=== PATIENT | male | born 1955 | race Two or more races ===

== ENCOUNTER 2018-08-10 19:39 | Emergency (ER) | payer MEDICARE, OTHER ==
[~2018-08-10] VITALS: Ht 177.8 cm; Wt 86.2 kg
[~2018-08-10 19:39] MED LIST: NKM
[2018-08-10 19:40] VITALS: BP 135/84
[2018-08-10 21:14] VITALS: BP 139/79
--- NOTE | 2018-08-10 21:42 | Emergency Room Report ---
History of Present Illness General Chief Complaint: Malfunctioning Gastric Tube Source: EMS Present Illness HPI 62-year-old male presents ED for G-tube re-placement. [facility] Nursing staff noted that G-tube was leaking today. Patient is nonverbal at baseline. Status post traumatic brain injury. Status post craniotomy. Has tracheostomy to trach collar. Upon arrival patient showing no signs of distress. No nausea or vomiting. Afebrile. No other aggravating relieving factors. No other associated symptoms Allergies: Coded Allergies: No Known Allergies (Unverified , 10/30/15) Patient History Past Medical History: seizures, other - dysphagia Past Surgical History: none, other - craniotoomy Pertinent Family History: none Social History: Denies: smoking, alcohol use, drug use Immunizations: UTD Reviewed Nursing Documentation: PMH: Agreed; PSxH: Agreed Nursing Documentation-PMH Past Medical History Deferred: Pt Cognitively Impaired Past Medical History: No History, Except For Hx Gastrointestinal Problems: Yes - Dysphasia Hx Neurological Problems: Yes - epilepsy Hx Cerebrovascular Accident: Yes - Traumatic subdermal hemmorhage Hx Seizures: Yes Review of Systems All Other Systems: limited Physical Exam Vital Signs Date Time Temp Pulse Resp B/P (MAP) Pulse Ox O2 Delivery O2 Flow Rate FiO2 08/10/18 19:34 98.2 76 16 135/84 99 Trach Collar 4.0 Sp02 EP Interpretation: reviewed, normal General Appearance: other - nonverbal Head: other - s/p craniotomy Eyes: bilateral eye normal inspection, bilateral eye PERRL ENT: normal ENT inspection Neck: tracheotomy Respiratory: chest non-tender, lungs clear, normal breath sounds, speaking full sentences Cardiovascular #1: regular rate, rhythm, no edema Gastrointestinal: normal bowel sounds, non tender, soft, non-distended, no guarding, no rebound, other - Gtube site C/D/I Rectal: deferred Genitourinary: no CVA tenderness Musculoskeletal: normal inspection Neurologic: other - nonverbal Psychiatric: other - nonverbal Skin: normal inspection Lymphatic: normal inspection Procedures Additional Procedure Procedure Narrative G-tube placement Patient placed on stretcher. Old G-tube is removed by deflating the balloon using syringe. G-tube site is inspected with no contraindications to G-tube placement. G-tube slowly inserted until resistance is met; G-tube balloon is slowly filled with 20 mL of normal saline and slowly retracted back until resistance is met. G-tube placement is confirmed with KUB study using Gastrografin Medical Decision Making Diagnostic Impression: Primary Impression: Malfunction of gastrostomy tube ER Course Hospital Course 62-year-old male presents to ED for G-tube placement. leaking at SNF Clinical course Patient placed on stretcher. After initial history and physical I replaced G- tube and inflate the balloon. G-tube placement confirmed with KUB study. Patient remained stable without any signs of distress. care home called and patient subsequently discharged back to facility. Diagnosis - malfunction of G tube stable and discharged back to facility. Followup with PMD. Return to ED if symptoms recur or worsen Other X-Ray Diagnostic Results Other X-Ray Diagnostic Results : X-Ray ordered: KUB # of Views/Limited Vs Complete: 1 View Indication: Other - Gtube placement EP Interpretation: Yes Interpretation: nonspecific bowel gas, no sbo, other - Gtube in place with no extravasation Impression: Other - Gtube in position Electronically Signed by: Electronically signed by Curt Luevano MD Last Vital Signs Date Time Temp Pulse Resp B/P (MAP) Pulse Ox O2 Delivery O2 Flow Rate FiO2 08/10/18 19:40 98.2 74 16 135/84 99 Trach Collar 4.0 Status: improved Disposition: XFER SNF Condition: Stable Patient Instructions: Gastrostomy Tube Home Guide, Adult Curt Luevano MD Aug 10, 2018 21:42
--- NOTE | 2018-08-11 11:28 | Diagnostic Imaging Report ---
Indication: Abdominal pain. Gastrostomy tube malfunction. Technique: XRAY Abdomen 1v Comparison: None Findings: Single image obtained after injection of contrast via the indwelling gastrostomy catheter. There is opacification of the stomach. No extraluminal extravasation of contrast is identified. Portions of likely ventriculoperitoneal catheters are noted. One catheter seems to terminate in the right upper quadrant and the second apparently in the left lower quadrant. There is dilatation of loops of bowel with significant amount of retained stool. Bowel obstruction not excluded. Impression: Stress me tube in the stomach. No extraluminal extravasation of injected contrast. Dilated loops of bowel with significant retained stool. Bowel obstruction not excludable. Portions of likely ventriculoperitoneal shunt catheters partially visualized. Correlate clinically. This corresponds with the statrad preliminary report.
== END 2018-08-10 21:14 ==
LOC: EDBD 19:39 → EMR 20:24
DX: K94.23 Gastrostomy malfunction (principal); G40.909 Epilepsy, unspecified, not intractable, without status epilepticus; I69.991 Dysphagia following unspecified cerebrovascular disease; Z93.0 Tracheostomy status
CPT/HCPCS: 43760; 74018; 99283; Q9963

== ENCOUNTER 2018-10-09 09:03 | Inpatient (IN) | payer OTHER ==
[~2018-10-09] VITALS: Ht 170.2 cm; Wt 74.8 kg
--- NOTE | 2018-10-09 09:05 | NUR ---
ED Nurse Note: ruth came in brought in by ambulance from [facility], [facility], due to increased of HR 157, fever 101.2 oral, RT by the bedside.
[2018-10-09] MEDS ORDERED: NS 1000ml 2,200 ML IVLG ONE (09:15)
[2018-10-09] MEDS ORDERED: Cefepime HCl 2 GM in NS 110 ML IV SCH (09:15)
--- NOTE | 2018-10-09 09:15 | NUR ---
ED Nurse Note:called labs for blood draw
[2018-10-09] MEDS ORDERED: ACETAMINOP160 MG/55 GT (09:27)
[2018-10-09] MEDS ORDERED: IPRATROPIU0.2 MG/1 M HHN (09:32)
[2018-10-09] MEDS ORDERED: PROAIR HFA8.5 GM INH (09:32)
[2018-10-09] MEDS ORDERED: FLORASTOR250 MG GT (09:32)
[2018-10-09] MEDS ORDERED: DOCUSATE SODIU100 MG GT (09:32)
[2018-10-09] MEDS ORDERED: FERROUS SU220 MG/53 GT (09:32)
[2018-10-09] MEDS ORDERED: LABETALOL HCL100 MG GT (09:32)
--- NOTE | 2018-10-09 09:33 | NUR ---
ED Nurse Note: attempted to start IV line with 3 RNs/concrete handler unable to,
[2018-10-09] MEDS ORDERED: Heparin 2000 units/Ns 1000ml INJ ONE (09:45)
[2018-10-09] MEDS ORDERED: Lidocaine 1% Plain 30 ml INJ ONE (09:45)
[2018-10-09] MEDS ORDERED: LEVETIRACE100 MG/1 M GT (09:46)
[2018-10-09] MEDS ORDERED: POLYETHYLENE GL17 GM ORAL (09:49)
[2018-10-09] MEDS ORDERED: [UNRECOGNIZED DRUG - CODE] GT (09:49)
[2018-10-09] MEDS ORDERED: WARFARIN SODIUM6 MG GT (09:49)
[2018-10-09] MEDS ORDERED: METOCLOPRA10 MG/10 M GT (09:49)
[2018-10-09] MEDS ORDERED: LEVOTHYROXINE75 MCG GT (09:49)
--- NOTE | 2018-10-09 09:55 | NUR ---
ED Nurse Note: straigt cath performed using sterile techique to obtain ua per Dr. Reed's order
--- NOTE | 2018-10-09 09:57 | NUR ---
ED Nurse Note: UA and flu swab done sent down to bal
--- NOTE | 2018-10-09 09:58 | NUR ---
ED Nurse Note: UA and flu swab done sent down to lab
--- NOTE | 2018-10-09 09:59 | NUR ---
TELEPHONE CONSENT OBTAINED FROM (GRISELDA HERNANDEZ) FOR THE PICC LINE INSERTION DUE TO PATIENT IS NON -VERBAL
[2018-10-09 10:04] LABS: APPEARANCE,URINE CLEAR; BILIRUBIN, URINE NEGATIVE (NEGATIVE); GLUCOSE, URINE (UA) NEGATIVE (NEGATIVE); KETONES,URINE 3+ (NEGATIVE); LEUKOCYTE ESTERASE ,URINE 1+ (NEGATIVE); NITRITE,URINE NEGATIVE (NEGATIVE); PH,URINE 5 (4.5-8.0); PROTEIN,URINE 2+ (NEGATIVE); UROBILINOGEN,URINE 4 MG/DL (0.0-1.0)
[2018-10-09 10:05] LABS: COLOR,URINE AMBER
[2018-10-09 10:10] VITALS: BP 96/73
[2018-10-09] MEDS ORDERED: Acetaminophen 500mg (ES) tab ORAL ONE (10:30)
--- NOTE | 2018-10-09 11:09 | Diagnostic Imaging Report ---
Indication: Dyspnea Comparison: None A single view chest radiograph was obtained. Findings: Distended colon with air noted in the upper abdomen. Lung volumes are low. There are bilateral infiltrates versus patchy areas of interstitial/alveolar edema. 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 Tracheostomy is noted. IMPRESSION: Bilateral infiltrates versus patchy pulmonary edema. Correlate clinically Moderately distended colon within the upper abdomen
--- NOTE | 2018-10-09 11:30 | Emergency Room Report ---
History of Present Illness General Chief Complaint: General Complaint Source: EMS Present Illness HPI 62-year-old male nonverbal, with trach and PEG, sent in for fever from alf, patient has history of craniotomy and unable to give any history at all. 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 Hx Seizures: Yes Review of Systems All Other Systems: limited - 2/2 med condition Physical Exam Vital Signs Date Time Temp Pulse Resp B/P (MAP) Pulse Ox O2 Delivery O2 Flow Rate FiO2 10/09/18 08:56 155 28 102/46 89 Mechanical Ventilator 10/09/18 10:10 101.4 100 Sp02 EP Interpretation: reviewed, normal General Appearance: no apparent distress Head: atraumatic - R craniotomy Eyes: bilateral eye normal inspection ENT: normal ENT inspection, normal pharynx, moist mucus membranes Neck: normal inspection, full range of motion, supple, supple/symm/no masses, tracheotomy - site C/D/I Respiratory: chest non-tender, lungs clear, normal breath sounds, chest symmetrical, palpation of chest normal Cardiovascular #1: normal peripheral pulses, regular rate, rhythm, tachycardia Cardiovascular #2: 2+ radial (R), 2+ radial (L) Gastrointestinal: normal inspection, non tender, soft, no mass, no guarding, no rebound, other - PEG site c/d/i Genitourinary: normal inspection, no CVA tenderness Musculoskeletal: digits/nails normal Neurologic: alert Psychiatric: other - flat affect Skin: normal color, no rash, warm/dry, normal turgor Lymphatic: no adenopathy Medical Decision Making Diagnostic Impression: Primary Impression: Sepsis ER Course Patient treated for sepsis with 30cc/kg ivf, blood cx, lactic acid, broad spectrum abx. Focused sepsis exam at 11:25am reveals patient hemodynamically stable. Given tylenol for fever, tachycardia. Patient admitted for further evaluation. EKG Diagnostic Results EKG Time: 09:04 EP Interpretation: no stemi Rate: tachycardiac Rhythm: NSR ST Segments: no acute changes ASA given to the pt in ED: No Rhythm Strip Diag. Results Rhythm Strip Time: 11:29 EP Interpretation: yes Rate: 138 Rhythm: NSR, no PVC's, no ectopy Last Vital Signs Date Time Temp Pulse Resp B/P (MAP) Pulse Ox O2 Delivery O2 Flow Rate FiO2 10/09/18 10:14 154 33 Trach Collar 100 10/09/18 10:10 101.4 96/73 97 Disposition: ADMITTED INPATIENT Condition: Stable Referrals: NON PHYSICIAN (PCP) NEYMAR OROZCO M.D Oct 09, 2018 11:30
--- NOTE | 2018-10-09 11:44 | NUR ---
ED Nurse Note: CALLED THE LAB FOR BLOOD DRAW
--- NOTE | 2018-10-09 11:46 | NUR ---
ED Nurse Note: VERIFIED WITH MECHE WILSON TO USE THE LINE
[2018-10-09] MEDS ORDERED: LORazepam Inj 2mg/ml 1ml IV PRN (12:15)
[2018-10-09] MEDS ORDERED: Morphine Sulfate 4mg/ml Inj (IV/IM USE ONLY) IVP PRN (12:15)
[2018-10-09] MEDS ORDERED: Albuterol/Ipratropium 3ml neb HHN PRN (12:15)
[2018-10-09] MEDS ORDERED: Miralax 17gm pkt ORAL PRN (12:15)
--- NOTE | 2018-10-09 12:33 | Diagnostic Imaging Report ---
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 The left upper extremity was prepped with alcohol. All elements of maximal sterile barrier technique were followed including usage of a cap, mask, sterile gown, sterile gloves, hand hygiene and a large sterile sheet. Sonographic evaluation of the upper extremity was performed demonstrating a patent and compressible basilic vein. Access was obtained under real-time ultrasound guidance (with utilization of sterile gel and sterile probe cover) and digital image was saved and archived. An .018 wire was introduced. Needle exchanged for a 5 Chinese peel-away sheath. Measurements were obtained. A 5 Chinese dual-lumen Power PICC line catheter was cut to 30 cm and introduced over the wire. Peel-away sheath and wire were removed.Catheter was secured to the skin using 2-0 Prolene suture. Both ports aspirate and flush easily. Post procedure chest x-ray demonstrates good position of the PICC line catheter within the peripheral aspect of the left subclavian vein. Attempts at passing a wire and catheter beyond this point were unsuccessful at the bedside. Impression: Unsuccessful central placement of an upper extremity PICC line catheter. A midline catheter was placed with the tip in the left subclavian vein. This may be used for peripheral access.
[2018-10-09 12:35] LABS: HEMATOCRIT 44.9 % (42.0-52.0); HEMOGLOBIN 14.9 G/DL (14.2-18.0); MEAN CORPUSCULAR VOLUME 89 FL (80-99); PLATELET COUNT 187 K/UL (150-450); RED BLOOD COUNT 5.07 M/UL (4.70-6.10); RED CELL DISTRIBUTION WIDTH 13.7 % (11.6-14.8); WHITE BLOOD COUNT 17.9 K/UL (4.8-10.8)
[2018-10-09 12:36] LABS: ANION GAP 11 mmol/L (5-15); BLOOD UREA NITROGEN 28 mg/dL (7-18); CALCIUM 9.2 MG/DL (8.5-10.1); CARBON DIOXIDE 26 MMOL/L (21-32); CHLORIDE 104 MMOL/L (98-107); CREATININE 0.9 MG/DL (0.55-1.30); POTASSIUM 3.4 MMOL/L (3.5-5.1); SODIUM 141 MMOL/L (136-145)
[2018-10-09 12:41] LABS: INR 2.2 (0.9-1.1)
[2018-10-09 13:02] LABS: ALANINE AMINOTRANSFERASE 32 U/L (12-78); ALBUMIN 3.6 G/DL (3.4-5.0); ALBUMIN/GLOBULIN RATIO 0.8 (1.0-2.7); ALKALINE PHOSPHATASE 81 U/L (46-116); ASPARTATE AMINO TRANSFERASE 16 U/L (15-37); BILIRUBIN,TOTAL 0.9 MG/DL (0.2-1.0); CKMB 0.6 NG/ML (0.0-3.6); CREATINE KINASE 63 U/L (26-308)
--- NOTE | 2018-10-09 13:06 | NUR ---
ED Nurse Note: swabs done and sent down to the lab. pt had 1 green BM soft, cleaned the pt, kept dry/clean. skin is intact, no opening noted. sacral redness noted. g-tube flushed.
[2018-10-09 13:32] VITALS: BP 97/62
--- NOTE | 2018-10-09 13:35 | NUR ---
ED Nurse Note: report given to Manjit at SDU patient has no belongings.
[2018-10-09 14:00] VITALS: BP 108/78
--- NOTE | 2018-10-09 14:30 | NUR ---
NURSE NOTES: Patient admitted to T[facility] room 241-2 under the care of Dr. Cates with admitting diagnosis of sepsis. Patient has flat affect, nonverbal, unable to make needs known and follow commands. Receiving O2 via T-piece @ 10 L/min, FiO2 50%, noted with thick secretions, tracheal suctioning provided. GT in place and flushed. Skin intact, noted with multiple rashes. Left upper arm midline patent and asymptomatic. Bed locked in lowest position with side rails up x 3. All needs attended to. Will continue to monitor.
[2018-10-09] MEDS ORDERED: Vancomycin 1.5 GM/D5W 250ML IVPB ONE (15:00)
--- NOTE | 2018-10-09 15:03 | History & Physical ---
History and Physical History & Physicial Lion Cates MD Oct 09, 2018 15:03
--- NOTE | 2018-10-09 15:22 | Consultation ---
History of Present Illness General Date patient seen: Oct 09, 2018 Chief Complaint: General Complaint Present Illness HPI 62 y/o M with hx of non verbal status, s/p trach and peg, seizure disorder, traumatic subdermal hemorrhage s/p craniotomy, senior care resident presents to ED on 10/09 with fever. Allergies: Coded Allergies: No Known Allergies (Unverified , 10/30/15) Medication History Scheduled Cholecalciferol (Vitamin D3) (Vitamin D3), 2,000 UNIT GT DAILY, (Reported) Ferrous Sulfate (Ferrous Sulfate), 7.5 ML GT DAILY, (Reported) Labetalol Hcl* (Normodyne*), 100 MG GT EVERY 8 HOURS, (Reported) Levetiracetam* (Levetiracetam*), 500 MG GT BID, (Reported) Levothyroxine Sodium* (Levothyroxine Sodium*), 75 MCG GT DAILY, (Reported) Metoclopramide Hcl* (Metoclopramide Hcl*), 10 MG GT EVERY 6 HOURS, (Reported) No Known Medications* (NKM - No Known Medications*), 0 ., (Reported) Saccharomyces Boulardii (Florastor*), 250 MG GT DAILY, (Reported) Warfarin Sod* (Warfarin Sod*), 6 MG GT DAILY, (Reported) Scheduled PRN Acetaminophen* (Acetaminophen*), 640 MG GT Q6H PRN for Mild Pain/Temp > 100.5, ( Reported) Albuterol Sulfate* (Proair Hfa*), 2 PUFFS INH Q6H PRN for Shortness of Breath, ( Reported) Docusate Sodium* (Docusate Sodium*), 100 MG GT EVERY 12 HOURS PRN for Constipation, (Reported) Ipratropium Marion 0.5MG/2.5ML (Ipratropium Marion 0.5MG/2.5ML), 0.5 MG HHN Q6H PRN for Shortness of Breath, (Reported) Polyethylene Glycol 3350* (Polyethylene Glycol 3350*), 17 GM ORAL BEDTIME PRN for Constipation, (Reported) Patient History Healthcare decision maker Resuscitation status Advanced Directive on File Patient History Narrative Pmhx: as above Shx: reviewed Fhx:non contributory Physical Exam Physical Exam Narrative General Appearance: no apparent distress HEENT: atraumatic - R craniotomy normal ENT inspection, normal pharynx, moist mucus membranes Neck: normal inspection, full range of motion, supple, supple/symm/no masses, tracheotomy - site C/D/I Respiratory: chest non-tender, lungs clear, normal breath sounds, chest symmetrical, palpation of chest normal Cardiovascular : normal peripheral pulses, regular rate, rhythm, tachycardia Gastrointestinal: normal inspection, non tender, soft, no mass, no guarding, no rebound, other - PEG site c/d/i Genitourinary: normal inspection, no CVA tenderness Musculoskeletal: digits/nails normal Skin: normal color, no rash, warm/dry, normal turgor Lymphatic: no adenopathy Last 24 Hour Vital Signs Date Time Temp Pulse Resp B/P (MAP) Pulse Ox O2 Delivery O2 Flow Rate FiO2 10/09/18 14:46 122 108/78 10/09/18 13:34 100.7 123 25 97/62 100 Trach Collar 100 10/09/18 13:32 100.7 123 25 97/62 100 Trach Collar 100 10/09/18 13:30 T-piece 50 10/09/18 11:14 100.7 10/09/18 10:14 154 33 Trach Collar 100 10/09/18 10:10 101.4 154 33 96/73 97 Trach Collar 100 10/09/18 10:00 92 T-piece 70 10/09/18 10:00 T-piece 70 10/09/18 08:56 155 28 102/46 89 Mechanical Ventilator Laboratory Tests Test 10/09/18 09:42 10/09/18 12:15 Urine Color Eun Urine Appearance Clear Urine pH 5 (4.5-8.0) Urine Specific [place] 1.025 (1.005-1.035) Urine Protein 2+ (NEGATIVE) H Urine Glucose (UA) Negative (NEGATIVE) Urine Ketones 3+ (NEGATIVE) H Urine Blood 1+ (NEGATIVE) H Urine Nitrite Negative (NEGATIVE) Urine Bilirubin Negative (NEGATIVE) Urine Ictotest Negative (NEGATIVE) Urine Urobilinogen 4 MG/DL (0.0-1.0) H Urine Leukocyte Esterase 1+ (NEGATIVE) H Urine RBC 2-4 /HPF (0 - 0) H Urine WBC 10-15 /HPF (0 - 0) H Urine Squamous Epithelial Cells Occasional /LPF Urine Bacteria Few /HPF (NONE) White Blood Count 17.9 K/UL (4.8-10.8) H Red Blood Count 5.07 M/UL (4.70-6.10) Hemoglobin 14.9 G/DL (14.2-18.0) Hematocrit 44.9 % (42.0-52.0) Mean Corpuscular Volume 89 FL (80-99) Mean Corpuscular Hemoglobin 29.3 PG (27.0-31.0) Mean Corpuscular Hemoglobin Concent 33.1 G/DL (32.0-36.0) Red Cell Distribution Width 13.7 % (11.6-14.8) Platelet Count 187 K/UL (150-450) Mean Platelet Volume 9.1 FL (6.5-10.1) Neutrophils (%) (Auto) % (45.0-75.0) Lymphocytes (%) (Auto) % (20.0-45.0) Monocytes (%) (Auto) % (1.0-10.0) Eosinophils (%) (Auto) % (0.0-3.0) Basophils (%) (Auto) % (0.0-2.0) Differential Total Cells Counted 100 Neutrophils % (Manual) 84 % (45-75) H Lymphocytes % (Manual) 2 % (20-45) L Monocytes % (Manual) 6 % (1-10) Eosinophils % (Manual) 0 % (0-3) Basophils % (Manual) 0 % (0-2) Band Neutrophils 8 % (0-8) Platelet Estimate Adequate Platelet Morphology Normal Red Blood Cell Morphology Normal Prothrombin Time 22.2 SEC (9.30-11.50) H Prothromb Time International Ratio 2.2 (0.9-1.1) H Activated Partial Thromboplast Time 44 SEC (23-33) H Sodium Level 141 MMOL/L (136-145) Potassium Level 3.4 MMOL/L (3.5-5.1) L Chloride Level 104 MMOL/L (98-107) Carbon Dioxide Level 26 MMOL/L (21-32) Anion Gap 11 mmol/L (5-15) Blood Urea Nitrogen 28 mg/dL (7-18) H Creatinine 0.9 MG/DL (0.55-1.30) Estimat Glomerular Filtration Rate > 60 mL/min (>60) Glucose Level 113 MG/DL (74-106) H Lactic Acid Level 1.70 mmol/L (0.4-2.0) Calcium Level 9.2 MG/DL (8.5-10.1) Total Bilirubin 0.9 MG/DL (0.2-1.0) Aspartate Amino Transf (AST/SGOT) 16 U/L (15-37) Alanine Aminotransferase (ALT/SGPT) 32 U/L (12-78) Alkaline Phosphatase 81 U/L (46-116) Total Creatine Kinase 63 U/L (26-308) Creatine Kinase MB 0.6 NG/ML (0.0-3.6) Creatine Kinase MB Relative Index 0.9 Troponin I 0.064 ng/mL (0.000-0.056) Pro-B-Type Natriuretic Peptide 1007 pg/mL (0-125) H Total Protein 8.2 G/DL (6.4-8.2) Albumin 3.6 G/DL (3.4-5.0) Globulin 4.6 g/dL Albumin/Globulin Ratio 0.8 (1.0-2.7) L Microbiology Date/Time Source Procedure Growth Status 10/09/18 09:35 Nasal Nares Influenza Types A,B Antigen (GILLIAN) - Final Complete Height (Feet): 5 Height (Inches): 7.00 Weight (Pounds): 160 Medications Current Medications Medications (Trade) Dose Ordered Sig/Yesenia Route PRN Reason Start Time Stop Time Status Last Admin Dose Admin Acetaminophen (Tylenol) 650 mg Q4H PRN ORAL T>100.5 10/09/18 13:15 11/08/18 12:14 Albuterol/ Ipratropium (Albuterol/ Ipratropium) 3 ml Q4H PRN HHN Shortness of Breath 10/09/18 12:15 10/14/18 12:14 Cefepime HCl 1 gm/ Dextrose 50 ml @ 100 mls/hr EVERY 12 HOURS IVPB 10/09/18 22:00 10/16/18 21:59 Chlorhexidine Gluconate (Kaila-Hex 2%) 1 applic DAILY@2000 TOPIC 10/09/18 20:00 11/08/18 19:59 Dextrose (Dextrose 50%) 25 ml Q30M PRN IV Hypoglycemia 10/09/18 13:15 11/08/18 13:05 Dextrose (Dextrose 50%) 50 ml Q30M PRN IV hypoglycemia 10/09/18 13:15 11/08/18 13:14 Labetalol HCl (Normodyne) 100 mg EVERY 8 HOURS GT 10/09/18 14:00 11/08/18 13:59 10/09/18 14:46 Levetiracetam (Keppra) 500 mg Q12HR GT 10/09/18 21:00 11/08/18 20:59 Levothyroxine Sodium (Synthroid) 75 mcg DAILY GT 10/10/18 09:00 11/09/18 08:59 Lorazepam (Ativan 2mg/ml 1ml) 2 mg Q2H PRN IV For Anxiety 10/09/18 12:15 10/16/18 12:14 Morphine Sulfate (Morphine Sulfate) 4 mg Q4H PRN IVP Severe Pain (Pain Scale 7-10) 10/09/18 12:15 10/16/18 12:14 Ondansetron HCl (Zofran) 4 mg Q6H PRN IVP Nausea & Vomiting 10/09/18 12:15 11/08/18 12:14 Pantoprazole (Protonix) 40 mg DAILY IV 10/10/18 09:00 11/09/18 08:59 Polyethylene Glycol (Miralax) 17 gm DAILYPRN PRN ORAL Constipation 10/09/18 12:15 11/08/18 12:14 Vancomycin HCl (Vanco rx to dose) 1 ea DAILY PRN MISC . 10/09/18 13:15 11/08/18 13:14 Vancomycin HCl/ Dextrose 250 ml @ 125 mls/hr ONCE ONCE IVPB 10/09/18 15:00 10/09/18 16:59 10/09/18 14:47 Vancomycin HCl/ Dextrose 250 ml @ 166.667 mls/hr Q12HR@0300,1500 IVPB 10/10/18 03:00 10/15/18 02:59 Warfarin Sodium (Coumadin per pharmacy) 1 ea DAILY PRN MISC Per rx protocol 10/09/18 15:00 11/08/18 14:59 UNV Assessment/Plan Assessment/Plan Abx: IV Vancomycin 10/09- Cefepime 10/09- Levaquin x 1 10/09 Assessment: Sepsis 2ry to PNA -CXR: There are bilateral infiltrates versus patchy areas of interstitial/ alveolar edema. 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 -influenza sc neg Acute on chronic resp failure Fever, improving Leukocytosis non verbal status s/p trach and peg seizure disorder traumatic subdermal hemorrhage s/p craniotomy senior care resident Plan: -Continue empiric IV Vancomycin, Levaquin and Cefepime #1 for PNA pending cultures -f/u cx -Monitor CBC/CMP, temperatures -legionella ag urine -aspiration precautions Thank you for this consultation. Will continue to follow along with you. Discussed with MARI. Janel Salinas M.D. Oct 09, 2018 15:22
[2018-10-09 16:00] VITALS: BP 110/67
--- NOTE | 2018-10-09 16:41 | NUR ---
CASE MANAGEMENT: REVIEW 62/M JOHN FROM [facility] CC: FEVER SI: SEPSIS . ASPIRATION PNEUMONIA T 101.4 HR 155 RR 33 BP 96/73 SAT 89% MECH VENT FIO2 100 WBC 17.9 K 3.4 BUN 28 IS: LEVOFLOXACIN IV X1 CEFEPIME IV X1 NS IVF BOLUS X1 TYLENOL PO X1 INTERQUAL CRITERIA MET: PATIENT ADMITTED TO STEP DOWN UNIT 10/09/2018 DCP: PATIENT IS FROM [facility]
[2018-10-09] MEDS: D5 1/2NS w/KCl 20mEq 1,000 ML IV SCH (16:47)
--- NOTE | 2018-10-09 19:31 | NUR ---
HAND-OFF: Report given to Yas Natarajan RN.
--- NOTE | 2018-10-09 19:35 | NUR ---
NURSE NOTES: Received bedside report with MARI Capellan from MARI Deutsch.Patient stable,obtunded,ST on telemetry monitor,portex 7,T Piece,10 L FiO2 50% ,IV intact,skin intact,no s/s of respiratory distress noted,bed in a low safety position,call light within a reach,will continue to monitor
--- NOTE | 2018-10-09 19:38 | NUR ---
NURSE NOTES: Report received from MARI Solitario. Patient seen in bed in portillo position with trach, 10L oxygen, 50%, no acute respiratory distress present at this time. patient is alert, no signs and symptom of pain noted at this time. Midline to left upper arm is intact. Currently on IVF of D51/2NS with 20mEq K at 75CC/hr. GTF of [facility] is running at 15cc/hr, goal is to reach 30 cc/hr. GT site is intact. Bed is in lowest position. Call light is within reach. Will continue to monitor.
[2018-10-09 20:00] VITALS: BP 110/80
[2018-10-09] MEDS: Dyna-Hex 2% Top Sol 2oz TOPIC SCH (20:15)
--- NOTE | 2018-10-09 20:15 | History and Physical Report ---
DATE OF ADMISSION: 10/09/2018 CHIEF COMPLAINT: [facility] at the [facility]. 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 Shortly after initial evaluation in the emergency, the patient was noted to have a fever of 100.7 with white count of 17.9 and then subsequently, the patient was admitted to the hospital for sepsis, possibly due to pneumonia. PAST MEDICAL HISTORY/PAST SURGICAL HISTORY: Significant as above. History of traumatic subdural hemorrhage, status post tracheostomy and PEG placement, epilepsy, hypothyroidism, hypertension, encephalopathy, history of craniotomy, dysphagia, status post percutaneous endoscopic gastrostomy, in a coma state. MEDICATIONS AT HOME: Refer to medication reconciliation. ALLERGIES: No known drug allergies. SOCIAL HISTORY: The patient is a [facility] resident. No smoking, alcohol, or drugs. FAMILY HISTORY: Noncontributory. REVIEW OF SYSTEMS: Very limited secondary to the patient's status. Most of the history is taken from the ER chart as well as [facility] documentation. The patient was noted to have fever at the nursing facility. No nausea or vomiting was identified. PHYSICAL EXAMINATION: VITAL SIGNS: On admission from the ER, temperature 101.4, pulse of 115, respirations 28, and blood pressure 102/46. GENERAL: The patient is not opening his eyes and cannot follow commands. No acute distress. On the vent. HEENT: Pupils are equal and reactive to light. Anicteric. NECK: Supple. No JVD. Trach site is intact. LUNGS: Good air entry. No wheezing or rhonchi. HEART: Reveals S1, S2. Distant heart sounds. No murmurs or gallops. ABDOMEN: Soft, nondistended, and nontender. Mildly obese. PEG site is clean. EXTREMITIES: No cyanosis, clubbing, or edema. NEUROLOGIC: Limited secondary to the patient's status. The patient has quadriplegia and cannot follow commands. PSYCHIATRIC: Mood and affect unable to obtain. RECTAL: Refused by the at the bedside. LABORATORY AND DIAGNOSTIC DATA: On admission, WBC of 7.9, hemoglobin of 14, hematocrit of 44, and platelets is 187,000. Sodium 141, potassium 3.4, chloride 104, bicarbonate 26, BUN 28, creatinine 0.9, and glucose is 113. Troponin 0.064. ProBNP of 1007. PT of 22, INR is 2.2, and PTT of 44. UA is +2 protein, +3 ketone, +4 urobilinogen, leukocyte is +1, and 10 to 15 wbc. The patient's chest x-ray noted to be bilateral infiltrate versus patchy pulmonary edema and moderately distended colon within the upper abdomen. The patient underwent successfully PICC line placement in the upper extremity in the ER. ASSESSMENT: 1. Sepsis secondary to urinary tract infection versus pneumonia. 2. Chronic respiratory failure, on ventilation. 3. History of traumatic subdural hematoma. 4. History of deep venous thrombosis, on Coumadin. 5. Hypertension. 6. Hypothyroidism. 7. Morbid obesity. 8. Traumatic brain injury with coma stage. 9. Epilepsy. 10. Dysphagia status post percutaneous endoscopic gastrostomy. PLAN: 1. Admit the patient to [facility]. 2. We will follow up the cultures. Broad-spectrum antibiotics with cefepime and vancomycin. 3. We will continue on Coumadin per pharmacy. CODE STATUS: At this time, is Full Code per POL, was done on 03/24/2017. Copy was presented in the chart. Discussed with extensively at bedside and will follow up with Dr. Foley, Pulmonary Critical Care consultation and Infection Disease consultation. Lion Cates M.D. DR: DARLY JOB#: [id number] CC:
[2018-10-09] MEDS: levETIRAcetam 500mg/5ml Liquid GT SCH (20:16)
[2018-10-09] MEDS ORDERED: Heparin 5000 units/ml inj SUBQ SCH (21:00)
--- NOTE | 2018-10-09 21:00 | Consultation ---
DATE OF CONSULTATION: 10/09/2018 INFECTIOUS DISEASE CONSULTATION CONSULTING PHYSICIAN: Bijan Mo M.D. REQUESTING PHYSICIAN: Lion Cates M.D. REASON FOR CONSULTATION: Bilateral pneumonia, UTI, sepsis, and skin rash. Recommendation for antibiotics treatment in the patient with possible allergy to amoxicillin, who developed skin rash. HISTORY OF PRESENT ILLNESS: The patient is a 62-year-old male, nonverbal with past medical history of dysphagia, status post PEG tube; chronic respiratory failure, status post tracheostomy; and traumatic subdermal hemorrhage of the brain, [facility] for fever of 101.3 and tachycardia of 150. The patient was recently treated for VRE in the urine with amoxicillin initially at the [facility] and he developed rash right after that, then he was switched to Keflex, and then later to doxycycline as per the [facility] report with no significant improvement. The patient developed fever today with temperature of 101.3 and he was tachycardic with heart rate of 150 concerning for sepsis, so he was sent to the emergency room at [facility] for evaluation. The patient was found to have bilateral pneumonia and urinary tract infection with diffuse papular skin rash, so he received cefepime and levofloxacin in the emergency room and an Infectious Disease consultation was requested for antibiotics treatment and further management. As of note, the patient is nonverbal and cannot provide any history due to previous craniotomy. History was mainly obtained from the medical record, [facility] report, and nursing staff. REVIEW OF SYSTEMS: Unable to obtain. The patient is poor historian and cannot provide any history. PAST MEDICAL HISTORY: Significant for craniotomy due to traumatic subdural hemorrhage, seizure disorder, epilepsy, dysphagia, and UTI with VRE. PAST SURGICAL HISTORY: He had craniotomy in the past. FAMILY HISTORY: Unable to obtain. SOCIAL HISTORY: [facility] is a [facility] resident. No recent drugs, tobacco, or alcohol. ALLERGIES: Possibly to amoxicillin as per [facility] report. MEDICATIONS: He received cefepime and levofloxacin in the emergency room. For the rest of his medications, please refer to MAR. PHYSICAL EXAMINATION: VITAL SIGNS: Temperature 100.7, pulse 123, respirations 25, blood pressure 97/62, and saturation 100% on ventilator with collar. HEENT: He has right large craniotomy defect. Skin intact. Pupils both reactive to light and equal. Pale sclerae. Dry oral mucosa. NECK: Supple. No lymphadenopathy. Tracheostomy site looks intact and dry. No bleeding. CARDIOVASCULAR: He is tachycardic. S1 and S2 normal. No murmur. LUNGS: Diminished breathing sound on both sides with crackles. Normal breathing efforts. ABDOMEN: Soft and mildly distended. Normal bowel sounds. PEG tube site looks okay with no drainage or bleeding. No rebound. No ascites. EXTREMITIES: No edema or cyanosis. No pressure wounds. SKIN: Diffuse papular rash mainly on his back, trunk, and lower extremities. LABORATORY AND DIAGNOSTIC DATA: White count of 17.9, hemoglobin of 14.9, and platelet count of 187,000. BUN of 28 and creatinine of 0.9. AST of 16 and ALT of 32. Urinalysis showed +1 leukocyte esterase, wbc's 10 to 15, and few bacteria. Microbiology, influenza screening A and B both negative. Imaging, chest x-ray showed bilateral infiltrates versus patchy pulmonary edema correlate clinically and moderately distended colon within the upper abdomen. ASSESSMENT AND RECOMMENDATIONS: 1. Bilateral aspiration pneumonia. We will continue vancomycin and cefepime empiric coverage for now pending culture results. Aspiration precaution and keep head of bed more than 30-degree all the time with aggressive suctioning through his trach. 2. UTI. Continue cefepime and vancomycin pending urine culture. The patient did not have any Hu. 3. Fever due to the above. Continue wide-spectrum antibiotics pending culture and Tylenol p.r.n. 4. Acute respiratory failure due to the above, on mechanical ventilation. Pulmonary is following. Continue local trach care. Monitor chest x-ray and ABG. Continue aggressive suctioning. 5. Sepsis with leukocytosis due to the above. Continue vancomycin and cefepime pending culture of the blood. 6. Skin rash, suspect drug reaction due to amoxicillin, which [facility] was [facility] the [facility]. As per the record, we obtained. This will need to be added to his allergy list in the future to avoid penicillin products. Thank you for the consult. ID will continue to follow. Please feel free to call with any question. Bijan Mo M.D. DR: DIANNA JOB#: [id number] CC:
[2018-10-10] VITALS: BP 100/63
[2018-10-10] MEDS: Vancomycin 1250mg/D5W 250ml IVPB SCH ×2 (02:30→14:17)
[2018-10-10 04:00] VITALS: BP 110/70
[2018-10-10] MEDS: D5 1/2NS w/KCl 20mEq 1,000 ML IV SCH ×2 (05:39→20:03)
--- NOTE | 2018-10-10 06:00 | NUR ---
NURSE NOTES: Patient not tolerated GT feeding,vomited 2x,abdomen distended,no residual noted,feeding off.Next shift will endorse.
--- NOTE | 2018-10-10 07:16 | NUR ---
HAND-OFF: Report given to MARI Mendoza .
[2018-10-10 07:18] LABS: HEMATOCRIT 38.2 % (42.0-52.0); HEMOGLOBIN 12.8 G/DL (14.2-18.0); MEAN CORPUSCULAR VOLUME 89 FL (80-99); PLATELET COUNT 157 K/UL (150-450); RED CELL DISTRIBUTION WIDTH 13.6 % (11.6-14.8)
[2018-10-10 07:21] LABS: INR 2.2 (0.9-1.1)
--- NOTE | 2018-10-10 07:25 | NUR ---
NURSE NOTES: Report received from MARI Zuniga. Observed patient in bed. Obtunded and non-verbal. T-piece with 10L of oxygen with no distress noted. No s/s of pain at this time. Midline intact and patent with IVF running at prescribed rate. GT site intact and patent. Tube feeding on hold at this time due to episode of vomiting. HOB elevated. Bed in lowest position. Call light within reach. Will continue to monitor.
[2018-10-10 07:51] LABS: ALANINE AMINOTRANSFERASE 28 U/L (12-78); ALBUMIN 3.1 G/DL (3.4-5.0); ALBUMIN/GLOBULIN RATIO 0.7 (1.0-2.7); ALKALINE PHOSPHATASE 70 U/L (46-116); ANION GAP 11 mmol/L (5-15); ASPARTATE AMINO TRANSFERASE 15 U/L (15-37); BILIRUBIN,TOTAL 0.7 MG/DL (0.2-1.0); BLOOD UREA NITROGEN 30 mg/dL (7-18); CALCIUM 9.3 MG/DL (8.5-10.1); CARBON DIOXIDE 26 MMOL/L (21-32); CHLORIDE 102 MMOL/L (98-107); CREATININE 0.8 MG/DL (0.55-1.30); PHOSPHORUS 2.4 MG/DL (2.5-4.9); POTASSIUM 3.3 MMOL/L (3.5-5.1); SODIUM 139 MMOL/L (136-145)
[2018-10-10 08:00] VITALS: BP 98/65
[2018-10-10] MEDS: Pantoprazole Inj IV SCH (08:06)
[2018-10-10] MEDS: levETIRAcetam 500mg/5ml Liquid GT SCH (08:07)
--- NOTE | 2018-10-10 08:22 | NUR ---
NURSE NOTES: Called and left message to Dr. Foley regarding low potassium level and episode of vomiting x 2. Awaiting for call back.
--- NOTE | 2018-10-10 08:30 | NUR ---
NURSE NOTES: Called back from Dr. Foley regarding episode of vomiting and low potassium. Doctor ordered KUB and no new order for low potassium at this time because pt. is getting potassium from IVF. Order carried out.
--- NOTE | 2018-10-10 09:48 | NUR ---
NURSE NOTES: Called and left message to Dr. Salinas regarding pt.'s right thumb is swelling and red. Right thumb nail is almost coming off. Awaiting for call back.
--- NOTE | 2018-10-10 10:11 | NUR ---
CASE MANAGEMENT: INITIAL REVIEW 10/10/2018 SI: SEPSIS . ASPIRATION PNEUMONIA T 97.9 HR 107 RR 18 B/P 98/65 SATS 97% ON 10L/T PIECE FiO2 50 WBC 15 K 3.3 BUN 30 GLU 149 PHOS 2.4 IS: IVF @ 75 mL/HR LABETALOL GT Q8H CEFEPIME IV Q12H COUMADIN PO QD PROTONIX IV QD KEPPRA GT Q12H VANCO IV Q12H STEP DOWN UNIT DCP: PATIENT IS FROM [facility] Addendum: 10/11/18 at 1019 by Vivienne Tao INTERQUAL MET FOR ACUTE
--- NOTE | 2018-10-10 11:43 | Diagnostic Imaging Report ---
EXAM: XR Abdomen, 2 Views CLINICAL HISTORY: VOMITING TECHNIQUE: Frontal view of the abdomen/pelvis with upright view of the abdomen. COMPARISON: KUB 08/10/18 FINDINGS: Lower thorax: Interstitial prominence at the lung bases. Intraperitoneal space: No free air. Gastrointestinal tract: Similar appearance of the dilated colonic and small bowel loops, query ileus versus obstruction. Bones/joints: Unremarkable. Tubes, lines and devices: Tubing overlying the abdomen, similar to prior study. IMPRESSION: Similar appearance of the dilated colonic and small bowel loops, query ileus versus obstruction.
[2018-10-10 12:00] VITALS: BP 112/68
--- NOTE | 2018-10-10 12:02 | Consultation ---
History of Present Illness General Date patient seen: Oct 10, 2018 Time patient seen: 10:00 Chief Complaint: fever Referring physician: dr Cates Reason for Consultation: PNA Present Illness HPI 62 y/o male with PMH of chronic respiratory failure , with tracheostomy status , dysphagia , G-tube, history of subdural hematoma and seizure disorder, quadriplegia , history of DVT, hypertension ,hypothyroidism ,presented from the [facility] facility for evaluation due to fever. Upon evaluation patient was febrile with temperature 101.4 , tachycardic 155 , tachypneic 28. Pulse oximetry was 89% on 100% FiO2 via trach collar. Laboratory workup revealed leukocytosis WBC 17.9 with shift to the left. Stable hemoglobin and hematocrit. Potassium 3.4. BUN 28, creatinine 0.9. Glucose 113. Troponin 0.064. EKG revealed sinus tachycardia , no acute ischemic changes pro BNP 1007. Chest x-ray revealed bilateral infiltrates versus patchy pulmonary edema. Moderately distended colon with upper abdomen. Patient was admitted for further management This am noted distended abdomen. Tube feeding was stopped KUB revealed dilated colonic and small bowel loops; ileus versus obstruction. Allergies: Coded Allergies: AMOXICILLIN (Verified Allergy, Unknown, 10/10/18) Medication History Scheduled Cholecalciferol (Vitamin D3) (Vitamin D3), 2,000 UNIT GT DAILY, (Reported) Ferrous Sulfate (Ferrous Sulfate), 7.5 ML GT DAILY, (Reported) Labetalol Hcl* (Normodyne*), 100 MG GT EVERY 8 HOURS, (Reported) Levetiracetam* (Levetiracetam*), 500 MG GT BID, (Reported) Levothyroxine Sodium* (Levothyroxine Sodium*), 75 MCG GT DAILY, (Reported) Metoclopramide Hcl* (Metoclopramide Hcl*), 10 MG GT EVERY 6 HOURS, (Reported) No Known Medications* (NKM - No Known Medications*), 0 ., (Reported) Saccharomyces Boulardii (Florastor*), 250 MG GT DAILY, (Reported) Warfarin Sod* (Warfarin Sod*), 6 MG GT DAILY, (Reported) Scheduled PRN Acetaminophen* (Acetaminophen*), 640 MG GT Q6H PRN for Mild Pain/Temp > 100.5, ( Reported) Albuterol Sulfate* (Proair Hfa*), 2 PUFFS INH Q6H PRN for Shortness of Breath, ( Reported) Docusate Sodium* (Docusate Sodium*), 100 MG GT EVERY 12 HOURS PRN for Constipation, (Reported) Ipratropium [place] 0.5MG/2.5ML (Ipratropium [place] 0.5MG/2.5ML), 0.5 MG HHN Q6H PRN for Shortness of Breath, (Reported) Polyethylene Glycol 3350* (Polyethylene Glycol 3350*), 17 GM ORAL BEDTIME PRN for Constipation, (Reported) Patient History Limited by: medical condition History Provided By: EMS Healthcare decision maker Jacque Vasquez Resuscitation status Full Code Advanced Directive on File Physical Exam Physical Exam Narrative General Appearance: no acute distress, bedridden, chronically ill looking Respiratory/Chest: few scattered rhonchi , trach with Portex #7, secretions moderate white thick, FiO2 50% via TC Cardiovascular: regular rhythm - SR on tele Abdomen: abdomen soft, distended, G tube clamped Extremities: no edema Skin: generalized papulo-macular erythematous rash, no drainage Neurologic/Psychiatric: bedbound , eyes open, not responsive Musculoskeletal: atrophy - BLE Last 24 Hour Vital Signs Date Time Temp Pulse Resp B/P (MAP) Pulse Ox O2 Delivery O2 Flow Rate FiO2 10/10/18 08:00 110 10/10/18 08:00 97.9 107 18 98/65 (76) 97 10/10/18 08:00 T-piece 10.0 10/10/18 08:00 10.0 50 10/10/18 06:40 108 24 Trach Collar 93 10/10/18 06:40 T-piece 50 10/10/18 06:40 93 50 10/10/18 05:39 111 110/70 10/10/18 04:00 T-piece 10.0 10/10/18 04:00 98.6 113 20 110/70 (83) 97 10/10/18 04:00 111 10/10/18 04:00 10.0 50 10/10/18 01:12 T-piece 50 10/10/18 00:00 110 10/10/18 00:00 T-piece 10.0 10/10/18 00:00 97.8 111 20 100/63 (75) 98 10/09/18 22:00 110 110/80 10/09/18 20:00 10.0 50 10/09/18 20:00 T-piece 10.0 10/09/18 20:00 98.8 110 16 110/80 (90) 96 10/09/18 19:26 116 10/09/18 19:25 112 28 Trach Collar 92 10/09/18 19:25 92 50 10/09/18 19:25 T-piece 50 10/09/18 16:00 10.0 50 10/09/18 16:00 T-piece 10.0 10/09/18 16:00 98.8 101 24 110/67 (81) 95 10/09/18 16:00 108 10/09/18 15:00 T-piece 10.0 10/09/18 14:46 122 108/78 10/09/18 14:33 123 10/09/18 14:00 99.0 122 24 108/78 (88) 95 10/09/18 13:34 100.7 123 25 97/62 100 Trach Collar 100 10/09/18 13:32 100.7 123 25 97/62 100 Trach Collar 100 10/09/18 13:30 T-piece 50 Intake and Output 10/09/18 10/10/18 19:00 07:00 Intake Total 581.25 ml 1941.252 ml Output Total 700 ml Balance 581.25 ml 1241.252 ml Intake Free Water 250 ml IV Total 416.25 ml 1176.252 ml Tube Feeding 45 ml 415 ml Blood Product 100 ml Other 120 ml Output Urine Total 700 ml # Voids 1 # Bowel Movements 1 3 Laboratory Tests Test 10/09/18 12:15 10/10/18 04:00 White Blood Count 17.9 K/UL (4.8-10.8) H 15.0 K/UL (4.8-10.8) H Red Blood Count 5.07 M/UL (4.70-6.10) 4.30 M/UL (4.70-6.10) L Hemoglobin 14.9 G/DL (14.2-18.0) 12.8 G/DL (14.2-18.0) L Hematocrit 44.9 % (42.0-52.0) 38.2 % (42.0-52.0) L Mean Corpuscular Volume 89 FL (80-99) 89 FL (80-99) Mean Corpuscular Hemoglobin 29.3 PG (27.0-31.0) 29.7 PG (27.0-31.0) Mean Corpuscular Hemoglobin Concent 33.1 G/DL (32.0-36.0) 33.4 G/DL (32.0-36.0) Red Cell Distribution Width 13.7 % (11.6-14.8) 13.6 % (11.6-14.8) Platelet Count 187 K/UL (150-450) 157 K/UL (150-450) Mean Platelet Volume 9.1 FL (6.5-10.1) 8.8 FL (6.5-10.1) Neutrophils (%) (Auto) % (45.0-75.0) % (45.0-75.0) Lymphocytes (%) (Auto) % (20.0-45.0) % (20.0-45.0) Monocytes (%) (Auto) % (1.0-10.0) % (1.0-10.0) Eosinophils (%) (Auto) % (0.0-3.0) % (0.0-3.0) Basophils (%) (Auto) % (0.0-2.0) % (0.0-2.0) Differential Total Cells Counted 100 100 Neutrophils % (Manual) 84 % (45-75) H 80 % (45-75) H Lymphocytes % (Manual) 2 % (20-45) L 10 % (20-45) L Monocytes % (Manual) 6 % (1-10) 4 % (1-10) Eosinophils % (Manual) 0 % (0-3) 0 % (0-3) Basophils % (Manual) 0 % (0-2) 1 % (0-2) Band Neutrophils 8 % (0-8) 5 % (0-8) Platelet Estimate Adequate Adequate Platelet Morphology Normal Normal Red Blood Cell Morphology Normal Normal Prothrombin Time 22.2 SEC (9.30-11.50) H 22.0 SEC (9.30-11.50) H Prothromb Time International Ratio 2.2 (0.9-1.1) H 2.2 (0.9-1.1) H Activated Partial Thromboplast Time 44 SEC (23-33) H 56 SEC (23-33) H Sodium Level 141 MMOL/L (136-145) 139 MMOL/L (136-145) Potassium Level 3.4 MMOL/L (3.5-5.1) L 3.3 MMOL/L (3.5-5.1) L Chloride Level 104 MMOL/L (98-107) 102 MMOL/L (98-107) Carbon Dioxide Level 26 MMOL/L (21-32) 26 MMOL/L (21-32) Anion Gap 11 mmol/L (5-15) 11 mmol/L (5-15) Blood Urea Nitrogen 28 mg/dL (7-18) H 30 mg/dL (7-18) H Creatinine 0.9 MG/DL (0.55-1.30) 0.8 MG/DL (0.55-1.30) Estimat Glomerular Filtration Rate > 60 mL/min (>60) > 60 mL/min (>60) Glucose Level 113 MG/DL (74-106) H 149 MG/DL (74-106) H Lactic Acid Level 1.70 mmol/L (0.4-2.0) Calcium Level 9.2 MG/DL (8.5-10.1) 9.3 MG/DL (8.5-10.1) Total Bilirubin 0.9 MG/DL (0.2-1.0) 0.7 MG/DL (0.2-1.0) Aspartate Amino Transf (AST/SGOT) 16 U/L (15-37) 15 U/L (15-37) Alanine Aminotransferase (ALT/SGPT) 32 U/L (12-78) 28 U/L (12-78) Alkaline Phosphatase 81 U/L (46-116) 70 U/L (46-116) Total Creatine Kinase 63 U/L (26-308) Creatine Kinase MB 0.6 NG/ML (0.0-3.6) Creatine Kinase MB Relative Index 0.9 Troponin I 0.064 ng/mL (0.000-0.056) 0.014 ng/mL (0.000-0.056) Pro-B-Type Natriuretic Peptide 1007 pg/mL (0-125) H Total Protein 8.2 G/DL (6.4-8.2) 7.6 G/DL (6.4-8.2) Albumin 3.6 G/DL (3.4-5.0) 3.1 G/DL (3.4-5.0) L Globulin 4.6 g/dL 4.5 g/dL Albumin/Globulin Ratio 0.8 (1.0-2.7) L 0.7 (1.0-2.7) L Phosphorus Level 2.4 MG/DL (2.5-4.9) L Magnesium Level 2.1 MG/DL (1.8-2.4) Microbiology Date/Time Source Procedure Growth Status 10/09/18 12:31 Rectum VRE Culture Pending Resulted 10/09/18 12:31 Rectum - Preliminary Resulted Height (Feet): 5 Height (Inches): 7.00 Weight (Pounds): 167 Medications Current Medications Medications (Trade) Dose Ordered Sig/Yesenia Route PRN Reason Start Time Stop Time Status Last Admin Dose Admin Acetaminophen (Tylenol) 650 mg Q4H PRN ORAL T>100.5 10/09/18 13:15 11/08/18 12:14 Albuterol/ Ipratropium (Albuterol/ Ipratropium) 3 ml Q4H PRN HHN Shortness of Breath 10/09/18 12:15 10/14/18 12:14 Cefepime HCl 1 gm/ Dextrose 50 ml @ 100 mls/hr EVERY 12 HOURS IVPB 10/09/18 22:00 10/16/18 21:59 10/10/18 08:07 Chlorhexidine Gluconate (Kaila-Hex 2%) 1 applic DAILY@2000 TOPIC 10/09/18 20:00 11/08/18 19:59 10/09/18 20:15 Dextrose (Dextrose 50%) 25 ml Q30M PRN IV Hypoglycemia 10/09/18 13:15 11/08/18 13:05 Dextrose (Dextrose 50%) 50 ml Q30M PRN IV hypoglycemia 10/09/18 13:15 11/08/18 13:14 Dextrose/ Electrolytes 1,000 ml @ 75 mls/hr [id number] IV 10/09/18 17:00 11/08/18 16:59 10/10/18 05:39 Labetalol HCl (Normodyne) 100 mg EVERY 8 HOURS GT 10/09/18 14:00 11/08/18 13:59 10/09/18 14:46 Levetiracetam (Keppra) 500 mg Q12HR GT 10/09/18 21:00 11/08/18 20:59 10/10/18 08:07 Levothyroxine Sodium (Synthroid) 75 mcg DAILY GT 10/10/18 09:00 11/09/18 08:59 10/10/18 08:06 Lorazepam (Ativan 2mg/ml 1ml) 2 mg Q2H PRN IV For Anxiety 10/09/18 12:15 10/16/18 12:14 Morphine Sulfate (Morphine Sulfate) 4 mg Q4H PRN IVP Severe Pain (Pain Scale 7-10) 10/09/18 12:15 10/16/18 12:14 Ondansetron HCl (Zofran) 4 mg Q6H PRN IVP Nausea & Vomiting 10/09/18 12:15 11/08/18 12:14 Pantoprazole (Protonix) 40 mg DAILY IV 10/10/18 09:00 11/09/18 08:59 10/10/18 08:06 Polyethylene Glycol (Miralax) 17 gm DAILYPRN PRN ORAL Constipation 10/09/18 12:15 11/08/18 12:14 Vancomycin HCl (Vanco rx to dose) 1 ea DAILY PRN MISC . 10/09/18 13:15 11/08/18 13:14 Vancomycin HCl/ Dextrose 250 ml @ 166.667 mls/hr Q12HR@0300,1500 IVPB 10/10/18 03:00 10/15/18 02:59 10/10/18 02:30 Warfarin Sodium (Coumadin per pharmacy) 1 ea DAILY PRN MISC Per rx protocol 10/09/18 15:00 11/08/18 14:59 Warfarin Sodium (Coumadin) 6 mg COUMADIN ORAL 10/10/18 17:00 10/10/18 18:00 Assessment/Plan Assessment/Plan ASSESSMENT sepsis asp PNA pyuria, possible UTI acute resp failure on chronic with tracheostomy status dysphagia, G tube feeding hypokalemia elevated troponin ZIGGY likely due to dehydration ileus vs small bowel obstruction hx of subdural hematoma with craniotomy seizure disorder hypothyroidism hx of DVT PLAN OF CARE TESS trach care pulm toilet FiO2 currently down to 50%, titrate FiO2 to keep sat above 92% abx, fup with cx ID follows fup with CXR on Friday strict asp precautions, GT feeding on hold due to possible SBO vs joe gastric decompression with tube fup with KUB, GI follows, IVF, monitor renal parameters, lytes, correct lytes as needed ( K in IVF) seizure precautions, continue Keppra Venous Duplex BLE GI prophylaxis monitor HH with goal to keep Hgb above 7 second troponin negative, likelydue to increased demand 2 to sepsis case discussed and evaluated by supervising physician Regla Henderson NP Oct 10, 2018 12:02
--- NOTE | 2018-10-10 12:33 | NUR ---
NURSE NOTES: Informed JINA Arauz regarding result of KUB with no new order at this time.
--- NOTE | 2018-10-10 13:31 | NUR ---
NURSE NOTES: Informed Dr. Mo regarding swelling and redness of right thumb with new order of x-ray. Order carried out.
--- NOTE | 2018-10-10 13:52 | NUR ---
NURSE NOTES: Informed Dr. Pennington about result of KUB with new order to connect GT to low intermittent suction and NPO. Called JINA Arauz to change all medications via GT to IV. Regla said she will see if she can change to IV.
--- NOTE | 2018-10-10 15:39 | Infectious Diseases Prog Note ---
Assessment/Plan Problems: (1) Aspiration pneumonia Assessment & Plan: continue vancomycin and cefepime empiric coverage pending cultures , aspiration precaution and keep HOB > 30 DEGREE (2) UTI (urinary tract infection) Assessment & Plan: continue cefepime pending culture of the urine (3) Fever Assessment & Plan: due to the above , continue wide spectrum antibiotics pending cultures , and tylenol prn (4) Acute respiratory failure Assessment & Plan: due to the above , on mechanical ventilation , pulmonary is follow , continue local trach care, monitor CXR and ABG (5) Sepsis Assessment & Plan: due to the above , continue vancomycin and cefepime pending culture of the blood (6) Skin rash Assessment & Plan: suspect drug reaction due to amox[facility] he was getting [facility] , as per report from [facility] , now on his allergy list Subjective ROS Limited/Unobtainable: Yes Allergies: Coded Allergies: AMOXICILLIN (Verified Allergy, Unknown, 10/10/18) Subjective he was lying in bed, comfortable on ventilator , dosen't respond to verbal commands, no fever or chills, no diarrhea , no significant secretions , less rash on his body Objective Vital Signs Last 24 Hour Vital Signs Date Time Temp Pulse Resp B/P (MAP) Pulse Ox O2 Delivery O2 Flow Rate FiO2 10/10/18 14:00 110 112/68 10/10/18 13:33 T-piece 50 10/10/18 13:19 110 10/10/18 12:00 98.6 106 18 112/68 (83) 95 10/10/18 12:00 T-piece 10.0 10/10/18 12:00 10.0 50 10/10/18 08:00 110 10/10/18 08:00 97.9 107 18 98/65 (76) 97 10/10/18 08:00 T-piece 10.0 10/10/18 08:00 10.0 50 10/10/18 06:40 108 24 Trach Collar 93 10/10/18 06:40 T-piece 50 10/10/18 06:40 93 50 10/10/18 05:39 111 110/70 10/10/18 04:00 T-piece 10.0 10/10/18 04:00 98.6 113 20 110/70 (83) 97 10/10/18 04:00 111 10/10/18 04:00 10.0 50 10/10/18 01:12 T-piece 50 10/10/18 00:00 110 10/10/18 00:00 T-piece 10.0 10/10/18 00:00 97.8 111 20 100/63 (75) 98 10/09/18 22:00 110 110/80 10/09/18 20:00 10.0 50 10/09/18 20:00 T-piece 10.0 10/09/18 20:00 98.8 110 16 110/80 (90) 96 10/09/18 19:26 116 10/09/18 19:25 112 28 Trach Collar 92 10/09/18 19:25 92 50 10/09/18 19:25 T-piece 50 10/09/18 16:00 10.0 50 10/09/18 16:00 T-piece 10.0 10/09/18 16:00 98.8 101 24 110/67 (81) 95 10/09/18 16:00 108 Height (Feet): 5 Height (Inches): 7.00 Weight (Pounds): 167 General Appearance: WD/WN, no acute distress, other - on mechanical ventilation through his trach HEENT: normocephalic, atraumatic, anicteric, mucous membranes moist, PERRL Respiratory/Chest: chest wall non-tender, lungs clear, normal breath sounds, no respiratory distress, no accessory muscle use Cardiovascular: normal peripheral pulses, normal rate, regular rhythm, no gallop/murmur, no JVD Abdomen: normal bowel sounds, soft, non tender, no organomegaly, non distended , no mass, no scars Extremities: no cyanosis, no clubbing Skin: no rash, no lesions, no ulcers Lymphatic: no neck adenopathy, no groin adenopathy Musculoskeletal: normal muscle bulk, no effusion Microbiology Date/Time Source Procedure Growth Status 10/09/18 11:15 Sputum Gram Stain - Final Resulted 10/09/18 11:15 Sputum Sputum Culture - Preliminary Resulted 10/09/18 09:35 Nasal Nares Influenza Types A,B Antigen (GILLIAN) - Final Complete 10/09/18 09:42 Straight Cath Urine Culture - Preliminary NO GROWTH AFTER 24 HOURS Resulted 10/09/18 12:31 Rectum VRE Culture Pending Resulted 10/09/18 12:31 Rectum - Preliminary Resulted Laboratory Tests Test 10/10/18 04:00 White Blood Count 15.0 K/UL (4.8-10.8) H Red Blood Count 4.30 M/UL (4.70-6.10) L Hemoglobin 12.8 G/DL (14.2-18.0) L Hematocrit 38.2 % (42.0-52.0) L Mean Corpuscular Volume 89 FL (80-99) Mean Corpuscular Hemoglobin 29.7 PG (27.0-31.0) Mean Corpuscular Hemoglobin Concent 33.4 G/DL (32.0-36.0) Red Cell Distribution Width 13.6 % (11.6-14.8) Platelet Count 157 K/UL (150-450) Mean Platelet Volume 8.8 FL (6.5-10.1) Neutrophils (%) (Auto) % (45.0-75.0) Lymphocytes (%) (Auto) % (20.0-45.0) Monocytes (%) (Auto) % (1.0-10.0) Eosinophils (%) (Auto) % (0.0-3.0) Basophils (%) (Auto) % (0.0-2.0) Differential Total Cells Counted 100 Neutrophils % (Manual) 80 % (45-75) H Lymphocytes % (Manual) 10 % (20-45) L Monocytes % (Manual) 4 % (1-10) Eosinophils % (Manual) 0 % (0-3) Basophils % (Manual) 1 % (0-2) Band Neutrophils 5 % (0-8) Platelet Estimate Adequate Platelet Morphology Normal Red Blood Cell Morphology Normal Prothrombin Time 22.0 SEC (9.30-11.50) H Prothromb Time International Ratio 2.2 (0.9-1.1) H Activated Partial Thromboplast Time 56 SEC (23-33) H Sodium Level 139 MMOL/L (136-145) Potassium Level 3.3 MMOL/L (3.5-5.1) L Chloride Level 102 MMOL/L (98-107) Carbon Dioxide Level 26 MMOL/L (21-32) Anion Gap 11 mmol/L (5-15) Blood Urea Nitrogen 30 mg/dL (7-18) H Creatinine 0.8 MG/DL (0.55-1.30) Estimat Glomerular Filtration Rate > 60 mL/min (>60) Glucose Level 149 MG/DL (74-106) H Calcium Level 9.3 MG/DL (8.5-10.1) Phosphorus Level 2.4 MG/DL (2.5-4.9) L Magnesium Level 2.1 MG/DL (1.8-2.4) Total Bilirubin 0.7 MG/DL (0.2-1.0) Aspartate Amino Transf (AST/SGOT) 15 U/L (15-37) Alanine Aminotransferase (ALT/SGPT) 28 U/L (12-78) Alkaline Phosphatase 70 U/L (46-116) Troponin I 0.014 ng/mL (0.000-0.056) Total Protein 7.6 G/DL (6.4-8.2) Albumin 3.1 G/DL (3.4-5.0) L Globulin 4.5 g/dL Albumin/Globulin Ratio 0.7 (1.0-2.7) L Current Medications Medications (Trade) Dose Ordered Sig/Yesenia Route PRN Reason Start Time Stop Time Status Last Admin Dose Admin Acetaminophen (Tylenol) 650 mg Q4H PRN ORAL T>100.5 10/09/18 13:15 11/08/18 12:14 Albuterol/ Ipratropium (Albuterol/ Ipratropium) 3 ml Q4H PRN HHN Shortness of Breath 10/09/18 12:15 10/14/18 12:14 Cefepime HCl 1 gm/ Dextrose 50 ml @ 100 mls/hr EVERY 12 HOURS IVPB 10/09/18 22:00 10/16/18 21:59 10/10/18 08:07 Chlorhexidine Gluconate (Kaila-Hex 2%) 1 applic DAILY@2000 TOPIC 10/09/18 20:00 11/08/18 19:59 10/09/18 20:15 Dextrose (Dextrose 50%) 25 ml Q30M PRN IV Hypoglycemia 10/09/18 13:15 11/08/18 13:05 Dextrose (Dextrose 50%) 50 ml Q30M PRN IV hypoglycemia 10/09/18 13:15 11/08/18 13:14 Dextrose/ Electrolytes 1,000 ml @ 75 mls/hr [id number] IV 10/09/18 17:00 11/08/18 16:59 10/10/18 05:39 Heparin Sodium (Porcine) (Heparin 5000 units/ml) 5,000 units EVERY 12 HOURS SUBQ 10/10/18 21:00 11/09/18 20:59 Levetiracetam 100 ml @ 400 mls/hr Q12HR IVPB 10/10/18 21:00 11/09/18 20:59 Levothyroxine Sodium (Synthroid) 37.5 mcg DAILY IV 10/11/18 09:00 11/10/18 08:59 Lorazepam (Ativan 2mg/ml 1ml) 2 mg Q2H PRN IV For Anxiety 10/09/18 12:15 10/16/18 12:14 Morphine Sulfate (Morphine Sulfate) 4 mg Q4H PRN IVP Severe Pain (Pain Scale 7-10) 10/09/18 12:15 10/16/18 12:14 Ondansetron HCl (Zofran) 4 mg Q6H PRN IVP Nausea & Vomiting 10/09/18 12:15 11/08/18 12:14 Pantoprazole (Protonix) 40 mg DAILY IV 10/10/18 09:00 11/09/18 08:59 10/10/18 08:06 Polyethylene Glycol (Miralax) 17 gm DAILYPRN PRN ORAL Constipation 10/09/18 12:15 11/08/18 12:14 Vancomycin HCl (Vanco rx to dose) 1 ea DAILY PRN MISC . 10/09/18 13:15 11/08/18 13:14 Vancomycin HCl/ Dextrose 250 ml @ 166.667 mls/hr Q12HR@0300,1500 IVPB 10/10/18 03:00 10/15/18 02:59 10/10/18 14:17 Warfarin Sodium (Coumadin per pharmacy) 1 ea DAILY PRN MISC Per rx protocol 10/09/18 15:00 11/08/18 14:59 Bijan Mo M.D. Oct 10, 2018 15:39
[2018-10-10 16:00] VITALS: BP 127/79
--- NOTE | 2018-10-10 16:12 | Internal Med Progress Note ---
Subjective Date of Service: Oct 10, 2018 Physician Name Broderick Tobias Attending Physician Lion Cates MD Current Medications Medications (Trade) Dose Ordered Sig/Yesenia Route PRN Reason Start Time Stop Time Status Last Admin Dose Admin Acetaminophen (Tylenol) 650 mg Q4H PRN ORAL T>100.5 10/09/18 13:15 11/08/18 12:14 Albuterol/ Ipratropium (Albuterol/ Ipratropium) 3 ml Q4H PRN HHN Shortness of Breath 10/09/18 12:15 10/14/18 12:14 Cefepime HCl 1 gm/ Dextrose 50 ml @ 100 mls/hr EVERY 12 HOURS IVPB 10/09/18 22:00 10/16/18 21:59 10/10/18 08:07 Chlorhexidine Gluconate (Kaila-Hex 2%) 1 applic DAILY@2000 TOPIC 10/09/18 20:00 11/08/18 19:59 10/09/18 20:15 Dextrose (Dextrose 50%) 25 ml Q30M PRN IV Hypoglycemia 10/09/18 13:15 11/08/18 13:05 Dextrose (Dextrose 50%) 50 ml Q30M PRN IV hypoglycemia 10/09/18 13:15 11/08/18 13:14 Dextrose/ Electrolytes 1,000 ml @ 75 mls/hr [id number] IV 10/09/18 17:00 11/08/18 16:59 10/10/18 05:39 Heparin Sodium (Porcine) (Heparin 5000 units/ml) 5,000 units EVERY 12 HOURS SUBQ 10/10/18 21:00 11/09/18 20:59 Levetiracetam 100 ml @ 400 mls/hr Q12HR IVPB 10/10/18 21:00 11/09/18 20:59 Levothyroxine Sodium (Synthroid) 37.5 mcg DAILY IV 10/11/18 09:00 11/10/18 08:59 Lorazepam (Ativan 2mg/ml 1ml) 2 mg Q2H PRN IV For Anxiety 10/09/18 12:15 10/16/18 12:14 Morphine Sulfate (Morphine Sulfate) 4 mg Q4H PRN IVP Severe Pain (Pain Scale 7-10) 10/09/18 12:15 10/16/18 12:14 Ondansetron HCl (Zofran) 4 mg Q6H PRN IVP Nausea & Vomiting 10/09/18 12:15 11/08/18 12:14 Pantoprazole (Protonix) 40 mg DAILY IV 10/10/18 09:00 11/09/18 08:59 10/10/18 08:06 Polyethylene Glycol (Miralax) 17 gm DAILYPRN PRN ORAL Constipation 10/09/18 12:15 11/08/18 12:14 Vancomycin HCl (Vanco rx to dose) 1 ea DAILY PRN MISC . 10/09/18 13:15 11/08/18 13:14 Vancomycin HCl/ Dextrose 250 ml @ 166.667 mls/hr Q12HR@0300,1500 IVPB 10/10/18 03:00 10/15/18 02:59 10/10/18 14:17 Allergies: Coded Allergies: AMOXICILLIN (Verified Allergy, Unknown, 10/10/18) ROS Limited/Unobtainable: Yes Subjective 62 YO M with chronic ventillator dependence admitted with fever. Now bilateral pneumonia. Cover for Int Med-Dr Cates. TESS Objective Last Vital Signs Date Time Temp Pulse Resp B/P (MAP) Pulse Ox O2 Delivery O2 Flow Rate FiO2 10/10/18 16:00 T-piece 10.0 10/10/18 16:00 99 10/10/18 16:00 50 10/10/18 14:00 112/68 10/10/18 12:00 98.6 18 95 Laboratory Tests Test 10/10/18 04:00 White Blood Count 15.0 K/UL (4.8-10.8) H Red Blood Count 4.30 M/UL (4.70-6.10) L Hemoglobin 12.8 G/DL (14.2-18.0) L Hematocrit 38.2 % (42.0-52.0) L Mean Corpuscular Volume 89 FL (80-99) Mean Corpuscular Hemoglobin 29.7 PG (27.0-31.0) Mean Corpuscular Hemoglobin Concent 33.4 G/DL (32.0-36.0) Red Cell Distribution Width 13.6 % (11.6-14.8) Platelet Count 157 K/UL (150-450) Mean Platelet Volume 8.8 FL (6.5-10.1) Neutrophils (%) (Auto) % (45.0-75.0) Lymphocytes (%) (Auto) % (20.0-45.0) Monocytes (%) (Auto) % (1.0-10.0) Eosinophils (%) (Auto) % (0.0-3.0) Basophils (%) (Auto) % (0.0-2.0) Differential Total Cells Counted 100 Neutrophils % (Manual) 80 % (45-75) H Lymphocytes % (Manual) 10 % (20-45) L Monocytes % (Manual) 4 % (1-10) Eosinophils % (Manual) 0 % (0-3) Basophils % (Manual) 1 % (0-2) Band Neutrophils 5 % (0-8) Platelet Estimate Adequate Platelet Morphology Normal Red Blood Cell Morphology Normal Prothrombin Time 22.0 SEC (9.30-11.50) H Prothromb Time International Ratio 2.2 (0.9-1.1) H Activated Partial Thromboplast Time 56 SEC (23-33) H Sodium Level 139 MMOL/L (136-145) Potassium Level 3.3 MMOL/L (3.5-5.1) L Chloride Level 102 MMOL/L (98-107) Carbon Dioxide Level 26 MMOL/L (21-32) Anion Gap 11 mmol/L (5-15) Blood Urea Nitrogen 30 mg/dL (7-18) H Creatinine 0.8 MG/DL (0.55-1.30) Estimat Glomerular Filtration Rate > 60 mL/min (>60) Glucose Level 149 MG/DL (74-106) H Calcium Level 9.3 MG/DL (8.5-10.1) Phosphorus Level 2.4 MG/DL (2.5-4.9) L Magnesium Level 2.1 MG/DL (1.8-2.4) Total Bilirubin 0.7 MG/DL (0.2-1.0) Aspartate Amino Transf (AST/SGOT) 15 U/L (15-37) Alanine Aminotransferase (ALT/SGPT) 28 U/L (12-78) Alkaline Phosphatase 70 U/L (46-116) Troponin I 0.014 ng/mL (0.000-0.056) Total Protein 7.6 G/DL (6.4-8.2) Albumin 3.1 G/DL (3.4-5.0) L Globulin 4.5 g/dL Albumin/Globulin Ratio 0.7 (1.0-2.7) L Microbiology Date/Time Source Procedure Growth Status 10/09/18 11:15 Sputum Gram Stain - Final Resulted 10/09/18 11:15 Sputum Sputum Culture - Preliminary Resulted 10/09/18 09:35 Nasal Nares Influenza Types A,B Antigen (GILLIAN) - Final Complete 10/09/18 09:42 Straight Cath Urine Culture - Preliminary NO GROWTH AFTER 24 HOURS Resulted 10/09/18 12:31 Rectum VRE Culture Pending Resulted 10/09/18 12:31 Rectum - Preliminary Resulted Intake and Output 10/09/18 10/10/18 18:59 06:59 Intake Total 491.25 ml 1956.252 ml Output Total 700 ml Balance 491.25 ml 1256.252 ml Intake Free Water 250 ml IV Total 341.25 ml 1176.252 ml Tube Feeding 30 ml 430 ml Blood Product 100 ml Other 120 ml Output Urine Total 700 ml # Voids 1 # Bowel Movements 1 3 Objective PHYSICAL EXAMINATION: GENERAL: The patient is not opening his eyes and cannot follow commands. No acute distress. On the vent. HEENT: Pupils are equal and reactive to light. Anicteric. NECK: Supple. No JVD. Trach site is intact. LUNGS: Good air entry. No wheezing or rhonchi. HEART: Reveals S1, S2. Distant heart sounds. No murmurs or gallops. ABDOMEN: Soft, nondistended, and nontender. Mildly obese. PEG site is clean. EXTREMITIES: No cyanosis, clubbing, or edema. NEUROLOGIC: Limited secondary to the patient's status. The patient has quadriplegia and cannot follow commands. PSYCHIATRIC: Mood and affect unable to obtain. RECTAL: Refused by the at the bedside. Assessment/Plan Assessment/Plan ASSESSMENT: 1. Sepsis secondary to urinary tract infection versus pneumonia. 2. Chronic respiratory failure, on ventilation. 3. History of traumatic subdural hematoma. 4. History of deep venous thrombosis, on Coumadin. 5. Hypertension. 6. Hypothyroidism. 7. Morbid obesity. 8. Traumatic brain injury with coma stage. 9. Epilepsy. 10. Dysphagia status post percutaneous endoscopic gastrostomy. PLAN: 1. Admit the patient to [facility]. 2. We will follow up the cultures. Broad-spectrum antibiotics with cefepime and vancomycin. 3. We will continue on Coumadin per pharmacy. Broderick Tobias MD Oct 10, 2018 16:12
[2018-10-10] MEDS ORDERED: Warfarin Sodium 3mg ORAL SCH (17:00)
--- NOTE | 2018-10-10 19:33 | NUR ---
NURSE NOTES: Report received from MARI Mendoza. patient seen in bed in portillo position. Patient is alert, but non verbal. GT site is intact, and is on intermittent suctioning. Patient is on trach with 10L oxygen, fio2 50%, no acute respiratory distress present at this time. Midline to left upper arm is intact. Continues with IVF of D51/2NS with 20mEq KCL running at 75CC/HR. Condom cath is present and is intact. Bed is in lowest position. call light is within reach when in room. will continue to monitor.
--- NOTE | 2018-10-10 19:34 | NUR ---
HAND-OFF: Report given to MARI Ocasio Stable condition.
[2018-10-10] MEDS ORDERED: Tubing IV Secondary IV ONE (19:40)
[2018-10-10] MEDS ORDERED: NS 275ml ONE (19:40)
[2018-10-10 20:00] VITALS: BP 105/73
[2018-10-10] MEDS: levETIRAcetam 500mg/NS100ml 100 ML IVPB SCH (20:04)
[2018-10-10] MEDS: Heparin 5000 units/ml inj SUBQ SCH (20:05)
[2018-10-10] MEDS: Dyna-Hex 2% Top Sol 2oz TOPIC SCH (20:05)
[2018-10-10] MEDS ORDERED: Vancomycin 1 GM in D5W 275 ML IV SCH (23:00)
--- NOTE | 2018-10-10 23:45 | NUR ---
NURSE NOTES: Received report from MARI Ocasio. Pt is asleep and resting in bed. In no acute distress. Bed in lowest position, call light within reach. Will continue plan of care.
[2018-10-11] VITALS: BP 118/75
[2018-10-11 04:00] VITALS: BP 115/75
[2018-10-11] MEDS: Vancomycin 1.5 GM/D5W 250ML IVPB SCH ×2 (04:22→16:57)
[2018-10-11 05:51] LABS: BASOPHILS % (AUTO) 0.4 % (0.0-2.0); EOSINOPHILS % (AUTO) 10.4 % (0.0-3.0); HEMOGLOBIN 10.7 G/DL (14.2-18.0); LYMPHOCYTES % (AUTO) 21.5 % (20.0-45.0); MEAN CORPUSCULAR VOLUME 88 FL (80-99); NEUTROPHILS % (AUTO) 62.7 % (45.0-75.0); PLATELET COUNT 131 K/UL (150-450); RED BLOOD COUNT 3.62 M/UL (4.70-6.10); WHITE BLOOD COUNT 6.5 K/UL (4.8-10.8)
[2018-10-11 05:54] LABS: INR 1.7 (0.9-1.1)
[2018-10-11 05:55] LABS: ANION GAP 9 mmol/L (5-15); BLOOD UREA NITROGEN 17 mg/dL (7-18); CALCIUM 8.3 MG/DL (8.5-10.1); CARBON DIOXIDE 27 MMOL/L (21-32); CHLORIDE 105 MMOL/L (98-107); CREATININE 0.6 MG/DL (0.55-1.30); POTASSIUM 2.9 MMOL/L (3.5-5.1); SODIUM 141 MMOL/L (136-145)
--- NOTE | 2018-10-11 07:00 | NUR ---
NURSE NOTES: Was informed by Reza Reyes from Microbiology that pt's blood cx is positive for gram positive cocci in clusters. ID Doctor was notified by Microbiology, awaiting for call back, will endorse to next shift.
--- NOTE | 2018-10-11 07:10 | NUR ---
HAND-OFF: Report given to MARI Mendoza.
--- NOTE | 2018-10-11 07:33 | NUR ---
NURSE NOTES: Report received from MARI Clements. Observed patient in bed sleeping. Open eyes by touch and shaking. Obtunded. Non-verbal. No s/s of pain at this time. T-piece with 10L of oxygen with no distress noted. Mid-line intact and patent with IVF running at prescribed rate. Bed in lowest position. Call light within reach. Will continue to monitor.
--- NOTE | 2018-10-11 07:40 | Pulmonology Progress Note ---
Assessment/Plan Assessment/Plan ASSESSMENT sepsis asp PNA pyuria, possible UTI acute resp failure on chronic with tracheostomy status dysphagia, G tube feeding hypokalemia elevated troponin ZIGGY likely due to dehydration -resolved ileus vs small bowel obstruction hx of subdural hematoma with craniotomy seizure disorder hypothyroidism hx of DVT skin rash -apparently due to Amoxicillin ( received at [facility], noted now as allergy ) PLAN OF CARE TESS trach care pulm toilet FiO2 currently down to 50%, titrate FiO2 to keep sat above 92% abx, fup with cxm, sputum cx + Strep, GNB, stool C dif negative, urine cx negative, blood cx prel negative ID follows fup with CXR on Friday strict asp precautions, GT feeding on hold due to possible SBO vs ileus gastric decompression with tube fup with KUB in am , GI follows, IVF, monitor renal parameters, lytes, give additional K, check Ka and Mg in am seizure precautions, continue Keppra Venous Duplex BLE GI prophylaxis monitor HH with goal to keep Hgb above 7 second troponin negative, initial elevated troponin likely due to increased demand 2 to sepsis case discussed and evaluated by supervising physician Subjective Allergies: Coded Allergies: AMOXICILLIN (Verified Allergy, Unknown, 10/10/18) Subjective leukocytosis resolved, afebrile no signs of resp distress on TC 50% remains NPO for possible SBO K-2.9 Objective Last 24 Hour Vital Signs Date Time Temp Pulse Resp B/P (MAP) Pulse Ox O2 Delivery O2 Flow Rate FiO2 10/11/18 04:00 T-piece 10.0 10/11/18 04:00 10.0 50 10/11/18 04:00 97 10/11/18 04:00 98.6 97 22 115/75 (88) 99 10/11/18 01:14 T-piece 50 10/11/18 00:00 T-piece 10.0 10/11/18 00:00 98.9 98 20 118/75 (89) 99 10/11/18 00:00 10.0 50 10/11/18 00:00 98 10/10/18 20:27 T-piece 50 10/10/18 20:27 96 T-piece 50 10/10/18 20:26 105 20 Trach Collar 96 10/10/18 20:00 T-piece 10.0 10/10/18 20:00 99.3 100 20 105/73 (84) 100 10/10/18 20:00 10.0 50 10/10/18 19:54 103 10/10/18 16:00 97.9 102 21 127/79 (95) 97 10/10/18 16:00 T-piece 10.0 10/10/18 16:00 99 10/10/18 16:00 10.0 50 10/10/18 14:00 110 112/68 10/10/18 13:33 T-piece 50 10/10/18 13:19 110 10/10/18 12:00 98.6 106 18 112/68 (83) 95 10/10/18 12:00 T-piece 10.0 10/10/18 12:00 10.0 50 10/10/18 08:00 110 10/10/18 08:00 97.9 107 18 98/65 (76) 97 10/10/18 08:00 T-piece 10.0 10/10/18 08:00 10.0 50 Intake and Output 10/10/18 10/11/18 19:00 07:00 Intake Total 1125.000 ml Output Total 50 ml 550 ml Balance 1075.000 ml -550 ml IV Total 1125.000 ml Output Urine Total 400 ml Gastric Drainage Total 50 ml Other 150 ml # Voids 50 # Bowel Movements 2 General Appearance: no acute distress, other - bedridden, chronically ill looking male Respiratory/Chest: rhonchi - few scattered , other - trach with Portex #7, secretions moderate, white, thick, FiO2 50% voa TC Cardiovascular: regular rhythm - SR on tele Abdomen: other - abdomen soft, distended, G tube clamped Extremities: no edema Skin: rash - generlzied papulomacular erythematous rash , Neurologic/Psychiatric: abnormal gait - bedbiound , other - eyes open, not responsive Musculoskeletal: atrophy - BKLE Microbiology Date/Time Source Procedure Growth Status 10/09/18 12:15 Blood Blood Culture - Preliminary Resulted 10/09/18 12:00 Blood Blood Culture - Preliminary NO GROWTH AFTER 24 HOURS Resulted 10/09/18 12:31 Nasal Nares MRSA Culture - Final NO METHICILLIN RESISTANT STAPH AUREUS... Complete 10/09/18 11:15 Sputum Gram Stain - Final Resulted 10/09/18 11:15 Sputum Culture - Preliminary Streptococcus Group G Gram Negative Bacillus 1 Resulted 10/09/18 09:35 Nasal Nares Influenza Types A,B Antigen (GILLIAN) - Final Complete 10/10/18 22:30 Stool Clostridium difficile Toxin Assay - Final Complete 10/09/18 09:42 Straight Cath Urine Culture - Final NO GROWTH AFTER 48 HOURS Complete 10/09/18 12:31 Rectum VRE Culture Pending Resulted 10/09/18 12:31 Rectum - Preliminary Resulted Laboratory Tests 10/11/18 02:15: Vancomycin Level Trough 14.6H 10/11/18 04:00: White Blood Count 6.5#, Red Blood Count 3.62L, Hemoglobin 10.7L, Hematocrit 32.0L, Mean Corpuscular Volume 88, Mean Corpuscular Hemoglobin 29.6, Mean Corpuscular Hemoglobin Concent 33.5, Red Cell Distribution Width 13.0, Platelet Count 131L, Mean Platelet Volume 8.6, Neutrophils (%) (Auto) 62.7, Lymphocytes ( %) (Auto) 21.5, Monocytes (%) (Auto) 5.0, Eosinophils (%) (Auto) 10.4H, Basophils (%) (Auto) 0.4, Prothrombin Time 17.7H, Prothromb Time International Ratio 1.7H, Sodium Level 141, Potassium Level 2.9L, Chloride Level 105, Carbon Dioxide Level 27, Anion Gap 9, Blood Urea Nitrogen 17, Creatinine 0.6, Estimat Glomerular Filtration Rate > 60, Glucose Level 126H, Calcium Level 8.3L Current Medications Medications (Trade) Dose Ordered Sig/Yesenia Route PRN Reason Start Time Stop Time Status Last Admin Dose Admin Acetaminophen (Tylenol) 650 mg Q4H PRN ORAL T>100.5 10/09/18 13:15 11/08/18 12:14 Albuterol/ Ipratropium (Albuterol/ Ipratropium) 3 ml Q4H PRN HHN Shortness of Breath 10/09/18 12:15 10/14/18 12:14 Cefepime HCl 1 gm/ Dextrose 50 ml @ 100 mls/hr EVERY 12 HOURS IVPB 10/09/18 22:00 10/16/18 21:59 10/10/18 20:04 Chlorhexidine Gluconate (Kaila-Hex 2%) 1 applic DAILY@1999 TOPIC 10/09/18 20:00 11/08/18 19:59 10/10/18 20:05 Dextrose (Dextrose 50%) 25 ml Q30M PRN IV Hypoglycemia 10/09/18 13:15 11/08/18 13:05 Dextrose (Dextrose 50%) 50 ml Q30M PRN IV hypoglycemia 10/09/18 13:15 11/08/18 13:14 Dextrose/ Electrolytes 1,000 ml @ 75 mls/hr [id number] IV 10/09/18 17:00 11/08/18 16:59 10/10/18 20:03 Heparin Sodium (Porcine) (Heparin 5000 units/ml) 5,000 units EVERY 12 HOURS SUBQ 10/10/18 21:00 11/09/18 20:59 10/10/18 20:05 Levetiracetam 100 ml @ 400 mls/hr Q12HR IVPB 10/10/18 21:00 11/09/18 20:59 10/10/18 20:04 Levothyroxine Sodium (Synthroid) 37.5 mcg DAILY IV 10/11/18 09:00 11/10/18 08:59 Lorazepam (Ativan 2mg/ml 1ml) 2 mg Q2H PRN IV For Anxiety 10/09/18 12:15 10/16/18 12:14 Morphine Sulfate (Morphine Sulfate) 4 mg Q4H PRN IVP Severe Pain (Pain Scale 7-10) 10/09/18 12:15 10/16/18 12:14 Ondansetron HCl (Zofran) 4 mg Q6H PRN IVP Nausea & Vomiting 10/09/18 12:15 11/08/18 12:14 Pantoprazole (Protonix) 40 mg DAILY IV 10/10/18 09:00 11/09/18 08:59 10/10/18 08:06 Polyethylene Glycol (Miralax) 17 gm DAILYPRN PRN ORAL Constipation 10/09/18 12:15 11/08/18 12:14 Vancomycin HCl (Vanco rx to dose) 1 ea DAILY PRN MISC . 10/09/18 13:15 11/08/18 13:14 Vancomycin HCl/ Dextrose 250 ml @ 125 mls/hr Q12H IVPB 10/11/18 04:00 10/16/18 03:59 10/11/18 04:22 Regla Henderson NP Oct 11, 2018 07:40
--- NOTE | 2018-10-11 07:44 | NUR ---
NURSE NOTES: Called and left message to JINA Arauz regarding low potassium level. Awaiting for call back.
[2018-10-11 08:00] VITALS: BP 143/83
[2018-10-11] MEDS: Pantoprazole Inj IV SCH (08:26)
[2018-10-11] MEDS: levETIRAcetam 500mg/NS100ml 100 ML IVPB SCH ×2 (08:26→20:21)
[2018-10-11] MEDS: Heparin 5000 units/ml inj SUBQ SCH ×2 (08:28→20:22)
--- NOTE | 2018-10-11 08:30 | NUR ---
NURSE NOTES: JINA Arauz came to see patient and gave new order for low potassium level. Order carried out.
[2018-10-11] MEDS: Vancomycin 1250mg/D5W 250ml IVPB SCH (09:29)
--- NOTE | 2018-10-11 10:19 | NUR ---
CASE MANAGEMENT: REVIEW 10/11/2018 SI: SEPSIS . ASPIRATION PNEUMONIA T 98.7 HR 89 RR 19 B/P 143/83 SATS 100% ON 10L/T PIECE FiO2 50 K 2.9 GLUCOSE 126 CA 8.3 IS: IVF @ 75 mL/HR LABETALOL GT Q8H CEFEPIME IV Q12H COUMADIN PO QD PROTONIX IV QD KEPPRA GT Q12H VANCO IV Q12H STEP DOWN UNIT DCP: PATIENT IS FROM [facility] PLAN OF CARE: LEXI ABD
[2018-10-11] MEDS ORDERED: Tubing IV Secondary IV ONE ×2 (10:48)
[2018-10-11] MEDS ORDERED: NS 275ml ONE (10:48)
--- NOTE | 2018-10-11 11:09 | Diagnostic Imaging Report ---
EXAM: XR Right Finger(s), 2 or More Views CLINICAL HISTORY: SWELL TECHNIQUE: Frontal, lateral and oblique views of first finger(s) of the right hand. COMPARISON: No relevant prior studies available. FINDINGS: Bones/joints: Osteopenic. Degenerative changes of the carpal bones with erosive change at the scaphoid No acute fracture. No dislocation. Soft tissues: Soft tissue swelling. No radiopaque foreign body. IMPRESSION: 1. Soft tissue swelling. 2. No fracture or malalignment. No evidence of osteomyelitis.
[2018-10-11 12:00] VITALS: BP 130/86
--- NOTE | 2018-10-11 13:32 | Internal Med Progress Note ---
Subjective Date of Service: Oct 11, 2018 Physician Name Broderick Tobias Attending Physician Lion Cates MD Current Medications Medications (Trade) Dose Ordered Sig/Yesenia Route PRN Reason Start Time Stop Time Status Last Admin Dose Admin Acetaminophen (Tylenol) 650 mg Q4H PRN ORAL T>100.5 10/09/18 13:15 11/08/18 12:14 Albuterol/ Ipratropium (Albuterol/ Ipratropium) 3 ml Q4H PRN HHN Shortness of Breath 10/09/18 12:15 10/14/18 12:14 Cefepime HCl 1 gm/ Dextrose 50 ml @ 100 mls/hr EVERY 12 HOURS IVPB 10/09/18 22:00 10/16/18 21:59 10/11/18 08:43 Chlorhexidine Gluconate (Kaila-Hex 2%) 1 applic DAILY@2000 TOPIC 10/09/18 20:00 11/08/18 19:59 10/10/18 20:05 Dextrose (Dextrose 50%) 25 ml Q30M PRN IV Hypoglycemia 10/09/18 13:15 11/08/18 13:05 Dextrose (Dextrose 50%) 50 ml Q30M PRN IV hypoglycemia 10/09/18 13:15 11/08/18 13:14 Dextrose/ Electrolytes 1,000 ml @ 75 mls/hr [id number] IV 10/09/18 17:00 11/08/18 16:59 10/10/18 20:03 Heparin Sodium (Porcine) (Heparin 5000 units/ml) 5,000 units EVERY 12 HOURS SUBQ 10/10/18 21:00 11/09/18 20:59 10/11/18 08:28 Levetiracetam 100 ml @ 400 mls/hr Q12HR IVPB 10/10/18 21:00 11/09/18 20:59 10/11/18 08:26 Levothyroxine Sodium (Synthroid) 37.5 mcg DAILY IV 10/11/18 09:00 11/10/18 08:59 10/11/18 08:43 Lorazepam (Ativan 2mg/ml 1ml) 2 mg Q2H PRN IV For Anxiety 10/09/18 12:15 10/16/18 12:14 Morphine Sulfate (Morphine Sulfate) 4 mg Q4H PRN IVP Severe Pain (Pain Scale 7-10) 1/18/19 12:15 10/16/18 12:14 Ondansetron HCl (Zofran) 4 mg Q6H PRN IVP Nausea & Vomiting 10/09/18 12:15 11/08/18 12:14 Pantoprazole (Protonix) 40 mg DAILY IV 10/10/18 09:00 11/09/18 08:59 10/11/18 08:26 Polyethylene Glycol (Miralax) 17 gm DAILYPRN PRN ORAL Constipation 10/09/18 12:15 11/08/18 12:14 Vancomycin HCl (Vanco rx to dose) 1 ea DAILY PRN MISC . 10/09/18 13:15 11/08/18 13:14 Vancomycin HCl/ Dextrose 250 ml @ 125 mls/hr Q12H IVPB 10/11/18 04:00 10/16/18 03:59 10/11/18 04:22 Allergies: Coded Allergies: AMOXICILLIN (Verified Allergy, Unknown, 10/10/18) ROS Limited/Unobtainable: Yes Subjective 62 YO M with chronic ventillator dependence admitted with fever. Now bilateral pneumonia. Cover for Int Med-Dr Cates. TESS Objective Last Vital Signs Date Time Temp Pulse Resp B/P (MAP) Pulse Ox O2 Delivery O2 Flow Rate FiO2 10/11/18 12:00 10.0 50 10/11/18 12:00 T-piece 10/11/18 12:00 98.5 88 21 130/86 (101) 100 Laboratory Tests Test 10/11/18 02:15 10/11/18 04:00 Vancomycin Level Trough 14.6 ug/mL (5.0-12.0) H White Blood Count 6.5 K/UL (4.8-10.8) # Red Blood Count 3.62 M/UL (4.70-6.10) L Hemoglobin 10.7 G/DL (14.2-18.0) L Hematocrit 32.0 % (42.0-52.0) L Mean Corpuscular Volume 88 FL (80-99) Mean Corpuscular Hemoglobin 29.6 PG (27.0-31.0) Mean Corpuscular Hemoglobin Concent 33.5 G/DL (32.0-36.0) Red Cell Distribution Width 13.0 % (11.6-14.8) Platelet Count 131 K/UL (150-450) L Mean Platelet Volume 8.6 FL (6.5-10.1) Neutrophils (%) (Auto) 62.7 % (45.0-75.0) Lymphocytes (%) (Auto) 21.5 % (20.0-45.0) Monocytes (%) (Auto) 5.0 % (1.0-10.0) Eosinophils (%) (Auto) 10.4 % (0.0-3.0) H Basophils (%) (Auto) 0.4 % (0.0-2.0) Prothrombin Time 17.7 SEC (9.30-11.50) H Prothromb Time International Ratio 1.7 (0.9-1.1) H Sodium Level 141 MMOL/L (136-145) Potassium Level 2.9 MMOL/L (3.5-5.1) L Chloride Level 105 MMOL/L (98-107) Carbon Dioxide Level 27 MMOL/L (21-32) Anion Gap 9 mmol/L (5-15) Blood Urea Nitrogen 17 mg/dL (7-18) Creatinine 0.6 MG/DL (0.55-1.30) Estimat Glomerular Filtration Rate > 60 mL/min (>60) Glucose Level 126 MG/DL (74-106) H Calcium Level 8.3 MG/DL (8.5-10.1) L Microbiology Date/Time Source Procedure Growth Status 10/09/18 12:15 Blood Blood Culture - Preliminary Resulted 10/09/18 12:00 Blood Blood Culture - Preliminary NO GROWTH AFTER 24 HOURS Resulted 10/09/18 12:31 Nasal Nares MRSA Culture - Final NO METHICILLIN RESISTANT STAPH AUREUS... Complete 10/09/18 11:15 Sputum Gram Stain - Final Resulted 10/09/18 11:15 Sputum Culture - Preliminary Streptococcus Group G Gram Negative Bacillus 1 Resulted 10/09/18 09:35 Nasal Nares Influenza Types A,B Antigen (GILLIAN) - Final Complete 10/10/18 22:30 Stool Clostridium difficile Toxin Assay - Final Complete 10/09/18 09:42 Straight Cath Urine Culture - Final NO GROWTH AFTER 48 HOURS Complete 10/09/18 12:31 Rectum VRE Culture - Final Enterococcus Faecalis - Vre Complete 10/09/18 12:31 Rectum - Final NO CARBAPENEM-RESISTANT ENTEROBACTERI... Complete Intake and Output 1/19/19 1/20/19 19:00 07:00 Intake Total 1125.000 ml Output Total 50 ml 550 ml Balance 1075.000 ml -550 ml IV Total 1125.000 ml Output Urine Total 400 ml Gastric Drainage Total 50 ml Other 150 ml # Voids 50 # Bowel Movements 2 Objective PHYSICAL EXAMINATION: GENERAL: The patient is not opening his eyes and cannot follow commands. No acute distress. On the vent. HEENT: Pupils are equal and reactive to light. Anicteric. NECK: Supple. No JVD. Trach site is intact. LUNGS: Good air entry. No wheezing or rhonchi. HEART: Reveals S1, S2. Distant heart sounds. No murmurs or gallops. ABDOMEN: Soft, nondistended, and nontender. Mildly obese. PEG site is clean. EXTREMITIES: No cyanosis, clubbing, or edema. NEUROLOGIC: Limited secondary to the patient's status. The patient has quadriplegia and cannot follow commands. PSYCHIATRIC: Mood and affect unable to obtain. Assessment/Plan Assessment/Plan ASSESSMENT: 1. Sepsis secondary to pneumonia. 2. Chronic respiratory failure, on ventilation. 3. History of traumatic subdural hematoma. 4. History of deep venous thrombosis, on Coumadin. 5. Hypertension. 6. Hypothyroidism. 7. Morbid obesity. 8. Traumatic brain injury with coma stage. 9. Epilepsy. 10. Dysphagia status post percutaneous endoscopic gastrostomy. PLAN: 1. Admit the patient to [facility]. 2. We will follow up the cultures. 3. Continue cefepime and vancomycin per ID. 4. Coumadin per pharmacy. Broderick Tobias MD Oct 11, 2018 13:32
[2018-10-11] MEDS: D5 1/2NS w/KCl 20mEq 1,000 ML IV SCH ×2 (14:17→20:56)
--- NOTE | 2018-10-11 15:14 | NUR ---
RD ASSESSMENT & RECOMMENDATIONS SEE CARE ACTIVITY FOR COMPLETE ASSESSMENT DAILY ESTIMATED NEEDS: Needs based on Pulmonary, cardiac, TF CIRCULAR TANK COOPER 69kg adj 22-27 kcals/kg 3162-9992 total kcals 1-1.5 g protein/kg 69-104 g total protein 22-27ml/kcal mL/kg 1012-9475 total fluid mLs NUTRITION DIAGNOSIS: Swallowing difficulty r/t respiratory status as evidenced by pt is vent dep via Tpiece, on GT feeds for all nutritional needs. CURRENT TF: NPO ENTERAL NUTRITION RECOMMENDATIONS: As able, OSMOLITE 1.5 @50ml/hr x22 hrs + Prosource 1 pack daily to provide 1100ml, 1650 kcal, 69g + 11g prot, 838ml free H2o - As medically able, start OSMOLITE 1.5 @20ml/hr fpr 6 hrs - Advance as able 10ml/hr q4-6 hrs to goal - HOLD TF 1 hr before and after synthroid meds - Add PROSOURCE 1 pack daily to better meet protein needs - Flush per MD/HOB over 30 degrees ADDITIONAL RECOMMENDATIONS: 1) RE-calibrate bed scale w/ added mattress 2) Monitor lytes daily / replete as needed (Low K 2.9) 3) TF's as able
--- NOTE | 2018-10-11 15:59 | Infectious Diseases Prog Note ---
Assessment/Plan Problems: (1) Aspiration pneumonia Assessment & Plan: with streptococcus group G and gram negative rods, continue vancomycin and cefepime empiric coverage pending final cultures , aspiration precaution and keep HOB > 30 DEGREE (2) UTI (urinary tract infection) Assessment & Plan: continue cefepime pending culture (3) Fever Assessment & Plan: due to the above , continue wide spectrum antibiotics pending cultures , and tylenol prn (4) Acute respiratory failure Assessment & Plan: due to the above , on mechanical ventilation , pulmonary is follow , continue local trach care, monitor CXR and ABG (5) Sepsis Assessment & Plan: due to the above , continue vancomycin and cefepime pending culture of the blood (6) Skin rash Assessment & Plan: suspect drug reaction due to amox[place] he was getting at the [facility] , as per report from [facility] , now on his allergy list Subjective ROS Limited/Unobtainable: Yes Allergies: Coded Allergies: AMOXICILLIN (Verified Allergy, Unknown, 10/10/18) Subjective he was lying in bed, comfortable on ventilator , dosen't respond to verbal commands, open eyes spontaneously , no fever or chills, no diarrhea , no significant secretions , less rash on his body Objective Vital Signs Last 24 Hour Vital Signs Date Time Temp Pulse Resp B/P (MAP) Pulse Ox O2 Delivery O2 Flow Rate FiO2 10/11/18 12:00 10.0 50 10/11/18 12:00 T-piece 10.0 10/11/18 12:00 98.5 88 21 130/86 (101) 100 10/11/18 11:46 92 10/11/18 08:00 98.7 89 19 143/83 (103) 100 10/11/18 08:00 T-piece 10.0 10/11/18 08:00 10.0 50 10/11/18 07:47 88 10/11/18 07:00 97 20 Trach Collar 10.0 50 10/11/18 07:00 T-piece 50 10/11/18 07:00 98 T-piece 10.0 50 10/11/18 04:00 T-piece 10.0 10/11/18 04:00 10.0 50 10/11/18 04:00 97 10/11/18 04:00 98.6 97 22 115/75 (88) 99 10/11/18 01:14 T-piece 50 10/11/18 00:00 T-piece 10.0 10/11/18 00:00 98.9 98 20 118/75 (89) 99 10/11/18 00:00 10.0 50 10/11/18 00:00 98 10/10/18 20:27 T-piece 50 10/10/18 20:27 96 T-piece 50 10/10/18 20:26 105 20 Trach Collar 96 10/10/18 20:00 T-piece 10.0 10/10/18 20:00 99.3 100 20 105/73 (84) 100 10/10/18 20:00 10.0 50 10/10/18 19:54 103 10/10/18 16:00 97.9 102 21 127/79 (95) 97 10/10/18 16:00 T-piece 10.0 10/10/18 16:00 99 10/10/18 16:00 10.0 50 Height (Feet): 5 Height (Inches): 7.00 Weight (Pounds): 167 General Appearance: WD/WN, no acute distress HEENT: normocephalic, atraumatic, anicteric, mucous membranes moist, PERRL, supple, no JVD, status post trach Respiratory/Chest: chest wall non-tender, no respiratory distress, no accessory muscle use, decreased breath sounds, crackles/rales Cardiovascular: normal peripheral pulses, normal rate, regular rhythm, no gallop/murmur, no JVD Abdomen: normal bowel sounds, soft, non tender, no organomegaly, non distended , no mass, no scars Genitourinary: normal external genitalia Extremities: no cyanosis, no clubbing Skin: no lesions, rash Neurologic/Psychiatric: alert, unresponsiveness Lymphatic: no neck adenopathy, no groin adenopathy Musculoskeletal: normal muscle bulk, no effusion Microbiology Date/Time Source Procedure Growth Status 10/09/18 12:15 Blood Blood Culture - Preliminary Resulted 10/09/18 12:00 Blood Blood Culture - Preliminary NO GROWTH AFTER 24 HOURS Resulted 10/09/18 12:31 Nasal Nares MRSA Culture - Final NO METHICILLIN RESISTANT STAPH AUREUS... Complete 10/09/18 11:15 Sputum Gram Stain - Final Resulted 10/09/18 11:15 Sputum Culture - Preliminary Streptococcus Group G Gram Negative Bacillus 1 Resulted 10/09/18 09:35 Nasal Nares Influenza Types A,B Antigen (GILLIAN) - Final Complete 10/10/18 22:30 Stool Clostridium difficile Toxin Assay - Final Complete 10/09/18 09:42 Straight Cath Urine Culture - Final NO GROWTH AFTER 48 HOURS Complete 10/09/18 12:31 Rectum VRE Culture - Final Enterococcus Faecalis - Vre Complete 10/09/18 12:31 Rectum - Final NO CARBAPENEM-RESISTANT ENTEROBACTERI... Complete Laboratory Tests Test 10/11/18 02:15 10/11/18 04:00 Vancomycin Level Trough 14.6 ug/mL (5.0-12.0) H White Blood Count 6.5 K/UL (4.8-10.8) # Red Blood Count 3.62 M/UL (4.70-6.10) L Hemoglobin 10.7 G/DL (14.2-18.0) L Hematocrit 32.0 % (42.0-52.0) L Mean Corpuscular Volume 88 FL (80-99) Mean Corpuscular Hemoglobin 29.6 PG (27.0-31.0) Mean Corpuscular Hemoglobin Concent 33.5 G/DL (32.0-36.0) Red Cell Distribution Width 13.0 % (11.6-14.8) Platelet Count 131 K/UL (150-450) L Mean Platelet Volume 8.6 FL (6.5-10.1) Neutrophils (%) (Auto) 62.7 % (45.0-75.0) Lymphocytes (%) (Auto) 21.5 % (20.0-45.0) Monocytes (%) (Auto) 5.0 % (1.0-10.0) Eosinophils (%) (Auto) 10.4 % (0.0-3.0) H Basophils (%) (Auto) 0.4 % (0.0-2.0) Prothrombin Time 17.7 SEC (9.30-11.50) H Prothromb Time International Ratio 1.7 (0.9-1.1) H Sodium Level 141 MMOL/L (136-145) Potassium Level 2.9 MMOL/L (3.5-5.1) L Chloride Level 105 MMOL/L (98-107) Carbon Dioxide Level 27 MMOL/L (21-32) Anion Gap 9 mmol/L (5-15) Blood Urea Nitrogen 17 mg/dL (7-18) Creatinine 0.6 MG/DL (0.55-1.30) Estimat Glomerular Filtration Rate > 60 mL/min (>60) Glucose Level 126 MG/DL (74-106) H Calcium Level 8.3 MG/DL (8.5-10.1) L Current Medications Medications (Trade) Dose Ordered Sig/Yesenia Route PRN Reason Start Time Stop Time Status Last Admin Dose Admin Acetaminophen (Tylenol) 650 mg Q4H PRN ORAL T>100.5 10/09/18 13:15 11/08/18 12:14 Albuterol/ Ipratropium (Albuterol/ Ipratropium) 3 ml Q4H PRN HHN Shortness of Breath 10/09/18 12:15 10/14/18 12:14 Cefepime HCl 1 gm/ Dextrose 50 ml @ 100 mls/hr EVERY 12 HOURS IVPB 10/09/18 22:00 10/16/18 21:59 10/11/18 08:43 Chlorhexidine Gluconate (Kaila-Hex 2%) 1 applic DAILY@2000 TOPIC 10/09/18 20:00 11/08/18 19:59 10/10/18 20:05 Dextrose (Dextrose 50%) 25 ml Q30M PRN IV Hypoglycemia 10/09/18 13:15 11/08/18 13:05 Dextrose (Dextrose 50%) 50 ml Q30M PRN IV hypoglycemia 10/09/18 13:15 11/08/18 13:14 Dextrose/ Electrolytes 1,000 ml @ 75 mls/hr [id number] IV 10/09/18 17:00 11/08/18 16:59 10/11/18 14:17 Heparin Sodium (Porcine) (Heparin 5000 units/ml) 5,000 units EVERY 12 HOURS SUBQ 10/10/18 21:00 11/09/18 20:59 10/11/18 08:28 Levetiracetam 100 ml @ 400 mls/hr Q12HR IVPB 10/10/18 21:00 11/09/18 20:59 10/11/18 08:26 Levothyroxine Sodium (Synthroid) 37.5 mcg DAILY IV 10/11/18 09:00 11/10/18 08:59 10/11/18 08:43 Lorazepam (Ativan 2mg/ml 1ml) 2 mg Q2H PRN IV For Anxiety 10/09/18 12:15 10/16/18 12:14 Morphine Sulfate (Morphine Sulfate) 4 mg Q4H PRN IVP Severe Pain (Pain Scale 7-10) 10/09/18 12:15 10/16/18 12:14 Ondansetron HCl (Zofran) 4 mg Q6H PRN IVP Nausea & Vomiting 10/09/18 12:15 11/08/18 12:14 Pantoprazole (Protonix) 40 mg DAILY IV 10/10/18 09:00 11/09/18 08:59 10/11/18 08:26 Polyethylene Glycol (Miralax) 17 gm DAILYPRN PRN ORAL Constipation 10/09/18 12:15 11/08/18 12:14 Vancomycin HCl (Vanco rx to dose) 1 ea DAILY PRN MISC . 10/09/18 13:15 11/08/18 13:14 Vancomycin HCl/ Dextrose 250 ml @ 125 mls/hr Q12H IVPB 10/11/18 04:00 10/16/18 03:59 10/11/18 04:22 Bijan Mo M.D. Oct 11, 2018 15:59
[2018-10-11 16:00] VITALS: BP 134/78
--- NOTE | 2018-10-11 19:15 | NUR ---
NURSE NOTES: Received report from Kelly RN, pt. in bed obtunded, no signs of acute cardiac or respiratory distress noted, cardiac monitoring on, bed in lowest position and call light within easy reach, bed alarm on, side rails up x's 3- safety brakes engaged, pt. appears to be tolerating current T- Piece settings at 10L at Fio2 at 50%- sating at 99%, G tube set to low intermittent suction- pt. is NPO per endorsement, pt. appears to be resting comfortably, condom cath intact and draining to gravity, ELIZABETH midline running D5 1/2 NS +20KCL at 75cc/hr- IV intact and patent, safety measures continued, will continue with plan of care.
--- NOTE | 2018-10-11 19:23 | NUR ---
HAND-OFF: Report given to MARI Mc. Stable condition.
[2018-10-11 20:00] VITALS: BP 119/75
[2018-10-11] MEDS: Dyna-Hex 2% Top Sol 2oz TOPIC SCH (20:20)
[2018-10-12] VITALS: BP 126/67
--- NOTE | 2018-10-12 01:00 | Consultation ---
DATE OF CONSULTATION: 10/11/2018 CONSULTING PHYSICIAN: Eduardo Pennington M.D. CHIEF COMPLAINT: I was asked to see the patient by Dr. Lion Cates for evaluation of distended abdomen. HISTORY OF PRESENT ILLNESS: The patient is an unfortunate 62-year-old man who is bedbound on a chronic vent setting, who was brought in due to sepsis, pneumonia and urinary tract infection. He has had cultures positive and has been . Yesterday his abdomen appeared to be distended, and therefore, KUB was ordered and feeding tube was placed to low intermittent suction. The next day, he had dilated colonic and small bowel loops, this was felt to be either due to ileus versus obstruction. Overnight he has done better, his abdomen is more flattened, close to baseline. The patient himself is unable to provide any history and most of the information is only available from the chart. PAST MEDICAL HISTORY: History of traumatic subdural hemorrhage status post tracheostomy, status post gastrostomy, , hypothyroidism, hypertension, encephalopathy status post craniotomy, dysphagia, comatose state. FAMILY HISTORY: Noncontributory. SOCIAL HISTORY: The patient is a long-term alf resident. No smoking or drinking. ALLERGIES: None. REVIEW OF SYSTEMS: Unobtainable. MEDICATIONS: See chart list for details. PHYSICAL EXAMINATION: GENERAL: Debilitated man, seen in his room. HEENT: Normocephalic and atraumatic. Sclerae anicteric. Oropharynx is clear. The patient has a large right cranial defect. NECK: Supple. Revealed tracheostomy. CHEST: Revealed coarse breath sounds. CARDIOVASCULAR: Regular rhythm and rate. ABDOMEN: Soft and obese, not significantly distended. No fluid wave. EXTREMITIES: Revealed contracture deformities. NEUROLOGIC: Notable for vegetative state. LABORATORY DATA: Noted. ASSESSMENT: This patient had abdominal distention yesterday, but since he has improved significantly. Given his presentation with sepsis and his x-ray appearance, he may have had ileus due to sepsis. If this is improved, he can be restarted on his feedings perhaps tomorrow. Bowel obstruction would be another consideration, although his condition is more suggestive of former. In the meantime, I will follow the patient's abdominal exam and laboratory parameters and collect all electrolytes daily. RECOMMENDATIONS: 1. Follow abdominal exam overnight. 2. If stable in the morning, discontinue NG suction and restart feeding. 3. Elevate head of bed. 4. Follow laboratory parameters and collect electrolytes daily. Eduardo Pennington M.D. DR: Jordon JOB#: [id number] CC:
[2018-10-12] MEDS: D5 1/2NS w/KCl 20mEq 1,000 ML IV SCH ×2 (01:40→16:00)
[2018-10-12] MEDS: Vancomycin 1.5 GM/D5W 250ML IVPB SCH (03:18)
[2018-10-12 04:00] VITALS: BP 125/78
[2018-10-12 06:05] LABS: BASOPHILS % (AUTO) 0.5 % (0.0-2.0); EOSINOPHILS % (AUTO) 12.1 % (0.0-3.0); HEMATOCRIT 34.8 % (42.0-52.0); HEMOGLOBIN 11.8 G/DL (14.2-18.0); LYMPHOCYTES % (AUTO) 17.8 % (20.0-45.0); MEAN CORPUSCULAR VOLUME 88 FL (80-99); MONOCYTES % (AUTO) 9.3 % (1.0-10.0); NEUTROPHILS % (AUTO) 60.3 % (45.0-75.0); PLATELET COUNT 129 K/UL (150-450); RED BLOOD COUNT 3.94 M/UL (4.70-6.10); RED CELL DISTRIBUTION WIDTH 12.8 % (11.6-14.8); WHITE BLOOD COUNT 3.5 K/UL (4.8-10.8)
[2018-10-12 06:19] LABS: INR 1.5 (0.9-1.1)
[2018-10-12 06:22] LABS: ANION GAP 9 mmol/L (5-15); BLOOD UREA NITROGEN 7 mg/dL (7-18); CALCIUM 8.8 MG/DL (8.5-10.1); CARBON DIOXIDE 27 MMOL/L (21-32); CHLORIDE 103 MMOL/L (98-107); CREATININE 0.6 MG/DL (0.55-1.30); POTASSIUM 3.3 MMOL/L (3.5-5.1); SODIUM 139 MMOL/L (136-145)
--- NOTE | 2018-10-12 07:04 | NUR ---
HAND-OFF: Report given to Xiomara Weller, pt. remains stable and no signs of distress noted.
--- NOTE | 2018-10-12 07:05 | NUR ---
NURSE NOTES: Received patient in bed, on T-piece FiO2 of 50%. GT on low intermittent suction. No respiratory distress. Will continue plan of care
[2018-10-12 08:00] VITALS: BP 126/78
[2018-10-12] MEDS: Pantoprazole Inj IV SCH (09:51)
[2018-10-12] MEDS: levETIRAcetam 500mg/NS100ml 100 ML IVPB SCH ×2 (09:52→21:28)
[2018-10-12] MEDS: Heparin 5000 units/ml inj SUBQ SCH ×2 (09:53→21:30)
--- NOTE | 2018-10-12 11:32 | General Progress Note ---
Assessment/Plan Assessment/Plan Assessment - abdominal distention - resolved - dysphagia - Anemia Recommendations - restart TF - monitor residuals - elevate HOB - follow labs and exam Subjective Allergies: Coded Allergies: AMOXICILLIN (Verified Allergy, Unknown, 10/10/18) Subjective d/w RN no significant GT output abdomen no longer distended Objective Last 24 Hour Vital Signs Date Time Temp Pulse Resp B/P (MAP) Pulse Ox O2 Delivery O2 Flow Rate FiO2 10/12/18 08:00 98.2 89 24 126/78 (94) 99 10/12/18 07:37 T-piece 12.0 50 10/12/18 07:36 100 T-piece 12.0 50 10/12/18 07:34 91 20 T-piece 12.0 50 10/12/18 04:00 T-piece 10.0 10/12/18 04:00 10.0 50 10/12/18 04:00 99.0 85 18 125/78 (94) 100 10/12/18 04:00 90 10/12/18 01:15 T-piece 50 10/12/18 00:00 98.9 95 24 126/67 (86) 100 10/12/18 00:00 T-piece 10.0 10/12/18 00:00 10.0 50 10/12/18 00:00 90 10/11/18 20:00 90 10/11/18 20:00 98.7 85 24 119/75 (90) 100 10/11/18 20:00 10.0 50 10/11/18 20:00 T-piece 10.0 10/11/18 19:58 99 T-piece 10.0 50 10/11/18 19:58 99 22 Trach Collar 10.0 50 10/11/18 19:58 T-piece 50 10/11/18 16:00 T-piece 10.0 10/11/18 16:00 98.1 95 21 134/78 (96) 100 10/11/18 16:00 10.0 50 10/11/18 15:36 90 10/11/18 12:00 10.0 50 10/11/18 12:00 T-piece 10.0 10/11/18 12:00 98.5 88 21 130/86 (101) 100 10/11/18 11:46 92 Intake and Output 10/11/18 10/12/18 19:00 07:00 Intake Total 1075 ml 1575 ml Output Total 350 ml 1000 ml Balance 725 ml 575 ml IV Total 1075 ml 1575 ml Output Urine Total 200 ml 1000 ml Other 150 ml # Voids 2 # Bowel Movements 2 3 Laboratory Tests 10/12/18 03:15: White Blood Count 3.5L, Red Blood Count 3.94L, Hemoglobin 11.8L, Hematocrit 34.8L, Mean Corpuscular Volume 88, Mean Corpuscular Hemoglobin 29.8, Mean Corpuscular Hemoglobin Concent 33.8, Red Cell Distribution Width 12.8, Platelet Count 129L, Mean Platelet Volume 7.3, Neutrophils (%) (Auto) 60.3, Lymphocytes ( %) (Auto) 17.8L, Monocytes (%) (Auto) 9.3, Eosinophils (%) (Auto) 12.1H, Basophils (%) (Auto) 0.5, Prothrombin Time 15.9H, Prothromb Time International Ratio 1.5H, Sodium Level 139, Potassium Level 3.3L, Chloride Level 103, Carbon Dioxide Level 27, Anion Gap 9, Blood Urea Nitrogen 7, Creatinine 0.6, Estimat Glomerular Filtration Rate > 60, Glucose Level 108H, Calcium Level 8.8, Magnesium Level 1.7L Height (Feet): 5 Height (Inches): 7.00 Weight (Pounds): 167 Objective (+) head surgery Supple CTA RRR abd soft flat no edema Eduardo Pennington MD Oct 12, 2018 11:32
--- NOTE | 2018-10-12 11:36 | Pulmonolgy Critical Care Note ---
Critical Care - Asmt/Plan Problems: (1) Acute respiratory failure (2) Aspiration pneumonia (3) Sepsis (4) COPD (chronic obstructive pulmonary disease) (5) Chronic vegetative state (6) HTN (hypertension) (7) Feeding by G-tube (8) Limited mobility in bed Respiratory: monitor respiratory rate, adjust FIO2, CXR Cardiac: continue to monitor HR/BP Renal: F/U I&O, keep IV fluid, check electrolytes Infectious Disease: check cultures, continue antibiotics Gastrointestinal: continue feedings/current rate Endocrine: monitor blood sugar, continue sliding scale insulin Hematologic: transfuse if hgb<8.5 Neurologic: PRN Ativan, keep patient comfortable Affect: PRN ativan Prophylaxis: Protonix Time Spent (Minutes): 40 Notes 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, 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 Discussed with: nurses, consultants, case investigatorquality manager - Objective Last 24 Hour Vital Signs Date Time Temp Pulse Resp B/P (MAP) Pulse Ox O2 Delivery O2 Flow Rate FiO2 10/12/18 08:00 98.2 89 24 126/78 (94) 99 10/12/18 07:37 T-piece 12.0 50 10/12/18 07:36 100 T-piece 12.0 50 10/12/18 07:34 91 20 T-piece 12.0 50 10/12/18 04:00 T-piece 10.0 10/12/18 04:00 10.0 50 10/12/18 04:00 99.0 85 18 125/78 (94) 100 10/12/18 04:00 90 10/12/18 01:15 T-piece 50 10/12/18 00:00 98.9 95 24 126/67 (86) 100 10/12/18 00:00 T-piece 10.0 10/12/18 00:00 10.0 50 10/12/18 00:00 90 10/11/18 20:00 90 10/11/18 20:00 98.7 85 24 119/75 (90) 100 10/11/18 20:00 10.0 50 10/11/18 20:00 T-piece 10.0 10/11/18 19:58 99 T-piece 10.0 50 10/11/18 19:58 99 22 Trach Collar 10.0 50 10/11/18 19:58 T-piece 50 10/11/18 16:00 T-piece 10.0 1/20/19 16:00 98.1 95 21 134/78 (96) 100 10/11/18 16:00 10.0 50 10/11/18 15:36 90 10/11/18 12:00 10.0 50 10/11/18 12:00 T-piece 10.0 10/11/18 12:00 98.5 88 21 130/86 (101) 100 10/11/18 11:46 92 Status: somnolent Condition: critical Neck: full ROM Lungs: rales, rhonchi Heart: HR/BP stable Abdomen: soft, active bowel sounds Extremities: edema Micro: Microbiology Date/Time Source Procedure Growth Status 10/09/18 12:15 Blood Blood Culture - Preliminary Staphylococcus Sp Coag Neg Resulted 10/09/18 12:00 Blood Blood Culture - Preliminary NO GROWTH AFTER 48 HOURS Resulted 10/09/18 12:31 Nasal Nares MRSA Culture - Final NO METHICILLIN RESISTANT STAPH AUREUS... Complete 10/10/18 22:30 Stool Clostridium difficile Toxin Assay - Final Complete 10/09/18 12:31 Rectum VRE Culture - Final Enterococcus Faecalis - Vre Complete 10/09/18 12:31 Rectum - Final NO CARBAPENEM-RESISTANT ENTEROBACTERI... Complete Critical Care - Subjective ROS Limited/Unobtainable: Yes Condition: critical EKG Rhythm: Sinus Rhythm FI02: 50 Sputum Amount: Moderate Tube Feeding Amount: 25 I&O: Intake and Output 10/11/18 10/12/18 19:00 07:00 Intake Total 1075 ml 1575 ml Output Total 350 ml 1000 ml Balance 725 ml 575 ml IV Total 1075 ml 1575 ml Output Urine Total 200 ml 1000 ml Other 150 ml # Voids 2 # Bowel Movements 2 3 CXR: bilateral infiltrate Labs: Laboratory Tests Test 10/12/18 03:15 White Blood Count 3.5 K/UL (4.8-10.8) L Red Blood Count 3.94 M/UL (4.70-6.10) L Hemoglobin 11.8 G/DL (14.2-18.0) L Hematocrit 34.8 % (42.0-52.0) L Mean Corpuscular Volume 88 FL (80-99) Mean Corpuscular Hemoglobin 29.8 PG (27.0-31.0) Mean Corpuscular Hemoglobin Concent 33.8 G/DL (32.0-36.0) Red Cell Distribution Width 12.8 % (11.6-14.8) Platelet Count 129 K/UL (150-450) L Mean Platelet Volume 7.3 FL (6.5-10.1) Neutrophils (%) (Auto) 60.3 % (45.0-75.0) Lymphocytes (%) (Auto) 17.8 % (20.0-45.0) L Monocytes (%) (Auto) 9.3 % (1.0-10.0) Eosinophils (%) (Auto) 12.1 % (0.0-3.0) H Basophils (%) (Auto) 0.5 % (0.0-2.0) Prothrombin Time 15.9 SEC (9.30-11.50) H Prothromb Time International Ratio 1.5 (0.9-1.1) H Sodium Level 139 MMOL/L (136-145) Potassium Level 3.3 MMOL/L (3.5-5.1) L Chloride Level 103 MMOL/L (98-107) Carbon Dioxide Level 27 MMOL/L (21-32) Anion Gap 9 mmol/L (5-15) Blood Urea Nitrogen 7 mg/dL (7-18) Creatinine 0.6 MG/DL (0.55-1.30) Estimat Glomerular Filtration Rate > 60 mL/min (>60) Glucose Level 108 MG/DL (74-106) H Calcium Level 8.8 MG/DL (8.5-10.1) Magnesium Level 1.7 MG/DL (1.8-2.4) Linda Sung MD Oct 12, 2018 11:36
[2018-10-12 12:00] VITALS: BP 131/85
--- NOTE | 2018-10-12 14:08 | Diagnostic Imaging Report ---
Indication: Abdominal pain. . Technique: XRAY Abdomen 1v Comparison: 10/10/2018 and 08/10/2018 Findings: Dilatation of predominantly colonic loops again noted, similar to the prior exam from 2 days prior. A similar appearance was noted on the exam of 08/10/2018. Findings may be due to a degree of chronic functional obstruction. Copious stool noted in the right colon. Portions of likely ventriculoperitoneal catheters are noted. One catheter seems to terminate in the right upper quadrant and the second apparently in the left lower quadrant. There is gliosis and multilevel degenerative change of the spine. Interstitial opacities noted in the lung bases. Impression: Dilated loops of bowel with significant retained stool in the right colon. There is decreased prominence of loops in the right upper quadrant compared to exam 2 days prior. Overall dilatation of bowel loops is similar compared to exam of 08/10/2018 and a degree of chronic or functional obstruction could be likely. Correlate clinically.
--- NOTE | 2018-10-12 15:18 | Internal Med Progress Note ---
Subjective Date of Service: Oct 12, 2018 Physician Name Broderick Tobias Attending Physician Lion Cates MD Current Medications Medications (Trade) Dose Ordered Sig/Yesenia Route PRN Reason Start Time Stop Time Status Last Admin Dose Admin Acetaminophen (Tylenol) 650 mg Q4H PRN ORAL T>100.5 10/09/18 13:15 11/08/18 12:14 Albuterol/ Ipratropium (Albuterol/ Ipratropium) 3 ml Q4H PRN HHN Shortness of Breath 10/09/18 12:15 10/14/18 12:14 Cefepime HCl 1 gm/ Dextrose 50 ml @ 100 mls/hr EVERY 12 HOURS IVPB 10/09/18 22:00 10/16/18 21:59 10/12/18 08:30 Dextrose (Dextrose 50%) 25 ml Q30M PRN IV Hypoglycemia 10/09/18 13:15 11/08/18 13:05 Dextrose (Dextrose 50%) 50 ml Q30M PRN IV hypoglycemia 10/09/18 13:15 11/08/18 13:14 Dextrose/ Electrolytes 1,000 ml @ 75 mls/hr [id number] IV 10/09/18 17:00 11/08/18 16:59 10/12/18 01:40 Heparin Sodium (Porcine) (Heparin 5000 units/ml) 5,000 units EVERY 12 HOURS SUBQ 10/10/18 21:00 11/09/18 20:59 10/12/18 09:53 Levetiracetam 100 ml @ 400 mls/hr Q12HR IVPB 10/10/18 21:00 11/09/18 20:59 10/12/18 09:52 Levothyroxine Sodium (Synthroid) 37.5 mcg DAILY IV 10/11/18 09:00 11/10/18 08:59 10/12/18 09:51 Lorazepam (Ativan 2mg/ml 1ml) 2 mg Q2H PRN IV For Anxiety 10/09/18 12:15 10/16/18 12:14 Morphine Sulfate (Morphine Sulfate) 4 mg Q4H PRN IVP Severe Pain (Pain Scale 7-10) 10/09/18 12:15 10/16/18 12:14 Ondansetron HCl (Zofran) 4 mg Q6H PRN IVP Nausea & Vomiting 10/09/18 12:15 11/08/18 12:14 Pantoprazole (Protonix) 40 mg DAILY IV 10/10/18 09:00 11/09/18 08:59 10/12/18 09:51 Polyethylene Glycol (Miralax) 17 gm DAILYPRN PRN ORAL Constipation 10/09/18 12:15 11/08/18 12:14 Vancomycin HCl (Vanco rx to dose) 1 ea DAILY PRN MISC . 10/09/18 13:15 11/08/18 13:14 Vancomycin HCl/ Dextrose 250 ml @ 125 mls/hr Q12H IVPB 10/11/18 04:00 10/16/18 03:59 10/12/18 03:18 Allergies: Coded Allergies: AMOXICILLIN (Verified Allergy, Unknown, 10/10/18) ROS Limited/Unobtainable: Yes Subjective 62 YO M with chronic ventillator dependence admitted with fever. Now bilateral pneumonia. Cover for Int Med-Dr Cates. TESS. Low grade fever overnight Objective Last Vital Signs Date Time Temp Pulse Resp B/P (MAP) Pulse Ox O2 Delivery O2 Flow Rate FiO2 10/12/18 12:28 T-piece 12.0 50 10/12/18 12:28 99 10/12/18 12:21 85 10/12/18 12:00 100.0 24 131/85 (100) Laboratory Tests Test 10/12/18 03:15 10/12/18 14:50 White Blood Count 3.5 K/UL (4.8-10.8) L Red Blood Count 3.94 M/UL (4.70-6.10) L Hemoglobin 11.8 G/DL (14.2-18.0) L Hematocrit 34.8 % (42.0-52.0) L Mean Corpuscular Volume 88 FL (80-99) Mean Corpuscular Hemoglobin 29.8 PG (27.0-31.0) Mean Corpuscular Hemoglobin Concent 33.8 G/DL (32.0-36.0) Red Cell Distribution Width 12.8 % (11.6-14.8) Platelet Count 129 K/UL (150-450) L Mean Platelet Volume 7.3 FL (6.5-10.1) Neutrophils (%) (Auto) 60.3 % (45.0-75.0) Lymphocytes (%) (Auto) 17.8 % (20.0-45.0) L Monocytes (%) (Auto) 9.3 % (1.0-10.0) Eosinophils (%) (Auto) 12.1 % (0.0-3.0) H Basophils (%) (Auto) 0.5 % (0.0-2.0) Prothrombin Time 15.9 SEC (9.30-11.50) H Prothromb Time International Ratio 1.5 (0.9-1.1) H Sodium Level 139 MMOL/L (136-145) Potassium Level 3.3 MMOL/L (3.5-5.1) L Chloride Level 103 MMOL/L (98-107) Carbon Dioxide Level 27 MMOL/L (21-32) Anion Gap 9 mmol/L (5-15) Blood Urea Nitrogen 7 mg/dL (7-18) Creatinine 0.6 MG/DL (0.55-1.30) Estimat Glomerular Filtration Rate > 60 mL/min (>60) Glucose Level 108 MG/DL (74-106) H Calcium Level 8.8 MG/DL (8.5-10.1) Magnesium Level 1.7 MG/DL (1.8-2.4) L Vancomycin Level Trough Pending Microbiology Date/Time Source Procedure Growth Status 10/10/18 22:30 Stool Clostridium difficile Toxin Assay - Final Complete Intake and Output 10/11/18 10/12/18 19:00 07:00 Intake Total 1075 ml 1575 ml Output Total 350 ml 1000 ml Balance 725 ml 575 ml IV Total 1075 ml 1575 ml Output Urine Total 200 ml 1000 ml Other 150 ml # Voids 2 # Bowel Movements 2 3 Objective PHYSICAL EXAMINATION: GENERAL: The patient is not opening his eyes and cannot follow commands. No acute distress. On the vent. HEENT: Pupils are equal and reactive to light. Anicteric. NECK: Supple. No JVD. Trach site is intact. LUNGS: Good air entry. No wheezing or rhonchi. HEART: Reveals S1, S2. Distant heart sounds. No murmurs or gallops. ABDOMEN: Soft, nondistended, and nontender. Mildly obese. PEG site is clean. EXTREMITIES: No cyanosis, clubbing, or edema. NEUROLOGIC: Limited secondary to the patient's status. The patient has quadriplegia and cannot follow commands. PSYCHIATRIC: Mood and affect unable to obtain. Assessment/Plan Assessment/Plan ASSESSMENT: 1. Sepsis secondary to pneumonia. 2. Chronic respiratory failure, on ventilation. 3. History of traumatic subdural hematoma. 4. History of deep venous thrombosis, on Coumadin. 5. Hypertension. 6. Hypothyroidism. 7. Morbid obesity. 8. Traumatic brain injury with coma stage. 9. Epilepsy. 10. Dysphagia status post percutaneous endoscopic gastrostomy. PLAN: 1. Admit the patient to [facility]. 2. We will follow up the cultures. 3. Continue cefepime and vancomycin per ID. 4. Coumadin per pharmacy. Broderick Tobias MD Oct 12, 2018 15:18
--- NOTE | 2018-10-12 15:52 | NUR ---
CREAM DUMPERGERIATRICS PHYSICIAN SI: SEPSIS, RESP FAILURE TRACHED/ COOL AEROSOL T. 100.0 HR 93 RR 24 B/P 131/85 T-PIECE FIO2 50% K 3.3 MG 1.7 IS: VANCO IV CEFEPIME IV IVF D5KCL @ 75ML/HR KEPPRA IV STEP DOWN STATUS
[2018-10-12 16:00] VITALS: BP 129/79
--- NOTE | 2018-10-12 16:00 | NUR ---
NURSE NOTES: Fio2 titrated from 50% to 40% by RT.
--- NOTE | 2018-10-12 17:00 | NUR ---
NURSE NOTES: Started GTF per order, will monitor tolerance and residual.
--- NOTE | 2018-10-12 17:13 | NUR ---
*-* INSURANCE *-* ALL CLINICALS AND REVIEWS HAVE BEEN FAXED TO: [facility] F#: [phone] PLEASE FAX CLINICALS TO ABOVE #
[2018-10-12] MEDS ORDERED: Magnesium Oxide 400mg tab ORAL SCH (18:00)
[2018-10-12] MEDS ORDERED: Vancomycin 750mg/NS 250ml IVPB SCH (18:00)
--- NOTE | 2018-10-12 19:19 | Infectious Diseases Prog Note ---
Assessment/Plan Problems: (1) Aspiration pneumonia Assessment & Plan: with streptococcus group G and serratia marcescens , continue cefepime treatment for two weeks , aspiration precaution and keep HOB > 30 DEGREE (2) UTI (urinary tract infection) Assessment & Plan: continue cefepime pending culture (3) Fever Assessment & Plan: due to the above , improved, continue antibiotics pending cultures , and tylenol prn (4) Acute respiratory failure Assessment & Plan: due to the above , on mechanical ventilation , pulmonary is follow , continue local trach care, monitor CXR and ABG (5) Sepsis Assessment & Plan: due to the above , culture grew coag negative staph from one set, most likely contaminant , will stop vancomycin . (6) Skin rash Assessment & Plan: suspect drug reaction due to amox[facility] he was getting at the [facility] , as per report from [facility] , now on his allergy list Subjective ROS Limited/Unobtainable: Yes Allergies: Coded Allergies: AMOXICILLIN (Verified Allergy, Unknown, 10/10/18) Subjective he was lying in bed, comfortable on ventilator , dosen't respond to verbal commands, open eyes spontaneously , no fever or chills, no diarrhea , no significant secretions , less rash on his body Objective Vital Signs Last 24 Hour Vital Signs Date Time Temp Pulse Resp B/P (MAP) Pulse Ox O2 Delivery O2 Flow Rate FiO2 10/12/18 16:00 T-piece 10.0 10/12/18 16:00 99.1 78 22 129/79 (96) 100 10/12/18 16:00 40 10/12/18 15:43 96 10/12/18 12:28 T-piece 12.0 50 10/12/18 12:28 99 T-piece 12.0 50 10/12/18 12:21 85 10/12/18 12:00 100.0 93 24 131/85 (100) 99 10/12/18 12:00 T-piece 10.0 10/12/18 08:00 T-piece 10.0 10/12/18 08:00 50 10/12/18 08:00 98.2 89 24 126/78 (94) 99 10/12/18 07:58 90 10/12/18 07:37 T-piece 12.0 50 10/12/18 07:36 100 T-piece 12.0 50 10/12/18 07:34 91 20 T-piece 12.0 50 10/12/18 04:00 T-piece 10.0 10/12/18 04:00 10.0 50 10/12/18 04:00 99.0 85 18 125/78 (94) 100 10/12/18 04:00 90 10/12/18 01:15 T-piece 50 10/12/18 00:00 98.9 95 24 126/67 (86) 100 10/12/18 00:00 T-piece 10.0 10/12/18 00:00 10.0 50 10/12/18 00:00 90 10/11/18 20:00 90 10/11/18 20:00 98.7 85 24 119/75 (90) 100 10/11/18 20:00 10.0 50 10/11/18 20:00 T-piece 10.0 10/11/18 19:58 99 T-piece 10.0 50 10/11/18 19:58 99 22 Trach Collar 10.0 50 10/11/18 19:58 T-piece 50 Height (Feet): 5 Height (Inches): 7.00 Weight (Pounds): 167 General Appearance: WD/WN, no acute distress HEENT: normocephalic, atraumatic, anicteric, mucous membranes moist, PERRL, pharynx normal, supple, no JVD, status post trach Respiratory/Chest: chest wall non-tender, lungs clear, no respiratory distress , no accessory muscle use, decreased breath sounds, crackles/rales Cardiovascular: normal peripheral pulses, normal rate, regular rhythm, no gallop/murmur, no JVD Abdomen: normal bowel sounds, soft, non tender, no organomegaly, non distended , no mass, no scars Genitourinary: normal external genitalia Extremities: no cyanosis, no clubbing Skin: no rash, no lesions, ulcers Neurologic/Psychiatric: alert, unresponsiveness Lymphatic: no neck adenopathy, no groin adenopathy Musculoskeletal: normal muscle bulk, no effusion Microbiology Date/Time Source Procedure Growth Status 10/10/18 22:30 Stool Clostridium difficile Toxin Assay - Final Complete Laboratory Tests Test 10/12/18 03:15 10/12/18 14:50 White Blood Count 3.5 K/UL (4.8-10.8) L Red Blood Count 3.94 M/UL (4.70-6.10) L Hemoglobin 11.8 G/DL (14.2-18.0) L Hematocrit 34.8 % (42.0-52.0) L Mean Corpuscular Volume 88 FL (80-99) Mean Corpuscular Hemoglobin 29.8 PG (27.0-31.0) Mean Corpuscular Hemoglobin Concent 33.8 G/DL (32.0-36.0) Red Cell Distribution Width 12.8 % (11.6-14.8) Platelet Count 129 K/UL (150-450) L Mean Platelet Volume 7.3 FL (6.5-10.1) Neutrophils (%) (Auto) 60.3 % (45.0-75.0) Lymphocytes (%) (Auto) 17.8 % (20.0-45.0) L Monocytes (%) (Auto) 9.3 % (1.0-10.0) Eosinophils (%) (Auto) 12.1 % (0.0-3.0) H Basophils (%) (Auto) 0.5 % (0.0-2.0) Prothrombin Time 15.9 SEC (9.30-11.50) H Prothromb Time International Ratio 1.5 (0.9-1.1) H Sodium Level 139 MMOL/L (136-145) Potassium Level 3.3 MMOL/L (3.5-5.1) L Chloride Level 103 MMOL/L (98-107) Carbon Dioxide Level 27 MMOL/L (21-32) Anion Gap 9 mmol/L (5-15) Blood Urea Nitrogen 7 mg/dL (7-18) Creatinine 0.6 MG/DL (0.55-1.30) Estimat Glomerular Filtration Rate > 60 mL/min (>60) Glucose Level 108 MG/DL (74-106) H Calcium Level 8.8 MG/DL (8.5-10.1) Magnesium Level 1.7 MG/DL (1.8-2.4) L Vancomycin Level Trough 20.7 ug/mL (5.0-12.0) H Current Medications Medications (Trade) Dose Ordered Sig/Yesenia Route PRN Reason Start Time Stop Time Status Last Admin Dose Admin Acetaminophen (Tylenol) 650 mg Q4H PRN ORAL T>100.5 10/09/18 13:15 11/08/18 12:14 Albuterol/ Ipratropium (Albuterol/ Ipratropium) 3 ml Q4H PRN HHN Shortness of Breath 10/09/18 12:15 10/14/18 12:14 Cefepime HCl 1 gm/ Dextrose 50 ml @ 100 mls/hr EVERY 12 HOURS IVPB 10/09/18 22:00 10/16/18 21:59 10/12/18 08:30 Dextrose (Dextrose 50%) 25 ml Q30M PRN IV Hypoglycemia 10/09/18 13:15 11/08/18 13:05 Dextrose (Dextrose 50%) 50 ml Q30M PRN IV hypoglycemia 10/09/18 13:15 11/08/18 13:14 Dextrose/ Electrolytes 1,000 ml @ 75 mls/hr [id number] IV 10/09/18 17:00 11/08/18 16:59 10/12/18 16:00 Heparin Sodium (Porcine) (Heparin 5000 units/ml) 5,000 units EVERY 12 HOURS SUBQ 10/10/18 21:00 11/09/18 20:59 10/12/18 09:53 Levetiracetam 100 ml @ 400 mls/hr Q12HR IVPB 10/10/18 21:00 11/09/18 20:59 10/12/18 09:52 Levothyroxine Sodium (Synthroid) 37.5 mcg DAILY IV 10/11/18 09:00 11/10/18 08:59 10/12/18 09:51 Lorazepam (Ativan 2mg/ml 1ml) 2 mg Q2H PRN IV For Anxiety 10/09/18 12:15 10/16/18 12:14 Magnesium Oxide (Mag-Ox 400mg) 400 mg EVERY 8 HOURS ORAL 10/12/18 22:00 11/11/18 17:59 Morphine Sulfate (Morphine Sulfate) 4 mg Q4H PRN IVP Severe Pain (Pain Scale 7-10) 10/09/18 12:15 10/16/18 12:14 Ondansetron HCl (Zofran) 4 mg Q6H PRN IVP Nausea & Vomiting 10/09/18 12:15 11/08/18 12:14 Pantoprazole (Protonix) 40 mg DAILY IV 10/10/18 09:00 11/09/18 08:59 10/12/18 09:51 Polyethylene Glycol (Miralax) 17 gm DAILYPRN PRN ORAL Constipation 10/09/18 12:15 11/08/18 12:14 Vancomycin HCl (Vanco rx to dose) 1 ea DAILY PRN MISC . 10/09/18 13:15 11/08/18 13:14 Vancomycin/Sodium Chloride 250 ml @ 166.667 mls/hr Q8H IVPB 10/12/18 18:00 10/17/18 17:59 10/12/18 17:46 Bijan Mo M.D. Oct 12, 2018 19:19
--- NOTE | 2018-10-12 19:40 | NUR ---
HAND-OFF: Report given to Chaparrita Zarate RN.
--- NOTE | 2018-10-12 19:45 | NUR ---
NURSE NOTES: Report received from Xiomara Cunha RN.Pt asleep noted no resp distress on T-Peice 40%,no signs of pain or discomfort,SR on the monitor,GTF Osmolite 1.5 at 25 ml/hr,goal is 55ml/hr,no residual noted,SR up x2, HOB elevated,bed lock in lowest position,will continue with plan of care.
[2018-10-12 20:00] VITALS: BP 132/89
[2018-10-12] MEDS: Magnesium Oxide 400mg tab ORAL SCH (21:28)
--- NOTE | 2018-10-12 22:46 | Diagnostic Imaging Report ---
APPROVED REPORT CPT Code: 56621 Present Symptoms Comments: BILATERAL LEGS PAIN. BILATERAL: Imaging reveals a patent deep venous system bilaterally. There is no evidence of thrombus within the femoral, popliteal or tibial segments. The greater saphenous veins are also within normal limits. Doppler indicates normal spontaneous flow within these segments.
[2018-10-13] VITALS: BP 120/83
--- NOTE | 2018-10-13 00:42 | NUR ---
NURSE NOTES: Pt stable,sleeping quietly in bed,turned and repositioned,oral secretions suctioned PRN.
[2018-10-13 04:00] VITALS: BP 124/69
[2018-10-13] MEDS: D5 1/2NS w/KCl 20mEq 1,000 ML IV SCH ×2 (05:07→19:00)
[2018-10-13] MEDS: Magnesium Oxide 400mg tab ORAL SCH ×3 (05:58→21:05)
[2018-10-13 06:09] LABS: HEMATOCRIT 38.7 % (42.0-52.0); MEAN CORPUSCULAR VOLUME 88 FL (80-99); PLATELET COUNT 146 K/UL (150-450); RED BLOOD COUNT 4.41 M/UL (4.70-6.10); RED CELL DISTRIBUTION WIDTH 13.1 % (11.6-14.8); WHITE BLOOD COUNT 2.8 K/UL (4.8-10.8)
[2018-10-13 06:53] LABS: PHOSPHORUS 2.5 MG/DL (2.5-4.9)
[2018-10-13 07:00] LABS: ALANINE AMINOTRANSFERASE 26 U/L (12-78); ALBUMIN 2.9 G/DL (3.4-5.0); ALBUMIN/GLOBULIN RATIO 0.7 (1.0-2.7); ALKALINE PHOSPHATASE 69 U/L (46-116); ANION GAP 9 mmol/L (5-15); ASPARTATE AMINO TRANSFERASE 18 U/L (15-37); BILIRUBIN,TOTAL 0.4 MG/DL (0.2-1.0); BLOOD UREA NITROGEN 6 mg/dL (7-18); CALCIUM 8.7 MG/DL (8.5-10.1); CARBON DIOXIDE 27 MMOL/L (21-32); CHLORIDE 105 MMOL/L (98-107); CREATININE 0.7 MG/DL (0.55-1.30); POTASSIUM 3.3 MMOL/L (3.5-5.1); SODIUM 141 MMOL/L (136-145)
--- NOTE | 2018-10-13 07:38 | NUR ---
HAND-OFF: Report given to Xiomara Cunha RN.Pt awake at this time in no distress.
--- NOTE | 2018-10-13 07:39 | NUR ---
NURSE NOTES: Received patient in bed. On continuous GTF as tolerated.Condom cath inplace. Remain on Tpiece Fio2 at 40%. No respiratory distress. Will continue plan of care.
[2018-10-13 08:00] VITALS: BP 123/70
[2018-10-13] MEDS: Pantoprazole Inj IV SCH (08:20)
[2018-10-13] MEDS: levETIRAcetam 500mg/NS100ml 100 ML IVPB SCH ×2 (08:20→21:04)
[2018-10-13] MEDS: Heparin 5000 units/ml inj SUBQ SCH ×2 (08:24→21:10)
--- NOTE | 2018-10-13 09:15 | NUR ---
RADIOLOGY DEPT CHEST X-RAY DONE.-P.DYE
--- NOTE | 2018-10-13 10:08 | Pulmonolgy Critical Care Note ---
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 Discussed with: nurses, consultants, rn case mgroperations manager assistant - Objective Last 24 Hour Vital Signs Date Time Temp Pulse Resp B/P (MAP) Pulse Ox O2 Delivery O2 Flow Rate FiO2 10/13/18 08:00 T-piece 10.0 10/13/18 08:00 98.1 96 18 123/70 (87) 100 10/13/18 08:00 40 10/13/18 07:14 80 10/13/18 04:00 82 10/13/18 04:00 T-piece 10.0 10/13/18 04:00 98.1 86 18 124/69 (87) 97 10/13/18 01:58 T-piece 12.0 40 10/13/18 01:58 100 T-piece 12.0 40 10/13/18 00:00 T-piece 10.0 10/13/18 00:00 98.1 82 18 120/83 (95) 96 10/13/18 00:00 81 10/12/18 20:00 81 10/12/18 20:00 98.1 78 18 132/89 (103) 100 10/12/18 20:00 T-piece 10.0 10/12/18 19:43 100 T-piece 12.0 40 10/12/18 19:43 T-piece 12.0 40 10/12/18 19:43 78 18 T-piece 12.0 40 10/12/18 16:00 T-piece 10.0 10/12/18 16:00 99.1 78 22 129/79 (96) 100 10/12/18 16:00 40 10/12/18 15:43 96 10/12/18 12:28 T-piece 12.0 50 10/12/18 12:28 99 T-piece 12.0 50 10/12/18 12:21 85 10/12/18 12:00 100.0 93 24 131/85 (100) 99 10/12/18 12:00 T-piece 10.0 Status: obtunded Condition: critical, improving HEENT: atraumatic Lungs: rales, rhonchi Heart: HR/BP stable Abdomen: soft, non-tender, feeding tube Extremities: edema Decubiti: location Micro: Microbiology Date/Time Source Procedure Growth Status 10/12/18 01:20 Sputum Gram Stain - Final Resulted 10/12/18 01:20 Sputum Sputum Culture Pending Resulted 10/10/18 22:30 Stool Clostridium difficile Toxin Assay - Final Complete Critical Care - Subjective ROS Limited/Unobtainable: Yes IV Access: PICC FI02: 40 Sputum Amount: Small Tube Feeding Amount: 45 I&O: Intake and Output 10/12/18 10/13/18 19:00 07:00 Intake Total 1116.667 ml 963.333 ml Output Total 1050 ml 1100 ml Balance 66.667 ml -136.667 ml Intake Free Water 100 ml IV Total 1066.667 ml 533.333 ml Tube Feeding 50 ml 330 ml Output Urine Total 1050 ml 1100 ml # Bowel Movements 1 CXR: slight improvement, trach in correct position Labs: Laboratory Tests Test 10/12/18 14:50 10/13/18 03:20 Vancomycin Level Trough 20.7 ug/mL (5.0-12.0) H White Blood Count 2.8 K/UL (4.8-10.8) L Red Blood Count 4.41 M/UL (4.70-6.10) L Hemoglobin 13.0 G/DL (14.2-18.0) L Hematocrit 38.7 % (42.0-52.0) L Mean Corpuscular Volume 88 FL (80-99) Mean Corpuscular Hemoglobin 29.5 PG (27.0-31.0) Mean Corpuscular Hemoglobin Concent 33.6 G/DL (32.0-36.0) Red Cell Distribution Width 13.1 % (11.6-14.8) Platelet Count 146 K/UL (150-450) L Mean Platelet Volume 8.0 FL (6.5-10.1) Neutrophils (%) (Auto) % (45.0-75.0) Lymphocytes (%) (Auto) % (20.0-45.0) Monocytes (%) (Auto) % (1.0-10.0) Eosinophils (%) (Auto) % (0.0-3.0) Basophils (%) (Auto) % (0.0-2.0) Differential Total Cells Counted 100 Neutrophils % (Manual) 43 % (45-75) L Lymphocytes % (Manual) 33 % (20-45) Monocytes % (Manual) 10 % (1-10) Eosinophils % (Manual) 14 % (0-3) H Basophils % (Manual) 0 % (0-2) Band Neutrophils 0 % (0-8) Platelet Estimate Decreased L Platelet Morphology Normal Red Blood Cell Morphology Normal Sodium Level 141 MMOL/L (136-145) Potassium Level 3.3 MMOL/L (3.5-5.1) L Chloride Level 105 MMOL/L (98-107) Carbon Dioxide Level 27 MMOL/L (21-32) Anion Gap 9 mmol/L (5-15) Blood Urea Nitrogen 6 mg/dL (7-18) L Creatinine 0.7 MG/DL (0.55-1.30) Estimat Glomerular Filtration Rate > 60 mL/min (>60) Glucose Level 97 MG/DL (74-106) Calcium Level 8.7 MG/DL (8.5-10.1) Phosphorus Level 2.5 MG/DL (2.5-4.9) Magnesium Level 1.9 MG/DL (1.8-2.4) Total Bilirubin 0.4 MG/DL (0.2-1.0) Aspartate Amino Transf (AST/SGOT) 18 U/L (15-37) Alanine Aminotransferase (ALT/SGPT) 26 U/L (12-78) Alkaline Phosphatase 69 U/L (46-116) Pro-B-Type Natriuretic Peptide 365 pg/mL (0-125) H Total Protein 7.3 G/DL (6.4-8.2) Albumin 2.9 G/DL (3.4-5.0) L Globulin 4.4 g/dL Albumin/Globulin Ratio 0.7 (1.0-2.7) L Linda Foley MD Oct 13, 2018 10:07
--- NOTE | 2018-10-13 10:33 | NUR ---
NURSE NOTES: 40 MEQ Kdur given via Gtube per Dr. Foley's order.
--- NOTE | 2018-10-13 11:18 | Diagnostic Imaging Report ---
Indication: Dyspnea Technique: One view of the chest Comparison: 10/09/2018 Findings: Better inspiration currently. Tracheostomy, left arm midline, bilateral ventriculoperitoneal shunt tubing are all unchanged. There is decreased consolidation of both lung bases, although this may be an artifact of the improved aeration. Previously demonstrated linear lucencies, possibly representing pneumomediastinum, are no longer evident. Bowel loops remain distended with gas. Impression: Improved aeration and apparent decrease in bilateral basilar consolidation, over 4 days. Other findings as noted
[2018-10-13 11:53] VITALS: BP 119/72
[2018-10-13 16:00] VITALS: BP 132/66
--- NOTE | 2018-10-13 16:00 | Internal Med Progress Note ---
Subjective Date of Service: Oct 13, 2018 Physician Name Broderick Tobias Attending Physician Lion Cates MD Current Medications Medications (Trade) Dose Ordered Sig/Yesenia Route PRN Reason Start Time Stop Time Status Last Admin Dose Admin Acetaminophen (Tylenol) 650 mg Q4H PRN ORAL T>100.5 10/09/18 13:15 11/08/18 12:14 Albuterol/ Ipratropium (Albuterol/ Ipratropium) 3 ml Q4H PRN HHN Shortness of Breath 10/09/18 12:15 10/14/18 12:14 Cefepime HCl 1 gm/ Dextrose 50 ml @ 100 mls/hr EVERY 12 HOURS IVPB 10/09/18 22:00 10/16/18 21:59 10/13/18 08:01 Dextrose (Dextrose 50%) 25 ml Q30M PRN IV Hypoglycemia 10/09/18 13:15 11/08/18 13:05 Dextrose (Dextrose 50%) 50 ml Q30M PRN IV hypoglycemia 10/09/18 13:15 11/08/18 13:14 Dextrose/ Electrolytes 1,000 ml @ 75 mls/hr [id number] IV 10/09/18 17:00 11/08/18 16:59 10/13/18 05:07 Heparin Sodium (Porcine) (Heparin 5000 units/ml) 5,000 units EVERY 12 HOURS SUBQ 10/10/18 21:00 11/09/18 20:59 10/13/18 08:24 Levetiracetam 100 ml @ 400 mls/hr Q12HR IVPB 10/10/18 21:00 11/09/18 20:59 10/13/18 08:20 Levothyroxine Sodium (Synthroid) 37.5 mcg DAILY IV 10/11/18 09:00 11/10/18 08:59 10/13/18 09:16 Lorazepam (Ativan 2mg/ml 1ml) 2 mg Q2H PRN IV For Anxiety 10/09/18 12:15 10/16/18 12:14 Magnesium Oxide (Mag-Ox 400mg) 400 mg EVERY 8 HOURS ORAL 10/12/18 22:00 11/11/18 17:59 10/13/18 14:40 Morphine Sulfate (Morphine Sulfate) 4 mg Q4H PRN IVP Severe Pain (Pain Scale 7-10) 10/09/18 12:15 10/16/18 12:14 Ondansetron HCl (Zofran) 4 mg Q6H PRN IVP Nausea & Vomiting 10/09/18 12:15 11/08/18 12:14 Pantoprazole (Protonix) 40 mg DAILY IV 10/10/18 09:00 11/09/18 08:59 10/13/18 08:20 Polyethylene Glycol (Miralax) 17 gm DAILYPRN PRN ORAL Constipation 10/09/18 12:15 11/08/18 12:14 Allergies: Coded Allergies: AMOXICILLIN (Verified Allergy, Unknown, 10/10/18) ROS Limited/Unobtainable: Yes Subjective 62 YO M with chronic ventillator dependence admitted with fever. Now bilateral pneumonia. Cover for Int Med-Dr Cates. TESS. Objective Last Vital Signs Date Time Temp Pulse Resp B/P (MAP) Pulse Ox O2 Delivery O2 Flow Rate FiO2 10/13/18 15:05 99 T-piece 12.0 40 10/13/18 15:05 84 18 10/13/18 11:53 97.9 119/72 (88) Laboratory Tests Test 10/13/18 03:20 White Blood Count 2.8 K/UL (4.8-10.8) L Red Blood Count 4.41 M/UL (4.70-6.10) L Hemoglobin 13.0 G/DL (14.2-18.0) L Hematocrit 38.7 % (42.0-52.0) L Mean Corpuscular Volume 88 FL (80-99) Mean Corpuscular Hemoglobin 29.5 PG (27.0-31.0) Mean Corpuscular Hemoglobin Concent 33.6 G/DL (32.0-36.0) Red Cell Distribution Width 13.1 % (11.6-14.8) Platelet Count 146 K/UL (150-450) L Mean Platelet Volume 8.0 FL (6.5-10.1) Neutrophils (%) (Auto) % (45.0-75.0) Lymphocytes (%) (Auto) % (20.0-45.0) Monocytes (%) (Auto) % (1.0-10.0) Eosinophils (%) (Auto) % (0.0-3.0) Basophils (%) (Auto) % (0.0-2.0) Differential Total Cells Counted 100 Neutrophils % (Manual) 43 % (45-75) L Lymphocytes % (Manual) 33 % (20-45) Monocytes % (Manual) 10 % (1-10) Eosinophils % (Manual) 14 % (0-3) H Basophils % (Manual) 0 % (0-2) Band Neutrophils 0 % (0-8) Platelet Estimate Decreased L Platelet Morphology Normal Red Blood Cell Morphology Normal Sodium Level 141 MMOL/L (136-145) Potassium Level 3.3 MMOL/L (3.5-5.1) L Chloride Level 105 MMOL/L (98-107) Carbon Dioxide Level 27 MMOL/L (21-32) Anion Gap 9 mmol/L (5-15) Blood Urea Nitrogen 6 mg/dL (7-18) L Creatinine 0.7 MG/DL (0.55-1.30) Estimat Glomerular Filtration Rate > 60 mL/min (>60) Glucose Level 97 MG/DL (74-106) Calcium Level 8.7 MG/DL (8.5-10.1) Phosphorus Level 2.5 MG/DL (2.5-4.9) Magnesium Level 1.9 MG/DL (1.8-2.4) Total Bilirubin 0.4 MG/DL (0.2-1.0) Aspartate Amino Transf (AST/SGOT) 18 U/L (15-37) Alanine Aminotransferase (ALT/SGPT) 26 U/L (12-78) Alkaline Phosphatase 69 U/L (46-116) Pro-B-Type Natriuretic Peptide 365 pg/mL (0-125) H Total Protein 7.3 G/DL (6.4-8.2) Albumin 2.9 G/DL (3.4-5.0) L Globulin 4.4 g/dL Albumin/Globulin Ratio 0.7 (1.0-2.7) L Microbiology Date/Time Source Procedure Growth Status 10/12/18 01:20 Sputum Gram Stain - Final Resulted 10/12/18 01:20 Sputum Sputum Culture Pending Resulted 10/10/18 22:30 Stool Clostridium difficile Toxin Assay - Final Complete Intake and Output 10/12/18 10/13/18 19:00 07:00 Intake Total 1116.667 ml 1083.333 ml Output Total 1050 ml 1100 ml Balance 66.667 ml -16.667 ml Intake Free Water 100 ml IV Total 1066.667 ml 608.333 ml Tube Feeding 50 ml 375 ml Output Urine Total 1050 ml 1100 ml # Bowel Movements 1 Objective PHYSICAL EXAMINATION: GENERAL: The patient is not opening his eyes and cannot follow commands. No acute distress. On the vent. HEENT: Pupils are equal and reactive to light. Anicteric. NECK: Supple. No JVD. Trach site is intact. LUNGS: Good air entry. No wheezing or rhonchi. HEART: Reveals S1, S2. Distant heart sounds. No murmurs or gallops. ABDOMEN: Soft, nondistended, and nontender. Mildly obese. PEG site is clean. EXTREMITIES: No cyanosis, clubbing, or edema. NEUROLOGIC: Limited secondary to the patient's status. The patient has quadriplegia and cannot follow commands. PSYCHIATRIC: Mood and affect unable to obtain. Assessment/Plan Assessment/Plan ASSESSMENT: 1. Sepsis secondary to pneumonia. 2. Chronic respiratory failure, on ventilation. 3. History of traumatic subdural hematoma. 4. History of deep venous thrombosis, on Coumadin. 5. Hypertension. 6. Hypothyroidism. 7. Morbid obesity. 8. Traumatic brain injury with coma stage. 9. Epilepsy. 10. Dysphagia status post percutaneous endoscopic gastrostomy. 11. Coag neg staph bacteremia. PLAN: 1. Admit the patient to TESS. 2. We will follow up the cultures. 3. Continue cefepime and vancomycin per ID. 4. Coumadin per pharmacy. 5. Continue vaco and cerepime Broderick Tobias MD Oct 13, 2018 16:00
--- NOTE | 2018-10-13 16:20 | NUR ---
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 98.6 HR 80 RR 16 B/P 132/66 T-PIECE 45% WBC 2.8 K 3.3 BNP 365 CXR= DECREASED IN BILATERAL BASILAR CONSOLIDATION IS: CEFEPIME IV KEPPRA IV IVF D5KCL @ 75ML/HR SYNTHROID IV STEP DOWN STATUS
--- NOTE | 2018-10-13 17:19 | Infectious Diseases Prog Note ---
Assessment/Plan Problems: (1) Aspiration pneumonia Assessment & Plan: with streptococcus group G and serratia marcescens , will switch cefepime to ertapenem to finish his course of treatment for two weeks , aspiration precaution and keep HOB > 30 DEGREE (2) UTI (urinary tract infection) Assessment & Plan: continue cefepime pending culture (3) Fever Assessment & Plan: due to the above , improved, continue antibiotics pending cultures , and tylenol prn (4) Acute respiratory failure Assessment & Plan: due to the above , on mechanical ventilation , pulmonary is follow , continue local trach care, monitor CXR and ABG (5) Sepsis Assessment & Plan: due to the above , culture grew coag negative staph from one set, most likely contaminant , will stop vancomycin . (6) Skin rash Assessment & Plan: suspect drug reaction due to amoxicillin,and cephalosporins since got worse on cefepime , will switch to ertapenem and add cephalosporin to his allergy list Subjective ROS Limited/Unobtainable: Yes Allergies: Coded Allergies: AMOXICILLIN (Verified Allergy, Unknown, 10/10/18) Subjective he was lying in bed, comfortable on ventilator , dosen't respond to verbal commands, open eyes spontaneously , no fever or chills, no diarrhea , no significant secretions , less rash on his body Objective Vital Signs Last 24 Hour Vital Signs Date Time Temp Pulse Resp B/P (MAP) Pulse Ox O2 Delivery O2 Flow Rate FiO2 10/13/18 16:00 98.6 80 16 132/66 (88) 100 10/13/18 16:00 T-piece 10.0 10/13/18 15:45 79 10/13/18 15:05 99 T-piece 12.0 40 10/13/18 15:05 T-piece 12.0 40 10/13/18 15:05 84 18 T-piece 12.0 40 10/13/18 12:00 T-piece 10.0 10/13/18 11:53 97.9 91 16 119/72 (88) 98 10/13/18 11:45 82 10/13/18 08:00 T-piece 10.0 10/13/18 08:00 98.1 96 18 123/70 (87) 100 10/13/18 08:00 40 10/13/18 07:14 80 10/13/18 04:00 82 10/13/18 04:00 T-piece 10.0 10/13/18 04:00 98.1 86 18 124/69 (87) 97 10/13/18 01:58 T-piece 12.0 40 10/13/18 01:58 100 T-piece 12.0 40 10/13/18 00:00 T-piece 10.0 10/13/18 00:00 98.1 82 18 120/83 (95) 96 10/13/18 00:00 81 10/12/18 20:00 81 10/12/18 20:00 98.1 78 18 132/89 (103) 100 10/12/18 20:00 T-piece 10.0 10/12/18 19:43 100 T-piece 12.0 40 10/12/18 19:43 T-piece 12.0 40 10/12/18 19:43 78 18 T-piece 12.0 40 Height (Feet): 5 Height (Inches): 7.00 Weight (Pounds): 167 General Appearance: WD/WN, no acute distress HEENT: normocephalic, atraumatic, anicteric, mucous membranes moist, PERRL, EOMI, pharynx normal, supple, no JVD, status post trach Respiratory/Chest: chest wall non-tender, no respiratory distress, no accessory muscle use, decreased breath sounds, crackles/rales Cardiovascular: normal peripheral pulses, normal rate, regular rhythm, no gallop/murmur, no JVD Abdomen: normal bowel sounds, soft, non tender, no organomegaly, non distended , no mass, no scars Extremities: no cyanosis, no clubbing Skin: rash, ulcers Neurologic/Psychiatric: alert, unresponsiveness Lymphatic: no neck adenopathy, no groin adenopathy Musculoskeletal: normal muscle bulk, no effusion Microbiology Date/Time Source Procedure Growth Status 10/12/18 01:20 Sputum Gram Stain - Final Resulted 10/12/18 01:20 Sputum Sputum Culture Pending Resulted 10/10/18 22:30 Stool Clostridium difficile Toxin Assay - Final Complete Laboratory Tests Test 10/13/18 03:20 White Blood Count 2.8 K/UL (4.8-10.8) L Red Blood Count 4.41 M/UL (4.70-6.10) L Hemoglobin 13.0 G/DL (14.2-18.0) L Hematocrit 38.7 % (42.0-52.0) L Mean Corpuscular Volume 88 FL (80-99) Mean Corpuscular Hemoglobin 29.5 PG (27.0-31.0) Mean Corpuscular Hemoglobin Concent 33.6 G/DL (32.0-36.0) Red Cell Distribution Width 13.1 % (11.6-14.8) Platelet Count 146 K/UL (150-450) L Mean Platelet Volume 8.0 FL (6.5-10.1) Neutrophils (%) (Auto) % (45.0-75.0) Lymphocytes (%) (Auto) % (20.0-45.0) Monocytes (%) (Auto) % (1.0-10.0) Eosinophils (%) (Auto) % (0.0-3.0) Basophils (%) (Auto) % (0.0-2.0) Differential Total Cells Counted 100 Neutrophils % (Manual) 43 % (45-75) L Lymphocytes % (Manual) 33 % (20-45) Monocytes % (Manual) 10 % (1-10) Eosinophils % (Manual) 14 % (0-3) H Basophils % (Manual) 0 % (0-2) Band Neutrophils 0 % (0-8) Platelet Estimate Decreased L Platelet Morphology Normal Red Blood Cell Morphology Normal Sodium Level 141 MMOL/L (136-145) Potassium Level 3.3 MMOL/L (3.5-5.1) L Chloride Level 105 MMOL/L (98-107) Carbon Dioxide Level 27 MMOL/L (21-32) Anion Gap 9 mmol/L (5-15) Blood Urea Nitrogen 6 mg/dL (7-18) L Creatinine 0.7 MG/DL (0.55-1.30) Estimat Glomerular Filtration Rate > 60 mL/min (>60) Glucose Level 97 MG/DL (74-106) Calcium Level 8.7 MG/DL (8.5-10.1) Phosphorus Level 2.5 MG/DL (2.5-4.9) Magnesium Level 1.9 MG/DL (1.8-2.4) Total Bilirubin 0.4 MG/DL (0.2-1.0) Aspartate Amino Transf (AST/SGOT) 18 U/L (15-37) Alanine Aminotransferase (ALT/SGPT) 26 U/L (12-78) Alkaline Phosphatase 69 U/L (46-116) Pro-B-Type Natriuretic Peptide 365 pg/mL (0-125) H Total Protein 7.3 G/DL (6.4-8.2) Albumin 2.9 G/DL (3.4-5.0) L Globulin 4.4 g/dL Albumin/Globulin Ratio 0.7 (1.0-2.7) L Current Medications Medications (Trade) Dose Ordered Sig/Yesenia Route PRN Reason Start Time Stop Time Status Last Admin Dose Admin Acetaminophen (Tylenol) 650 mg Q4H PRN ORAL T>100.5 10/09/18 13:15 11/08/18 12:14 Albuterol/ Ipratropium (Albuterol/ Ipratropium) 3 ml Q4H PRN HHN Shortness of Breath 10/09/18 12:15 10/14/18 12:14 Dextrose (Dextrose 50%) 25 ml Q30M PRN IV Hypoglycemia 10/09/18 13:15 11/08/18 13:05 Dextrose (Dextrose 50%) 50 ml Q30M PRN IV hypoglycemia 10/09/18 13:15 11/08/18 13:14 Dextrose/ Electrolytes 1,000 ml @ 75 mls/hr [id number] IV 10/09/18 17:00 11/08/18 16:59 10/13/18 05:07 Heparin Sodium (Porcine) (Heparin 5000 units/ml) 5,000 units EVERY 12 HOURS SUBQ 10/10/18 21:00 11/09/18 20:59 10/13/18 08:24 Levetiracetam 100 ml @ 400 mls/hr Q12HR IVPB 10/10/18 21:00 11/09/18 20:59 10/13/18 08:20 Levothyroxine Sodium (Synthroid) 37.5 mcg DAILY IV 10/11/18 09:00 11/10/18 08:59 10/13/18 09:16 Lorazepam (Ativan 2mg/ml 1ml) 2 mg Q2H PRN IV For Anxiety 10/09/18 12:15 10/16/18 12:14 Magnesium Oxide (Mag-Ox 400mg) 400 mg EVERY 8 HOURS ORAL 10/12/18 22:00 11/11/18 17:59 10/13/18 14:40 Morphine Sulfate (Morphine Sulfate) 4 mg Q4H PRN IVP Severe Pain (Pain Scale 7-10) 10/09/18 12:15 10/16/18 12:14 Ondansetron HCl (Zofran) 4 mg Q6H PRN IVP Nausea & Vomiting 10/09/18 12:15 11/08/18 12:14 Pantoprazole (Protonix) 40 mg DAILY IV 10/10/18 09:00 11/09/18 08:59 10/13/18 08:20 Polyethylene Glycol (Miralax) 17 gm DAILYPRN PRN ORAL Constipation 10/09/18 12:15 11/08/18 12:14 Bijan Mo M.D. Oct 13, 2018 17:19
--- NOTE | 2018-10-13 18:47 | General Progress Note ---
Assessment/Plan Assessment/Plan Assessment - abdominal distention - resolved - dysphagia - GT dependent - Anemia - Brain injury, obtunded Recommendations - Continue TF - monitor residuals - elevate HOB - follow labs and exam Subjective Allergies: Coded Allergies: CEPHALOSPORINS (Verified Allergy, Intermediate, SKIN RASH, 10/13/18) CEFEPIME AMOXICILLIN (Verified Allergy, Unknown, 10/10/18) Subjective Back on TF tolerating well Objective Last 24 Hour Vital Signs Date Time Temp Pulse Resp B/P (MAP) Pulse Ox O2 Delivery O2 Flow Rate FiO2 10/13/18 16:00 98.6 80 16 132/66 (88) 100 10/13/18 16:00 T-piece 10.0 10/13/18 15:45 79 10/13/18 15:05 99 T-piece 12.0 40 10/13/18 15:05 T-piece 12.0 40 10/13/18 15:05 84 18 T-piece 12.0 40 10/13/18 12:00 T-piece 10.0 10/13/18 11:53 97.9 91 16 119/72 (88) 98 10/13/18 11:45 82 10/13/18 08:00 T-piece 10.0 10/13/18 08:00 98.1 96 18 123/70 (87) 100 10/13/18 08:00 40 10/13/18 07:14 80 10/13/18 04:00 82 10/13/18 04:00 T-piece 10.0 10/13/18 04:00 98.1 86 18 124/69 (87) 97 10/13/18 01:58 T-piece 12.0 40 10/13/18 01:58 100 T-piece 12.0 40 10/13/18 00:00 T-piece 10.0 10/13/18 00:00 98.1 82 18 120/83 (95) 96 10/13/18 00:00 81 10/12/18 20:00 81 10/12/18 20:00 98.1 78 18 132/89 (103) 100 10/12/18 20:00 T-piece 10.0 10/12/18 19:43 100 T-piece 12.0 40 10/12/18 19:43 T-piece 12.0 40 10/12/18 19:43 78 18 T-piece 12.0 40 Intake and Output 10/12/18 10/13/18 19:00 07:00 Intake Total 1116.667 ml 1083.333 ml Output Total 1050 ml 1100 ml Balance 66.667 ml -16.667 ml Intake Free Water 100 ml IV Total 1066.667 ml 608.333 ml Tube Feeding 50 ml 375 ml Output Urine Total 1050 ml 1100 ml # Bowel Movements 1 Laboratory Tests 10/13/18 03:20: White Blood Count 2.8L, Red Blood Count 4.41L, Hemoglobin 13.0L, Hematocrit 38.7L, Mean Corpuscular Volume 88, Mean Corpuscular Hemoglobin 29.5, Mean Corpuscular Hemoglobin Concent 33.6, Red Cell Distribution Width 13.1, Platelet Count 146L, Mean Platelet Volume 8.0, Neutrophils (%) (Auto) , Lymphocytes (%) ( Auto) , Monocytes (%) (Auto) , Eosinophils (%) (Auto) , Basophils (%) (Auto) , Differential Total Cells Counted 100, Neutrophils % (Manual) 43L, Lymphocytes % (Manual) 33, Monocytes % (Manual) 10, Eosinophils % (Manual) 14H, Basophils % ( Manual) 0, Band Neutrophils 0, Platelet Estimate DecreasedL, Platelet Morphology Normal, Red Blood Cell Morphology Normal, Sodium Level 141, Potassium Level 3.3L, Chloride Level 105, Carbon Dioxide Level 27, Anion Gap 9, Blood Urea Nitrogen 6L, Creatinine 0.7, Estimat Glomerular Filtration Rate > 60 , Glucose Level 97, Calcium Level 8.7, Phosphorus Level 2.5, Magnesium Level 1.9 , Total Bilirubin 0.4, Aspartate Amino Transf (AST/SGOT) 18, Alanine Aminotransferase (ALT/SGPT) 26, Alkaline Phosphatase 69, Pro-B-Type Natriuretic Peptide 365H, Total Protein 7.3, Albumin 2.9L, Globulin 4.4, Albumin/Globulin Ratio 0.7L Height (Feet): 5 Height (Inches): 7.00 Weight (Pounds): 167 Objective (+) head surgery Supple CTA RRR abd soft flat no edema Eduardo Pennington MD Oct 13, 2018 18:47
--- NOTE | 2018-10-13 19:20 | NUR ---
HAND-OFF: Report given to MARI SERRANO.
--- NOTE | 2018-10-13 19:21 | NUR ---
NURSE NOTES: Received patient from MARI Solano.
[2018-10-13 20:00] VITALS: BP 125/70
[2018-10-13] MEDS: Ertapenem 1 GM in NS 55 ML IVPB SCH (21:08)
[2018-10-14] VITALS: BP 114/65
[2018-10-14 04:00] VITALS: BP 119/65
[2018-10-14 05:27] LABS: HEMATOCRIT 36.4 % (42.0-52.0); HEMOGLOBIN 12.4 G/DL (14.2-18.0); MEAN CORPUSCULAR VOLUME 88 FL (80-99); PLATELET COUNT 122 K/UL (150-450); RED BLOOD COUNT 4.15 M/UL (4.70-6.10); RED CELL DISTRIBUTION WIDTH 13.3 % (11.6-14.8); WHITE BLOOD COUNT 2.6 K/UL (4.8-10.8)
[2018-10-14] MEDS: Magnesium Oxide 400mg tab ORAL SCH ×3 (06:00→21:28)
[2018-10-14 06:07] LABS: ALANINE AMINOTRANSFERASE 28 U/L (12-78); ALBUMIN 2.8 G/DL (3.4-5.0); ALBUMIN/GLOBULIN RATIO 0.7 (1.0-2.7); ALKALINE PHOSPHATASE 70 U/L (46-116); ANION GAP 7 mmol/L (5-15); ASPARTATE AMINO TRANSFERASE 25 U/L (15-37); BILIRUBIN,TOTAL 0.2 MG/DL (0.2-1.0); BLOOD UREA NITROGEN 6 mg/dL (7-18); CALCIUM 8.4 MG/DL (8.5-10.1); CARBON DIOXIDE 29 MMOL/L (21-32); CHLORIDE 106 MMOL/L (98-107); CREATININE 0.6 MG/DL (0.55-1.30); PHOSPHORUS 2.3 MG/DL (2.5-4.9); POTASSIUM 3.9 MMOL/L (3.5-5.1); SODIUM 142 MMOL/L (136-145)
--- NOTE | 2018-10-14 06:50 | NUR ---
NURSE NOTES: Left message to Dr. Tobias regarding patient's AM labs results of Calcium: 8.4, Magnesium: 1.7 and Phosphorus: 2.3. Also left call back number for any new orders or further instructions.
--- NOTE | 2018-10-14 07:30 | NUR ---
NURSE NOTES: Report received from MARI Lee. Observed patient in bed sleeping. Open eyes by shaking and touch. Non-verbal. No s/s of pain at this time. On T-piece with 10L of oxygen with no distress noted. GT site intact with ongoing feeding. HOB elevated. No residual noted. Mid-line intact and patent with IVF running at prescribed rate. Bed in lowest position. Call light within reach. Will continue to monitor.
[2018-10-14 07:45] VITALS: BP 128/84
[2018-10-14] MEDS: Pantoprazole Inj IV SCH (08:29)
[2018-10-14] MEDS: levETIRAcetam 500mg/NS100ml 100 ML IVPB SCH ×2 (08:30→21:28)
[2018-10-14] MEDS: Heparin 5000 units/ml inj SUBQ SCH ×2 (08:32→21:29)
[2018-10-14] MEDS: D5 1/2NS w/KCl 20mEq 1,000 ML IV SCH ×2 (09:00→22:41)
--- NOTE | 2018-10-14 11:04 | NUR ---
HAND-OFF: Report given to MARI Cheatham. Stable condition.
--- NOTE | 2018-10-14 11:08 | NUR ---
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 97.7 HR 77 RR 20 B/P 128/84 T-PIECE FIO2 45% WBC 2.6 MG 1.7 IS: ERTAPENEM IV IVF D5KCL @ 75ML/HR HEPARIN SUBC ALB HHN STEP DOWN STATUS
--- NOTE | 2018-10-14 11:27 | Pulmonolgy Critical Care Note ---
Critical Care - Asmt/Plan Problems: (1) Acute respiratory failure (2) Aspiration pneumonia (3) Sepsis (4) COPD (chronic obstructive pulmonary disease) (5) Chronic vegetative state (6) HTN (hypertension) (7) Feeding by G-tube (8) Limited mobility in bed Respiratory: monitor respiratory rate, adjust FIO2, CXR Cardiac: continue to monitor HR/BP Renal: F/U I&O Infectious Disease: check cultures Gastrointestinal: continue feedings/current rate Endocrine: monitor blood sugar, check TSH Hematologic: monitor H/H, transfuse if hgb<8.5 Neurologic: PRN Morphine, keep patient comfortable Time Spent (Minutes): 40 Notes Reviewed: 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, renal Discussed with: nurses, consultants, case operatorsoftware project manager - Objective Last 24 Hour Vital Signs Date Time Temp Pulse Resp B/P (MAP) Pulse Ox O2 Delivery O2 Flow Rate FiO2 10/14/18 08:00 70 10/14/18 08:00 T-piece 10.0 10/14/18 08:00 40 10/14/18 07:45 97.7 77 20 128/84 (99) 100 10/14/18 06:57 T-piece 12.0 40 10/14/18 06:57 98 T-piece 12.0 40 10/14/18 06:56 77 20 T-piece 12.0 40 10/14/18 04:00 99.1 80 20 119/65 (83) 99 10/14/18 04:00 T-piece 10.0 10/14/18 04:00 40 10/14/18 04:00 85 10/14/18 01:09 97 T-piece 12.0 40 10/14/18 01:09 T-piece 12.0 40 10/14/18 00:00 99.0 78 20 114/65 (81) 93 10/14/18 00:00 T-piece 10.0 10/14/18 00:00 40 10/13/18 23:20 84 10/13/18 20:00 T-piece 10.0 10/13/18 20:00 98.8 83 20 125/70 (88) 99 10/13/18 19:36 85 10/13/18 19:21 T-piece 12.0 40 10/13/18 19:19 98 T-piece 12.0 40 10/13/18 19:19 95 20 T-piece 12.0 40 10/13/18 16:00 98.6 80 16 132/66 (88) 100 10/13/18 16:00 40 10/13/18 16:00 T-piece 10.0 10/13/18 15:45 79 10/13/18 15:05 99 T-piece 12.0 40 10/13/18 15:05 T-piece 12.0 40 10/13/18 15:05 84 18 T-piece 12.0 40 10/13/18 12:00 40 10/13/18 12:00 T-piece 10.0 10/13/18 11:53 97.9 91 16 119/72 (88) 98 10/13/18 11:45 82 Status: awake Condition: critical HEENT: atraumatic, normocephalic Neck: full ROM Lungs: chest wall tender, rales, rhonchi Heart: HR/BP stable Abdomen: soft, non-tender Extremities: no C/C/E, edema Decubiti: stage Micro: Microbiology Date/Time Source Procedure Growth Status 10/12/18 01:20 Sputum Gram Stain - Final Resulted 10/12/18 01:20 Sputum Culture - Preliminary Gram Negative Bacillus 1 Gram Negative Bacillus 2 Resulted Critical Care - Subjective ROS Limited/Unobtainable: Yes Condition: critical EKG Rhythm: Sinus Rhythm FI02: 40 Sputum Amount: Large Tube Feeding Amount: 50 I&O: Intake and Output 10/13/18 10/14/18 19:00 07:00 Intake Total 1620 ml 1800 ml Output Total 2000 ml 160 ml Balance -380 ml 1640 ml Intake Free Water 200 ml IV Total 825 ml 1000 ml Tube Feeding 595 ml 600 ml Other 200 ml Output Urine Total 2000 ml 160 ml # Bowel Movements 2 CXR: trach in good position Labs: Laboratory Tests Test 10/14/18 03:15 White Blood Count 2.6 K/UL (4.8-10.8) L Red Blood Count 4.15 M/UL (4.70-6.10) L Hemoglobin 12.4 G/DL (14.2-18.0) L Hematocrit 36.4 % (42.0-52.0) L Mean Corpuscular Volume 88 FL (80-99) Mean Corpuscular Hemoglobin 29.8 PG (27.0-31.0) Mean Corpuscular Hemoglobin Concent 34.0 G/DL (32.0-36.0) Red Cell Distribution Width 13.3 % (11.6-14.8) Platelet Count 122 K/UL (150-450) L Mean Platelet Volume 7.7 FL (6.5-10.1) Neutrophils (%) (Auto) % (45.0-75.0) Lymphocytes (%) (Auto) % (20.0-45.0) Monocytes (%) (Auto) % (1.0-10.0) Eosinophils (%) (Auto) % (0.0-3.0) Basophils (%) (Auto) % (0.0-2.0) Differential Total Cells Counted 100 Neutrophils % (Manual) 40 % (45-75) L Lymphocytes % (Manual) 37 % (20-45) Monocytes % (Manual) 12 % (1-10) H Eosinophils % (Manual) 11 % (0-3) H Basophils % (Manual) 0 % (0-2) Band Neutrophils 0 % (0-8) Platelet Estimate Decreased L Platelet Morphology Normal Red Blood Cell Morphology Normal Erythrocyte Sedimentation Rate 53 MM/HR (0-20) H Sodium Level 142 MMOL/L (136-145) Potassium Level 3.9 MMOL/L (3.5-5.1) Chloride Level 106 MMOL/L (98-107) Carbon Dioxide Level 29 MMOL/L (21-32) Anion Gap 7 mmol/L (5-15) Blood Urea Nitrogen 6 mg/dL (7-18) L Creatinine 0.6 MG/DL (0.55-1.30) Estimat Glomerular Filtration Rate > 60 mL/min (>60) Glucose Level 136 MG/DL (74-106) H Calcium Level 8.4 MG/DL (8.5-10.1) L Phosphorus Level 2.3 MG/DL (2.5-4.9) L Magnesium Level 1.7 MG/DL (1.8-2.4) L Total Bilirubin 0.2 MG/DL (0.2-1.0) Aspartate Amino Transf (AST/SGOT) 25 U/L (15-37) Alanine Aminotransferase (ALT/SGPT) 28 U/L (12-78) Alkaline Phosphatase 70 U/L (46-116) C-Reactive Protein, Quantitative 5.5 mg/dL (0.00-0.90) H Total Protein 7.0 G/DL (6.4-8.2) Albumin 2.8 G/DL (3.4-5.0) L Globulin 4.2 g/dL Albumin/Globulin Ratio 0.7 (1.0-2.7) L Linda Foley MD Oct 14, 2018 11:27
[2018-10-14 12:00] VITALS: BP 127/76
--- NOTE | 2018-10-14 12:48 | NUR ---
NURSE NOTES: received pt from HARDIK GUERRA, pt obtunded, vital signs stable, no co pain, no SOB, tolerate GT feeding well, continue monitoring.
[2018-10-14] MEDS ORDERED: Sodium Phosphate 30 MM in NS 275 ML IV ONE (13:00)
--- NOTE | 2018-10-14 13:59 | NUR ---
RD ASSESSMENT & RECOMMENDATIONS SEE CARE ACTIVITY FOR COMPLETE ASSESSMENT DAILY ESTIMATED NEEDS: Needs based on Pulmonary, cardiac, TF REGIONAL SALES DIRECTOR 69kg adj 22-27 kcals/kg 8350-9605 total kcals 1-1.5 g protein/kg 69-104 g total protein 22-27ml/kcal mL/kg 0463-1335 total fluid mLs NUTRITION DIAGNOSIS: Swallowing difficulty r/t respiratory status as evidenced by pt is vent dep via Tpiece, on GT feeds for all nutritional needs. CURRENT TF:Osmolite 1.5 @ 50ml/hr x 24 hrs ENTERAL NUTRITION RECOMMENDATIONS: OSMOLITE 1.5 @45ml/hr x 24 hrs + Prosource 1pkt daily to provide 1080ml, 1620kcal, 78g protm 899ml free water - Rec to decrease goal rate to 45ml/hr: meets 100% est kcal/prot needs - Add PROSOURCE 1 pack daily to better meet protein needs - Flush per MD/HOB over 30 degrees WHEN SYNTHROID CHANGES FROM IV-> GT, TF to run max 22 hours (hold 1 hour before and after Synthroid med) : Osmolite 1.5 @50ml/hr x22 hrs + Prosource 1 pack daily to provide 1100ml, 1650 kcal, 69g + 11g prot, 838ml free H2o ADDITIONAL RECOMMENDATIONS: 1) RE-calibrate bed scale w/ added mattress 2) Monitor lytes daily / replete as needed (low phos and mag) 3) TF to run 22 hours once IV synthroid changes to GT synthroid -> see above TF rec
[2018-10-14 16:00] VITALS: BP 131/90
--- NOTE | 2018-10-14 16:00 | NUR ---
*-*DISCHARGE PLANNING *-* PATIENT HAS BEEN REFERRED BACK TO: [facility] P:[phone] F:[phone]
--- NOTE | 2018-10-14 17:00 | Infectious Diseases Prog Note ---
Assessment/Plan Problems: (1) Aspiration pneumonia Assessment & Plan: with streptococcus group G and serratia marcescens , continue ertapenem to finish his course of treatment for two weeks , aspiration precaution and keep HOB > 30 DEGREE. avoid penicillin and cephalosporin (2) UTI (urinary tract infection) Assessment & Plan: continue ertapenem pending culture (3) Fever Assessment & Plan: due to the above , improved, continue antibiotics pending cultures , and tylenol prn (4) Acute respiratory failure Assessment & Plan: due to the above , on mechanical ventilation , pulmonary is follow , continue local trach care, monitor CXR and ABG (5) Sepsis Assessment & Plan: due to the above , culture grew coag negative staph from one set, most likely contaminant , no need to treat (6) Skin rash Assessment & Plan: suspect drug reaction due to amoxicillin,and cephalosporins since got worse on cefepime , will switch to ertapenem and add cephalosporin to his allergy list Subjective ROS Limited/Unobtainable: Yes Allergies: Coded Allergies: CEPHALOSPORINS (Verified Allergy, Intermediate, SKIN RASH, 10/13/18) CEFEPIME AMOXICILLIN (Verified Allergy, Unknown, 10/10/18) Subjective he was lying in bed, comfortable on ventilator , dosen't respond to verbal commands, open eyes spontaneously , no fever or chills, no diarrhea , no significant secretions , less rash on his body Objective Vital Signs Last 24 Hour Vital Signs Date Time Temp Pulse Resp B/P (MAP) Pulse Ox O2 Delivery O2 Flow Rate FiO2 10/14/18 16:00 98.4 88 18 131/90 (104) 99 10/14/18 16:00 40 10/14/18 16:00 T-piece 10.0 10/14/18 13:04 T-piece 12.0 40 10/14/18 13:04 100 T-piece 12.0 40 10/14/18 12:00 98.1 86 18 127/76 (93) 100 10/14/18 12:00 40 10/14/18 12:00 T-piece 10.0 10/14/18 12:00 76 10/14/18 08:00 70 10/14/18 08:00 T-piece 10.0 10/14/18 08:00 40 10/14/18 07:45 97.7 77 20 128/84 (99) 100 10/14/18 06:57 T-piece 12.0 40 10/14/18 06:57 98 T-piece 12.0 40 10/14/18 06:56 77 20 T-piece 12.0 40 10/14/18 04:00 99.1 80 20 119/65 (83) 99 10/14/18 04:00 T-piece 10.0 10/14/18 04:00 40 10/14/18 04:00 85 10/14/18 01:09 97 T-piece 12.0 40 10/14/18 01:09 T-piece 12.0 40 10/14/18 00:00 99.0 78 20 114/65 (81) 93 10/14/18 00:00 T-piece 10.0 10/14/18 00:00 40 10/13/18 23:20 84 10/13/18 20:00 T-piece 10.0 10/13/18 20:00 98.8 83 20 125/70 (88) 99 10/13/18 19:36 85 10/13/18 19:21 T-piece 12.0 40 10/13/18 19:19 98 T-piece 12.0 40 10/13/18 19:19 95 20 T-piece 12.0 40 Height (Feet): 5 Height (Inches): 7.00 Weight (Pounds): 165 General Appearance: WD/WN, no acute distress HEENT: normocephalic, atraumatic, anicteric, mucous membranes moist, PERRL, supple, no JVD, status post trach Respiratory/Chest: chest wall non-tender, lungs clear, normal breath sounds, no respiratory distress, no accessory muscle use Cardiovascular: normal peripheral pulses, normal rate, regular rhythm, no gallop/murmur, no JVD Abdomen: normal bowel sounds, soft, non tender, no organomegaly, non distended , no mass, no scars Extremities: no cyanosis, no clubbing Skin: no rash, no lesions, ulcers Neurologic/Psychiatric: alert, oriented x 3, responsive Lymphatic: no neck adenopathy, no groin adenopathy Musculoskeletal: normal muscle bulk, no effusion Microbiology Date/Time Source Procedure Growth Status 10/12/18 01:20 Sputum Gram Stain - Final Resulted 10/12/18 01:20 Sputum Culture - Preliminary Gram Negative Bacillus 1 Gram Negative Bacillus 2 Resulted Laboratory Tests Test 10/14/18 03:15 White Blood Count 2.6 K/UL (4.8-10.8) L Red Blood Count 4.15 M/UL (4.70-6.10) L Hemoglobin 12.4 G/DL (14.2-18.0) L Hematocrit 36.4 % (42.0-52.0) L Mean Corpuscular Volume 88 FL (80-99) Mean Corpuscular Hemoglobin 29.8 PG (27.0-31.0) Mean Corpuscular Hemoglobin Concent 34.0 G/DL (32.0-36.0) Red Cell Distribution Width 13.3 % (11.6-14.8) Platelet Count 122 K/UL (150-450) L Mean Platelet Volume 7.7 FL (6.5-10.1) Neutrophils (%) (Auto) % (45.0-75.0) Lymphocytes (%) (Auto) % (20.0-45.0) Monocytes (%) (Auto) % (1.0-10.0) Eosinophils (%) (Auto) % (0.0-3.0) Basophils (%) (Auto) % (0.0-2.0) Differential Total Cells Counted 100 Neutrophils % (Manual) 40 % (45-75) L Lymphocytes % (Manual) 37 % (20-45) Monocytes % (Manual) 12 % (1-10) H Eosinophils % (Manual) 11 % (0-3) H Basophils % (Manual) 0 % (0-2) Band Neutrophils 0 % (0-8) Platelet Estimate Decreased L Platelet Morphology Normal Red Blood Cell Morphology Normal Erythrocyte Sedimentation Rate 53 MM/HR (0-20) H Sodium Level 142 MMOL/L (136-145) Potassium Level 3.9 MMOL/L (3.5-5.1) Chloride Level 106 MMOL/L (98-107) Carbon Dioxide Level 29 MMOL/L (21-32) Anion Gap 7 mmol/L (5-15) Blood Urea Nitrogen 6 mg/dL (7-18) L Creatinine 0.6 MG/DL (0.55-1.30) Estimat Glomerular Filtration Rate > 60 mL/min (>60) Glucose Level 136 MG/DL (74-106) H Calcium Level 8.4 MG/DL (8.5-10.1) L Phosphorus Level 2.3 MG/DL (2.5-4.9) L Magnesium Level 1.7 MG/DL (1.8-2.4) L Total Bilirubin 0.2 MG/DL (0.2-1.0) Aspartate Amino Transf (AST/SGOT) 25 U/L (15-37) Alanine Aminotransferase (ALT/SGPT) 28 U/L (12-78) Alkaline Phosphatase 70 U/L (46-116) C-Reactive Protein, Quantitative 5.5 mg/dL (0.00-0.90) H Total Protein 7.0 G/DL (6.4-8.2) Albumin 2.8 G/DL (3.4-5.0) L Globulin 4.2 g/dL Albumin/Globulin Ratio 0.7 (1.0-2.7) L Current Medications Medications (Trade) Dose Ordered Sig/Yesenia Route PRN Reason Start Time Stop Time Status Last Admin Dose Admin Acetaminophen (Tylenol) 650 mg Q4H PRN ORAL T>100.5 10/09/18 13:15 11/08/18 12:14 Dextrose (Dextrose 50%) 25 ml Q30M PRN IV Hypoglycemia 10/09/18 13:15 11/08/18 13:05 Dextrose (Dextrose 50%) 50 ml Q30M PRN IV hypoglycemia 10/09/18 13:15 11/08/18 13:14 Dextrose/ Electrolytes 1,000 ml @ 75 mls/hr [id number] IV 10/09/18 17:00 11/08/18 16:59 10/14/18 09:00 Ertapenem 1 gm/ Sodium Chloride 55 ml @ 110 mls/hr Q24H IVPB 10/13/18 20:00 10/18/18 19:59 10/13/18 21:08 Heparin Sodium (Porcine) (Heparin 5000 units/ml) 5,000 units EVERY 12 HOURS SUBQ 10/10/18 21:00 11/09/18 20:59 10/14/18 08:32 Levetiracetam 100 ml @ 400 mls/hr Q12HR IVPB 10/10/18 21:00 11/09/18 20:59 10/14/18 08:30 Levothyroxine Sodium (Synthroid) 37.5 mcg DAILY IV 10/11/18 09:00 11/10/18 08:59 10/14/18 09:29 Lorazepam (Ativan 2mg/ml 1ml) 2 mg Q2H PRN IV For Anxiety 10/09/18 12:15 10/16/18 12:14 Magnesium Oxide (Mag-Ox 400mg) 400 mg EVERY 8 HOURS ORAL 10/12/18 22:00 11/11/18 17:59 10/14/18 14:14 Morphine Sulfate (Morphine Sulfate) 4 mg Q4H PRN IVP Severe Pain (Pain Scale 7-10) 10/09/18 12:15 10/16/18 12:14 Ondansetron HCl (Zofran) 4 mg Q6H PRN IVP Nausea & Vomiting 10/09/18 12:15 11/08/18 12:14 Pantoprazole (Protonix) 40 mg DAILY IV 10/10/18 09:00 11/09/18 08:59 10/14/18 08:29 Polyethylene Glycol (Miralax) 17 gm DAILYPRN PRN ORAL Constipation 10/09/18 12:15 11/08/18 12:14 Sodium Phosphate 30 mm/Sodium Chloride 285 ml @ 47.5 mls/hr ONCE ONCE IV 10/14/18 13:00 10/14/18 18:59 10/14/18 12:57 Bijan Mo M.D. Oct 14, 2018 17:00
--- NOTE | 2018-10-14 18:46 | Internal Med Progress Note ---
Subjective Date of Service: Oct 14, 2018 Physician Name Broderick Tobias Attending Physician Lion Cates MD Current Medications Medications (Trade) Dose Ordered Sig/Yesenia Route PRN Reason Start Time Stop Time Status Last Admin Dose Admin Acetaminophen (Tylenol) 650 mg Q4H PRN ORAL T>100.5 10/09/18 13:15 11/08/18 12:14 Dextrose (Dextrose 50%) 25 ml Q30M PRN IV Hypoglycemia 10/09/18 13:15 11/08/18 13:05 Dextrose (Dextrose 50%) 50 ml Q30M PRN IV hypoglycemia 10/09/18 13:15 11/08/18 13:14 Dextrose/ Electrolytes 1,000 ml @ 75 mls/hr [id number] IV 10/09/18 17:00 11/08/18 16:59 10/14/18 09:00 Ertapenem 1 gm/ Sodium Chloride 55 ml @ 110 mls/hr Q24H IVPB 10/13/18 20:00 10/18/18 19:59 10/13/18 21:08 Heparin Sodium (Porcine) (Heparin 5000 units/ml) 5,000 units EVERY 12 HOURS SUBQ 10/10/18 21:00 11/09/18 20:59 10/14/18 08:32 Levetiracetam 100 ml @ 400 mls/hr Q12HR IVPB 10/10/18 21:00 11/09/18 20:59 10/14/18 08:30 Levothyroxine Sodium (Synthroid) 37.5 mcg DAILY IV 10/11/18 09:00 11/10/18 08:59 10/14/18 09:29 Lorazepam (Ativan 2mg/ml 1ml) 2 mg Q2H PRN IV For Anxiety 10/09/18 12:15 10/16/18 12:14 Magnesium Oxide (Mag-Ox 400mg) 400 mg EVERY 8 HOURS ORAL 10/12/18 22:00 11/11/18 17:59 10/14/18 14:14 Morphine Sulfate (Morphine Sulfate) 4 mg Q4H PRN IVP Severe Pain (Pain Scale 7-10) 10/09/18 12:15 10/16/18 12:14 Ondansetron HCl (Zofran) 4 mg Q6H PRN IVP Nausea & Vomiting 10/09/18 12:15 11/08/18 12:14 Pantoprazole (Protonix) 40 mg DAILY IV 10/10/18 09:00 11/09/18 08:59 10/14/18 08:29 Polyethylene Glycol (Miralax) 17 gm DAILYPRN PRN ORAL Constipation 10/09/18 12:15 11/08/18 12:14 Sodium Phosphate 30 mm/Sodium Chloride 285 ml @ 47.5 mls/hr ONCE ONCE IV 10/14/18 13:00 10/14/18 18:59 10/14/18 12:57 Allergies: Coded Allergies: CEPHALOSPORINS (Verified Allergy, Intermediate, SKIN RASH, 10/13/18) CEFEPIME AMOXICILLIN (Verified Allergy, Unknown, 10/10/18) ROS Limited/Unobtainable: Yes Subjective 62 YO M with chronic ventillator dependence admitted with fever. Now bilateral pneumonia. Cover for Int Med-Dr Cates. TESS. Objective Last Vital Signs Date Time Temp Pulse Resp B/P (MAP) Pulse Ox O2 Delivery O2 Flow Rate FiO2 10/14/18 16:00 98.4 88 18 131/90 (104) 99 10/14/18 16:00 40 10/14/18 16:00 T-piece 10.0 Laboratory Tests Test 10/14/18 03:15 White Blood Count 2.6 K/UL (4.8-10.8) L Red Blood Count 4.15 M/UL (4.70-6.10) L Hemoglobin 12.4 G/DL (14.2-18.0) L Hematocrit 36.4 % (42.0-52.0) L Mean Corpuscular Volume 88 FL (80-99) Mean Corpuscular Hemoglobin 29.8 PG (27.0-31.0) Mean Corpuscular Hemoglobin Concent 34.0 G/DL (32.0-36.0) Red Cell Distribution Width 13.3 % (11.6-14.8) Platelet Count 122 K/UL (150-450) L Mean Platelet Volume 7.7 FL (6.5-10.1) Neutrophils (%) (Auto) % (45.0-75.0) Lymphocytes (%) (Auto) % (20.0-45.0) Monocytes (%) (Auto) % (1.0-10.0) Eosinophils (%) (Auto) % (0.0-3.0) Basophils (%) (Auto) % (0.0-2.0) Differential Total Cells Counted 100 Neutrophils % (Manual) 40 % (45-75) L Lymphocytes % (Manual) 37 % (20-45) Monocytes % (Manual) 12 % (1-10) H Eosinophils % (Manual) 11 % (0-3) H Basophils % (Manual) 0 % (0-2) Band Neutrophils 0 % (0-8) Platelet Estimate Decreased L Platelet Morphology Normal Red Blood Cell Morphology Normal Erythrocyte Sedimentation Rate 53 MM/HR (0-20) H Sodium Level 142 MMOL/L (136-145) Potassium Level 3.9 MMOL/L (3.5-5.1) Chloride Level 106 MMOL/L (98-107) Carbon Dioxide Level 29 MMOL/L (21-32) Anion Gap 7 mmol/L (5-15) Blood Urea Nitrogen 6 mg/dL (7-18) L Creatinine 0.6 MG/DL (0.55-1.30) Estimat Glomerular Filtration Rate > 60 mL/min (>60) Glucose Level 136 MG/DL (74-106) H Calcium Level 8.4 MG/DL (8.5-10.1) L Phosphorus Level 2.3 MG/DL (2.5-4.9) L Magnesium Level 1.7 MG/DL (1.8-2.4) L Total Bilirubin 0.2 MG/DL (0.2-1.0) Aspartate Amino Transf (AST/SGOT) 25 U/L (15-37) Alanine Aminotransferase (ALT/SGPT) 28 U/L (12-78) Alkaline Phosphatase 70 U/L (46-116) C-Reactive Protein, Quantitative 5.5 mg/dL (0.00-0.90) H Total Protein 7.0 G/DL (6.4-8.2) Albumin 2.8 G/DL (3.4-5.0) L Globulin 4.2 g/dL Albumin/Globulin Ratio 0.7 (1.0-2.7) L Microbiology Date/Time Source Procedure Growth Status 10/12/18 01:20 Sputum Gram Stain - Final Resulted 10/12/18 01:20 Sputum Culture - Preliminary Gram Negative Bacillus 1 Gram Negative Bacillus 2 Resulted Intake and Output 10/13/18 10/14/18 18:59 06:59 Intake Total 1690 ml 1725 ml Output Total 2000 ml 160 ml Balance -310 ml 1565 ml Intake Free Water 200 ml IV Total 900 ml 925 ml Tube Feeding 590 ml 600 ml Other 200 ml Output Urine Total 2000 ml 160 ml # Bowel Movements 1 Objective PHYSICAL EXAMINATION: GENERAL: The patient is not opening his eyes and cannot follow commands. No acute distress. On the vent. HEENT: Pupils are equal and reactive to light. Anicteric. NECK: Supple. No JVD. Trach site is intact. LUNGS: Good air entry. No wheezing or rhonchi. HEART: Reveals S1, S2. Distant heart sounds. No murmurs or gallops. ABDOMEN: Soft, nondistended, and nontender. Mildly obese. PEG site is clean. EXTREMITIES: No cyanosis, clubbing, or edema. NEUROLOGIC: Limited secondary to the patient's status. The patient has quadriplegia and cannot follow commands. PSYCHIATRIC: Mood and affect unable to obtain. Assessment/Plan Assessment/Plan ASSESSMENT: 1. Sepsis secondary to pneumonia. 2. Chronic respiratory failure, on ventilation. 3. History of traumatic subdural hematoma. 4. History of deep venous thrombosis, on Coumadin. 5. Hypertension. 6. Hypothyroidism. 7. Morbid obesity. 8. Traumatic brain injury with coma stage. 9. Epilepsy. 10. Dysphagia status post percutaneous endoscopic gastrostomy. 11. Coag neg staph bacteremia. PLAN: 1. Admit the patient to [facility]. 2. We will follow up the cultures. 3. Continue cefepime and vancomycin per ID. 4. Coumadin per pharmacy. 5. Continue vanco and cefepime Broderick Tobias MD Oct 14, 2018 18:46
--- NOTE | 2018-10-14 19:19 | NUR ---
HAND-OFF: Report given to ARUN GUERRA.
--- NOTE | 2018-10-14 19:19 | NUR ---
NURSE NOTES: Received report from Marta Stone RN. Patient is awake in bed, obtunded. No s/s of acute distress noted. Sinus rhythm on poultry cutter. T-piece in place, portex 7, FiO2 40%. Receiving Osmolite 1.5 @ 55cc/hr via GT and tolerating well. Condom catheter in place and draining well. Left upper arm midline-double lumen, intact and patent. Bed locked in lowest position with side rails up x3. Call light left within reach. Will continue to monitor.
--- NOTE | 2018-10-14 19:36 | General Progress Note ---
Assessment/Plan Assessment/Plan Assessment - abdominal distention - resolved - dysphagia - GT dependent - Anemia - Brain injury, obtunded Recommendations - Continue TF - monitor residuals - elevate HOB - follow labs and exam Subjective Allergies: Coded Allergies: CEPHALOSPORINS (Verified Allergy, Intermediate, SKIN RASH, 10/13/18) CEFEPIME AMOXICILLIN (Verified Allergy, Unknown, 10/10/18) Subjective non communicative tolerating well Objective Last 24 Hour Vital Signs Date Time Temp Pulse Resp B/P (MAP) Pulse Ox O2 Delivery O2 Flow Rate FiO2 10/14/18 18:58 T-piece 12.0 40 10/14/18 18:58 91 16 T-piece 12.0 40 10/14/18 18:58 99 T-piece 12.0 40 10/14/18 16:00 98.4 88 18 131/90 (104) 99 10/14/18 16:00 40 10/14/18 16:00 T-piece 10.0 10/14/18 16:00 98 10/14/18 13:04 T-piece 12.0 40 10/14/18 13:04 100 T-piece 12.0 40 10/14/18 12:00 98.1 86 18 127/76 (93) 100 10/14/18 12:00 40 10/14/18 12:00 T-piece 10.0 10/14/18 12:00 76 10/14/18 08:00 70 10/14/18 08:00 T-piece 10.0 10/14/18 08:00 40 10/14/18 07:45 97.7 77 20 128/84 (99) 100 10/14/18 06:57 T-piece 12.0 40 10/14/18 06:57 98 T-piece 12.0 40 10/14/18 06:56 77 20 T-piece 12.0 40 10/14/18 04:00 99.1 80 20 119/65 (83) 99 10/14/18 04:00 T-piece 10.0 10/14/18 04:00 40 10/14/18 04:00 85 10/14/18 01:09 97 T-piece 12.0 40 10/14/18 01:09 T-piece 12.0 40 10/14/18 00:00 99.0 78 20 114/65 (81) 93 10/14/18 00:00 T-piece 10.0 10/14/18 00:00 40 10/13/18 23:20 84 10/13/18 20:00 T-piece 10.0 10/13/18 20:00 98.8 83 20 125/70 (88) 99 Intake and Output 10/13/18 10/14/18 19:00 07:00 Intake Total 1620 ml 1800 ml Output Total 2000 ml 160 ml Balance -380 ml 1640 ml Intake Free Water 200 ml IV Total 825 ml 1000 ml Tube Feeding 595 ml 600 ml Other 200 ml Output Urine Total 2000 ml 160 ml # Bowel Movements 2 Laboratory Tests 10/14/18 03:15: White Blood Count 2.6L, Red Blood Count 4.15L, Hemoglobin 12.4L, Hematocrit 36.4L, Mean Corpuscular Volume 88, Mean Corpuscular Hemoglobin 29.8, Mean Corpuscular Hemoglobin Concent 34.0, Red Cell Distribution Width 13.3, Platelet Count 122L, Mean Platelet Volume 7.7, Neutrophils (%) (Auto) , Lymphocytes (%) ( Auto) , Monocytes (%) (Auto) , Eosinophils (%) (Auto) , Basophils (%) (Auto) , Differential Total Cells Counted 100, Neutrophils % (Manual) 40L, Lymphocytes % (Manual) 37, Monocytes % (Manual) 12H, Eosinophils % (Manual) 11H, Basophils % ( Manual) 0, Band Neutrophils 0, Platelet Estimate DecreasedL, Platelet Morphology Normal, Red Blood Cell Morphology Normal, Erythrocyte Sedimentation Rate 53H, Sodium Level 142, Potassium Level 3.9, Chloride Level 106, Carbon Dioxide Level 29, Anion Gap 7, Blood Urea Nitrogen 6L, Creatinine 0.6, Estimat Glomerular Filtration Rate > 60, Glucose Level 136H, Calcium Level 8.4L, Phosphorus Level 2.3L, Magnesium Level 1.7L, Total Bilirubin 0.2, Aspartate Amino Transf (AST/SGOT) 25, Alanine Aminotransferase (ALT/SGPT) 28, Alkaline Phosphatase 70, C-Reactive Protein, Quantitative 5.5H, Total Protein 7.0, Albumin 2.8L, Globulin 4.2, Albumin/Globulin Ratio 0.7L Height (Feet): 5 Height (Inches): 7.00 Weight (Pounds): 165 Objective (+) head surgery Supple CTA RRR abd soft flat no edema Khorrami,Payman MD Oct 14, 2018 19:36
[2018-10-14 20:00] VITALS: BP 141/88
[2018-10-14] MEDS: Ertapenem 1 GM in NS 55 ML IVPB SCH (20:00)
[2018-10-15] VITALS: BP 140/76
[2018-10-15 04:00] VITALS: BP 123/75
[2018-10-15 05:35] LABS: BASOPHILS % (AUTO) 0.8 % (0.0-2.0); EOSINOPHILS % (AUTO) 18.8 % (0.0-3.0); HEMATOCRIT 36.7 % (42.0-52.0); HEMOGLOBIN 12.3 G/DL (14.2-18.0); LYMPHOCYTES % (AUTO) 32.6 % (20.0-45.0); MEAN CORPUSCULAR VOLUME 88 FL (80-99); MONOCYTES % (AUTO) 7.6 % (1.0-10.0); NEUTROPHILS % (AUTO) 40.2 % (45.0-75.0); PLATELET COUNT 167 K/UL (150-450); RED BLOOD COUNT 4.16 M/UL (4.70-6.10); RED CELL DISTRIBUTION WIDTH 13.1 % (11.6-14.8); WHITE BLOOD COUNT 3.7 K/UL (4.8-10.8)
[2018-10-15 05:50] LABS: ANION GAP 8 mmol/L (5-15); BLOOD UREA NITROGEN 6 mg/dL (7-18); CALCIUM 8.1 MG/DL (8.5-10.1); CARBON DIOXIDE 29 MMOL/L (21-32); CHLORIDE 105 MMOL/L (98-107); CREATININE 0.6 MG/DL (0.55-1.30); POTASSIUM 3.6 MMOL/L (3.5-5.1); SODIUM 142 MMOL/L (136-145)
[2018-10-15] MEDS: Magnesium Oxide 400mg tab GT SCH ×2 (05:50→14:00)
--- NOTE | 2018-10-15 07:15 | NUR ---
HAND-OFF: Report given to Michell Toledo RN.
--- NOTE | 2018-10-15 07:20 | NUR ---
NURSE NOTES: Received patient from MARI James. Patient VS stable at this time with no sign of acute distress. patient obtunded at this time. Patient on trach to T-piece with FiO2 40%. Patient reported to have a lot of secretions. Will monitor closely. Patient has a g tube that is patent, asymptomatic, and running Osmolite 1.5 at 50cc/hr at this time. Patient has condom catheter that is patent and asymptomatic and draining at this time. Patient is contracted. Patient has rashes throughout his body from allergic reaction to medication that he has been taken off of at this time. Patient has a left upper arm midline that is patent, asymptomatic, and running D5 0.45% NS with 20mEq KCl at 75mL/hr. Patient next central line dressing change due on the . Patient bed in low position with bed alarm on and call light in reach at this time.
[2018-10-15 08:00] VITALS: BP 116/71
[2018-10-15] MEDS: Pantoprazole Inj IV SCH (08:58)
[2018-10-15] MEDS: levETIRAcetam 500mg/NS100ml 100 ML IVPB SCH (08:58)
[2018-10-15] MEDS: Heparin 5000 units/ml inj SUBQ SCH (08:59)
--- NOTE | 2018-10-15 11:12 | NUR ---
NURSE NOTES: Passed along message from Dr Jiang, the patient's primary care physician, that he would like to talk with Dr Foley regarding the patient's current condition. Dr Foley spoke with Dr Jiang at this time. Dr Foley also spoke with the of the patient at this time and gave her an update.
--- NOTE | 2018-10-15 11:40 | Pulmonolgy Critical Care Note ---
Critical Care - Asmt/Plan Problems: (1) Acute respiratory failure (2) Aspiration pneumonia (3) Sepsis (4) COPD (chronic obstructive pulmonary disease) (5) Chronic vegetative state (6) HTN (hypertension) (7) Feeding by G-tube (8) Limited mobility in bed Respiratory: monitor respiratory rate, adjust FIO2, CXR Cardiac: continue to monitor HR/BP Renal: F/U I&O Infectious Disease: check cultures Gastrointestinal: continue feedings/current rate Endocrine: monitor blood sugar Hematologic: transfuse if hgb<8.5 Neurologic: PRN Ativan, PRN Morphine, keep patient comfortable Affect: PRN ativan Time Spent (Minutes): 40 Notes Reviewed: cardio, renal Discussed with: case management associatemanager home improvement - Objective Last 24 Hour Vital Signs Date Time Temp Pulse Resp B/P (MAP) Pulse Ox O2 Delivery O2 Flow Rate FiO2 10/15/18 08:00 40 10/15/18 08:00 97.8 89 19 116/71 (86) 98 10/15/18 08:00 T-piece 10.0 10/15/18 08:00 100 10/15/18 07:02 100 T-piece 12.0 40 10/15/18 07:02 88 16 T-piece 12.0 40 10/15/18 07:02 T-piece 12.0 40 10/15/18 04:00 T-piece 10.0 10/15/18 04:00 97.3 96 20 123/75 (91) 100 10/15/18 04:00 T-piece 10.0 10/15/18 04:00 40 10/15/18 03:17 111 10/15/18 00:35 99 T-piece 12.0 40 10/15/18 00:35 T-piece 12.0 40 10/15/18 00:00 T-piece 10.0 10/15/18 00:00 97.5 98 20 140/76 (97) 96 10/15/18 00:00 40 10/14/18 23:22 89 10/14/18 20:00 98.1 95 20 141/88 (105) 99 10/14/18 20:00 95 10/14/18 20:00 40 10/14/18 20:00 T-piece 10.0 10/14/18 18:58 T-piece 12.0 40 10/14/18 18:58 91 16 T-piece 12.0 40 10/14/18 18:58 99 T-piece 12.0 40 10/14/18 16:00 98.4 88 18 131/90 (104) 99 10/14/18 16:00 40 10/14/18 16:00 T-piece 10.0 10/14/18 16:00 98 10/14/18 13:04 T-piece 12.0 40 10/14/18 13:04 100 T-piece 12.0 40 10/14/18 12:00 98.1 86 18 127/76 (93) 100 10/14/18 12:00 40 10/14/18 12:00 T-piece 10.0 10/14/18 12:00 76 Status: obtunded Condition: critical Lungs: clear Heart: HR/BP unstable Abdomen: soft, active bowel sounds Extremities: no C/C/E, edema Decubiti: location Critical Care - Subjective ROS Limited/Unobtainable: Yes Condition: critical EKG Rhythm: Sinus Rhythm FI02: 40 Sputum Amount: Moderate Tube Feeding Amount: 50 I&O: Intake and Output 10/14/18 10/15/18 19:00 07:00 Intake Total 1712.5 ml 1655 ml Output Total 800 ml 1400 ml Balance 912.5 ml 255 ml Intake Free Water 100 ml 100 ml IV Total 1162.5 ml 1055 ml Tube Feeding 450 ml 500 ml Output Urine Total 800 ml 1400 ml # Bowel Movements 2 CXR: improving Labs: Laboratory Tests Test 10/15/18 03:05 White Blood Count 3.7 K/UL (4.8-10.8) L Red Blood Count 4.16 M/UL (4.70-6.10) L Hemoglobin 12.3 G/DL (14.2-18.0) L Hematocrit 36.7 % (42.0-52.0) L Mean Corpuscular Volume 88 FL (80-99) Mean Corpuscular Hemoglobin 29.4 PG (27.0-31.0) Mean Corpuscular Hemoglobin Concent 33.4 G/DL (32.0-36.0) Red Cell Distribution Width 13.1 % (11.6-14.8) Platelet Count 167 K/UL (150-450) Mean Platelet Volume 7.1 FL (6.5-10.1) Neutrophils (%) (Auto) 40.2 % (45.0-75.0) L Lymphocytes (%) (Auto) 32.6 % (20.0-45.0) Monocytes (%) (Auto) 7.6 % (1.0-10.0) Eosinophils (%) (Auto) 18.8 % (0.0-3.0) H Basophils (%) (Auto) 0.8 % (0.0-2.0) Sodium Level 142 MMOL/L (136-145) Potassium Level 3.6 MMOL/L (3.5-5.1) Chloride Level 105 MMOL/L (98-107) Carbon Dioxide Level 29 MMOL/L (21-32) Anion Gap 8 mmol/L (5-15) Blood Urea Nitrogen 6 mg/dL (7-18) L Creatinine 0.6 MG/DL (0.55-1.30) Estimat Glomerular Filtration Rate > 60 mL/min (>60) Glucose Level 142 MG/DL (74-106) H Calcium Level 8.1 MG/DL (8.5-10.1) L Linda Foley MD Oct 15, 2018 11:40
[2018-10-15] MEDS ORDERED: INVANZ1 G1 IM (11:42)
[2018-10-15 12:00] VITALS: BP 125/82
--- NOTE | 2018-10-15 12:11 | NUR ---
*-* DISCHARGE PLANNED *-* PATIENT IS DISCHARGED TO: [facility] ROOM# 10-A [facility] T:[phone] FOR NURSE TO NURSE REPORT [facility] HAS BEEN ARRANGED FOR COMPUTER ASSEMBLER AT 1330 S/W [address]IL[address] [id number]
--- NOTE | 2018-10-15 12:42 | NUR ---
NURSE NOTES: Gave report to MARI Estrada at [facility]. Patient to be picked up for discharge [id number].
--- NOTE | 2018-10-15 13:30 | NUR ---
NURSE NOTES: Report given to Ambulance personal. Patient VS stable at this time with no sign of acute distress. Patient condom catheter is intact at this time. Patient midline will stay in for IV antibiotics at the [facility]. Patient stable and ready for transfer. notified of transfer at this time.
[2018-10-15] MEDS ORDERED: Tubing IV Secondary IV ONE ×2 (14:14→15:38)
--- NOTE | 2018-10-15 15:02 | Infectious Diseases Prog Note ---
Assessment/Plan Problems: (1) Aspiration pneumonia Assessment & Plan: with streptococcus group G and serratia marcescens , continue ertapenem to finish his course of treatment for two weeks , aspiration precaution and keep HOB > 30 DEGREE. avoid penicillin and cephalosporin (2) UTI (urinary tract infection) Assessment & Plan: continue ertapenem pending culture (3) Fever Assessment & Plan: due to the above , improved, continue antibiotics pending cultures , and tylenol prn (4) Acute respiratory failure Assessment & Plan: improved, due to the above , on mechanical ventilation , pulmonary is follow , continue local trach care, monitor CXR and ABG (5) Sepsis Assessment & Plan: due to the above , culture grew coag negative staph from one set, most likely contaminant , no need to treat (6) Skin rash Assessment & Plan: suspect drug reaction due to amoxicillin,and cephalosporins since got worse on cefepime , will switch to ertapenem and add cephalosporin to his allergy list Subjective ROS Limited/Unobtainable: Yes Allergies: Coded Allergies: CEPHALOSPORINS (Verified Allergy, Intermediate, SKIN RASH, 10/13/18) CEFEPIME AMOXICILLIN (Verified Allergy, Unknown, 10/10/18) Subjective he was lying in bed, comfortable on ventilator , dosen't respond to verbal commands, open eyes spontaneously , no fever or chills, no diarrhea , no significant secretions , rash is drying out on his body Objective Vital Signs Last 24 Hour Vital Signs Date Time Temp Pulse Resp B/P (MAP) Pulse Ox O2 Delivery O2 Flow Rate FiO2 10/15/18 13:02 T-piece 12.0 40 10/15/18 13:02 98 T-piece 12.0 40 10/15/18 12:00 95 10/15/18 08:00 40 10/15/18 08:00 97.8 89 19 116/71 (86) 98 10/15/18 08:00 T-piece 10.0 10/15/18 08:00 100 10/15/18 07:02 100 T-piece 12.0 40 10/15/18 07:02 88 16 T-piece 12.0 40 10/15/18 07:02 T-piece 12.0 40 10/15/18 04:00 T-piece 10.0 10/15/18 04:00 97.3 96 20 123/75 (91) 100 10/15/18 04:00 T-piece 10.0 10/15/18 04:00 40 10/15/18 03:17 111 10/15/18 00:35 99 T-piece 12.0 40 10/15/18 00:35 T-piece 12.0 40 10/15/18 00:00 T-piece 10.0 10/15/18 00:00 97.5 98 20 140/76 (97) 96 10/15/18 00:00 40 10/14/18 23:22 89 10/14/18 20:00 98.1 95 20 141/88 (105) 99 10/14/18 20:00 95 10/14/18 20:00 40 10/14/18 20:00 T-piece 10.0 10/14/18 18:58 T-piece 12.0 40 10/14/18 18:58 91 16 T-piece 12.0 40 10/14/18 18:58 99 T-piece 12.0 40 10/14/18 16:00 98.4 88 18 131/90 (104) 99 10/14/18 16:00 40 10/14/18 16:00 T-piece 10.0 10/14/18 16:00 98 Height (Feet): 5 Height (Inches): 7.00 Weight (Pounds): 165 General Appearance: WD/WN, no acute distress HEENT: normocephalic, atraumatic, anicteric, mucous membranes moist, PERRL, pharynx normal, supple, no JVD, status post trach Respiratory/Chest: chest wall non-tender, lungs clear, no respiratory distress , no accessory muscle use, decreased breath sounds Breasts: no masses Cardiovascular: normal peripheral pulses, normal rate, regular rhythm, no gallop/murmur, no JVD Abdomen: normal bowel sounds, soft, non tender, no organomegaly, non distended , no mass, no scars Extremities: no cyanosis, no clubbing Skin: no lesions, rash, ulcers Neurologic/Psychiatric: alert, unresponsiveness Lymphatic: no neck adenopathy, no groin adenopathy Musculoskeletal: normal muscle bulk, no effusion Laboratory Tests Test 10/15/18 03:05 White Blood Count 3.7 K/UL (4.8-10.8) L Red Blood Count 4.16 M/UL (4.70-6.10) L Hemoglobin 12.3 G/DL (14.2-18.0) L Hematocrit 36.7 % (42.0-52.0) L Mean Corpuscular Volume 88 FL (80-99) Mean Corpuscular Hemoglobin 29.4 PG (27.0-31.0) Mean Corpuscular Hemoglobin Concent 33.4 G/DL (32.0-36.0) Red Cell Distribution Width 13.1 % (11.6-14.8) Platelet Count 167 K/UL (150-450) Mean Platelet Volume 7.1 FL (6.5-10.1) Neutrophils (%) (Auto) 40.2 % (45.0-75.0) L Lymphocytes (%) (Auto) 32.6 % (20.0-45.0) Monocytes (%) (Auto) 7.6 % (1.0-10.0) Eosinophils (%) (Auto) 18.8 % (0.0-3.0) H Basophils (%) (Auto) 0.8 % (0.0-2.0) Sodium Level 142 MMOL/L (136-145) Potassium Level 3.6 MMOL/L (3.5-5.1) Chloride Level 105 MMOL/L (98-107) Carbon Dioxide Level 29 MMOL/L (21-32) Anion Gap 8 mmol/L (5-15) Blood Urea Nitrogen 6 mg/dL (7-18) L Creatinine 0.6 MG/DL (0.55-1.30) Estimat Glomerular Filtration Rate > 60 mL/min (>60) Glucose Level 142 MG/DL (74-106) H Calcium Level 8.1 MG/DL (8.5-10.1) L Current Medications Medications (Trade) Dose Ordered Sig/Yesenia Route PRN Reason Start Time Stop Time Status Last Admin Dose Admin Acetaminophen (Tylenol) 650 mg Q4H PRN ORAL T>100.5 10/09/18 13:15 11/08/18 12:14 Chlorhexidine Gluconate (Kaila-Hex 2%) 1 applic DAILY@2000 TOPIC 10/15/18 20:00 11/14/18 19:59 Dextrose (Dextrose 50%) 25 ml Q30M PRN IV Hypoglycemia 10/09/18 13:15 11/08/18 13:05 Dextrose (Dextrose 50%) 50 ml Q30M PRN IV hypoglycemia 10/09/18 13:15 11/08/18 13:14 Ertapenem 1 gm/ Sodium Chloride 55 ml @ 110 mls/hr Q24H IVPB 10/13/18 20:00 10/18/18 19:59 10/14/18 20:00 Heparin Sodium (Porcine) (Heparin 5000 units/ml) 5,000 units EVERY 12 HOURS SUBQ 10/10/18 21:00 11/09/18 20:59 10/15/18 08:59 Levetiracetam 100 ml @ 400 mls/hr Q12HR IVPB 10/10/18 21:00 11/09/18 20:59 10/15/18 08:58 Levothyroxine Sodium (Synthroid) 37.5 mcg DAILY IV 10/11/18 09:00 11/10/18 08:59 10/15/18 10:11 Magnesium Oxide (Mag-Ox 400mg) 400 mg EVERY 8 HOURS GT 10/15/18 06:00 11/11/18 17:59 10/15/18 05:50 Bijan Mo M.D. Oct 15, 2018 15:02
[2018-10-15] MEDS ORDERED: NS 275ml ONE (15:38)
[2018-10-15] MEDS ORDERED: Dyna-Hex 2% Top Sol 2oz TOPIC SCH (20:00)
--- NOTE | 2018-10-15 20:08 | General Progress Note ---
Assessment/Plan Assessment/Plan Assessment - abdominal distention - resolved - dysphagia - GT dependent - Anemia - Brain injury, obtunded Recommendations - Continue TF - monitor residuals - elevate HOB - follow labs and exam Subjective Allergies: Coded Allergies: CEPHALOSPORINS (Verified Allergy, Intermediate, SKIN RASH, 10/13/18) CEFEPIME AMOXICILLIN (Verified Allergy, Unknown, 10/10/18) Subjective non communicative tolerating well d/w at bedside all questions answered Objective Last 24 Hour Vital Signs Date Time Temp Pulse Resp B/P (MAP) Pulse Ox O2 Delivery O2 Flow Rate FiO2 10/15/18 13:02 T-piece 12.0 40 10/15/18 13:02 98 T-piece 12.0 40 10/15/18 12:00 98.8 89 16 125/82 (96) 98 10/15/18 12:00 40 10/15/18 12:00 T-piece 10.0 10/15/18 12:00 95 10/15/18 08:00 40 10/15/18 08:00 97.8 89 19 116/71 (86) 98 10/15/18 08:00 T-piece 10.0 10/15/18 08:00 100 10/15/18 07:02 100 T-piece 12.0 40 10/15/18 07:02 88 16 T-piece 12.0 40 10/15/18 07:02 T-piece 12.0 40 10/15/18 04:00 T-piece 10.0 10/15/18 04:00 97.3 96 20 123/75 (91) 100 10/15/18 04:00 T-piece 10.0 10/15/18 04:00 40 10/15/18 03:17 111 10/15/18 00:35 99 T-piece 12.0 40 10/15/18 00:35 T-piece 12.0 40 10/15/18 00:00 T-piece 10.0 10/15/18 00:00 97.5 98 20 140/76 (97) 96 10/15/18 00:00 40 10/14/18 23:22 89 Intake and Output 10/14/18 10/15/18 19:00 07:00 Intake Total 1712.5 ml 1655 ml Output Total 800 ml 1400 ml Balance 912.5 ml 255 ml Intake Free Water 100 ml 100 ml IV Total 1162.5 ml 1055 ml Tube Feeding 450 ml 500 ml Output Urine Total 800 ml 1400 ml # Bowel Movements 2 Laboratory Tests 10/15/18 03:05: White Blood Count 3.7L, Red Blood Count 4.16L, Hemoglobin 12.3L, Hematocrit 36.7L, Mean Corpuscular Volume 88, Mean Corpuscular Hemoglobin 29.4, Mean Corpuscular Hemoglobin Concent 33.4, Red Cell Distribution Width 13.1, Platelet Count 167, Mean Platelet Volume 7.1, Neutrophils (%) (Auto) 40.2L, Lymphocytes ( %) (Auto) 32.6, Monocytes (%) (Auto) 7.6, Eosinophils (%) (Auto) 18.8H, Basophils (%) (Auto) 0.8, Sodium Level 142, Potassium Level 3.6, Chloride Level 105, Carbon Dioxide Level 29, Anion Gap 8, Blood Urea Nitrogen 6L, Creatinine 0.6, Estimat Glomerular Filtration Rate > 60, Glucose Level 142H, Calcium Level 8.1L Height (Feet): 5 Height (Inches): 7.00 Weight (Pounds): 165 Objective (+) head surgery Supple CTA RRR abd soft flat no edema Eduardo Pennington MD Oct 15, 2018 20:08
--- NOTE | 2018-10-16 14:02 | Discharge Summary ---
Discharge Summary Discharge Summary _ DATE OF ADMISSION: 10/09/2018 DATE OF DISCHARGE: 10/15/2018 DISCHARGED BY: Dr. Lion Cates CONSULTANTS: Dr. 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 On evaluation at the ED, patient was febrile, temperature was 1 1.4. Septic workup was initiated. Blood work showed leukocytosis, WBC was elevated to 17. Potassium was 3.4. Lactic acid was 1.7. Urinalysis showed 1+ leukocyte esterase, 2-4 RBC, 10-15 WBC, 3+ ketones, 1+ blood, negative nitrite. EKG showed sinus tachycardia. Chest x-ray showed bilateral infiltrates and moderately distended colon within the upper abdomen. He was given IV hydration. He was pancultured. He was given Tylenol for fever and tachycardia. PICC line was inserted. Patient was then admitted to [facility] for evaluation of sepsis. He was started on broad-spectrum antibiotics cefepime and vancomycin. He was consulted. Patient was recently treated for VRE in the urine amoxicillin at the care home. He developed a rash and antibiotic was switched to Keflex and then later on to doxycycline with no improvement. At the emergency room, he was found to have bilateral pneumonia and UTI, he received cefepime and levofloxacin. He came in with a rash, suspect drug reaction due to amoxicillin which he got at the care home. Abdomen was noted to be distended. She was feeding was stopped. KUB revealed dilated colonic and small bowel loops; ileus versus obstruction. GT was inserted for gastric decompression. Patient has history of acute on chronic respiratory failure with tracheostomy/T- tube. He was given trach care. He was placed on heparin for DVT prophylaxis. He was placed on seizure precautions. He was continued on Keppra. He was given electrolyte replacement. There was no significant NGT output. Abdominal distention resolved. Repeat KUB showed decreased prominence of loops in the right upper quadrant. There were dilated loops of bowel with significant retained stool in the right colon. G-tube was removed and patient was restarted on tube feedings. Sputum culture showed growth of Streptococcus and Serratia. Cefepime was switched to ertapenem. He had worsened skin rash. Cephalosporin was added to his allergy list. Blood culture grew coagulase negative staph from 1 set, most likely contaminant. Leukocytosis resolved. Fever resolved. There was no significant secretions coming out from the trach and he was tolerating tube feeding well. He was discharged back to care home. FINAL DIAGNOSES: Sepsis due to aspiration pneumonia and UTI Acute on chronic respiratory failure on vent History of DVT on Coumadin Hypertension Hypothyroidism Morbid obesity Dysphagia on G-tube History of traumatic subdural hematoma Coagulase-negative staph bacteremia Skin rash due to medicine allergy/reaction to amoxicillin and cephalosporin Abdominal distention, possibly due to ileus, resolved Kidney injury due to dehydration resolved Elevated troponin Hypokalemia DISPOSITION: Patient was discharged to a SNF. DISCHARGE MEDICATIONS: Refer to Discharge Medication List. I have been assigned to complete a discharge summary on this account, I was not involved with the patient's management. Crys Sanders NP Oct 16, 2018 14:02
== END 2018-10-15 14:15 | DRG 870 ==
LOC: EDBD 09:03 → EDBEDREQ 09:20 → EMR 10:20 → EDBEDREQSVC 10:57 → 2W 11:15 → EDBEDREQ 12:25
PROC: 5A1955Z Respiratory Ventilation, Greater than 96 Consecutive Hours (ICD-10-PCS; principal; 2018-10-09)
PROC: 05H533Z Insertion of Infusion Device into Right Subclavian Vein, Percutaneous Approach (ICD-10-PCS; principal; 2018-10-09)
DX: A41.9 Sepsis, unspecified organism (principal); J69.0 Pneumonitis due to inhalation of food and vomit; J15.6 Pneumonia due to other Gram-negative bacteria; J15.4 Pneumonia due to other streptococci; J96.20 Acute and chronic respiratory failure, unspecified whether with hypoxia or hypercapnia; Z99.11 Dependence on respirator [ventilator] status; N39.0 Urinary tract infection, site not specified; Z43.1 Encounter for attention to gastrostomy; K56.7 Ileus, unspecified; R40.3 Persistent vegetative state; E03.9 Hypothyroidism, unspecified; E66.01 Morbid (severe) obesity due to excess calories; Z86.718 Personal history of other venous thrombosis and embolism; Z79.01 Long term (current) use of anticoagulants; Z87.820 Personal history of traumatic brain injury; G40.909 Epilepsy, unspecified, not intractable, without status epilepticus; R13.10 Dysphagia, unspecified; I10 Essential (primary) hypertension; Z43.0 Encounter for attention to tracheostomy; L27.0 Generalized skin eruption due to drugs and medicaments taken internally; T36.8X5A Adverse effect of other systemic antibiotics, initial encounter; E86.0 Dehydration; E87.6 Hypokalemia
CPT/HCPCS: 36415; 36569; 71045; 74018; 76937; 80048; 80053; 80069; 80202; 81003; 82164; 82550; 82553; 83605; 83735; 83880; 84100; 84484; 85007; 85025; 85610; 85651; 85730; 86140; 86710; 87040; 87070; 87081; 87086; 87181; 87205; 87324; 93005; 93970; 94664; 94760; 96361; 96365; 96368; 96375; 99285; J8499

== ENCOUNTER 2019-01-29 01:48 | Emergency (ER) | payer OTHER ==
[~2019-01-29] VITALS: Ht 172.7 cm; Wt 81.6 kg
[~2019-01-29 01:48] MED LIST changes: +ACETAMINOP160 MG/55 GT; +DOCUSATE SODIU100 MG GT; +FERROUS SU220 MG/53 GT; +FLORASTOR250 MG GT; +INVANZ1 G1 IM; +IPRATROPIU0.2 MG/1 M HHN; +LABETALOL HCL100 MG GT; +LEVETIRACE100 MG/1 M GT; +LEVOTHYROXINE75 MCG GT; +METOCLOPRA10 MG/10 M GT; +POLYETHYLENE GL17 GM ORAL; +PROAIR HFA8.5 GM INH; +WARFARIN SODIUM6 MG GT; +[UNRECOGNIZED DRUG - CODE] GT
[2019-01-29 02:05] VITALS: BP 134/71
--- NOTE | 2019-01-29 02:07 | NUR ---
ED Nurse Note: Patient was brought by RA from [facility] due tu G-tube replacement. G-tube was replaced by Dr. Jones, patient tolerate procedure well. G-tube size 20 F.
--- NOTE | 2019-01-29 02:12 | NUR ---
ED Nurse Note: Patient AAOx0, VSS at this time, skn is intact.
[2019-01-29 02:45] VITALS: BP 134/71
--- NOTE | 2019-01-29 02:45 | NUR ---
ER DISCHARGE NOTE: Patient is cleared to be discharged per ERMD, pt is aox0, with stable vital signs. pt's caregiver was given dc instructions, pt's caregiver was able to verbalize understanding, pt id band removed. Patient was transfered by EMT back to [facility]. pt took all belongings.
--- NOTE | 2019-01-29 12:15 | Diagnostic Imaging Report ---
Indication: Abdominal pain Comparison: 10/12/2018 Single view of the abdomen obtained Findings: Gastrostomy tube is in the body of the stomach with the balloon outlined by contrast material. There is no extraluminal contrast identified. There is a [employer] shunt present. IMPRESSION: Gastrostomy appears in good position
--- NOTE | 2019-01-29 21:53 | Emergency Room Report ---
History of Present Illness General Chief Complaint: Malfunctioning Gastric Tube Source: Medical Record, EMS Present Illness HPI Patient is a 63-year-old male brought in by ambulance after patient's G-tube had become dislodged. This had been out since the morning. Hu catheter has been placed in the stoma. Patient had a prior history of ventilator dependence as well as G-tube dependence. He was noted to be aphasic and history is markedly limited to report by transport team as well as medical record. Allergies: Coded Allergies: CEPHALOSPORINS (Verified Allergy, Intermediate, SKIN RASH, 10/13/18) CEFEPIME AMOXICILLIN (Verified Allergy, Unknown, 10/10/18) Patient History Past Medical History: see triage record Reviewed Nursing Documentation: PMH: Agreed; PSxH: Agreed Nursing Documentation-PMH Hx Cardiac Problems: No Hx Hypertension: Yes Hx COPD: Yes Hx Cancer: No Hx Gastrointestinal Problems: Yes - dysphagia Hx Neurological Problems: Yes Hx Cerebrovascular Accident: Yes - traumatic subdermal hemorrhage Hx Seizures: Yes Hx Epilepsy: Yes Hx Neurologic Surgery: Yes - right craniotomy Review of Systems All Other Systems: limited - Limited by mental status. Physical Exam Vital Signs Date Time Temp Pulse Resp B/P (MAP) Pulse Ox O2 Delivery O2 Flow Rate FiO2 01/29/19 01:49 97.0 86 16 100 Trach Collar 5.0 01/29/19 02:05 134/71 General Appearance: no apparent distress, non-toxic, Chronically Ill Eyes: bilateral eye normal inspection ENT: normal pharynx Neck: limited range of motion Respiratory: normal inspection Cardiovascular #1: normal inspection Gastrointestinal: other - G-tube stoma appears patent with Hu catheter present with evidence of erythema. Musculoskeletal: decreased range of mation Neurologic: aphasia Medical Decision Making Diagnostic Impression: Primary Impression: PEG (percutaneous endoscopic gastrostomy) adjustment/replaceme... ER Course Patient presented for G-tube replacement. Gastrostomy tube was replaced with sterile technique. A 20 [place] gastrostomy tube was placed through the stoma and secured to 5 cm. Balloon was filled to 20 cc of sterile water. post procedure x-ray showed adequate gastrostomy tube placement. Patient tolerated well without complications. The [facility] due to vent dependence. Patient was return for persistent vomiting, other concerns. Last Vital Signs Date Time Temp Pulse Resp B/P (MAP) Pulse Ox O2 Delivery O2 Flow Rate FiO2 5/10/19 02:45 97.0 78 16 134/71 100 Trach Collar 4.0 Status: improved Disposition: XFER SNF Condition: Improved Patient Instructions: Gastrostomy Tube Home Guide, Adult Nagi Jones MD January 29, 2019 21:53
== END 2019-01-29 02:45 | disposition home or self-care (01) ==
LOC: EDUNIT# 01:48 → EDBD 01:48 → EMR 02:30
DX: Z43.1 Encounter for attention to gastrostomy (principal); Z88.8 Allergy status to other drugs, medicaments and biological substances; Z88.0 Allergy status to penicillin; I10 Essential (primary) hypertension; J44.9 Chronic obstructive pulmonary disease, unspecified; Z86.73 Personal history of transient ischemic attack (TIA), and cerebral infarction without residual deficits; G40.909 Epilepsy, unspecified, not intractable, without status epilepticus
CPT/HCPCS: 74018; 99283

== ENCOUNTER 2020-07-10 14:55 | Inpatient (IN) | payer OTHER ==
[2020-07-10] VITALS (13 sets, daily range): BP systolic 76–126; BP diastolic 42–74
[~2020-07-10] VITALS: Ht 172.7 cm; Wt 74.1 kg
[~2020-07-10 14:55] MED LIST changes: +POLYETHYLENE GL17 GM GT; -POLYETHYLENE GL17 GM ORAL
--- NOTE | 2020-07-10 14:55 | NUR ---
ED Nurse Note: Patient was [facility] RA 31 from [facility] due to hypotension. EMS report BP of 76/42, pt has a trach. Patient presented with flat afect, AAO x0, patient has aphasia, BP 74/43, HR 118, other VSS at this time.
--- NOTE | 2020-07-10 15:24 | Emergency Room Report ---
History of Present Illness General Chief Complaint: Generalized Weakness Present Illness HPI 64-year-old male with chronic encephalopathy, history of CVA hemilobectomy, tracheostomy with blow-by oxygen dependence, here with subjective fever and hypotension. Patient was noted to have a blood pressure of 76/42 at the convalescent home. He has chronic encephalopathy and is unable to participate in review systems or physical examination. Allergies: Coded Allergies: CEPHALOSPORINS (Verified Allergy, Intermediate, SKIN RASH, 10/13/18) CEFEPIME AMOXICILLIN (Verified Allergy, Unknown, 10/10/18) COVID-19 Screening Contact w/high risk pt: No Experienced COVID-19 symptoms?: No COVID-19 Testing performed PUBLICITY DIRECTOR: No Nursing Documentation-PMH Hx Cardiac Problems: No Hx Hypertension: Yes Hx COPD: Yes Hx Cancer: No Hx Gastrointestinal Problems: Yes - dysphagia Hx Neurological Problems: Yes Hx Cerebrovascular Accident: Yes - traumatic subdermal hemorrhage Hx Seizures: Yes Hx Epilepsy: Yes Hx Neurologic Surgery: Yes - right craniotomy Physical Exam Vital Signs Date Time Temp Pulse Resp B/P (MAP) Pulse Ox O2 Delivery O2 Flow Rate FiO2 07/10/20 14:51 107 20 76/42 (53) 95 Endotracheal Tube 6.0 Sp02 EP Interpretation: reviewed General Appearance: no apparent distress, other - Appears chronically ill, largely unresponsive at baseline Head: normocephalic, atraumatic Eyes: bilateral eye normal inspection, bilateral eye PERRL ENT: hearing grossly normal, normal pharynx, no angioedema, normal voice Neck: full range of motion, supple/symm/no masses Respiratory: chest non-tender, lungs clear, normal breath sounds, speaking full sentences Cardiovascular #1: regular rate, rhythm, other - Generalized 2+ edema of all extremities Cardiovascular #2: 2+ carotid (R), 2+ carotid (L), 2+ radial (R), 2+ radial (L), 2+ dorsalis pedis (R), 2+ dorsalis pedis (L) Gastrointestinal: normal bowel sounds, non tender, soft, non-distended, no guarding, no rebound, other - G-tube in place without any surrounding erythema or induration or drainage Rectal: deferred Genitourinary: normal inspection, no CVA tenderness Musculoskeletal: back normal, normal range of motion, gait/station normal, non- tender Neurologic: other - Alert and oriented at 0 at baseline. Withdraws from pain mildly. Otherwise unable to participate in physical examination Psychiatric: other - Nonverbal, alert and oriented x0 at baseline Lymphatic: no adenopathy Procedures Central Line Central Line : Consent: Emergent Central Line Lumen: triple Maximal Sterile Barrier Tech: yes cap, yes mask, yes sterile gown, yes sterile gloves, yes large sterile sheet, yes hand hygiene, yes chlorhexidine prep Central Line Postion: femoral (R) US Guided Line?: Yes Vessel visualized with U/S: Right Femoral Vein Complications: none Central Line Post Position: sutured, good blood return Attempts: One Patient Tolerated: Well Complications: None Medical Decision Making Diagnostic Impression: Primary Impression: Septic shock Additional Impressions: Pneumonia AMS (altered mental status) Encephalopathy Feeding by G-tube Chronic vegetative state ER Course Total critical care time: Approximately 45 minutes Due to a high probability of clinically significant, life threatening deterioration, the patient required the highest level of preparedness to intervene emergently and I personally spent this critical care time directly and personally managing the patient. This critical care time included obtaining a history, examining the patient, pulse oximetry, ordering and reviewing studies, ordering treatments, evaluating response to treatment and updating management plan as needed, frequent reassessment and discussion with other providers as well as arranging for ultimate disposition. This critical to care time was perfo rmed to assess and manage the high probability of life-threatening deterioration that could result in multiorgan failure. This critical care time is separate from the separately billable procedures and treating other patients. EKG: Rate 110 bpm. T wave inversions in lead V3, otherwise normal., intervals WNL. No ectopy Rhythm strip: patient monitored for arrhythmias - no malignant dysrhythmias, runs of PVCs, nor pauses noted Chest x-ray: Indication fever and hypotension: Multifocal pneumonia all lung toth. No bony abnormalities. No free air under the diaphragm. No cardiomegaly Laboratory Tests Test 07/10/20 15:12 07/10/20 16:55 07/10/20 19:00 White Blood Count 22.0 K/UL (4.8-10.8) H Red Blood Count 4.28 M/UL (4.70-6.10) L Hemoglobin 12.9 G/DL (14.2-18.0) L Hematocrit 38.7 % (42.0-52.0) L Mean Corpuscular Volume 90 FL (80-99) Mean Corpuscular Hemoglobin 30.2 PG (27.0-31.0) Mean Corpuscular Hemoglobin Concent 33.4 G/DL (32.0-36.0) Red Cell Distribution Width 14.1 % (11.6-14.8) Platelet Count 174 K/UL (150-450) Mean Platelet Volume 10.2 FL (6.5-10.1) H Neutrophils (%) (Auto) % (45.0-75.0) Lymphocytes (%) (Auto) % (20.0-45.0) Monocytes (%) (Auto) % (1.0-10.0) Eosinophils (%) (Auto) % (0.0-3.0) Basophils (%) (Auto) % (0.0-2.0) Differential Total Cells Counted 100 Neutrophils % (Manual) 73 % (45-75) Lymphocytes % (Manual) 3 % (20-45) L Monocytes % (Manual) 7 % (1-10) Eosinophils % (Manual) 1 % (0-3) Basophils % (Manual) 0 % (0-2) Band Neutrophils 16 % (0-8) H Platelet Estimate Adequate Platelet Morphology Normal Red Blood Cell Morphology Normal Prothrombin Time 11.3 SEC (9.30-11.50) Prothrombin Time INR 1.0 (0.9-1.1) Activated Partial Thromboplast Time 29 SEC (23-33) Sodium Level 136 MMOL/L (136-145) Potassium Level 3.8 MMOL/L (3.5-5.1) Chloride Level 100 MMOL/L (98-107) Carbon Dioxide Level 27 MMOL/L (21-32) Anion Gap 9 mmol/L (5-15) Blood Urea Nitrogen 34 mg/dL (7-18) H Creatinine 1.6 MG/DL (0.55-1.30) H Estimated Glomerular Filtration Rate 44.0 mL/min (>60) Glucose Level 95 MG/DL (74-106) Lactic Acid Level 3.00 mmol/L (0.4-2.0) H 2.20 mmol/L (0.66-2.22) Calcium Level 8.9 MG/DL (8.5-10.1) Magnesium Level 2.1 MG/DL (1.8-2.4) Total Bilirubin 0.7 MG/DL (0.2-1.0) Aspartate Amino Transferase (AST) 14 U/L (15-37) L Alanine Aminotransferase (ALT) 33 U/L (12-78) Alkaline Phosphatase 68 U/L (46-116) Total Creatine Kinase 32 U/L (26-308) Creatine Kinase MB < 0.5 NG/ML (0.0-3.6) Creatine Kinase MB Relative Index 1.5 Troponin I 0.000 ng/mL (0.000-0.056) Total Protein 7.7 G/DL (6.4-8.2) Albumin 3.4 G/DL (3.4-5.0) Globulin 4.3 g/dL Albumin/Globulin Ratio 0.8 (1.0-2.7) L Lipase 100 U/L (73-393) Urine Color Yellow Urine Appearance Clear Urine pH 7 (4.5-8.0) Urine Specific [place] 1.010 (1.005-1.035) Urine Protein 2+ (NEGATIVE) H Urine Glucose (UA) Negative (NEGATIVE) Urine Ketones Negative (NEGATIVE) Urine Blood 2+ (NEGATIVE) H Urine Nitrite Negative (NEGATIVE) Urine Bilirubin Negative (NEGATIVE) Urine Urobilinogen Normal MG/DL (0.0-1.0) Urine Leukocyte Esterase 1+ (NEGATIVE) H Urine RBC 2-4 /HPF (0 - 0) H Urine WBC 0-2 /HPF (0 - 0) Urine Squamous Epithelial Cells Moderate /LPF (NONE/OCC) H Urine Bacteria Few /HPF (NONE) Microbiology Date/Time Source Procedure Growth Status 07/10/20 19:00 Nasal Nares - Final Complete 07/10/20 19:00 Nasal Nares - Final Complete 07/10/20 15:15 Nasopharynx SARS-CoV-2 RdRp Gene Assay - Final Complete 64-year-old male here with hypotension. Patient has chronic encephalopathy and is bedbound and alert and oriented x0 at his baseline. He was hypotensive on arrival to the emergency department. He was given a full 30 cc/kg fluid bolus and despite this the patient still had a mean arterial pressure less than 65. Patient was started on Levophed with good resolution of his hypotension. Central line was placed in the right femoral vein without any obvious complication. Patient had multifocal pneumonia on his chest x-ray was started on vancomycin and cefepime. Patient has a noted cephalosporin allergy in his chart however review of old records show that the patient has tolerated cefepime in the past. Initial lactate was 3.0 and repeat lactate after 30 cc/kg fluid bolus was improved to 2.2. Patient had a leukocytosis and otherwise largely unremarkable CBC and CMP. Admitted to ICU in critical condition. Last Vital Signs Date Time Temp Pulse Resp B/P (MAP) Pulse Ox O2 Delivery O2 Flow Rate FiO2 07/10/20 14:51 107 20 76/42 (53) 95 Endotracheal Tube 6.0 Boris Escobar M.D. Jul 10, 2020 15:24
[2020-07-10 15:44] LABS: HEMATOCRIT 38.7 % (42.0-52.0); HEMOGLOBIN 12.9 G/DL (14.2-18.0); MEAN CORPUSCULAR VOLUME 90 FL (80-99); PLATELET COUNT 174 K/UL (150-450); RED BLOOD COUNT 4.28 M/UL (4.70-6.10); RED CELL DISTRIBUTION WIDTH 14.1 % (11.6-14.8)
[2020-07-10] MEDS ORDERED: Cefepime HCl 1 GM in D5W 55 ML IVPB ONE (15:45)
[2020-07-10] MEDS ORDERED: Vancomycin 1 GM in NS 275 ML IVPB ONE (15:45)
--- NOTE | 2020-07-10 15:48 | Diagnostic Imaging Report ---
Indication: Shortness of breath Technique: Portable frontal view of the chest Comparison: 10/13/18 Findings: There are bilateral infiltrates involving the right base and perihilar left lung. No significant pleural effusion. No pneumothorax. OIL EXPLORATION ENGINEER shunt catheter tubing is noted. Osseous structures demonstrate no acute abnormality. IMPRESSION: Bilateral infiltrates concerning for multifocal pneumonia.
[2020-07-10 15:53] LABS: ANION GAP 9 mmol/L (5-15); BLOOD UREA NITROGEN 34 mg/dL (7-18); CALCIUM 8.9 MG/DL (8.5-10.1); CARBON DIOXIDE 27 MMOL/L (21-32); CHLORIDE 100 MMOL/L (98-107); CREATININE 1.6 MG/DL (0.55-1.30); POTASSIUM 3.8 MMOL/L (3.5-5.1); SODIUM 136 MMOL/L (136-145)
--- NOTE | 2020-07-10 15:55 | NUR ---
ED Nurse Note: Triple lumen PIC line was established by Dr. Escobar on right femoral, patient tolerated procedure well
[2020-07-10 16:05] LABS: ALANINE AMINOTRANSFERASE 33 U/L (12-78); ALBUMIN 3.4 G/DL (3.4-5.0); ALBUMIN/GLOBULIN RATIO 0.8 (1.0-2.7); ALKALINE PHOSPHATASE 68 U/L (46-116); ASPARTATE AMINO TRANSFERASE 14 U/L (15-37); BILIRUBIN,TOTAL 0.7 MG/DL (0.2-1.0); CKMB < 0.5 NG/ML (0.0-3.6); CREATINE KINASE 32 U/L (26-308)
--- NOTE | 2020-07-10 16:15 | NUR ---
ED Nurse Note: Levophed was started at rate 2mcg/hr. Patient's BP 81/44
--- NOTE | 2020-07-10 19:09 | NUR ---
HAND-OFF: Report given to Moses Tran RN.
--- NOTE | 2020-07-10 19:10 | NUR ---
ED Nurse Note: received report from Delilah GUERRA
[2020-07-10 19:12] LABS: APPEARANCE,URINE CLEAR; BILIRUBIN, URINE NEGATIVE (NEGATIVE); GLUCOSE, URINE (UA) NEGATIVE (NEGATIVE); KETONES,URINE NEGATIVE (NEGATIVE); LEUKOCYTE ESTERASE ,URINE 1+ (NEGATIVE); NITRITE,URINE NEGATIVE (NEGATIVE); PH,URINE 7 (4.5-8.0); PROTEIN,URINE 2+ (NEGATIVE); UROBILINOGEN,URINE NORMAL MG/DL (0.0-1.0)
[2020-07-10 19:15] LABS: COLOR,URINE YELLOW
--- NOTE | 2020-07-10 19:50 | NUR ---
TRANSFER TO FLOOR: Patient transferred to 246 G via gurney in stable condition as ordered, per dr. Cates. Report given to Cesilia GUERRA.
--- NOTE | 2020-07-10 20:00 | NUR ---
NURSE NOTES: Pt admitted from ER. Given report from MARI Kong. Pt is resting on the bed and able to open the eyes pain and tactile stimuli. Pt applied helmet on the head for protection s/p Rt. craniotomy. Pt has Trach with Portex #7.0 and deflated. On O2 5L via T-piece, cool aerosol and SaO2 95% noted. Given suction and oral care. Pt has G-tube and patent. Applied condom cath. Pt has Rt. femoral TLC and patent and flushed well with NS and noted good blood return. Changed dressing with Biopatch. Noted healing scar on sacral area and reopened. Picture was taken. Applied Optifoam. 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 On running with Levophed drip @ 6mcg/min and BP checked 126/69mmHg. Noted BT: 98.8F. Cleaned Pt and applied lotion and cream. Placed fall and seizure precaution. Left message to Dr. Cates for admission order and awaiting call back.
--- NOTE | 2020-07-10 20:49 | NUR ---
NURSE NOTES: Received admission order from Emmie.
[2020-07-10] MEDS: Norepinephrine 4mg/NS Premix 250 ML IV SCH (20:59)
[2020-07-10] MEDS ORDERED: Acetaminophen 650mg/20.3ml GT PRN (21:00)
[2020-07-10] MEDS ORDERED: Miralax 17gm pkt GT PRN (21:00)
[2020-07-10] MEDS ORDERED: Morphine Sulfate 4mg/ml Inj (IV USE ONLY) IVP PRN (21:00)
[2020-07-10] MEDS ORDERED: Albuterol/Ipratropium 3ml neb HHN PRN (21:00)
[2020-07-10] MEDS: Heparin 5000 units/ml inj SUBQ SCH (21:00)
[2020-07-10] MEDS ORDERED: LORazepam Inj 2mg/ml 1ml IV PRN (21:00)
[2020-07-10] MEDS ORDERED: WARFARIN SODIUM1 MG GT (21:08)
[2020-07-10] MEDS ORDERED: Amikacin Rx to dose MISC PRN (21:15)
--- NOTE | 2020-07-10 21:44 | NUR ---
NURSE NOTES: Called and spoke with [facility] Nurse[facility]ussain PNA and Flu vaccine dates confirmed.
[2020-07-10] MEDS ORDERED: NS IV SCH (22:00)
[2020-07-10] MEDS ORDERED: AMIKACIN IV SCH (22:00)
--- NOTE | 2020-07-10 22:00 | NUR ---
NURSE NOTES: Pt is sleeping on the bed and no sign of acute distress noted. On title department manager with SR. SaO2 98% with O2 5l via T-piece. Given suction and oral care. On running with Levophed 2 6mcg/min and BP : 109/66mmHg. Changed position. Will continue to monitor any change of condition.
[2020-07-10] MEDS ORDERED: Ertapenem 1 GM in NS 55 ML IV SCH (23:00)
--- NOTE | 2020-07-10 23:00 | NUR ---
NURSE NOTES: Sputum culture collected.
[2020-07-10] MEDS ORDERED: Vancomycin 1 GM in D5W 275 ML IV SCH (23:45)
[2020-07-11] VITALS (41 sets, daily range): BP systolic 91–126; BP diastolic 45–81
--- NOTE | 2020-07-11 | NUR ---
NURSE NOTES: Pt is sleeping on the bed. On running Levophed @ 6mcg/min and N/S @ 100cc/hr. SaO2 98% with O2 5l via T-piece. Provided suction and oral care. Changed position. No fever. Placed fall and seizure precaution. Will continue to monitor.
--- NOTE | 2020-07-11 02:00 | NUR ---
NURSE NOTES: Pt is sleeping on the bed and suction and oral care given. Turn and reposition. On NPO. SaO2 98%. Will continue to monitor any change of condition.
[2020-07-11] MEDS: Norepinephrine 4mg/NS Premix 250 ML IV SCH (03:05)
--- NOTE | 2020-07-11 03:05 | NUR ---
NURSE NOTES: Pt is sleeping on the bed. On cardiac specialist with SR and HR: 94's. SaO2 98% with O2 5L via T-Piece. Noted BP 125/69mmHg. Decrease Levophed drip @ 4mcg/min as titrate. Will continue to monitor any change of condition.
--- NOTE | 2020-07-11 04:00 | NUR ---
NURSE NOTES: Morning care was done. Noted large amount BM Cleaned Pt and applied lotion and cream. Collected blood sample. On running Levophed drip @ 4mcg/min. Turn and reposition. No fever. Will continue to monitor any change of condition.
[2020-07-11 05:16] LABS: HEMATOCRIT 32.9 % (42.0-52.0); HEMOGLOBIN 11.5 G/DL (14.2-18.0); MEAN CORPUSCULAR VOLUME 84 FL (80-99); PLATELET COUNT 169 K/UL (150-450); RED CELL DISTRIBUTION WIDTH 12.9 % (11.6-14.8); WHITE BLOOD COUNT 18.2 K/UL (4.8-10.8)
[2020-07-11 05:55] LABS: ALANINE AMINOTRANSFERASE 20 U/L (12-78); ALBUMIN 2.9 G/DL (3.4-5.0); ALBUMIN/GLOBULIN RATIO 0.9 (1.0-2.7); ALKALINE PHOSPHATASE 65 U/L (46-116); ANION GAP 8 mmol/L (5-15); ASPARTATE AMINO TRANSFERASE 13 U/L (15-37); BILIRUBIN,DIRECT < 0.1 MG/DL (0.0-0.3); BILIRUBIN,TOTAL 0.4 MG/DL (0.2-1.0); BLOOD UREA NITROGEN 23 mg/dL (7-18); CALCIUM 8.5 MG/DL (8.5-10.1); CARBON DIOXIDE 26 MMOL/L (21-32); CHLORIDE 104 MMOL/L (98-107); CREATININE 0.9 MG/DL (0.55-1.30); POTASSIUM 3.5 MMOL/L (3.5-5.1); SODIUM 138 MMOL/L (136-145)
--- NOTE | 2020-07-11 06:00 | NUR ---
NURSE NOTES: Pt is sleeping on the bed and SaO2 95 with O2 5L FIO2 28% via T-piece. No sign of pain by FLACC scale. BP controlled with Levophed @ 4mcg/min. Suction and oral care was done. Changed position. Will continue to monitor any change of condition.
--- NOTE | 2020-07-11 07:15 | NUR ---
NURSE HAND-OFF REPORT: Latest Vital Signs: Temperature 98.2 , Pulse 99 , B/P 123 /55 , Respiratory Rate 22 , O2 SAT 97 , T-piece, O2 Flow Rate 5.0 . EKG Rhythm: Sinus Tachycardia Rhythm change?: N MD Notified?: - MD Response: Latest Ridley Fall Score: 50 Fall Risk: High Risk Safety Measures: Call light Within Reach, Bed Alarm Zone 2, Side Rails Side Rails x2, Bed position Low and Locked. Fall Precautions: Yellow Socks Yellow Gown Door Sign Patient Fall Education Report given to Niki Tovar RN. Pt is sleeping on the bed and on running with Levophed drip @ 4mcg/min.
--- NOTE | 2020-07-11 07:16 | NUR ---
NURSE NOTES: Report received from MARI Lomas. Pt is awake and opens eyes to tactile stimuli. Non-verbal. Unable to follow commands. Afebrile. Contracture on bilateral upper and lower extremities noted. ST on color television console monitor with HR 100's. Trach with T-piece with cool aerosol with O2 5L. O2 sat 96-97%. RR 20's. Small amount of yellow thick secretion from T-piece noted and suctioned. GT in place and kept NPO as per order. Condom catheter in place draining yellow urine to gravity. Right femoral TLC patent and asymptomatic. Levo is running at 4mcg/min and NS at 100cc/hr. Bed in lowest position. Side rails up x2. Continued seizure precaution. Will resume plan of care. Addendum: 07/11/20 at 1126 by CAROL ORTIZ RN RN NURSE NOTES: Report received from MARI Lomas. Pt is awake and opens eyes to tactile stimuli. Able to respond to pain. Non-verbal. Unable to follow commands. Afebrile. Foam helmet to protect right craniotomy site. Contracture on bilateral upper and lower extremities noted. ST on color television console monitor with HR 100's. Trach with T-piece with cool aerosol with O2 5L. O2 sat 96-97%. RR 20's. Small amount of yellow thick secretion from T-piece noted and suctioned. GT in place and kept NPO as per order. Condom catheter in place draining yellow urine to gravity. Right femoral TLC patent and asymptomatic. Levo is running at 4mcg/min and NS at 100cc/hr. Bed in lowest position. Side rails up x2. Continued seizure precaution. Will resume plan of care.
[2020-07-11] MEDS: Pantoprazole Inj IV SCH (08:40)
[2020-07-11] MEDS: Heparin 5000 units/ml inj SUBQ SCH ×2 (08:40→20:30)
[2020-07-11] MEDS: levETIRAcetam 500mg/5ml Liquid GT SCH ×2 (08:41→20:29)
[2020-07-11] MEDS: Vancomycin 1gm in D5W 275ml IVPB SCH ×2 (08:53→20:07)
--- NOTE | 2020-07-11 09:00 | NUR ---
NURSE NOTES: Decreased Levophed drip to 2 mcg/min for BP 126/54. Patient is tolerating 5L oxygen via T-piece. O2 sat 96-97%. Will continue to monitor.
--- NOTE | 2020-07-11 09:21 | NUR ---
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 CURRENT TF: NPO ENTERAL NUTRITION RECOMMENDATIONS: OSMOLITE 1.5 @55ml/hr x 22 hrs + Prosource 1pkt BID to provide 1210ml, 1815kcal, 76g +22g prot, 922ml free water - As medically able, start feeds, Osmolite 1.5 @low rate 25ml/hr for 6 hrs. Advance as tolerated 10ml/hr q4-6 hrs to goal. - Add PROSOURCE 1 pack BID to better meet protein needs - Flush per MD/HOB over 30 degrees ADDITIONAL RECOMMENDATIONS: 1) Maintain calibrated bed scale wts 2) Check lytes daily 3) Monitor for initiation of TF's 4) Wound care: add MELYSSA BID via GT w/ diet order F/up w/ WC eval.
--- NOTE | 2020-07-11 09:30 | NUR ---
NURSE NOTES: Dr Stevenson here to see the patient. Updated him with patient's current condition. Order for Fritz received, noted, and carried out.
--- NOTE | 2020-07-11 09:36 | Consultation ---
Consult Note Consult Note Asked to evaluate at the request of Dr. Cates for renal failure Beauchamp seen in ICU room G Patient examined, data reviewed, discussed with RN 64-year-old male with chronic encephalopathy, history of CVA hemilobectomy, tracheostomy with blow-by oxygen dependence, here with subjective fever and hypotension. Patient was noted to have a blood pressure of 76/42 at the convalescent home. He has chronic encephalopathy and is unable to participate in review systems or physical examination. 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 GENERAL: The patient is a well-developed, well-nourished male, with multiple contractures, who is nonresponsive. HEENT: Eyes, pupils equal and responsive to light and accommodation. The patient does not track. CARDIOVASCULAR: Tachycardic, regular rhythm. S1, S2 are normal without murmurs, rubs, or gallops. ABDOMEN: Soft, nontender, nondistended. Positive bowel sounds. No evidence of hepatosplenomegaly. Currently no rebound or guarding. EXTREMITIES: Multiple contractures without clubbing, cyanosis, or edema. RECTAL/GENITAL: Not performed. NEUROLOGICAL: Unable to assess. LABORATORY STUDIES: WBC 22.0, hemoglobin 12.9, hematocrit 38.7, platelets 174,000. Sodium 136, potassium 3.8, chloride 100, CO2 27, BUN 34, creatinine 1.6, glucose 95. ProTime 11.3, INR 1.0, PTT 29. Chest x-ray revealed bilateral opacities concerning for multifocal pneumonia. COVID-19 test is negative. . Assessment/Plan Elevated creatinine, acute renal failure, mainly dehydration Septic shock Pneumonia, patient has T-piece to oxygen Encephalopathy Feeding by G-tube Chronic vegetative state Mild anemia Hypothyroidism Hu catheter Fluid Renal parameters Antibiotics Avoid nephrotoxic's Francisco Stevenson MD Jul 11, 2020 09:36
[2020-07-11] MEDS: D5NS 1,000 ML IV SCH ×2 (10:00→23:06)
--- NOTE | 2020-07-11 10:48 | NUR ---
TELECOMMUNICATION ENGINEER NOTE Pt is from [facility] [address] [facility], [place] [address]. Pt is trach dependent and non-verbal. Per chart review, pt is unable to follow commands. There is a copy of POLST-full code signed by pt's , Jacque Bourne. SW attempted to call pt's , Mona Bourne [phone] (home) and [phone] (cell), calls were not answered. This SW left a vm for call back.
--- NOTE | 2020-07-11 11:50 | Consultation ---
History of Present Illness General Date patient seen: Jul 11, 2020 Chief Complaint: Generalized Weakness Present Illness HPI 64 y/o M with hx of CVA, HTN, COPD, dysphagia sp GT, hypothyroidism traumatic SDH sp hemilobectomy, chronic resp failure sp trach dependent, SNF resident ( [facility]) presented to ED on 07/10/20 with fever and hypotension of 76/42 at convalescent home Allergies: Coded Allergies: CEPHALOSPORINS (Verified Allergy, Intermediate, SKIN RASH, 10/13/18) CEFEPIME AMOXICILLIN (Verified Allergy, Unknown, 07/11/20) tolerates carbapenem Medication History Scheduled Cholecalciferol (Vitamin D3) (Vitamin D3), 2,000 UNIT GT DAILY, (Reported) Ferrous Sulfate (Ferrous Sulfate), 7.5 ML GT DAILY, (Reported) Labetalol Hcl* (Normodyne*), 100 MG GT EVERY 8 HOURS, (Reported) Levetiracetam* (Levetiracetam*), 500 MG GT BID, (Reported) Levothyroxine Sodium* (Synthorid*), 75 MCG GT DAILY, (Reported) Metoclopramide Hcl* (Metoclopramide Hcl*), 10 MG GT EVERY 6 HOURS, (Reported) Saccharomyces Boulardii (Florastor*), 250 MG GT DAILY, (Reported) Warfarin Sod* (Warfarin Sod*), 1.5 MG GT QHS, (Reported) Scheduled PRN Acetaminophen* (Acetaminophen*), 640 MG GT Q6H PRN for Mild Pain/Temp > 100.5, (Reported) Albuterol Sulfate* (Proair Hfa*), 2 PUFFS INH Q6H PRN for Shortness of Breath, (Reported) Ipratropium [place] 0.5MG/2.5ML (Ipratropium [place] 0.5MG/2.5ML), 0.5 MG HHN Q6H PRN for Shortness of Breath, (Reported) Polyethylene Glycol 3350* (Polyethylene Glycol 3350*), 17 GM ORAL BEDTIME PRN for Constipation, (Reported) Patient History Healthcare decision maker N Resuscitation status Advanced Directive on File Patient History Narrative Pmhx: as above Shx: reviewed Fhx: non contributory Review of Systems All Other Systems: negative except mentioned in HPI Physical Exam Physical Exam Narrative General Appearance: no apparent distress, other - Appears chronically ill, largely unresponsive at baseline Head: normocephalic, atraumatic Eyes: bilateral eye normal inspection, bilateral eye PERRL Neck: full range of motion, supple/symm/no masses Respiratory: chest non-tender, lungs clear, normal breath sounds, speaking full sentences Cardiovascular : regular rate, rhythm, other - Generalized 2+ edema of all extremities Gastrointestinal: normal bowel sounds, non tender, soft, non-distended, no gua rding, no rebound, other - G-tube in place without any surrounding erythema or induration or drainage Last 24 Hour Vital Signs Date Time Temp Pulse Resp B/P (MAP) Pulse Ox O2 Delivery O2 Flow Rate FiO2 07/11/20 11:00 103 25 101/48 (65) 97 07/11/20 10:30 103 24 95/54 (68) 96 07/11/20 10:00 109 23 112/49 (70) 95 07/11/20 09:45 105 24 98/55 (69) 95 07/11/20 09:30 T-piece 5.0 07/11/20 09:30 107 28 112/70 (84) 96 07/11/20 09:15 103 24 111/55 (73) 95 07/11/20 09:00 102 24 126/54 (78) 97 07/11/20 08:30 117 25 124/58 (80) 95 07/11/20 08:24 97 Cool Aerosol 5.0 28 07/11/20 08:11 104 07/11/20 08:00 T-piece 5.0 07/11/20 08:00 98.6 104 24 124/57 (79) 96 07/11/20 07:30 101 25 118/62 (80) 96 07/11/20 07:00 99 22 123/55 (77) 97 07/11/20 06:30 104 21 113/81 (92) 96 07/11/20 06:00 102 24 118/55 (76) 95 07/11/20 05:30 104 22 119/61 (80) 96 07/11/20 05:00 103 22 113/58 (76) 96 07/11/20 04:30 103 23 110/58 (75) 96 07/11/20 04:00 T-piece 5.0 07/11/20 04:00 98.2 105 23 118/64 (82) 96 07/11/20 04:00 105 07/11/20 03:30 111 26 122/67 (85) 96 07/11/20 03:05 125/69 07/11/20 03:00 94 20 125/69 (87) 98 07/11/20 02:30 96 21 118/67 (84) 98 07/11/20 02:00 105 21 109/66 (80) 98 07/11/20 01:45 96 Cool Aerosol 5.0 28 07/11/20 01:30 111 24 112/66 (81) 95 07/11/20 01:00 102 23 118/62 (80) 97 07/11/20 00:30 104 23 119/71 (87) 97 07/11/20 00:00 T-piece 5.0 07/11/20 00:00 98.3 103 20 112/60 (77) 98 07/11/20 00:00 104 07/10/20 23:30 105 21 121/68 (85) 98 07/10/20 23:00 96 20 111/66 (81) 99 07/10/20 22:30 98 19 106/63 (77) 97 07/10/20 22:00 99 19 109/66 (80) 98 07/10/20 21:30 103 20 111/74 (86) 99 07/10/20 21:00 98 19 105/65 (78) 97 07/10/20 21:00 T-Piece 5.0 07/10/20 20:59 105/65 07/10/20 20:59 105/65 07/10/20 20:30 100 20 117/69 (85) 96 07/10/20 20:15 5.0 07/10/20 20:02 98 Cool Aerosol 5.0 28 07/10/20 20:00 98.8 103 19 126/69 (88) 97 07/10/20 20:00 126/69 07/10/20 20:00 105 07/10/20 19:50 97.3 94 18 103/65 99 Endotracheal Tube 3.0 07/10/20 19:38 97.3 94 18 103/65 99 Endotracheal Tube 3.0 07/10/20 18:54 97.1 93 18 99/64 99 Endotracheal Tube 6.0 93 07/10/20 18:05 97.1 94 18 99/60 99 Endotracheal Tube 6.0 94 07/10/20 16:27 78/50 07/10/20 16:22 79/41 07/10/20 16:17 81/44 07/10/20 16:05 97.4 104 19 86/43 99 Endotracheal Tube 6.0 104 07/10/20 15:05 118 22 Endotracheal Tube 6.0 07/10/20 14:55 97.1 118 22 76/42 99 Endotracheal Tube 6.0 07/10/20 14:51 107 20 76/42 (53) 95 Endotracheal Tube 6.0 Intake and Output 07/10/20 07/11/20 19:00 07:00 Intake Total 2000 ml 3275.85 ml Output Total 650 ml Balance 2000 ml 2625.85 ml Intake IV Total 2000 ml 3275.85 ml Output Urine Total 650 ml # Bowel Movements 2 Laboratory Tests Test 07/10/20 15:12 07/10/20 16:55 07/10/20 19:00 07/11/20 03:30 White Blood Count 22.0 K/UL (4.8-10.8) H 18.2 K/UL (4.8-10.8) H Red Blood Count 4.28 M/UL (4.70-6.10) L 3.90 M/UL (4.70-6.10) L Hemoglobin 12.9 G/DL (14.2-18.0) L 11.5 G/DL (14.2-18.0) L Hematocrit 38.7 % (42.0-52.0) L 32.9 % (42.0-52.0) L Mean Corpuscular Volume 90 FL (80-99) 84 FL (80-99) Mean Corpuscular Hemoglobin 30.2 PG (27.0-31.0) 29.6 PG (27.0-31.0) Mean Corpuscular Hemoglobin Concent 33.4 G/DL (32.0-36.0) 35.0 G/DL (32.0-36.0) Red Cell Distribution Width 14.1 % (11.6-14.8) 12.9 % (11.6-14.8) Platelet Count 174 K/UL (150-450) 169 K/UL (150-450) Mean Platelet Volume 10.2 FL (6.5-10.1) H 7.6 FL (6.5-10.1) Neutrophils (%) (Auto) % (45.0-75.0) % (45.0-75.0) Lymphocytes (%) (Auto) % (20.0-45.0) % (20.0-45.0) Monocytes (%) (Auto) % (1.0-10.0) % (1.0-10.0) Eosinophils (%) (Auto) % (0.0-3.0) % (0.0-3.0) Basophils (%) (Auto) % (0.0-2.0) % (0.0-2.0) Differential Total Cells Counted 100 100 Neutrophils % (Manual) 73 % (45-75) 83 % (45-75) H Lymphocytes % (Manual) 3 % (20-45) L 14 % (20-45) L Monocytes % (Manual) 7 % (1-10) 1 % (1-10) Eosinophils % (Manual) 1 % (0-3) 2 % (0-3) Basophils % (Manual) 0 % (0-2) 0 % (0-2) Band Neutrophils 16 % (0-8) H 0 % (0-8) Platelet Estimate Adequate Adequate Platelet Morphology Normal Normal Red Blood Cell Morphology Normal Normal Prothrombin Time 11.3 SEC (9.30-11.50) Prothromb Time International Ratio 1.0 (0.9-1.1) Activated Partial Thromboplast Time 29 SEC (23-33) Sodium Level 136 MMOL/L (136-145) 138 MMOL/L (136-145) Potassium Level 3.8 MMOL/L (3.5-5.1) 3.5 MMOL/L (3.5-5.1) Chloride Level 100 MMOL/L (98-107) 104 MMOL/L (98-107) Carbon Dioxide Level 27 MMOL/L (21-32) 26 MMOL/L (21-32) Anion Gap 9 mmol/L (5-15) 8 mmol/L (5-15) Blood Urea Nitrogen 34 mg/dL (7-18) H 23 mg/dL (7-18) H Creatinine 1.6 MG/DL (0.55-1.30) H 0.9 MG/DL (0.55-1.30) Estimat Glomerular Filtration Rate 44.0 mL/min (>60) > 60 mL/min (>60) Glucose Level 95 MG/DL (74-106) 107 MG/DL (74-106) H Lactic Acid Level 3.00 mmol/L (0.4-2.0) H 2.20 mmol/L (0.66-2.22) Calcium Level 8.9 MG/DL (8.5-10.1) 8.5 MG/DL (8.5-10.1) Magnesium Level 2.1 MG/DL (1.8-2.4) Total Bilirubin 0.7 MG/DL (0.2-1.0) 0.4 MG/DL (0.2-1.0) Aspartate Amino Transf (AST/SGOT) 14 U/L (15-37) L 13 U/L (15-37) L Alanine Aminotransferase (ALT/SGPT) 33 U/L (12-78) 20 U/L (12-78) Alkaline Phosphatase 68 U/L (46-116) 65 U/L (46-116) Total Creatine Kinase 32 U/L (26-308) Creatine Kinase MB < 0.5 NG/ML (0.0-3.6) Creatine Kinase MB Relative Index 1.5 Troponin I 0.000 ng/mL (0.000-0.056) Total Protein 7.7 G/DL (6.4-8.2) 6.2 G/DL (6.4-8.2) L Albumin 3.4 G/DL (3.4-5.0) 2.9 G/DL (3.4-5.0) L Globulin 4.3 g/dL 3.3 g/dL Albumin/Globulin Ratio 0.8 (1.0-2.7) L 0.9 (1.0-2.7) L Lipase 100 U/L (73-393) Urine Color Yellow Urine Appearance Clear Urine pH 7 (4.5-8.0) Urine Specific Leon 1.010 (1.005-1.035) Urine Protein 2+ (NEGATIVE) H Urine Glucose (UA) Negative (NEGATIVE) Urine Ketones Negative (NEGATIVE) Urine Blood 2+ (NEGATIVE) H Urine Nitrite Negative (NEGATIVE) Urine Bilirubin Negative (NEGATIVE) Urine Urobilinogen Normal MG/DL (0.0-1.0) Urine Leukocyte Esterase 1+ (NEGATIVE) H Urine RBC 2-4 /HPF (0 - 0) H Urine WBC 0-2 /HPF (0 - 0) Urine Squamous Epithelial Cells Moderate /LPF (NONE/OCC) H Urine Bacteria Few /HPF (NONE) Direct Bilirubin < 0.1 MG/DL (0.0-0.3) Random Vancomycin Level 4.2 ug/mL Test 07/11/20 09:00 07/11/20 09:22 07/11/20 09:50 Lactic Acid Level 0.90 mmol/L (0.4-2.0) Arterial Blood pH 7.471 (7.350-7.450) Arterial Blood Partial Pressure CO2 36.1 mmHg (35.0-45.0) Arterial Blood Partial Pressure O2 67.0 mmHg (75.0-100.0) L Arterial Blood HCO3 25.7 mmol/L (22.0-26.0) Arterial Blood Oxygen Saturation 94.0 % (95-100) L Arterial Blood Base Excess 2.2 (-2-2) H Petar Test Positive Random Amikacin Level Pending Microbiology Date/Time Source Procedure Growth Status 07/10/20 19:00 Nasal Nares - Final Complete 07/10/20 19:00 Nasal Nares - Final Complete 07/10/20 15:15 Rectum Received 07/10/20 15:15 Nasopharynx SARS-CoV-2 RdRp Gene Assay - Final Complete Height (Feet): 5 Height (Inches): 8.00 Weight (Pounds): 173 Medications Current Medications Medications (Trade) Dose Ordered Sig/Yesenia Route PRN Reason Start Time Stop Time Status Last Admin Dose Admin Acetaminophen (Tylenol) 650 mg Q4H PRN GT fever 07/10/20 21:00 08/09/20 20:59 Albuterol/ Ipratropium (Albuterol/ Ipratropium) 3 ml Q4H PRN HHN Shortness of Breath 07/10/20 21:00 07/15/20 20:59 Amikacin Protocol (Amikacin pharmacy to dose) 1 ea DAILY PRN MISC Per rx protocol 07/10/20 21:15 08/09/20 21:14 Amikacin Sulfate 1125 mg/Sodium Chloride 114.5 ml @ 114.5 mls/ hr Q36H IV 07/10/20 22:00 07/17/20 21:59 07/10/20 22:29 Chlorhexidine Gluconate (Kaila-Hex 2%) 1 applic DAILY@2000 TOPIC 07/11/20 20:00 10/09/20 19:59 Dextrose/Sodium Chloride 1,000 ml @ 75 mls/hr [id number] IV 07/11/20 10:00 08/10/20 09:59 07/11/20 10:00 Ertapenem 1 gm/ Sodium Chloride 55 ml @ 110 mls/hr Q24H IV 07/10/20 23:00 07/15/20 22:59 07/10/20 23:25 Heparin Sodium (Porcine) (Heparin 5000 units/ml) 5,000 units EVERY 12 HOURS SUBQ 07/10/20 21:00 08/24/20 20:59 07/11/20 08:40 Levetiracetam (Keppra) 500 mg Q12HR GT 07/11/20 09:00 08/10/20 08:59 07/11/20 08:41 Levothyroxine Sodium (Synthroid) 75 mcg ACBREAKFAST GT 07/11/20 06:30 08/10/20 06:29 07/11/20 06:30 Lorazepam (Ativan 2mg/ml 1ml) 2 mg Q2H PRN IV For Anxiety 07/10/20 21:00 07/17/20 20:59 Morphine Sulfate (Morphine Sulfate) 4 mg Q4H PRN IVP Severe Pain (Pain Scale 7-10) 07/10/20 21:00 07/17/20 20:59 Norepinephrine Bitartrate 250 ml @ 0 mls/hr Q24H IV 07/10/20 21:00 07/13/20 20:59 07/11/20 03:05 Ondansetron HCl (Zofran) 4 mg Q6H PRN IVP Nausea & Vomiting 07/10/20 21:00 08/09/20 20:59 Pantoprazole (Protonix) 40 mg DAILY IV 07/11/20 09:00 08/10/20 08:59 07/11/20 08:40 Polyethylene Glycol (Miralax) 17 gm DAILYPRN PRN GT Constipation 07/10/20 21:00 08/09/20 20:59 Vancomycin HCl (Vanco pharmacy to dose) 1 ea DAILY PRN MISC Per rx protocol 07/10/20 21:15 08/09/20 21:14 Vancomycin HCl 1 gm/Dextrose 275 ml @ 183.708 mls/hr Q12H IVPB 07/11/20 08:00 07/16/20 07:59 07/11/20 08:53 Assessment/Plan Assessment/Plan: Abx: IV Vancomycin 07/10- IV Amikacin 07/10- Ertapenem 07/10- Cefepime x1 07/10 Assessment: Severe Sepsis Multifocal PNA- r/o COVID19 -07/10 CXR:Bilateral infiltrates concerning for multifocal pneumonia. rapid COVID PCR neg, Influenza ag neg sp cx p Gram positive bacteremia -07/10 bcx 2/4 GPC clusters Afebrile Leukocytosis, improving -07/10 u/a neg ZIGGY, sp CVA HTN COPD dysphagia sp GT hypothyroidism traumatic SDH sp hemilobectomy chronic resp failure sp trach dependent SNF resident ([facility]) Plan: -Continue empiric IV Vancomycin #2 -Switch IV Amikacin and Ertapenem #2 to Meropenem -f/u cx -Monitor CBC/CMP, temperatures -COVID19 isolation and testing; send 2nd covid PCR _Bcx x2 Thank you for this consultation. Will continue to follow along with you. Discussed with Janel Tadeo M.D. Jul 11, 2020 11:50
--- NOTE | 2020-07-11 11:50 | NUR ---
NURSE NOTES: OCTAVIO mattress applied. Cleaned patient for small carrillo brown muddy like BM. Turned and repositioned patient. Will continue to monitor.
--- NOTE | 2020-07-11 11:51 | Cardiology Report ---
APPROVED REPORT EXAM: Two-dimensional and M-mode echocardiogram with Doppler and color Doppler. INDICATION Left ventricular function M-Mode DIMENSIONS IVSd1.3 (0.7-1.1cm)Left Atrium (MM)2.3 (1.6-4.0cm) LVDd3.8 (3.5-5.6cm)Aortic Root2.8 (2.0-3.7cm) PWd1.7 (0.7-1.1cm)Aortic Cusp Exc.1.9 (1.5-2.0cm) IVSs1.8 cmEPSS0.6 (>1.0cm) LVDs2.7 (2.5-4.0cm) PWs2.0 cm <Conclusion> Technically difficult study due to poor acoustical windows, patient's position and ventilator. Normal left ventricular chamber size, systolic function and wall motion to extent visualized. Left ventricular ejection fraction estimated to be grossly normal. Study quality precludes accurate assessment of regional wall motion and poor visulaization of valvular detail No evidence of left ventricular hypertrophy. No evidence of pericardial effusion. All other cardiac chamber sizes appear to be within normal limits. Focal aortic valve sclerosis with adequate cusp excursion. Thickened mitral valve leaflets with normal excursion. Mitral annulus and aortic root calcification. Pulmonic valve not well visualized. Normal tricuspid valve structure. IVC at normal size with physiologic collapse. A color flow and spectral Doppler study was performed and revealed: No aortic regurgitation. Trace mitral regurgitation. Mitral diastolic velocities suggest reduced left ventricular relaxation c/w mild LV diastolic dysfunction (Grade I ). Trace tricuspid regurgitation. Tricuspid systolic velocities suggests peak right ventricular systolic pressure of 10 mmHg. No pulmonic regurgitation present.
--- NOTE | 2020-07-11 12:00 | NUR ---
NURSE NOTES: Held Levophed drip for BP 110/56. Dr Foley here to see the patient. Updated him with patient's current condition. Order to start feeding received. Will carry out his order.
--- NOTE | 2020-07-11 12:09 | Cardiology Report ---
APPROVED REPORT EKG Measurement Heart [id number] <Conclusion> Sinus tachycardia Nonspecific T wave abnormality Abnormal ECG
--- NOTE | 2020-07-11 12:35 | Pulmonolgy Critical Care Note ---
Critical Care - Asmt/Plan Problems: (1) Septic shock (2) Aspiration pneumonia (3) COPD (chronic obstructive pulmonary disease) (4) HTN (hypertension) (5) Chronic vegetative state (6) Feeding by G-tube Respiratory: monitor respiratory rate, adjust FIO2, CXR, ABG Cardiac: continue pressors Renal: F/U I&O, keep IV fluid, check electrolytes Infectious Disease: check cultures Gastrointestinal: continue feedings/current rate Endocrine: monitor blood sugar, continue sliding scale insulin Hematologic: monitor H/H, transfuse if hgb<8.5 Neurologic: keep patient comfortable Affect: PRN ativan Prophylaxis: Protonix Disposition: keep in ICU Discussed with: nurses, consultants, casework supervisorprototype engineer manager - Objective Last 24 Hour Vital Signs Date Time Temp Pulse Resp B/P (MAP) Pulse Ox O2 Delivery O2 Flow Rate FiO2 07/11/20 12:00 98 26 110/56 (74) 97 07/11/20 12:00 T-piece 5.0 07/11/20 11:30 104 25 106/52 (70) 97 07/11/20 11:28 101 07/11/20 11:00 103 25 101/48 (65) 97 07/11/20 10:30 103 24 95/54 (68) 96 07/11/20 10:00 109 23 112/49 (70) 95 07/11/20 09:45 105 24 98/55 (69) 95 07/11/20 09:30 T-piece 5.0 07/11/20 09:30 107 28 112/70 (84) 96 07/11/20 09:15 103 24 111/55 (73) 95 07/11/20 09:00 102 24 126/54 (78) 97 07/11/20 08:30 117 25 124/58 (80) 95 07/11/20 08:24 97 Cool Aerosol 5.0 28 07/11/20 08:11 104 07/11/20 08:00 T-piece 5.0 07/11/20 08:00 98.6 104 24 124/57 (79) 96 07/11/20 07:30 101 25 118/62 (80) 96 07/11/20 07:00 99 22 123/55 (77) 97 07/11/20 06:30 104 21 113/81 (92) 96 07/11/20 06:00 102 24 118/55 (76) 95 07/11/20 05:30 104 22 119/61 (80) 96 07/11/20 05:00 103 22 113/58 (76) 96 07/11/20 04:30 103 23 110/58 (75) 96 07/11/20 04:00 T-piece 5.0 07/11/20 04:00 98.2 105 23 118/64 (82) 96 07/11/20 04:00 105 07/11/20 03:30 111 26 122/67 (85) 96 07/11/20 03:05 125/69 07/11/20 03:00 94 20 125/69 (87) 98 07/11/20 02:30 96 21 118/67 (84) 98 07/11/20 02:00 105 21 109/66 (80) 98 07/11/20 01:45 96 Cool Aerosol 5.0 28 07/11/20 01:30 111 24 112/66 (81) 95 07/11/20 01:00 102 23 118/62 (80) 97 07/11/20 00:30 104 23 119/71 (87) 97 07/11/20 00:00 T-piece 5.0 07/11/20 00:00 98.3 103 20 112/60 (77) 98 07/11/20 00:00 104 07/10/20 23:30 105 21 121/68 (85) 98 07/10/20 23:00 96 20 111/66 (81) 99 07/10/20 22:30 98 19 106/63 (77) 97 07/10/20 22:00 99 19 109/66 (80) 98 07/10/20 21:30 103 20 111/74 (86) 99 07/10/20 21:00 98 19 105/65 (78) 97 07/10/20 21:00 T-Piece 5.0 07/10/20 20:59 105/65 07/10/20 20:59 105/65 07/10/20 20:30 100 20 117/69 (85) 96 07/10/20 20:15 5.0 07/10/20 20:02 98 Cool Aerosol 5.0 28 07/10/20 20:00 98.8 103 19 126/69 (88) 97 07/10/20 20:00 126/69 10/19/20 20:00 105 07/10/20 19:50 97.3 94 18 103/65 99 Endotracheal Tube 3.0 07/10/20 19:38 97.3 94 18 103/65 99 Endotracheal Tube 3.0 07/10/20 18:54 97.1 93 18 99/64 99 Endotracheal Tube 6.0 93 07/10/20 18:05 97.1 94 18 99/60 99 Endotracheal Tube 6.0 94 07/10/20 16:27 78/50 07/10/20 16:22 79/41 07/10/20 16:17 81/44 07/10/20 16:05 97.4 104 19 86/43 99 Endotracheal Tube 6.0 104 07/10/20 15:05 118 22 Endotracheal Tube 6.0 07/10/20 14:55 97.1 118 22 76/42 99 Endotracheal Tube 6.0 07/10/20 14:51 107 20 76/42 (53) 95 Endotracheal Tube 6.0 Status: obtunded Condition: critical HEENT: atraumatic Neck: full ROM Lungs: rales, rhonchi Heart: HR/BP stable Abdomen: soft, active bowel sounds Extremities: no C/C/E Micro: Microbiology Date/Time Source Procedure Growth Status 07/10/20 19:00 Nasal Nares - Final Complete 07/10/20 19:00 Nasal Nares - Final Complete 07/10/20 15:15 Rectum Received 07/10/20 15:15 Nasopharynx SARS-CoV-2 RdRp Gene Assay - Final Complete Critical Care - Subjective ROS Limited/Unobtainable: Yes Interval Events: 62 year old male with PMH of chronic respiratory failure, with tracheostomy, G-tube, subdural hematoma and seizure disorder, quadriplegia , history of DVT, hypertension ,hypothyroidism ,presented from the shelter facility for evaluation of hypotension. He was found to have multilobar pneumonia and is admitted to ICU for further management. FI02: 28 Sputum Amount: Small I&O: Intake and Output 07/10/20 07/11/20 19:00 07:00 Intake Total 2000 ml 3275.85 ml Output Total 650 ml Balance 2000 ml 2625.85 ml Intake IV Total 2000 ml 3275.85 ml Output Urine Total 650 ml # Bowel Movements 2 CXR: bilateral infiltrate Labs: Laboratory Tests Test 07/10/20 15:12 07/10/20 16:55 07/10/20 19:00 07/11/20 03:30 White Blood Count 22.0 K/UL (4.8-10.8) H 18.2 K/UL (4.8-10.8) H Red Blood Count 4.28 M/UL (4.70-6.10) L 3.90 M/UL (4.70-6.10) L Hemoglobin 12.9 G/DL (14.2-18.0) L 11.5 G/DL (14.2-18.0) L Hematocrit 38.7 % (42.0-52.0) L 32.9 % (42.0-52.0) L Mean Corpuscular Volume 90 FL (80-99) 84 FL (80-99) Mean Corpuscular Hemoglobin 30.2 PG (27.0-31.0) 29.6 PG (27.0-31.0) Mean Corpuscular Hemoglobin Concent 33.4 G/DL (32.0-36.0) 35.0 G/DL (32.0-36.0) Red Cell Distribution Width 14.1 % (11.6-14.8) 12.9 % (11.6-14.8) Platelet Count 174 K/UL (150-450) 169 K/UL (150-450) Mean Platelet Volume 10.2 FL (6.5-10.1) H 7.6 FL (6.5-10.1) Neutrophils (%) (Auto) % (45.0-75.0) % (45.0-75.0) Lymphocytes (%) (Auto) % (20.0-45.0) % (20.0-45.0) Monocytes (%) (Auto) % (1.0-10.0) % (1.0-10.0) Eosinophils (%) (Auto) % (0.0-3.0) % (0.0-3.0) Basophils (%) (Auto) % (0.0-2.0) % (0.0-2.0) Differential Total Cells Counted 100 100 Neutrophils % (Manual) 73 % (45-75) 83 % (45-75) H Lymphocytes % (Manual) 3 % (20-45) L 14 % (20-45) L Monocytes % (Manual) 7 % (1-10) 1 % (1-10) Eosinophils % (Manual) 1 % (0-3) 2 % (0-3) Basophils % (Manual) 0 % (0-2) 0 % (0-2) Band Neutrophils 16 % (0-8) H 0 % (0-8) Platelet Estimate Adequate Adequate Platelet Morphology Normal Normal Red Blood Cell Morphology Normal Normal Prothrombin Time 11.3 SEC (9.30-11.50) Prothromb Time International Ratio 1.0 (0.9-1.1) Activated Partial Thromboplast Time 29 SEC (23-33) Sodium Level 136 MMOL/L (136-145) 138 MMOL/L (136-145) Potassium Level 3.8 MMOL/L (3.5-5.1) 3.5 MMOL/L (3.5-5.1) Chloride Level 100 MMOL/L (98-107) 104 MMOL/L (98-107) Carbon Dioxide Level 27 MMOL/L (21-32) 26 MMOL/L (21-32) Anion Gap 9 mmol/L (5-15) 8 mmol/L (5-15) Blood Urea Nitrogen 34 mg/dL (7-18) H 23 mg/dL (7-18) H Creatinine 1.6 MG/DL (0.55-1.30) H 0.9 MG/DL (0.55-1.30) Estimat Glomerular Filtration Rate 44.0 mL/min (>60) > 60 mL/min (>60) Glucose Level 95 MG/DL (74-106) 107 MG/DL (74-106) H Lactic Acid Level 3.00 mmol/L (0.4-2.0) H 2.20 mmol/L (0.66-2.22) Calcium Level 8.9 MG/DL (8.5-10.1) 8.5 MG/DL (8.5-10.1) Magnesium Level 2.1 MG/DL (1.8-2.4) Total Bilirubin 0.7 MG/DL (0.2-1.0) 0.4 MG/DL (0.2-1.0) Aspartate Amino Transf (AST/SGOT) 14 U/L (15-37) L 13 U/L (15-37) L Alanine Aminotransferase (ALT/SGPT) 33 U/L (12-78) 20 U/L (12-78) Alkaline Phosphatase 68 U/L (46-116) 65 U/L (46-116) Total Creatine Kinase 32 U/L (26-308) Creatine Kinase MB < 0.5 NG/ML (0.0-3.6) Creatine Kinase MB Relative Index 1.5 Troponin I 0.000 ng/mL (0.000-0.056) Total Protein 7.7 G/DL (6.4-8.2) 6.2 G/DL (6.4-8.2) L Albumin 3.4 G/DL (3.4-5.0) 2.9 G/DL (3.4-5.0) L Globulin 4.3 g/dL 3.3 g/dL Albumin/Globulin Ratio 0.8 (1.0-2.7) L 0.9 (1.0-2.7) L Lipase 100 U/L (73-393) Urine Color Yellow Urine Appearance Clear Urine pH 7 (4.5-8.0) Urine Specific [place] 1.010 (1.005-1.035) Urine Protein 2+ (NEGATIVE) H Urine Glucose (UA) Negative (NEGATIVE) Urine Ketones Negative (NEGATIVE) Urine Blood 2+ (NEGATIVE) H Urine Nitrite Negative (NEGATIVE) Urine Bilirubin Negative (NEGATIVE) Urine Urobilinogen Normal MG/DL (0.0-1.0) Urine Leukocyte Esterase 1+ (NEGATIVE) H Urine RBC 2-4 /HPF (0 - 0) H Urine WBC 0-2 /HPF (0 - 0) Urine Squamous Epithelial Cells Moderate /LPF (NONE/OCC) H Urine Bacteria Few /HPF (NONE) Direct Bilirubin < 0.1 MG/DL (0.0-0.3) Random Vancomycin Level 4.2 ug/mL Test 07/11/20 09:00 07/11/20 09:22 07/11/20 09:50 Lactic Acid Level 0.90 mmol/L (0.4-2.0) Arterial Blood pH 7.471 (7.350-7.450) Arterial Blood Partial Pressure CO2 36.1 mmHg (35.0-45.0) Arterial Blood Partial Pressure O2 67.0 mmHg (75.0-100.0) L Arterial Blood HCO3 25.7 mmol/L (22.0-26.0) Arterial Blood Oxygen Saturation 94.0 % (95-100) L Arterial Blood Base Excess 2.2 (-2-2) H Petar Test Positive Random Amikacin Level Pending Linda Foley MD Jul 11, 2020 12:35
--- NOTE | 2020-07-11 13:35 | NUR ---
NURSE NOTES: Notified Dr Salinas that 2 bottles of blood culture is positive for gram + cocci in clusters. No new orders for now. Rapid Covid swap sent.
[2020-07-11] MEDS ORDERED: NS 275ml ONE (13:48)
[2020-07-11] MEDS ORDERED: Tubing IV Secondary IV ONE (13:48)
--- NOTE | 2020-07-11 14:00 | NUR ---
NURSE NOTES: Started tube feeding of Osmolite 1.5 at 25cc/hr as per order. HOB elevated 30 degree. Will closely monitor residual.
[2020-07-11] MEDS: Meropenem 1 GM in NS 55 ML IVPB SCH ×2 (14:45→22:06)
--- NOTE | 2020-07-11 16:00 | NUR ---
NURSE NOTES: Turned and repositioned patient. Afebrile. oral temp 98.7. Scant amount of yellow thick secretion noted from T-piece. BP 92/49 off Levophed drip. Will continue to monitor.
--- NOTE | 2020-07-11 16:00 | Diagnostic Imaging Report ---
Indication: Reason For Exam: DYSPHAGIA Technique: Single AP view of the chest. Comparison: Chest radiograph dated 07/10/2020 Findings: The cardiomediastinal silhouette is is unchanged in appearance. Stable pulmonary edema. Unchanged retrocardiac consolidation. No pneumothorax or increasing pleural effusion. Unchanged cannulated tracheostomy and bilateral reticular shunts. Left clavicular deformity is again noted. IMPRESSION: No significant change from most recent examination.
--- NOTE | 2020-07-11 18:08 | History & Physical ---
History and Physical History & Physicial Dictated for Int Med-Dr Cates no. [id number]. Broderick Tobias MD Jul 11, 2020 18:08
--- NOTE | 2020-07-11 18:30 | NUR ---
NURSE NOTES: Dr Tobias here to see the patient. Updated him with patient's current condition. No new orders. Will continue to monitor.
--- NOTE | 2020-07-11 19:15 | NUR ---
NURSE HAND-OFF REPORT: Latest Vital Signs: Temperature 98.7 , Pulse 90 , B/P 107 /54 , Respiratory Rate 23 , O2 SAT 97 , T-piece, O2 Flow Rate 5.0 . Vital Sign Comment: EKG Rhythm: Sinus Rhythm Rhythm change?: N MD Notified?: - MD Response: Latest Ridley Fall Score: 50 Fall Risk: High Risk Safety Measures: Call light Within Reach, Bed Alarm Zone 2, Side Rails Side Rails x2, Bed position Low and Locked. Fall Precautions: Yellow Socks Yellow Gown Door Sign Patient Fall Education Report given to MARI Lomas.
--- NOTE | 2020-07-11 19:30 | NUR ---
NURSE NOTES: Received report from MARI Jefferson. Pt is resting on the bed and awake confuse. able to response to tactile stimuli. Non-verbal. On helmet on the head for protection s/p Rt. craniotomy. Pt has Trach with Portex #7.0 and deflated. On O2 6L FiO2 28% via T-piece, and tolerating well. Noted SaO2 96% noted. Given suction and oral care. Noted whitish thick secretion. Pt has G-tube and patent. on running with Osmolite 1.5 @ 25cc/hr and goal is 55cc/hr. No residual noted. Keep HOB. Pt has Hu cath and drainage well. Pt has Rt. femoral TLC and patent and flushed well with NS and noted good blood return. Dressing is clean and dry on wound area. On P-200 mattress for wound management. On desk monitor with SR. Offed Levophed drip. BP is stable. No fever. Placed fall and seizure precaution. Will continue to care plan.
--- NOTE | 2020-07-11 19:30 | History and Physical Report ---
DATE OF ADMISSION: 07/10/2020 CHIEF COMPLAINT: The patient is a 64-year-old male who presents with a chief complaint of hypotension. HISTORY OF PRESENT ILLNESS: The patient has a history of traumatic subdural hematoma. The patient is chronic tracheostomy dependent. The patient is a resident of [facility]. According to staff at [facility], the patient began to have hypotension on July 10, 2020. Blood pressure was found to be 76/42. The patient was transferred to [facility] for evaluation. The patient is admitted with hypotension to rule out sepsis. REVIEW OF SYSTEMS: Unable to assess secondary to the patient's mental status. PAST MEDICAL HISTORY: Significant for: 1. Chronic respiratory failure. 2. Traumatic subdural hematoma. 3. Seizure disorder. 4. Hypertension. 5. Hypothyroidism. 6. Chronic deep venous thrombosis. 7. Anoxic encephalopathy. 8. Dysphagia. PAST SURGICAL HISTORY: Significant for: 1. PEG placement. 2. Tracheostomy. 3. Craniotomy with partial lobectomy. CURRENT MEDICATIONS: 1. Tylenol 650 mg per G-tube q.4h. p.r.n. 2. Combivent metered-dose inhaler 1 puff per trach q.4h. 3. Coumadin 1.5 mg per G-tube daily. 4. Iron sulfate 325 mg per G-tube daily. 5. Labetalol 100 mg per G-tube q.8h. 6. Keppra 5 mL per G-tube q.12h. 7. Levoxyl 75 mcg per G-tube daily. 8. Metoclopramide 5 mg per G-tube q.6h. 9. Prednisone 20 mg per G-tube daily. 10. Vitamin D3 1000 international units per G-tube daily. ALLERGIES: Amoxicillin and cephalosporins. SOCIAL HISTORY: The patient is and is a resident of [facility]. The patient denies tobacco or alcohol use. PHYSICAL EXAMINATION: VITAL SIGNS: Temperature 97.1, respirations 20, pulse 107, blood pressure 76/42. GENERAL: The patient is a well-developed, well-nourished male, with multiple contractures, who is nonresponsive. HEENT: Eyes, pupils equal and responsive to light and accommodation. The patient does not track. CARDIOVASCULAR: Tachycardic, regular rhythm. S1, S2 are normal without murmurs, rubs, or gallops. ABDOMEN: Soft, nontender, nondistended. Positive bowel sounds. No evidence of hepatosplenomegaly. Currently no rebound or guarding. EXTREMITIES: Multiple contractures without clubbing, cyanosis, or edema. RECTAL/GENITAL: Not performed. NEUROLOGICAL: Unable to assess. LABORATORY STUDIES: WBC 22.0, hemoglobin 12.9, hematocrit 38.7, platelets 174,000. Sodium 136, potassium 3.8, chloride 100, CO2 27, BUN 34, creatinine 1.6, glucose 95. ProTime 11.3, INR 1.0, PTT 29. Chest x-ray revealed bilateral opacities concerning for multifocal pneumonia. COVID-19 test is negative. ASSESSMENT: This is a 64-year-old male. 1. Bilateral pneumonia. 2. Probable sepsis. 3. Hypotension. 4. Leukocytosis. 5. Chronic respiratory failure. 6. History of subdural hematoma. 7. Seizure disorder. 8. Hypertension. 9. Hypothyroidism. 10. Chronic deep venous thrombosis. 11. Encephalopathy. TREATMENT: 1. Sepsis/bilateral pneumonia. An infectious disease consultation has been obtained with Dr. Salinas. The patient has been started empirically on meropenem and vancomycin. Follow recommendations of Infectious Disease. A pulmonary consultation has been obtained with Dr. Linda Foley. Follow recommendations of Pulmonary. 2. Chronic respiratory failure. As above, a pulmonary consultation was obtained with Dr. Linda Foley. 3. History of subdural hematoma. 4. Seizure disorder. Continue Keppra as above. 5. Hypertension. The patient is currently hypotensive. 6. Hypothyroidism. Continue Synthroid as above. 7. Chronic deep venous thrombosis. Continue Coumadin as above. 8. Encephalopathy. Broderick Tobias M.D. DR: STEPHEN JOB#: [id number] CC:
[2020-07-11] MEDS: Dyna-Hex 2% Top Sol 2oz TOPIC SCH (20:00)
--- NOTE | 2020-07-11 22:00 | NUR ---
NURSE NOTES: Pt is sleeping on the bed and no sign of acute distress noted. V/S stable. No fever. SaO2 96-97% with O26L via T-Piece. No sign of pain by FLACC scale. Suction and mouth care given. On running with Osmolite @35cc/hr and is tolerating well. On running with D5NS @ 75cc/hr. Placed fall and seizure precaution. Will continue to monitor any change of condition.
[2020-07-12] VITALS (25 sets, daily range): BP systolic 100–135; BP diastolic 55–68
--- NOTE | 2020-07-12 | NUR ---
NURSE NOTES: Pt is sleeping on the bed and no sign of acute distress noted. V/S is stable. No fever. On alarm security or surveillance monitor with SR. SaO2 96% noted. Tolerated well with current G-tube feeding. Given oral care and suction. Repositioned Pt. Placed fall and seizure precaution. Will continue to monitor any change of condition.
--- NOTE | 2020-07-12 02:00 | NUR ---
NURSE NOTES: Suction and oral care was done. Turn and reposition. Will continue to monitor.
--- NOTE | 2020-07-12 04:00 | NUR ---
NURSE NOTES: Morning care was done. Given bed bath. Noted large amount soft BM. Cleaned Pt and applied lotion and cream. Changed wound dressing. BP is stable. SaO2 96-97% with O2 6L via T-piece. Collected blood sample. No fever. Changed position. Will continue to monitor any change of condition.
[2020-07-12 05:56] LABS: BASOPHILS % (AUTO) 0.3 % (0.0-2.0); HEMATOCRIT 28.3 % (42.0-52.0); HEMOGLOBIN 9.4 G/DL (14.2-18.0); LYMPHOCYTES % (AUTO) 18.3 % (20.0-45.0); MEAN CORPUSCULAR VOLUME 91 FL (80-99); MONOCYTES % (AUTO) 5.1 % (1.0-10.0); NEUTROPHILS % (AUTO) 73.3 % (45.0-75.0); PLATELET COUNT 108 K/UL (150-450); RED BLOOD COUNT 3.12 M/UL (4.70-6.10); RED CELL DISTRIBUTION WIDTH 13.6 % (11.6-14.8); WHITE BLOOD COUNT 5.8 K/UL (4.8-10.8)
[2020-07-12] MEDS: Meropenem 1 GM in NS 55 ML IVPB SCH ×3 (06:00→21:02)
--- NOTE | 2020-07-12 06:00 | NUR ---
NURSE NOTES: Pt is sleeping on the bed and on classroom monitor with SR. BP is stable noted 128/60mmHg. Given suction. Changed position. Will continue to monitor any change of condition.
[2020-07-12 06:20] LABS: ALANINE AMINOTRANSFERASE 14 U/L (12-78); ALBUMIN 2.6 G/DL (3.4-5.0); ALBUMIN/GLOBULIN RATIO 0.9 (1.0-2.7); ALKALINE PHOSPHATASE 56 U/L (46-116); ANION GAP 4 mmol/L (5-15); ASPARTATE AMINO TRANSFERASE 13 U/L (15-37); BILIRUBIN,TOTAL 0.3 MG/DL (0.2-1.0); BLOOD UREA NITROGEN 8 mg/dL (7-18); CARBON DIOXIDE 31 MMOL/L (21-32); CHLORIDE 104 MMOL/L (98-107); CREATININE 0.7 MG/DL (0.55-1.30); PHOSPHORUS 1.8 MG/DL (2.5-4.9)
[2020-07-12 06:31] LABS: POTASSIUM 2.9 MMOL/L (3.5-5.1); SODIUM 140 MMOL/L (136-145)
[2020-07-12 06:56] LABS: % IRON SATURATION 7 % (15-50); IRON 15 ug/dL (50-175); TOTAL IRON BINDING CAPACITY 211 ug/dL (250-450)
[2020-07-12 07:05] LABS: FERRITIN 143 NG/ML (8-388)
--- NOTE | 2020-07-12 07:28 | NUR ---
NURSE HAND-OFF REPORT: Latest Vital Signs: Temperature 98.4 , Pulse 78 , B/P 129 /63 , Respiratory Rate 19 , O2 SAT 100 , T-piece, O2 Flow Rate 6.0 . Vital Sign Comment: EKG Rhythm: Sinus Rhythm Rhythm change?: N Latest Ridley Fall Score: 50 Fall Risk: High Risk Safety Measures: Call light Within Reach, Bed Alarm Zone 2, Side Rails Side Rails x2, Bed position Low and Locked. Fall Precautions: Yellow Socks Yellow Gown Door Sign Patient Fall Education Report given to MARI Jefferson. Pt is sleeping on the bed and no sign of acute distress noted.
--- NOTE | 2020-07-12 07:29 | NUR ---
NURSE NOTES: Report received from MARI Lomas. Pt is sleeping in bed and opens eyes to tactile stimuli. Non-verbal. Unable to follow commands. Afebrile. Contracture on bilateral upper and lower extremities noted. SR on batch tank controller. Trach with T-piece with cool aerosol with O2 6L. O2 sat 100%. RR 20's. Small amount of yellow thick secretion from T-piece noted and suctioned. GT in place and feeding held for Synthroid for now. Hu in place draining yellow urine to gravity. Right femoral TLC patent and asymptomatic. D5NS is running at 75cc/hr. Bed in lowest position. Side rails up x2. Continued seizure precaution. Will resume plan of care.
[2020-07-12] MEDS: Heparin 5000 units/ml inj SUBQ SCH ×2 (08:41→20:11)
[2020-07-12] MEDS: Pantoprazole Inj IV SCH (08:41)
[2020-07-12] MEDS: levETIRAcetam 500mg/5ml Liquid GT SCH ×2 (08:41→20:11)
[2020-07-12] MEDS: Vancomycin 1gm in D5W 275ml IVPB SCH ×2 (08:44→20:08)
--- NOTE | 2020-07-12 09:21 | Pulmonolgy Critical Care Note ---
Critical Care - Asmt/Plan Problems: (1) Septic shock (2) Aspiration pneumonia (3) COPD (chronic obstructive pulmonary disease) (4) HTN (hypertension) (5) Chronic vegetative state (6) Feeding by G-tube Respiratory: monitor respiratory rate, adjust FIO2, CXR Cardiac: stop pressors Renal: F/U I&O, check electrolytes Infectious Disease: check cultures, continue antibiotics, other - wbc dec reasing Gastrointestinal: continue feedings/current rate, abdominal imaging Hematologic: monitor H/H, transfuse if hgb<8.5 Neurologic: PRN Ativan, keep patient comfortable Prophylaxis: Protonix, Heparin Disposition: keep in ICU Notes 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: 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, 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, 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 Discussed with: nurses, consultants, top case assemblermanager technical - Objective Last 24 Hour Vital Signs Date Time Temp Pulse Resp B/P (MAP) Pulse Ox O2 Delivery O2 Flow Rate FiO2 07/12/20 08:00 T-piece 6.0 07/12/20 08:00 98.6 78 22 134/57 (82) 100 07/12/20 08:00 6.0 28 07/12/20 07:05 100 Cool Aerosol 6.0 28 07/12/20 07:00 78 19 129/63 (85) 100 07/12/20 06:00 83 21 128/60 (82) 98 07/12/20 05:00 75 18 127/67 (87) 98 07/12/20 04:00 6.0 28 07/12/20 04:00 84 07/12/20 04:00 98.4 82 22 119/56 (77) 100 07/12/20 04:00 T-piece 6.0 07/12/20 03:00 83 20 109/60 (76) 98 07/12/20 02:00 87 23 120/56 (77) 96 07/12/20 01:30 100 Cool Aerosol 6.0 28 07/12/20 01:00 85 21 109/58 (75) 98 07/12/20 00:00 6.0 28 07/12/20 00:00 98.7 85 19 100/55 (70) 96 07/12/20 00:00 88 07/12/20 00:00 T-piece 6.0 07/11/20 23:00 84 22 108/53 (71) 97 07/11/20 22:00 92 23 109/57 (74) 96 07/11/20 21:00 89 23 108/50 (69) 96 07/11/20 20:16 97 Cool Aerosol 6.0 28 07/11/20 20:00 98.6 90 24 100/59 (73) 96 20 20:00 89 07/11/20 20:00 T-piece 6.0 07/11/20 20:00 6.0 28 07/11/20 19:00 90 23 107/54 (71) 97 07/11/20 18:00 94 23 106/57 (73) 95 07/11/20 17:00 98.7 94 23 91/54 (66) 97 07/11/20 16:00 83 22 92/49 (63) 98 07/11/20 16:00 T-piece 5.0 07/11/20 16:00 85 07/11/20 16:00 5.0 07/11/20 15:00 96 21 94/50 (65) 97 07/11/20 14:00 92 23 98/45 (62) 99 07/11/20 13:21 98 Cool Aerosol 5.0 28 07/11/20 13:00 122 27 101/51 (68) 95 07/11/20 12:45 102 24 112/53 (72) 94 07/11/20 12:30 109 25 112/53 (72) 97 07/11/20 12:15 98.8 102 24 112/55 (74) 97 07/11/20 12:00 5.0 07/11/20 12:00 98 26 110/56 (74) 97 07/11/20 12:00 T-piece 5.0 07/11/20 11:30 104 25 106/52 (70) 97 07/11/20 11:28 101 07/11/20 11:00 103 25 101/48 (65) 97 07/11/20 10:30 103 24 95/54 (68) 96 07/11/20 10:00 109 23 112/49 (70) 95 07/11/20 09:45 105 24 98/55 (69) 95 07/11/20 09:30 T-piece 5.0 07/11/20 09:30 107 28 112/70 (84) 96 Status: obtunded Condition: critical, improving Neck: full ROM, trach Lungs: rales, rhonchi Heart: HR/BP stable Abdomen: soft, non-tender Extremities: no C/C/E Micro: Microbiology Date/Time Source Procedure Growth Status 07/11/20 13:30 Nasopharynx SARS-CoV-2 RdRp Gene Assay - Final Complete 07/10/20 22:50 Sputum Gram Stain - Final Resulted 07/10/20 22:50 Sputum Sputum Culture Pending Resulted 07/10/20 19:00 Nasal Nares - Final Complete 07/10/20 19:00 Nasal Nares - Final Complete 07/10/20 15:15 Rectum Received 07/10/20 15:15 Nasopharynx SARS-CoV-2 RdRp Gene Assay - Final Complete 07/10/20 15:12 Blood Blood Culture - Preliminary Staphylococcus Sp Coag Neg Resulted 07/10/20 14:55 Blood Blood Culture - Preliminary Staphylococcus Sp Coag Neg Resulted Critical Care - Subjective ROS Limited/Unobtainable: Yes Interval Events: off levophed drip. looks comfortable Condition: critical EKG Rhythm: Sinus Rhythm FI02: 28 Sputum Amount: Small Tube Feeding Amount: 45 I&O: Intake and Output 07/11/20 07/12/20 19:00 07:00 Intake Total 1482.500 ml 1670.000 ml Output Total 1320 ml 1850 ml Balance 162.500 ml -180.000 ml Intake Free Water 5 ml IV Total 1327.500 ml 1280.000 ml Tube Feeding 150 ml 390 ml Output Urine Total 1320 ml 1850 ml # Bowel Movements 2 2 CXR: Stable pulmonary edema. Unchanged retrocardiac consolidation. Labs: Laboratory Tests Test 07/11/20 09:22 07/11/20 09:50 07/12/20 04:45 07/12/20 05:01 Arterial Blood pH 7.471 (7.350-7.450) Arterial Blood Partial Pressure CO2 36.1 mmHg (35.0-45.0) Arterial Blood Partial Pressure O2 67.0 mmHg (75.0-100.0) L Arterial Blood HCO3 25.7 mmol/L (22.0-26.0) Arterial Blood Oxygen Saturation 94.0 % (95-100) L Arterial Blood Base Excess 2.2 (-2-2) H Petar Test Positive Random Amikacin Level 5.8 MG/L White Blood Count 5.8 K/UL (4.8-10.8) # Red Blood Count 3.12 M/UL (4.70-6.10) L Hemoglobin 9.4 G/DL (14.2-18.0) L Hematocrit 28.3 % (42.0-52.0) L Mean Corpuscular Volume 91 FL (80-99) # Mean Corpuscular Hemoglobin 30.2 PG (27.0-31.0) Mean Corpuscular Hemoglobin Concent 33.3 G/DL (32.0-36.0) Red Cell Distribution Width 13.6 % (11.6-14.8) Platelet Count 108 K/UL (150-450) L Mean Platelet Volume 9.0 FL (6.5-10.1) Neutrophils (%) (Auto) 73.3 % (45.0-75.0) Lymphocytes (%) (Auto) 18.3 % (20.0-45.0) L Monocytes (%) (Auto) 5.1 % (1.0-10.0) Eosinophils (%) (Auto) 3.0 % (0.0-3.0) Basophils (%) (Auto) 0.3 % (0.0-2.0) Erythrocyte Sedimentation Rate 95 MM/HR (0-20) H Sodium Level 140 MMOL/L (136-145) Potassium Level 2.9 MMOL/L (3.5-5.1) L Chloride Level 104 MMOL/L (98-107) Carbon Dioxide Level 31 MMOL/L (21-32) Anion Gap 4 mmol/L (5-15) L Blood Urea Nitrogen 8 mg/dL (7-18) Creatinine 0.7 MG/DL (0.55-1.30) Estimat Glomerular Filtration Rate > 60 mL/min (>60) Glucose Level 149 MG/DL (74-106) H Uric Acid 2.4 MG/DL (2.6-7.2) L Calcium Level 8.0 MG/DL (8.5-10.1) L Phosphorus Level 1.8 MG/DL (2.5-4.9) L Magnesium Level 1.8 MG/DL (1.8-2.4) Iron Level 15 ug/dL (50-175) L Total Iron Binding Capacity 211 ug/dL (250-450) L Percent Iron Saturation 7 % (15-50) L Unsaturated Iron Binding 196 ug/dL (112-346) Ferritin 143 NG/ML (8-388) Total Bilirubin 0.3 MG/DL (0.2-1.0) Aspartate Amino Transf (AST/SGOT) 13 U/L (15-37) L Alanine Aminotransferase (ALT/SGPT) 14 U/L (12-78) Alkaline Phosphatase 56 U/L (46-116) C-Reactive Protein, Quantitative 27.7 mg/dL (0.00-0.90) H Pro-B-Type Natriuretic Peptide 1050 pg/mL (0-125) H Total Protein 5.6 G/DL (6.4-8.2) L Albumin 2.6 G/DL (3.4-5.0) L Globulin 3.0 g/dL Albumin/Globulin Ratio 0.9 (1.0-2.7) L Vitamin B12 Level 910 PG/ML (193-986) Folate 19.2 NG/ML (8.6-58.9) Thyroid Stimulating Hormone (TSH) 2.564 uiU/mL (0.358-3.740) POC Whole Blood Glucose 234 MG/DL (74-106) H Linda Foley MD Jul 12, 2020 09:21
--- NOTE | 2020-07-12 09:30 | NUR ---
NURSE NOTES: Turned and repositioned patient. Oral care done. BP is stable. No acute distress noted.
--- NOTE | 2020-07-12 10:35 | Nephrology Progress Note ---
Assessment/Plan Problem List: (1) ZIGGY (acute kidney injury) (2) Dehydration (3) Electrolyte imbalance (4) COPD (chronic obstructive pulmonary disease) (5) PEG (percutaneous endoscopic gastrostomy) adjustment/replacement/removal (6) Anemia Assessment Elevated creatinine, acute renal failure, mainly dehydration Septic shock Pneumonia, patient has T-piece to oxygen Encephalopathy Feeding by G-tube Chronic vegetative state Mild anemia Hypothyroidism Plan Potassium supplement IV ordered Hu catheter IV fluid as needed to Monitor renal parameters Antibiotics Avoid nephrotoxic's Subjective ROS Limited/Unobtainable: Yes Objective Objective Last 24 Hour Vital Signs Date Time Temp Pulse Resp B/P (MAP) Pulse Ox O2 Delivery O2 Flow Rate FiO2 07/12/20 10:00 81 20 130/60 (83) 95 07/12/20 09:00 80 20 133/59 (83) 95 07/12/20 08:00 T-piece 6.0 07/12/20 08:00 82 07/12/20 08:00 98.6 78 22 134/57 (82) 100 07/12/20 08:00 6.0 28 07/12/20 07:05 100 Cool Aerosol 6.0 28 07/12/20 07:00 78 19 129/63 (85) 100 07/12/20 06:00 83 21 128/60 (82) 98 07/12/20 05:00 75 18 127/67 (87) 98 07/12/20 04:00 6.0 28 07/12/20 04:00 84 07/12/20 04:00 98.4 82 22 119/56 (77) 100 07/12/20 04:00 T-piece 6.0 07/12/20 03:00 83 20 109/60 (76) 98 07/12/20 02:00 87 23 120/56 (77) 96 07/12/20 01:30 100 Cool Aerosol 6.0 28 07/12/20 01:00 85 21 109/58 (75) 98 07/12/20 00:00 6.0 28 07/12/20 00:00 98.7 85 19 100/55 (70) 96 07/12/20 00:00 88 07/12/20 00:00 T-piece 6.0 07/11/20 23:00 84 22 108/53 (71) 97 07/11/20 22:00 92 23 109/57 (74) 96 07/11/20 21:00 89 23 108/50 (69) 96 07/11/20 20:16 97 Cool Aerosol 6.0 28 07/11/20 20:00 98.6 90 24 100/59 (73) 96 07/11/20 20:00 89 07/11/20 20:00 T-piece 6.0 07/11/20 20:00 6.0 28 07/11/20 19:00 90 23 107/54 (71) 97 07/11/20 18:00 94 23 106/57 (73) 95 07/11/20 17:00 98.7 94 23 91/54 (66) 97 07/11/20 16:00 83 22 92/49 (63) 98 07/11/20 16:00 T-piece 5.0 07/11/20 16:00 85 07/11/20 16:00 5.0 07/11/20 15:00 96 21 94/50 (65) 97 07/11/20 14:00 92 23 98/45 (62) 99 07/11/20 13:21 98 Cool Aerosol 5.0 28 07/11/20 13:00 122 27 101/51 (68) 95 07/11/20 12:45 102 24 112/53 (72) 94 07/11/20 12:30 109 25 112/53 (72) 97 07/11/20 12:15 98.8 102 24 112/55 (74) 97 07/11/20 12:00 5.0 07/11/20 12:00 98 26 110/56 (74) 97 07/11/20 12:00 T-piece 5.0 07/11/20 11:30 104 25 106/52 (70) 97 07/11/20 11:28 101 07/11/20 11:00 103 25 101/48 (65) 97 Intake and Output 07/11/20 07/12/20 19:00 07:00 Intake Total 1482.500 ml 1670.000 ml Output Total 1320 ml 1850 ml Balance 162.500 ml -180.000 ml Intake Free Water 5 ml IV Total 1327.500 ml 1280.000 ml Tube Feeding 150 ml 390 ml Output Urine Total 1320 ml 1850 ml # Bowel Movements 2 2 Laboratory Tests 07/12/20 04:45: White Blood Count 5.8#, Red Blood Count 3.12L, Hemoglobin 9.4L, Hematocrit 28.3L , Mean Corpuscular Volume 91#, Mean Corpuscular Hemoglobin 30.2, Mean Corpuscular Hemoglobin Concent 33.3, Red Cell Distribution Width 13.6, Platelet Count 108L, Mean Platelet Volume 9.0, Neutrophils (%) (Auto) 73.3, Lymphocytes (%) (Auto) 18.3L, Monocytes (%) (Auto) 5.1, Eosinophils (%) (Auto) 3.0, Basophils (%) (Auto) 0.3, Erythrocyte Sedimentation Rate 95H, Sodium Level 140, Potassium Level 2.9L, Chloride Level 104, Carbon Dioxide Level 31, Anion Gap 4L, Blood Urea Nitrogen 8, Creatinine 0.7, Estimat Glomerular Filtration Rate > 60, Glucose Level 149H, Uric Acid 2.4L, Calcium Level 8.0L, Phosphorus Level 1.8L, Magnesium Level 1.8, Iron Level 15L, Total Iron Binding Capacity 211L, Percent Iron Saturation 7L, Unsaturated Iron Binding 196, Ferritin 143, Total Bilirubin 0.3, Aspartate Amino Transf (AST/SGOT) 13L, Alanine Aminotransferase (ALT/SGPT) 14, Alkaline Phosphatase 56, C-Reactive Protein, Quantitative 27.7H, Pro-B-Type Natriuretic Peptide 1050H, Total Protein 5.6L, Albumin 2.6L, Globulin 3.0, Albumin/Globulin Ratio 0.9L, Vitamin B12 Level 910, Folate 19.2, Thyroid Sti mulating Hormone (TSH) 2.564 07/12/20 05:01: POC Whole Blood Glucose 234H Height (Feet): 5 Height (Inches): 8.00 Weight (Pounds): 173 General Appearance: no apparent distress EENT: other - Patient has tracheostomy to oxygen Cardiovascular: normal rate Respiratory/Chest: decreased breath sounds Abdomen: soft Objective No change Francisco Stevenson MD Jul 12, 2020 10:35
[2020-07-12] MEDS: Potassium Phosphate 15mm/250ml 250 ML IVPB SCH ×2 (10:51→15:07)
[2020-07-12] MEDS ORDERED: VITAMIN D325 MCG GT (11:07)
[2020-07-12] MEDS ORDERED: OXISTAT30 G1 TP (11:07)
[2020-07-12] MEDS ORDERED: PREDNISONE20 MG ORAL (11:07)
[2020-07-12] MEDS ORDERED: COMBIVENT RESPIM4 GM IH (11:07)
[2020-07-12] MEDS ORDERED: DOCUSATE SODIU100 MG GT (11:07)
[2020-07-12] MEDS ORDERED: SKIN PROTECTAN113 GM TP (11:07)
[2020-07-12] MEDS ORDERED: CRANBERRY450 M4 GT (11:07)
--- NOTE | 2020-07-12 11:29 | Internal Med Progress Note ---
Subjective Date of Service: Jul 12, 2020 Physician Name TobiasBroderick Attending Physician Lion Cates MD Current Medications Medications (Trade) Dose Ordered Sig/Yesenia Route PRN Reason Start Time Stop Time Status Last Admin Dose Admin Acetaminophen (Tylenol) 650 mg Q4H PRN GT fever 07/10/20 21:00 08/09/20 20:59 Albuterol/ Ipratropium (Albuterol/ Ipratropium) 3 ml Q4H PRN HHN Shortness of Breath 07/10/20 21:00 07/15/20 20:59 Chlorhexidine Gluconate (Kaila-Hex 2%) 1 applic DAILY@2000 TOPIC 07/11/20 20:00 10/09/20 19:59 07/11/20 20:00 Dextrose/Sodium Chloride 1,000 ml @ 75 mls/hr [id number] IV 07/11/20 10:00 08/10/20 09:59 07/11/20 23:06 Heparin Sodium (Porcine) (Heparin 5000 units/ml) 5,000 units EVERY 12 HOURS SUBQ 07/10/20 21:00 08/24/20 20:59 07/11/20 20:30 Levetiracetam (Keppra) 500 mg Q12HR GT 07/11/20 09:00 08/10/20 08:59 07/12/20 08:41 Levothyroxine Sodium (Synthroid) 75 mcg ACBREAKFAST GT 07/11/20 06:30 08/10/20 06:29 07/12/20 06:00 Lorazepam (Ativan 2mg/ml 1ml) 2 mg Q2H PRN IV For Anxiety 07/10/20 21:00 07/17/20 20:59 Meropenem 1 gm/ Sodium Chloride 55 ml @ 110 mls/hr Q8HR IVPB 07/11/20 14:00 07/16/20 13:59 07/12/20 06:00 Morphine Sulfate (Morphine Sulfate) 4 mg Q4H PRN IVP Severe Pain (Pain Scale 7-10) 07/10/20 21:00 07/17/20 20:59 Norepinephrine Bitartrate 250 ml @ 0 mls/hr Q24H IV 07/10/20 21:00 07/13/20 20:59 07/11/20 03:05 Ondansetron HCl (Zofran) 4 mg Q6H PRN IVP Nausea & Vomiting 07/10/20 21:00 08/09/20 20:59 Pantoprazole (Protonix) 40 mg DAILY IV 07/11/20 09:00 08/10/20 08:59 07/12/20 08:41 Polyethylene Glycol (Miralax) 17 gm DAILYPRN PRN GT Constipation 07/10/20 21:00 08/09/20 20:59 Potassium Phosphate 250 ml @ 62.5 mls/hr Q4H IVPB 07/12/20 10:00 07/12/20 17:59 07/12/20 10:51 Vancomycin HCl (Vanco pharmacy to dose) 1 ea DAILY PRN MISC Per rx protocol 07/10/20 21:15 08/09/20 21:14 Vancomycin HCl 1 gm/Dextrose 275 ml @ 183.708 mls/hr Q12H IVPB 07/11/20 08:00 07/16/20 07:59 07/12/20 08:44 Allergies: Coded Allergies: CEPHALOSPORINS (Verified Allergy, Intermediate, SKIN RASH, 10/13/18) CEFEPIME AMOXICILLIN (Verified Allergy, Unknown, 07/11/20) tolerates carbapenem ROS Limited/Unobtainable: Yes Subjective 64 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 Now sepsis. Cover for Int Med-DR Cates. ICU Objective Last Vital Signs Date Time Temp Pulse Resp B/P (MAP) Pulse Ox O2 Delivery O2 Flow Rate FiO2 07/12/20 10:00 81 20 130/60 (83) 95 07/12/20 08:00 T-piece 6.0 07/12/20 08:00 98.6 07/12/20 08:00 28 Laboratory Tests Test 07/12/20 04:45 07/12/20 05:01 White Blood Count 5.8 K/UL (4.8-10.8) # Red Blood Count 3.12 M/UL (4.70-6.10) L Hemoglobin 9.4 G/DL (14.2-18.0) L Hematocrit 28.3 % (42.0-52.0) L Mean Corpuscular Volume 91 FL (80-99) # Mean Corpuscular Hemoglobin 30.2 PG (27.0-31.0) Mean Corpuscular Hemoglobin Concent 33.3 G/DL (32.0-36.0) Red Cell Distribution Width 13.6 % (11.6-14.8) Platelet Count 108 K/UL (150-450) L Mean Platelet Volume 9.0 FL (6.5-10.1) Neutrophils (%) (Auto) 73.3 % (45.0-75.0) Lymphocytes (%) (Auto) 18.3 % (20.0-45.0) L Monocytes (%) (Auto) 5.1 % (1.0-10.0) Eosinophils (%) (Auto) 3.0 % (0.0-3.0) Basophils (%) (Auto) 0.3 % (0.0-2.0) Erythrocyte Sedimentation Rate 95 MM/HR (0-20) H Sodium Level 140 MMOL/L (136-145) Potassium Level 2.9 MMOL/L (3.5-5.1) L Chloride Level 104 MMOL/L (98-107) Carbon Dioxide Level 31 MMOL/L (21-32) Anion Gap 4 mmol/L (5-15) L Blood Urea Nitrogen 8 mg/dL (7-18) Creatinine 0.7 MG/DL (0.55-1.30) Estimat Glomerular Filtration Rate > 60 mL/min (>60) Glucose Level 149 MG/DL (74-106) H Uric Acid 2.4 MG/DL (2.6-7.2) L Calcium Level 8.0 MG/DL (8.5-10.1) L Phosphorus Level 1.8 MG/DL (2.5-4.9) L Magnesium Level 1.8 MG/DL (1.8-2.4) Iron Level 15 ug/dL (50-175) L Total Iron Binding Capacity 211 ug/dL (250-450) L Percent Iron Saturation 7 % (15-50) L Unsaturated Iron Binding 196 ug/dL (112-346) Ferritin 143 NG/ML (8-388) Total Bilirubin 0.3 MG/DL (0.2-1.0) Aspartate Amino Transf (AST/SGOT) 13 U/L (15-37) L Alanine Aminotransferase (ALT/SGPT) 14 U/L (12-78) Alkaline Phosphatase 56 U/L (46-116) C-Reactive Protein, Quantitative 27.7 mg/dL (0.00-0.90) H Pro-B-Type Natriuretic Peptide 1050 pg/mL (0-125) H Total Protein 5.6 G/DL (6.4-8.2) L Albumin 2.6 G/DL (3.4-5.0) L Globulin 3.0 g/dL Albumin/Globulin Ratio 0.9 (1.0-2.7) L Vitamin B12 Level 910 PG/ML (193-986) Folate 19.2 NG/ML (8.6-58.9) Thyroid Stimulating Hormone (TSH) 2.564 uiU/mL (0.358-3.740) POC Whole Blood Glucose 234 MG/DL (74-106) H Microbiology Date/Time Source Procedure Growth Status 07/11/20 13:30 Nasopharynx SARS-CoV-2 RdRp Gene Assay - Final Complete 07/10/20 22:50 Sputum Gram Stain - Final Resulted 07/10/20 22:50 Sputum Sputum Culture Pending Resulted 07/10/20 19:00 Nasal Nares - Final Complete 07/10/20 19:00 Nasal Nares - Final Complete 07/10/20 15:15 Rectum Received 07/10/20 15:15 Nasopharynx SARS-CoV-2 RdRp Gene Assay - Final Complete 07/10/20 15:12 Blood Blood Culture - Preliminary Staphylococcus Sp Coag Neg Resulted 07/10/20 14:55 Blood Blood Culture - Preliminary Staphylococcus Sp Coag Neg Resulted Intake and Output 07/11/20 07/12/20 19:00 07:00 Intake Total 1482.500 ml 1670.000 ml Output Total 1320 ml 1850 ml Balance 162.500 ml -180.000 ml Intake Free Water 5 ml IV Total 1327.500 ml 1280.000 ml Tube Feeding 150 ml 390 ml Output Urine Total 1320 ml 1850 ml # Bowel Movements 2 2 Objective PHYSICAL EXAMINATION: GENERAL: The patient is a well-developed, well-nourished male, with multiple contractures, who is nonresponsive. HEENT: Eyes, pupils equal and responsive to light and accommodation. The patient does not track. CARDIOVASCULAR: Tachycardic, regular rhythm. S1, S2 are normal without murmurs, rubs, or gallops. ABDOMEN: Soft, nontender, nondistended. Positive bowel sounds. No evidence of hepatosplenomegaly. Currently no rebound or guarding. EXTREMITIES: Multiple contractures without clubbing, cyanosis, or edema. RECTAL/GENITAL: Not performed. NEUROLOGICAL: Unable to assess. Assessment/Plan Assessment/Plan ASSESSMENT: This is a 64-year-old male. 1. Bilateral pneumonia. 2. Sepsis.=Coag neg staph 3. Hypotension. 4. Leukocytosis. 5. Chronic respiratory failure. 6. History of subdural hematoma. 7. Seizure disorder. 8. Hypertension. 9. Hypothyroidism. 10. Chronic deep venous thrombosis. 11. Encephalopathy. TREATMENT: 1. Sepsis/bilateral pneumonia. Infectious disease consultation=Dr. Salinas. The patient has been started empirically on meropenem and vancomycin. Follow recommendations of Infectious Disease. Pulmonary consultation = Dr. Linda Foley. Follow recommendations of Pulmonary. 2. Chronic respiratory failure. As above, a pulmonary consultation was obtained with Dr. Linda Foley. 3. History of subdural hematoma. 4. Seizure disorder. Continue Keppra as above. 5. Hypertension. The patient is currently hypotensive. 6. Hypothyroidism. Continue Synthroid as above. 7. Chronic deep venous thrombosis. Continue Coumadin as above. 8. Encephalopathy. Broderick Tobias MD Jul 12, 2020 11:29
--- NOTE | 2020-07-12 11:39 | NUR ---
NURSE NOTES: RT placed trach guard to prevent disconnection. Yellow thick secretion from trach site noted and suctioned as needed. O2 sat 100% on 6L. Will continue to monitor. Addendum: 07/12/20 at 1142 by CAROL ORTIZ RN RN NURSE NOTES: RT placed trach guard to prevent disconnection. Yellow thick secretion from trach site noted and suctioned as needed. O2 sat 100% on 6L. Will continue to monitor. K phos 15mm is running as ordered.
--- NOTE | 2020-07-12 12:06 | Infectious Diseases Prog Note ---
Assessment/Plan Assessment: Severe Sepsis Multifocal PNA- COVID19 neg x2 -07/11 rapid COVID PCR neg -07/10 CXR:Bilateral infiltrates concerning for multifocal pneumonia. rapid COVID PCR neg, Influenza ag neg sp cx p CONS bacteremia- likely contaminant -07/10 bcx 3/4 CONS; 07/11 Bcx p Afebrile Leukocytosis, SP -07/10 u/a neg ZIGGY, sp CVA HTN COPD dysphagia sp GT hypothyroidism traumatic SDH sp hemilobectomy chronic resp failure sp trach dependent SNF resident ([facility]) Plan: -Continue empiric IV Vancomycin #3 and Meropenem #2 (abx d #3) -07/11 SP IV Amikacin and Ertapenem #2 -07/10 SP Cefepime x1 -f/u cx -Monitor CBC/CMP, temperatures -COVID19 neg x2 -f/u repeat Bcx x2 -ICU/PEG/Trach care Thank you for this consultation. Will continue to follow along with you. Discussed with RN. Subjective Allergies: Coded Allergies: CEPHALOSPORINS (Verified Allergy, Intermediate, SKIN RASH, 10/13/18) CEFEPIME AMOXICILLIN (Verified Allergy, Unknown, 07/11/20) tolerates carbapenem afebrile leukocytosis resolved Hgb and plt decreasing bacteremic;r epeat Bcx p Objective Last 24 Hour Vital Signs Date Time Temp Pulse Resp B/P (MAP) Pulse Ox O2 Delivery O2 Flow Rate FiO2 07/12/20 11:30 76 21 123/65 (84) 98 07/12/20 11:00 78 18 121/56 (77) 93 07/12/20 10:00 81 20 130/60 (83) 95 07/12/20 09:00 80 20 133/59 (83) 95 07/12/20 08:00 T-piece 6.0 07/12/20 08:00 82 07/12/20 08:00 98.6 78 22 134/57 (82) 100 07/12/20 08:00 6.0 28 07/12/20 07:05 100 Cool Aerosol 6.0 28 07/12/20 07:00 78 19 129/63 (85) 100 07/12/20 06:00 83 21 128/60 (82) 98 07/12/20 05:00 75 18 127/67 (87) 98 07/12/20 04:00 6.0 28 07/12/20 04:00 84 07/12/20 04:00 98.4 82 22 119/56 (77) 100 07/12/20 04:00 T-piece 6.0 07/12/20 03:00 83 20 109/60 (76) 98 07/12/20 02:00 87 23 120/56 (77) 96 07/12/20 01:30 100 Cool Aerosol 6.0 28 07/12/20 01:00 85 21 109/58 (75) 98 07/12/20 00:00 6.0 28 07/12/20 00:00 98.7 85 19 100/55 (70) 96 07/12/20 00:00 88 07/12/20 00:00 T-piece 6.0 07/11/20 23:00 84 22 108/53 (71) 97 07/11/20 22:00 92 23 109/57 (74) 96 07/11/20 21:00 89 23 108/50 (69) 96 07/11/20 20:16 97 Cool Aerosol 6.0 28 07/11/20 20:00 98.6 90 24 100/59 (73) 96 07/11/20 20:00 89 07/11/20 20:00 T-piece 6.0 07/11/20 20:00 6.0 28 07/11/20 19:00 90 23 107/54 (71) 97 07/11/20 18:00 94 23 106/57 (73) 95 07/11/20 17:00 98.7 94 23 91/54 (66) 97 07/11/20 16:00 83 22 92/49 (63) 98 07/11/20 16:00 T-piece 5.0 07/11/20 16:00 85 07/11/20 16:00 5.0 07/11/20 15:00 96 21 94/50 (65) 97 07/11/20 14:00 92 23 98/45 (62) 99 07/11/20 13:21 98 Cool Aerosol 5.0 28 07/11/20 13:00 122 27 101/51 (68) 95 07/11/20 12:45 102 24 112/53 (72) 94 07/11/20 12:30 109 25 112/53 (72) 97 07/11/20 12:15 98.8 102 24 112/55 (74) 97 07/11/20 12:00 5.0 07/11/20 12:00 98 26 110/56 (74) 97 07/11/20 12:00 T-piece 5.0 Height (Feet): 5 Height (Inches): 8.00 Weight (Pounds): 173 General Appearance: no apparent distress, other - Appears chronically ill, largely unresponsive at baseline Head: normocephalic, atraumatic Neck: full range of motion, supple/symm/no masses Respiratory: chest non-tender, lungs clear, normal breath sounds, speaking full sentences Cardiovascular : regular rate, rhythm, other - Generalized 2+ edema of all extremities Gastrointestinal: normal bowel sounds, non tender, soft, non-distended, no guarding, no rebound, other - G-tube in place without any surrounding erythema or induration or drainage Microbiology Date/Time Source Procedure Growth Status 07/11/20 13:30 Nasopharynx SARS-CoV-2 RdRp Gene Assay - Final Complete 07/10/20 22:50 Sputum Gram Stain - Final Resulted 07/10/20 22:50 Sputum Sputum Culture Pending Resulted 07/10/20 19:00 Nasal Nares - Final Complete 07/10/20 19:00 Nasal Nares - Final Complete 07/10/20 15:15 Rectum Received 07/10/20 15:15 Nasopharynx SARS-CoV-2 RdRp Gene Assay - Final Complete 07/10/20 15:12 Blood Blood Culture - Preliminary Staphylococcus Sp Coag Neg Resulted 07/10/20 14:55 Blood Blood Culture - Preliminary Staphylococcus Sp Coag Neg Resulted Laboratory Tests Test 07/12/20 04:45 07/12/20 05:01 White Blood Count 5.8 K/UL (4.8-10.8) # Red Blood Count 3.12 M/UL (4.70-6.10) L Hemoglobin 9.4 G/DL (14.2-18.0) L Hematocrit 28.3 % (42.0-52.0) L Mean Corpuscular Volume 91 FL (80-99) # Mean Corpuscular Hemoglobin 30.2 PG (27.0-31.0) Mean Corpuscular Hemoglobin Concent 33.3 G/DL (32.0-36.0) Red Cell Distribution Width 13.6 % (11.6-14.8) Platelet Count 108 K/UL (150-450) L Mean Platelet Volume 9.0 FL (6.5-10.1) Neutrophils (%) (Auto) 73.3 % (45.0-75.0) Lymphocytes (%) (Auto) 18.3 % (20.0-45.0) L Monocytes (%) (Auto) 5.1 % (1.0-10.0) Eosinophils (%) (Auto) 3.0 % (0.0-3.0) Basophils (%) (Auto) 0.3 % (0.0-2.0) Erythrocyte Sedimentation Rate 95 MM/HR (0-20) H Sodium Level 140 MMOL/L (136-145) Potassium Level 2.9 MMOL/L (3.5-5.1) L Chloride Level 104 MMOL/L (98-107) Carbon Dioxide Level 31 MMOL/L (21-32) Anion Gap 4 mmol/L (5-15) L Blood Urea Nitrogen 8 mg/dL (7-18) Creatinine 0.7 MG/DL (0.55-1.30) Estimat Glomerular Filtration Rate > 60 mL/min (>60) Glucose Level 149 MG/DL (74-106) H Uric Acid 2.4 MG/DL (2.6-7.2) L Calcium Level 8.0 MG/DL (8.5-10.1) L Phosphorus Level 1.8 MG/DL (2.5-4.9) L Magnesium Level 1.8 MG/DL (1.8-2.4) Iron Level 15 ug/dL (50-175) L Total Iron Binding Capacity 211 ug/dL (250-450) L Percent Iron Saturation 7 % (15-50) L Unsaturated Iron Binding 196 ug/dL (112-346) Ferritin 143 NG/ML (8-388) Total Bilirubin 0.3 MG/DL (0.2-1.0) Aspartate Amino Transf (AST/SGOT) 13 U/L (15-37) L Alanine Aminotransferase (ALT/SGPT) 14 U/L (12-78) Alkaline Phosphatase 56 U/L (46-116) C-Reactive Protein, Quantitative 27.7 mg/dL (0.00-0.90) H Pro-B-Type Natriuretic Peptide 1050 pg/mL (0-125) H Total Protein 5.6 G/DL (6.4-8.2) L Albumin 2.6 G/DL (3.4-5.0) L Globulin 3.0 g/dL Albumin/Globulin Ratio 0.9 (1.0-2.7) L Vitamin B12 Level 910 PG/ML (193-986) Folate 19.2 NG/ML (8.6-58.9) Thyroid Stimulating Hormone (TSH) 2.564 uiU/mL (0.358-3.740) POC Whole Blood Glucose 234 MG/DL (74-106) H Current Medications Medications (Trade) Dose Ordered Sig/Yesenia Route PRN Reason Start Time Stop Time Status Last Admin Dose Admin Acetaminophen (Tylenol) 650 mg Q4H PRN GT fever 07/10/20 21:00 08/09/20 20:59 Albuterol/ Ipratropium (Albuterol/ Ipratropium) 3 ml Q4H PRN HHN Shortness of Breath 07/10/20 21:00 07/15/20 20:59 Chlorhexidine Gluconate (Kaila-Hex 2%) 1 applic DAILY@2000 TOPIC 07/11/20 20:00 10/09/20 19:59 07/11/20 20:00 Dextrose/Sodium Chloride 1,000 ml @ 75 mls/hr [id number] IV 07/11/20 10:00 08/10/20 09:59 07/11/20 23:06 Heparin Sodium (Porcine) (Heparin 5000 units/ml) 5,000 units EVERY 12 HOURS SUBQ 07/10/20 21:00 08/24/20 20:59 07/11/20 20:30 Levetiracetam (Keppra) 500 mg Q12HR GT 07/11/20 09:00 08/10/20 08:59 07/12/20 08:41 Levothyroxine Sodium (Synthroid) 75 mcg ACBREAKFAST GT 07/11/20 06:30 08/10/20 06:29 07/12/20 06:00 Lorazepam (Ativan 2mg/ml 1ml) 2 mg Q2H PRN IV For Anxiety 07/10/20 21:00 07/17/20 20:59 Meropenem 1 gm/ Sodium Chloride 55 ml @ 110 mls/hr Q8HR IVPB 07/11/20 14:00 07/16/20 13:59 07/12/20 06:00 Morphine Sulfate (Morphine Sulfate) 4 mg Q4H PRN IVP Severe Pain (Pain Scale 7-10) 07/10/20 21:00 07/17/20 20:59 Norepinephrine Bitartrate 250 ml @ 0 mls/hr Q24H IV 07/10/20 21:00 07/13/20 20:59 07/11/20 03:05 Ondansetron HCl (Zofran) 4 mg Q6H PRN IVP Nausea & Vomiting 07/10/20 21:00 08/09/20 20:59 Pantoprazole (Protonix) 40 mg DAILY IV 07/11/20 09:00 08/10/20 08:59 07/12/20 08:41 Polyethylene Glycol (Miralax) 17 gm DAILYPRN PRN GT Constipation 07/10/20 21:00 08/09/20 20:59 Potassium Phosphate 250 ml @ 62.5 mls/hr Q4H IVPB 07/12/20 10:00 07/12/20 17:59 07/12/20 10:51 Vancomycin HCl (Vanco pharmacy to dose) 1 ea DAILY PRN MISC Per rx protocol 07/10/20 21:15 08/09/20 21:14 Vancomycin HCl 1 gm/Dextrose 275 ml @ 183.708 mls/hr Q12H IVPB 07/11/20 08:00 07/16/20 07:59 07/12/20 08:44 Janel Salinas M.D. Jul 12, 2020 12:06
[2020-07-12] MEDS: D5NS 1,000 ML IV SCH (13:00)
--- NOTE | 2020-07-12 13:53 | NUR ---
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 97.1 HR 107 RR 20 B/P 76/42 T-BAR FIO2 28% WBC 22.0 BUN 34 CR 1.6 LACTID ACID 3.00 ESR 95 CXR=Bilateral infiltrates concerning for multifocal pneumonia. IS: IV BOLUS NS X 2 LITERS VANCO IV CEFEPIME IV LEVOPHED GTT ADMITTED TO ICU@ 1900 ICU STATUS DCP RETURN TO [facility] 07/12/20 SI: RESP FAILURE TRACH/COOL AEROSOL SEPSIS T. 98.7 HR 70 RR 21 B/P 118/62 T-BAR 28% K 2.9 BNP 1050 IS: IVF D5NS @ 75ML/HR MEROPENEM IV VANCO IV LEVOPHED GTT ICU STATUS
--- NOTE | 2020-07-12 13:59 | NUR ---
NURSE NOTES: Turned and repositioned patient. No respiratory distress noted. BP 118/81. Will continue to monitor.
--- NOTE | 2020-07-12 14:12 | NUR ---
[facility] NOT[facility] CLINICALS REVIEWED AND FAXED.
--- NOTE | 2020-07-12 16:40 | NUR ---
NURSE NOTES: Cleaned patient for small amount of carrillo brown pasty soft BM. Turned and repositioned patient. Oral care done. Yellow thick secretion from trach noted and suctioned. T-piece connected to cool aerosol with 6L oxygen. O2 sat 97-98%. Will continue to monitor.
--- NOTE | 2020-07-12 19:10 | NUR ---
NURSE HAND-OFF REPORT: Latest Vital Signs: Temperature 98.7 , Pulse 73 , B/P 132 /65 , Respiratory Rate 21 , O2 SAT 99 , T-piece, O2 Flow Rate 6.0 . Vital Sign Comment: EKG Rhythm: Sinus Rhythm Rhythm change?: N MD Notified?: - MD Response: Latest Ridley Fall Score: 50 Fall Risk: High Risk Safety Measures: Call light Within Reach, Bed Alarm Zone 2, Side Rails Side Rails x2, Bed position Low and Locked. Fall Precautions: Yellow Socks Yellow Gown Door Sign Patient Fall Education Report given to Immanuel Hull.
--- NOTE | 2020-07-12 19:15 | NUR ---
NURSE NOTES: Report received from MARI Barrientos. Pt is sleeping in bed and opens eyes to tactile stimuli. Contracture on bilateral upper and lower extremities noted. Non-verbal and unable to follow commands. Afebrile and VSS. SR on lining feller blindstitch. Trach with T-piece, Cotex 7 with cool aerosol with O2 6L. O2 sat 100%. RR 20's. Small amount of yellow thick secretion from T-piece noted and suctioned. GT in place and feeding with Osmolite 1.5 @55mL/hr is running. Hu in place draining yellow urine to gravity. Right femoral TLC, CDI. D5NS is running @75mL/hr. ESTELA 20G, CDI Safety measures observed and no acute distress noted. Will continue to monitor.
[2020-07-12] MEDS: Dyna-Hex 2% Top Sol 2oz TOPIC SCH (20:07)
[2020-07-12] MEDS: Norepinephrine 4mg/NS Premix 250 ML IV SCH (21:00)
--- NOTE | 2020-07-12 21:00 | NUR ---
NURSE NOTES: PM meds provided. Turned and repositioned. Oral care provided. Afebrile and VSS.
[2020-07-12] MEDS ORDERED: Tubing IV Secondary IV ONE (21:15)
[2020-07-12] MEDS ORDERED: NS 275ml ONE (21:15)
[2020-07-12] MEDS ORDERED: D5NS 1000ml IV ONE (21:15)
--- NOTE | 2020-07-12 23:00 | NUR ---
NURSE NOTES: Turned and repositioned. Oral care provided. Afebrile and VSS.
[2020-07-13] VITALS (20 sets, daily range): BP systolic 115–142; BP diastolic 58–79
[2020-07-13] MEDS: D5NS 1,000 ML IV SCH ×2 (02:30→13:00)
--- NOTE | 2020-07-13 03:00 | NUR ---
NURSE NOTES: Am Care provided. Changed soiled gowns, linens and sliders. Changed and applied Optiform with Triad cream @sacral. Afebrile and VSS. SR on patient monitor. Turned and repositioned. Oral care and face care provided. Trach with T-piece remains Cotex 7 with cool aerosol with O2 6L. O2 sat 100%. RR 20's. Small amount of yellow thick secretion from T-piece noted and suctioned. GT in place and feeding with Osmolite 1.5 @55mL/hr is kept running. Hu in place draining yellow urine to gravity. Right femoral TLC, CDI. D5NS is running @75mL/hr. ESTELA 20G, CDI Safety measures observed and no acute distress noted. Will continue to monitor. On trach, CDI to vent, Shiley 6.0 with vent settings AC16, VT450, Peep 5, FIO2 40% at 100% O2 Sat. SR/ST on patient monitor. Safety measures observed and no acute distress noted. Will continue to monitor.
--- NOTE | 2020-07-13 05:00 | NUR ---
NURSE NOTES: Turned and repositioned. Oral care provided. Afebrile and VSS.
[2020-07-13 05:15] LABS: HEMATOCRIT 30.5 % (42.0-52.0); HEMOGLOBIN 10.4 G/DL (14.2-18.0); MEAN CORPUSCULAR VOLUME 87 FL (80-99); PLATELET COUNT 124 K/UL (150-450); RED BLOOD COUNT 3.52 M/UL (4.70-6.10); RED CELL DISTRIBUTION WIDTH 13.3 % (11.6-14.8); WHITE BLOOD COUNT 3.2 K/UL (4.8-10.8)
[2020-07-13] MEDS: Meropenem 1 GM in NS 55 ML IVPB SCH ×3 (05:18→22:27)
[2020-07-13 05:36] LABS: ALANINE AMINOTRANSFERASE 12 U/L (12-78); ALBUMIN 2.7 G/DL (3.4-5.0); ALBUMIN/GLOBULIN RATIO 0.8 (1.0-2.7); ALKALINE PHOSPHATASE 62 U/L (46-116); ANION GAP 5 mmol/L (5-15); ASPARTATE AMINO TRANSFERASE 13 U/L (15-37); BILIRUBIN,TOTAL 0.2 MG/DL (0.2-1.0); BLOOD UREA NITROGEN 4 mg/dL (7-18); CARBON DIOXIDE 30 MMOL/L (21-32); CHLORIDE 105 MMOL/L (98-107); CREATININE 0.7 MG/DL (0.55-1.30); PHOSPHORUS 2.1 MG/DL (2.5-4.9); POTASSIUM 3.3 MMOL/L (3.5-5.1); SODIUM 140 MMOL/L (136-145)
--- NOTE | 2020-07-13 07:22 | NUR ---
HAND-OFF: Report given to MARI Iqbal. Endorsed POC.
--- NOTE | 2020-07-13 07:30 | NUR ---
NURSE NOTES: RECEIVED REPORT FROM GILBERTO GUERRA. AFEBRILE AT 98.7 AX. PT IN BED, OPENS EYES, DOES NOT TRACK OR FOLLOW COMMANDS. BILATERAL PUPILS 3MM SLUGGISH. PT TRACED PORTEX 7, COOL AEROSOL 6L, 28%, T- PIECE. ON MONITOR HR 69, BP 142/68. SP02 97%, RR 20. SECRETIONS FROTHY, YELLOW, THIN. LUNG SOUNDS RHONCHI. STEADY WORK OR BREATHING. CHEST NORMAL SHAPE. ABDOMEN SOFT, ROUND. BOWEL SOUNDS HYPOACTIVE. NO BM AT THIS TIME. G-TUBE IN PLACE. OFF FOR AM MEDICATION ADMINISTRATION. DIET OSMOLITE 1.5, RUNNING AT 55. BLADDER FLAT, NORTON IN PLACE. DRAINING PALE URINE. BILATERAL RADIAL AND BRACHIAL PULSES WEAK. NO EDEMA, JVD. CAP REFILL <3 SEC. IV ACCESS RIGHT FEMORAL TLC/ ESTELA 20G, RUNNING D5 NS AT 75ML/HR. SKIN- SEE ASSESSMENT. RASH NOTED ON SKIN. SEIZURE AND CONTACT ISOLATION PRECAUTIONS IN PLACE. CALL LIGHT IN REACH. BED LOCKED, IN LOW POSITION. SIDE RAILS X2. EDUCATED PT ON PLAN OF CARE. WILL CONTINUE TO MONITOR PT.
[2020-07-13] MEDS: Vancomycin 1gm in D5W 275ml IVPB SCH ×2 (08:42→21:06)
[2020-07-13] MEDS: levETIRAcetam 500mg/5ml Liquid GT SCH ×2 (08:42→21:07)
[2020-07-13] MEDS: Pantoprazole Inj IV SCH (08:42)
[2020-07-13] MEDS: Heparin 5000 units/ml inj SUBQ SCH ×2 (08:44→21:00)
--- NOTE | 2020-07-13 10:07 | NUR ---
NURSE NOTES: MD. GONZALEZ HERE TO SEE PT. WAS INFORMED OF LABS K: 3.3, PHOS 2.1, WBC:3.2. I/O HIGH AT 150-200ML/HR. REPLACEMENT ORDER ALREADY IN. AWAITING PHARMACY PREPARATION.
--- NOTE | 2020-07-13 10:31 | Pulmonolgy Critical Care Note ---
Critical Care - Asmt/Plan Problems: (1) Septic shock (2) Aspiration pneumonia (3) COPD (chronic obstructive pulmonary disease) (4) HTN (hypertension) (5) Chronic vegetative state (6) Feeding by G-tube Respiratory: monitor respiratory rate, adjust FIO2, CXR Cardiac: stop pressors, continue to monitor HR/BP Renal: F/U I&O, keep IV fluid, check electrolytes Infectious Disease: check cultures, continue antibiotics Gastrointestinal: continue feedings/current rate Hematologic: monitor H/H, transfuse if hgb<8.5 Neurologic: PRN Ativan, PRN Morphine, keep patient comfortable Affect: PRN ativan Disposition: keep in ICU Time Spent (Minutes): 40 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, ID Discussed with: nurses, consultants Critical Care - Objective Last 24 Hour Vital Signs Date Time Temp Pulse Resp B/P (MAP) Pulse Ox O2 Delivery O2 Flow Rate FiO2 07/13/20 10:00 67 18 127/59 (81) 99 07/13/20 09:00 68 18 137/67 (90) 98 07/13/20 09:00 74 18 137/67 (90) 97 07/13/20 08:00 6.0 28 07/13/20 08:00 T-piece 6.0 07/13/20 08:00 76 07/13/20 08:00 67 20 141/76 (97) 97 07/13/20 07:20 97 Cool Aerosol 6.0 28 07/13/20 07:00 98.7 69 19 142/68 (92) 98 07/13/20 06:00 70 19 136/65 (88) 96 07/13/20 05:00 69 21 142/65 (90) 99 07/13/20 04:00 70 22 131/67 (88) 97 07/13/20 04:00 6.0 28 07/13/20 04:00 70 07/13/20 04:00 T-piece 6.0 07/13/20 03:00 73 20 137/67 (90) 97 07/13/20 02:00 72 20 137/68 (91) 99 07/13/20 01:50 97 Cool Aerosol 6.0 28 07/13/20 01:00 65 20 132/67 (88) 97 07/13/20 00:00 71 22 128/62 (84) 96 07/13/20 00:00 T-piece 6.0 07/12/20 23:00 77 21 131/64 (86) 96 07/12/20 22:00 82 24 134/64 (87) 100 07/12/20 21:00 64 17 116/61 (79) 98 07/12/20 20:00 98.7 69 18 133/68 (89) 98 07/12/20 20:00 T-piece 6.0 07/12/20 20:00 69 07/12/20 20:00 6.0 28 07/12/20 19:15 99 Cool Aerosol 6.0 28 07/12/20 19:00 73 21 132/65 (87) 99 07/12/20 18:00 98.7 72 22 135/60 (85) 98 07/12/20 17:00 77 22 130/63 (85) 97 07/12/20 16:00 86 07/12/20 16:00 6.0 28 07/12/20 16:00 86 22 129/60 (83) 96 07/12/20 16:00 T-piece 6.0 07/12/20 15:00 66 17 116/60 (78) 99 07/12/20 14:00 67 19 114/55 (74) 98 07/12/20 13:45 98 Cool Aerosol 6.0 28 07/12/20 13:00 73 20 122/57 (78) 99 07/12/20 12:00 6.0 28 07/12/20 12:00 98.7 70 21 118/62 (80) 100 07/12/20 12:00 T-piece 6.0 07/12/20 11:30 76 21 123/65 (84) 98 07/12/20 11:15 77 07/12/20 11:00 78 18 121/56 (77) 93 Status: obtunded Condition: critical HEENT: atraumatic Neck: trach Lungs: rales, rhonchi Heart: HR/BP stable Abdomen: soft, non-tender Extremities: no C/C/E Micro: Microbiology Date/Time Source Procedure Growth Status 07/11/20 13:30 Nasopharynx SARS-CoV-2 RdRp Gene Assay - Final Complete 07/10/20 22:50 Sputum Gram Stain - Final Resulted 07/10/20 22:50 Sputum Culture - Preliminary Streptococcus Group G Gram Negative Bacillus 1 Usual Respiratory Guerline Resulted 07/10/20 19:00 Nasal Nares - Final Complete 07/10/20 19:00 Nasal Nares - Final Complete 07/10/20 15:15 Rectum VRE Culture - Final Enterococcus Faecalis - Vre Complete 07/10/20 15:15 Nasopharynx SARS-CoV-2 RdRp Gene Assay - Final Complete 07/10/20 15:12 Blood Blood Culture - Final Staphylococcus Epidermidis Complete 07/10/20 14:55 Blood Blood Culture - Final Staphylococcus Epidermidis Complete Critical Care - Subjective ROS Limited/Unobtainable: Yes Condition: critical EKG Rhythm: Sinus Rhythm FI02: 28 Sputum Amount: Small Tube Feeding Amount: 55 I&O: Intake and Output 07/12/20 07/13/20 19:00 07:00 Intake Total 2345.000 ml 1482.5 ml Output Total 2185 ml 2030 ml Balance 160.000 ml -547.5 ml Intake Free Water 50 ml 30 ml IV Total 1605.000 ml 792.5 ml Tube Feeding 640 ml 660 ml Other 50 ml Output Urine Total 2185 ml 2030 ml # Bowel Movements 2 1 CXR: no changes Labs: Laboratory Tests Test 07/12/20 19:25 07/13/20 03:35 Vancomycin Level Trough 11.6 ug/mL (5.0-12.0) White Blood Count 3.2 K/UL (4.8-10.8) L Red Blood Count 3.52 M/UL (4.70-6.10) L Hemoglobin 10.4 G/DL (14.2-18.0) L Hematocrit 30.5 % (42.0-52.0) L Mean Corpuscular Volume 87 FL (80-99) Mean Corpuscular Hemoglobin 29.5 PG (27.0-31.0) Mean Corpuscular Hemoglobin Concent 34.0 G/DL (32.0-36.0) Red Cell Distribution Width 13.3 % (11.6-14.8) Platelet Count 124 K/UL (150-450) L Mean Platelet Volume 8.3 FL (6.5-10.1) Neutrophils (%) (Auto) % (45.0-75.0) Lymphocytes (%) (Auto) % (20.0-45.0) Monocytes (%) (Auto) % (1.0-10.0) Eosinophils (%) (Auto) % (0.0-3.0) Basophils (%) (Auto) % (0.0-2.0) Erythrocyte Sedimentation Rate 105 MM/HR (0-20) H Sodium Level 140 MMOL/L (136-145) Potassium Level 3.3 MMOL/L (3.5-5.1) L Chloride Level 105 MMOL/L (98-107) Carbon Dioxide Level 30 MMOL/L (21-32) Anion Gap 5 mmol/L (5-15) Blood Urea Nitrogen 4 mg/dL (7-18) L Creatinine 0.7 MG/DL (0.55-1.30) Estimat Glomerular Filtration Rate > 60 mL/min (>60) Glucose Level 152 MG/DL (74-106) H Calcium Level 8.0 MG/DL (8.5-10.1) L Phosphorus Level 2.1 MG/DL (2.5-4.9) L Magnesium Level 1.8 MG/DL (1.8-2.4) Total Bilirubin 0.2 MG/DL (0.2-1.0) Aspartate Amino Transf (AST/SGOT) 13 U/L (15-37) L Alanine Aminotransferase (ALT/SGPT) 12 U/L (12-78) Alkaline Phosphatase 62 U/L (46-116) C-Reactive Protein, Quantitative 9.3 mg/dL (0.00-0.90) H Total Protein 6.0 G/DL (6.4-8.2) L Albumin 2.7 G/DL (3.4-5.0) L Globulin 3.3 g/dL Albumin/Globulin Ratio 0.8 (1.0-2.7) L Linda Foley MD Jul 13, 2020 10:31
--- NOTE | 2020-07-13 11:05 | NUR ---
NURSE NOTES: PT CLEANED AND REPOSITIONED. ORAL CARE AND SUCTION PROVIDED. G-TUBE CLOGGED. ABLE TO UNCLOG, TUBE FEEDING ON OSMOLITE AT 55ML/HR.
[2020-07-13] MEDS: Potassium Phosphate 15mm/250ml 250 ML IVPB SCH ×2 (11:54→16:02)
[2020-07-13] MEDS ORDERED: NS 275ml ONE (12:07)
[2020-07-13] MEDS ORDERED: D5NS 1000ml IV ONE (12:07)
[2020-07-13] MEDS ORDERED: Tubing IV Secondary IV ONE (12:07)
--- NOTE | 2020-07-13 12:19 | NUR ---
NURSE NOTES: PT IN BED, EYES CLOSED. AFEBRILE AT 98.4 AX. DOES NOT FOLLOW COMMANDS. VSS. TRACH PORTEX 7, COOL AEROSOL 6L, 28%, T- PIECE. SECRETIONS FROTHY, THIN. NO RESPIRATORY DISTRESS NOTED. NO BM AT THIS TIME. G-TUBE IN PLACE. DIET OSMOLITE 1.5, RUNNING AT 55, NO RESIDUALS. NORTON DRAINING PALE URINE. IV ACCESS RIGHT FEMORAL TLC/ ESTELA 20G, RUNNING D5 NS AT 75ML/HR. RASH AND REDNESS NOTED ON SKIN. SEIZURE AND CONTACT ISOLATION PRECAUTIONS IN PLACE. BED LOCKED, IN LOW POSITION. SIDE RAILS X2. WILL CONTINUE TO IMPLEMENT CARE.
--- NOTE | 2020-07-13 12:35 | Nephrology Progress Note ---
Assessment/Plan Problem List: (1) ZIGGY (acute kidney injury) (2) Dehydration (3) Electrolyte imbalance (4) COPD (chronic obstructive pulmonary disease) (5) PEG (percutaneous endoscopic gastrostomy) adjustment/replacement/removal (6) Anemia Assessment Elevated creatinine, acute renal failure, mainly dehydration Septic shock Pneumonia, patient has T-piece to oxygen Encephalopathy Feeding by G-tube Chronic vegetative state Mild anemia Hypothyroidism Plan July 13: Discussed with RN. Labs reviewed. Electrolyte abnormalities addressed. Continue per consultants. Potassium supplement IV ordered Hu catheter IV fluid as needed to Monitor renal parameters Antibiotics Avoid nephrotoxic's Subjective ROS Limited/Unobtainable: Yes Objective Objective Last 24 Hour Vital Signs Date Time Temp Pulse Resp B/P (MAP) Pulse Ox O2 Delivery O2 Flow Rate FiO2 07/13/20 12:00 T-piece 6.0 07/13/20 12:00 6.0 28 07/13/20 12:00 73 07/13/20 12:00 73 20 127/58 (81) 96 07/13/20 11:00 80 20 118/62 (80) 98 07/13/20 10:00 67 18 127/59 (81) 99 07/13/20 09:00 68 18 137/67 (90) 98 07/13/20 09:00 74 18 137/67 (90) 97 07/13/20 08:00 6.0 28 07/13/20 08:00 T-piece 6.0 07/13/20 08:00 76 07/13/20 08:00 67 20 141/76 (97) 97 07/13/20 07:20 97 Cool Aerosol 6.0 28 07/13/20 07:00 98.7 69 19 142/68 (92) 98 07/13/20 06:00 70 19 136/65 (88) 96 07/13/20 05:00 69 21 142/65 (90) 99 07/13/20 04:00 70 22 131/67 (88) 97 07/13/20 04:00 6.0 28 07/13/20 04:00 70 07/13/20 04:00 T-piece 6.0 07/13/20 03:00 73 20 137/67 (90) 97 07/13/20 02:00 72 20 137/68 (91) 99 07/13/20 01:50 97 Cool Aerosol 6.0 28 07/13/20 01:00 65 20 132/67 (88) 97 07/13/20 00:00 71 22 128/62 (84) 96 07/13/20 00:00 T-piece 6.0 07/12/20 23:00 77 21 131/64 (86) 96 07/12/20 22:00 82 24 134/64 (87) 100 07/12/20 21:00 64 17 116/61 (79) 98 07/12/20 20:00 98.7 69 18 133/68 (89) 98 07/12/20 20:00 T-piece 6.0 07/12/20 20:00 69 07/12/20 20:00 6.0 28 07/12/20 19:15 99 Cool Aerosol 6.0 28 07/12/20 19:00 73 21 132/65 (87) 99 07/12/20 18:00 98.7 72 22 135/60 (85) 98 07/12/20 17:00 77 22 130/63 (85) 97 07/12/20 16:00 86 07/12/20 16:00 6.0 28 07/12/20 16:00 86 22 129/60 (83) 96 07/12/20 16:00 T-piece 6.0 07/12/20 15:00 66 17 116/60 (78) 99 07/12/20 14:00 67 19 114/55 (74) 98 07/12/20 13:45 98 Cool Aerosol 6.0 28 07/12/20 13:00 73 20 122/57 (78) 99 Intake and Output 07/12/20 07/13/20 19:00 07:00 Intake Total 2345.000 ml 1482.5 ml Output Total 2185 ml 2030 ml Balance 160.000 ml -547.5 ml Intake Free Water 50 ml 30 ml IV Total 1605.000 ml 792.5 ml Tube Feeding 640 ml 660 ml Other 50 ml Output Urine Total 2185 ml 2030 ml # Bowel Movements 2 1 Laboratory Tests 07/12/20 19:25: Vancomycin Level Trough 11.6 07/13/20 03:35: White Blood Count 3.2L, Red Blood Count 3.52L, Hemoglobin 10.4L, Hematocrit 30.5L, Mean Corpuscular Volume 87, Mean Corpuscular Hemoglobin 29.5, Mean Corpuscular Hemoglobin Concent 34.0, Red Cell Distribution Width 13.3, Platelet Count 124L, Mean Platelet Volume 8.3, Neutrophils (%) (Auto) , Lymphocytes (%) (Auto) , Monocytes (%) (Auto) , Eosinophils (%) (Auto) , Basophils (%) (Auto) , Erythrocyte Sedimentation Rate 105H, Sodium Level 140, Potassium Level 3.3L, C hloride Level 105, Carbon Dioxide Level 30, Anion Gap 5, Blood Urea Nitrogen 4L, Creatinine 0.7, Estimat Glomerular Filtration Rate > 60, Glucose Level 152H, Calcium Level 8.0L, Phosphorus Level 2.1L, Magnesium Level 1.8, Total Bilirubin 0.2, Aspartate Amino Transf (AST/SGOT) 13L, Alanine Aminotransferase (ALT/SGPT) 12, Alkaline Phosphatase 62, C-Reactive Protein, Quantitative 9.3H, Total Protein 6.0L, Albumin 2.7L, Globulin 3.3, Albumin/Globulin Ratio 0.8L Height (Feet): 5 Height (Inches): 8.00 Weight (Pounds): 173 General Appearance: no apparent distress EENT: other - Trach he is to oxygen Cardiovascular: normal rate Respiratory/Chest: decreased breath sounds Abdomen: soft Objective No change Francisco Stevenson MD Jul 13, 2020 12:35
--- NOTE | 2020-07-13 13:01 | NUR ---
NURSE NOTES: WOUND CARE NURSE HERE TO DO WOUNDS. PT STABLE.
--- NOTE | 2020-07-13 13:58 | Infectious Diseases Prog Note ---
Assessment/Plan Assessment: Septic SHock- now off pressors Multifocal PNA- COVID19 neg x2 -07/11 rapid COVID PCR neg -07/10 CXR:Bilateral infiltrates concerning for multifocal pneumonia. rapid COVID PCR neg, Influenza ag neg sp cx GGS, GNR CONS bacteremia- likely contaminant -07/10 bcx 4/4 S. epi; 07/11 Bcx p Afebrile Leukocytosis, SP> mild leukopenia -07/10 u/a neg ZIGGY, sp CVA HTN COPD dysphagia sp GT hypothyroidism traumatic SDH sp hemilobectomy chronic resp failure sp trach dependent SNF resident ([facility]) Plan: -Continue empiric IV Vancomycin #4 and Meropenem #3 (abx d #4) -07/11 SP IV Amikacin and Ertapenem #2 -07/10 SP Cefepime x1 -f/u cx -Monitor CBC/CMP, temperatures -COVID19 neg x2 -f/u repeat Bcx x2 -ICU/PEG/Trach care Thank you for this consultation. Will continue to follow along with you. Discussed with RN. Subjective Allergies: Coded Allergies: CEPHALOSPORINS (Verified Allergy, Intermediate, SKIN RASH, 10/13/18) CEFEPIME AMOXICILLIN (Verified Allergy, Unknown, 07/11/20) tolerates carbapenem afebrile mild leukopenia off pressors now repeat bcx p Objective Last 24 Hour Vital Signs Date Time Temp Pulse Resp B/P (MAP) Pulse Ox O2 Delivery O2 Flow Rate FiO2 07/13/20 13:00 98.2 78 22 115/79 (91) 95 07/13/20 12:00 T-piece 6.0 07/13/20 12:00 6.0 28 07/13/20 12:00 73 07/13/20 12:00 73 20 127/58 (81) 96 07/13/20 11:00 80 20 118/62 (80) 98 07/13/20 10:00 67 18 127/59 (81) 99 07/13/20 09:00 68 18 137/67 (90) 98 07/13/20 09:00 74 18 137/67 (90) 97 07/13/20 08:00 6.0 28 07/13/20 08:00 T-piece 6.0 07/13/20 08:00 76 07/13/20 08:00 67 20 141/76 (97) 97 07/13/20 07:20 97 Cool Aerosol 6.0 28 07/13/20 07:00 98.7 69 19 142/68 (92) 98 07/13/20 06:00 70 19 136/65 (88) 96 07/13/20 05:00 69 21 142/65 (90) 99 07/13/20 04:00 70 22 131/67 (88) 97 07/13/20 04:00 6.0 28 07/13/20 04:00 70 07/13/20 04:00 T-piece 6.0 07/13/20 03:00 73 20 137/67 (90) 97 07/13/20 02:00 72 20 137/68 (91) 99 07/13/20 01:50 97 Cool Aerosol 6.0 28 07/13/20 01:00 65 20 132/67 (88) 97 07/13/20 00:00 71 22 128/62 (84) 96 07/13/20 00:00 T-piece 6.0 07/12/20 23:00 77 21 131/64 (86) 96 07/12/20 22:00 82 24 134/64 (87) 100 07/12/20 21:00 64 17 116/61 (79) 98 07/12/20 20:00 98.7 69 18 133/68 (89) 98 07/12/20 20:00 T-piece 6.0 07/12/20 20:00 69 07/12/20 20:00 6.0 28 07/12/20 19:15 99 Cool Aerosol 6.0 28 07/12/20 19:00 73 21 132/65 (87) 99 07/12/20 18:00 98.7 72 22 135/60 (85) 98 07/12/20 17:00 77 22 130/63 (85) 97 07/12/20 16:00 86 07/12/20 16:00 6.0 28 07/12/20 16:00 86 22 129/60 (83) 96 07/12/20 16:00 T-piece 6.0 07/12/20 15:00 66 17 116/60 (78) 99 07/12/20 14:00 67 19 114/55 (74) 98 Height (Feet): 5 Height (Inches): 8.00 Weight (Pounds): 173 General Appearance: no apparent distress, other - Appears chronically ill, largely unresponsive at baseline Head: normocephalic, atraumatic Neck: supple Respiratory: chest non-tender, lungs clear, normal breath sounds, speaking full sentences Cardiovascular : regular rate, rhythm, other - Generalized 2+ edema of all extremities Gastrointestinal: normal bowel sounds, non tender, soft, non-distended, no guarding, no rebound, other - G-tube in place without any surrounding erythema or induration or drainage Microbiology Date/Time Source Procedure Growth Status 07/11/20 13:30 Nasopharynx SARS-CoV-2 RdRp Gene Assay - Final Complete 07/10/20 22:50 Sputum Gram Stain - Final Resulted 07/10/20 22:50 Sputum Culture - Preliminary Streptococcus Group G Gram Negative Bacillus 1 Usual Respiratory Guerline Resulted 07/10/20 19:00 Nasal Nares - Final Complete 07/10/20 19:00 Nasal Nares - Final Complete 07/10/20 15:15 Rectum VRE Culture - Final Enterococcus Faecalis - Vre Complete 07/10/20 15:15 Nasopharynx SARS-CoV-2 RdRp Gene Assay - Final Complete 07/10/20 15:12 Blood Blood Culture - Final Staphylococcus Epidermidis Complete 07/10/20 14:55 Blood Blood Culture - Final Staphylococcus Epidermidis Complete Laboratory Tests Test 07/12/20 19:25 07/13/20 03:35 Vancomycin Level Trough 11.6 ug/mL (5.0-12.0) White Blood Count 3.2 K/UL (4.8-10.8) L Red Blood Count 3.52 M/UL (4.70-6.10) L Hemoglobin 10.4 G/DL (14.2-18.0) L Hematocrit 30.5 % (42.0-52.0) L Mean Corpuscular Volume 87 FL (80-99) Mean Corpuscular Hemoglobin 29.5 PG (27.0-31.0) Mean Corpuscular Hemoglobin Concent 34.0 G/DL (32.0-36.0) Red Cell Distribution Width 13.3 % (11.6-14.8) Platelet Count 124 K/UL (150-450) L Mean Platelet Volume 8.3 FL (6.5-10.1) Neutrophils (%) (Auto) % (45.0-75.0) Lymphocytes (%) (Auto) % (20.0-45.0) Monocytes (%) (Auto) % (1.0-10.0) Eosinophils (%) (Auto) % (0.0-3.0) Basophils (%) (Auto) % (0.0-2.0) Erythrocyte Sedimentation Rate 105 MM/HR (0-20) H Sodium Level 140 MMOL/L (136-145) Potassium Level 3.3 MMOL/L (3.5-5.1) L Chloride Level 105 MMOL/L (98-107) Carbon Dioxide Level 30 MMOL/L (21-32) Anion Gap 5 mmol/L (5-15) Blood Urea Nitrogen 4 mg/dL (7-18) L Creatinine 0.7 MG/DL (0.55-1.30) Estimat Glomerular Filtration Rate > 60 mL/min (>60) Glucose Level 152 MG/DL (74-106) H Calcium Level 8.0 MG/DL (8.5-10.1) L Phosphorus Level 2.1 MG/DL (2.5-4.9) L Magnesium Level 1.8 MG/DL (1.8-2.4) Total Bilirubin 0.2 MG/DL (0.2-1.0) Aspartate Amino Transf (AST/SGOT) 13 U/L (15-37) L Alanine Aminotransferase (ALT/SGPT) 12 U/L (12-78) Alkaline Phosphatase 62 U/L (46-116) C-Reactive Protein, Quantitative 9.3 mg/dL (0.00-0.90) H Total Protein 6.0 G/DL (6.4-8.2) L Albumin 2.7 G/DL (3.4-5.0) L Globulin 3.3 g/dL Albumin/Globulin Ratio 0.8 (1.0-2.7) L Current Medications Medications (Trade) Dose Ordered Sig/Yesenia Route PRN Reason Start Time Stop Time Status Last Admin Dose Admin Acetaminophen (Tylenol) 650 mg Q4H PRN GT fever 07/10/20 21:00 08/09/20 20:59 Albuterol/ Ipratropium (Albuterol/ Ipratropium) 3 ml Q4H PRN HHN Shortness of Breath 07/10/20 21:00 07/15/20 20:59 Chlorhexidine Gluconate (Kaila-Hex 2%) 1 applic DAILY@2000 TOPIC 07/11/20 20:00 10/09/20 19:59 07/12/20 20:07 Dextrose/Sodium Chloride 1,000 ml @ 75 mls/hr [id number] IV 07/11/20 10:00 08/10/20 09:59 07/13/20 13:00 Heparin Sodium (Porcine) (Heparin 5000 units/ml) 5,000 units EVERY 12 HOURS SUBQ 07/10/20 21:00 08/24/20 20:59 07/13/20 08:44 Levetiracetam (Keppra) 500 mg Q12HR GT 07/11/20 09:00 08/10/20 08:59 07/13/20 08:42 Levothyroxine Sodium (Synthroid) 75 mcg ACBREAKFAST GT 07/11/20 06:30 08/10/20 06:29 07/13/20 05:23 Lorazepam (Ativan 2mg/ml 1ml) 2 mg Q2H PRN IV For Anxiety 07/10/20 21:00 07/17/20 20:59 Meropenem 1 gm/ Sodium Chloride 55 ml @ 110 mls/hr Q8HR IVPB 07/11/20 14:00 07/16/20 13:59 07/13/20 13:00 Morphine Sulfate (Morphine Sulfate) 4 mg Q4H PRN IVP Severe Pain (Pain Scale 7-10) 07/10/20 21:00 07/17/20 20:59 Norepinephrine Bitartrate 250 ml @ 0 mls/hr Q24H IV 07/10/20 21:00 07/13/20 20:59 07/11/20 03:05 Ondansetron HCl (Zofran) 4 mg Q6H PRN IVP Nausea & Vomiting 07/10/20 21:00 08/09/20 20:59 Pantoprazole (Protonix) 40 mg DAILY IV 07/11/20 09:00 08/10/20 08:59 07/13/20 08:42 Polyethylene Glycol (Miralax) 17 gm DAILYPRN PRN GT Constipation 07/10/20 21:00 08/09/20 20:59 Potassium Phosphate 250 ml @ 62.5 mls/hr Q4H IVPB 07/13/20 11:00 07/13/20 18:59 07/13/20 11:54 Vancomycin HCl (Vanco pharmacy to dose) 1 ea DAILY PRN MISC Per rx protocol 07/10/20 21:15 08/09/20 21:14 Vancomycin HCl 1 gm/Dextrose 275 ml @ 183.708 mls/hr Q12H IVPB 07/11/20 08:00 07/16/20 07:59 07/13/20 08:42 Janel Salinas M.D. Jul 13, 2020 13:58
--- NOTE | 2020-07-13 15:02 | NUR ---
INSTRUCTOR BUSINESS EDUCATIONSAWMILL HAND SI: RESP FAILURE TRACH/COOL AEROSOL, SEPSIS T. 98.2 HR 78 RR 22 B/P 118/79 T/BAR FIO2 28% K 3.2 ESR 105 IS: IVF D5NS @ 75ML/HR MEROPENEM IV K-PHOS IV PROTONIX IV VANCO IV ICU STATUS
--- NOTE | 2020-07-13 15:05 | NUR ---
PRINTING ROLLER HANDLER NOTES SPOKE WITH PINO AT [facility] TELEPHONE REVIEW GIVEN AND FAXED. PINO [phone] (P) [phone] (F)
--- NOTE | 2020-07-13 16:30 | NUR ---
NURSE NOTES: LATE ENTRY: PT IN BED. VSS. TRACH PORTEX 7, COOL AEROSOL 6L, 28%, T- PIECE. SECRETIONS THIN. NO RESPIRATORY DISTRESS NOTED. NO BM AT THIS TIME. G-TUBE OSMOLITE 1.5, RUNNING AT 55, NO RESIDUAL. NORTON DRAINING PALE URINE. IV ACCESS RIGHT FEMORAL TLC/ ESTELA 20G, RUNNING D5 NS AT 75ML/HR. SEIZURE AND CONTACT ISOLATION PRECAUTIONS IN PLACE. BED LOCKED, IN LOW POSITION. SIDE RAILS X2. WILL CONTINUE TO IMPLEMENT CARE.
--- NOTE | 2020-07-13 16:59 | NUR ---
NURSE NOTES:SKIN ASSESSMENT PATIENT NON-RESPONSIVE. WITH TRACHEOSTOMY. PROTECTIVE HELMET IN PLACE. LALM OVERLAY IN PLACE. ALL ELPIDIO PROMINENCES EXAMINED AND ARE INTACT. RECOMMEND-CONTINUE WOUND PREVENTION PROTOCOLS, REPOSITION AT LEAST EVERY 2 HOURS OR TOLERATED ELEVATE HEELS WITH PILLOWS
--- NOTE | 2020-07-13 17:04 | NUR ---
NURSE NOTES: MD. MITCHELL HERE TO SEE PT. WAS INFORMED PT WBC 3.2, AFEBRILE. INFORMED OF BODY RASH AND SKIN REDNESS. BLOOD CULTURES GRAM + CLUSTERS, STAPHYLOCOCCUS. NO NEW ORDERS.
--- NOTE | 2020-07-13 17:50 | NUR ---
TRANSFER TO FLOOR: Patient transferred to [facility], per . Report given to Elder Amezcua Belongings and medications given to Garth Da Silva . Family and or S/O informed of transfer.YES
--- NOTE | 2020-07-13 18:00 | NUR ---
NURSE NOTES: Received patient from MARI Iqbal under the care of Dr. Cates with the admitting dx. of hypotension and tachycardia, leading to septic shock. Noted with allergies to amoxicillin and cephalosporins. Full code, contact isolation, and fall, aspiration, and seizure precautions observed and maintained at all times. Patient is in a vegetative state, able to open eyes but does not track. Noted with portex 7 with 6lpm and 28% FiO2 tolerating well with no sign of distress or discomfort noted. On GT feeding, Osmolite 1.5 at 55cc/hr + Prosource BID. Hu catheter patent and draining well noted with clear yellow urine. Will continue with current plan of care.
--- NOTE | 2020-07-13 19:10 | NUR ---
NURSE HAND-OFF REPORT: Important Events on Shift:Transfer from ICU Patient Status: Stable Diet: GT feeding Pending Orders: Pending Results/Labs: Pending MD notification: Latest Vital Signs: Temperature 98.3 , Pulse 70 , B/P 120 /68 , Respiratory Rate 18 , O2 SAT 96 , T-piece, O2 Flow Rate 6.0 . Vital Sign Comment: EKG Rhythm: Sinus Rhythm Rhythm change?: N MD Notified?: - MD Response: Latest Ridley Fall Score: 50 Fall Risk: High Risk Safety Measures: Call light Within Reach, Bed Alarm Zone 2, Side Rails Side Rails x2, Bed position Low and Locked. Fall Precautions: Door Sign Report given to MARI Souza.
--- NOTE | 2020-07-13 20:17 | Internal Med Progress Note ---
Subjective Physician Name Lion Cates Attending Physician Lion Cates MD Current Medications Medications (Trade) Dose Ordered Sig/Yesenia Route PRN Reason Start Time Stop Time Status Last Admin Dose Admin Acetaminophen (Tylenol) 650 mg Q4H PRN GT fever 07/10/20 21:00 08/09/20 20:59 Albuterol/ Ipratropium (Albuterol/ Ipratropium) 3 ml Q4H PRN HHN Shortness of Breath 07/10/20 21:00 07/15/20 20:59 Chlorhexidine Gluconate (Kaila-Hex 2%) 1 applic DAILY@2000 TOPIC 07/11/20 20:00 10/09/20 19:59 07/12/20 20:07 Dextrose/Sodium Chloride 1,000 ml @ 75 mls/hr [id number] IV 07/11/20 10:00 08/10/20 09:59 07/13/20 13:00 Heparin Sodium (Porcine) (Heparin 5000 units/ml) 5,000 units EVERY 12 HOURS SUBQ 07/10/20 21:00 08/24/20 20:59 07/13/20 08:44 Lansoprazole (Prevacid) 30 mg DAILY GT 07/14/20 09:00 08/13/20 08:59 Levetiracetam (Keppra) 500 mg Q12HR GT 07/11/20 09:00 08/10/20 08:59 07/13/20 08:42 Levothyroxine Sodium (Synthroid) 75 mcg ACBREAKFAST GT 07/11/20 06:30 08/10/20 06:29 07/13/20 05:23 Lorazepam (Ativan 2mg/ml 1ml) 2 mg Q2H PRN IV For Anxiety 07/10/20 21:00 07/17/20 20:59 Meropenem 1 gm/ Sodium Chloride 55 ml @ 110 mls/hr Q8HR IVPB 07/11/20 14:00 07/16/20 13:59 07/13/20 13:00 Morphine Sulfate (Morphine Sulfate) 4 mg Q4H PRN IVP Severe Pain (Pain Scale 7-10) 07/10/20 21:00 07/17/20 20:59 Ondansetron HCl (Zofran) 4 mg Q6H PRN IVP Nausea & Vomiting 07/10/20 21:00 08/09/20 20:59 Polyethylene Glycol (Miralax) 17 gm DAILYPRN PRN GT Constipation 07/10/20 21:00 08/09/20 20:59 Vancomycin HCl (Vanco pharmacy to dose) 1 ea DAILY PRN MISC Per rx protocol 07/10/20 21:15 08/09/20 21:14 Vancomycin HCl 1 gm/Dextrose 275 ml @ 183.708 mls/hr Q12H IVPB 07/11/20 08:00 07/16/20 07:59 07/13/20 08:42 Allergies: Coded Allergies: CEPHALOSPORINS (Verified Allergy, Intermediate, SKIN RASH, 10/13/18) CEFEPIME AMOXICILLIN (Verified Allergy, Unknown, 07/11/20) tolerates carbapenem Subjective not verbal , open eyes, On trach collar, WBC: 3.2 Objective Last Vital Signs Date Time Temp Pulse Resp B/P (MAP) Pulse Ox O2 Delivery O2 Flow Rate FiO2 07/13/20 17:59 70 18 120/68 (85) 96 07/13/20 16:00 T-piece 6.0 07/13/20 16:00 98.3 07/13/20 16:00 28 Laboratory Tests Test 07/13/20 03:35 White Blood Count 3.2 K/UL (4.8-10.8) L Red Blood Count 3.52 M/UL (4.70-6.10) L Hemoglobin 10.4 G/DL (14.2-18.0) L Hematocrit 30.5 % (42.0-52.0) L Mean Corpuscular Volume 87 FL (80-99) Mean Corpuscular Hemoglobin 29.5 PG (27.0-31.0) Mean Corpuscular Hemoglobin Concent 34.0 G/DL (32.0-36.0) Red Cell Distribution Width 13.3 % (11.6-14.8) Platelet Count 124 K/UL (150-450) L Mean Platelet Volume 8.3 FL (6.5-10.1) Neutrophils (%) (Auto) % (45.0-75.0) Lymphocytes (%) (Auto) % (20.0-45.0) Monocytes (%) (Auto) % (1.0-10.0) Eosinophils (%) (Auto) % (0.0-3.0) Basophils (%) (Auto) % (0.0-2.0) Erythrocyte Sedimentation Rate 105 MM/HR (0-20) H Sodium Level 140 MMOL/L (136-145) Potassium Level 3.3 MMOL/L (3.5-5.1) L Chloride Level 105 MMOL/L (98-107) Carbon Dioxide Level 30 MMOL/L (21-32) Anion Gap 5 mmol/L (5-15) Blood Urea Nitrogen 4 mg/dL (7-18) L Creatinine 0.7 MG/DL (0.55-1.30) Estimat Glomerular Filtration Rate > 60 mL/min (>60) Glucose Level 152 MG/DL (74-106) H Calcium Level 8.0 MG/DL (8.5-10.1) L Phosphorus Level 2.1 MG/DL (2.5-4.9) L Magnesium Level 1.8 MG/DL (1.8-2.4) Total Bilirubin 0.2 MG/DL (0.2-1.0) Aspartate Amino Transf (AST/SGOT) 13 U/L (15-37) L Alanine Aminotransferase (ALT/SGPT) 12 U/L (12-78) Alkaline Phosphatase 62 U/L (46-116) C-Reactive Protein, Quantitative 9.3 mg/dL (0.00-0.90) H Total Protein 6.0 G/DL (6.4-8.2) L Albumin 2.7 G/DL (3.4-5.0) L Globulin 3.3 g/dL Albumin/Globulin Ratio 0.8 (1.0-2.7) L Microbiology Date/Time Source Procedure Growth Status 07/11/20 13:30 Nasopharynx SARS-CoV-2 RdRp Gene Assay - Final Complete 07/10/20 22:50 Sputum Gram Stain - Final Resulted 07/10/20 22:50 Sputum Culture - Preliminary Streptococcus Group G Gram Negative Bacillus 1 Usual Respiratory Guerline Resulted Intake and Output 07/12/20 07/13/20 19:00 07:00 Intake Total 2345.000 ml 1482.5 ml Output Total 2185 ml 2030 ml Balance 160.000 ml -547.5 ml Intake Free Water 50 ml 30 ml IV Total 1605.000 ml 792.5 ml Tube Feeding 640 ml 660 ml Other 50 ml Output Urine Total 2185 ml 2030 ml # Bowel Movements 2 1 Objective General: No acute distress, open eyes, not verbal, HEENT: NCAT, sclera anicteric, Right scalp deformity on helmet, Neck: Supple, trach collar. Lungs: Fair inspiratory effort, decrease breath sound, no Wheeze or Rales. Heart: Regular rate and rhythm, normal S1/S2, no murmurs/gallops Abdomen: soft, nontender, nondistended. Normoactive bowel sounds, PEG site intact. Extremities: No Cyanosis , clubbing or edema. Neuro: Limited due to patient status. not verbal and can not f/U commands, unable to move extremities. vegetated state. Assessment/Plan Assessment/Plan ASSESSMENT: This is a 64-year-old male. 1. Bilateral pneumonia. 2. Sepsis shock 3. Hypotension. 4. Traumatic SDH S/P right craniotomy. 5. Chronic respiratory failure on trach collar. 6. COPD. 7. Seizure disorder. 8. Hypertension. 9. Hypothyroidism. 10. Chronic deep venous thrombosis. 11. Chronic Vegetated state. TREATMENT: 1. Sepsis/bilateral pneumonia. Infectious disease consultation=Dr. Salinas. The patient has been started empirically on meropenem and vancomycin IV. Follow recommendations of Infectious Disease. Pulmonary consultation = Dr. Linda Foley. Follow recommendations of Pulmonary. 2. Chronic respiratory failure. As above, a pulmonary consultation was obtained with Dr. Linda Foley. 3. History of subdural hematoma. 4. Seizure disorder. Continue Keppra as above. 5. Hypertension. The patient is currently hypotensive. 6. Hypothyroidism. Continue Synthroid as above. 7. Chronic deep venous thrombosis. Continue Coumadin as above. 8. Encephalopathy. Lion Cates MD Jul 13, 2020 20:17
--- NOTE | 2020-07-13 20:20 | NUR ---
NURSE NOTES: Received report from MARI Friedman. Pt is lying down in bed wearing a helmet, obtunded, not in acute distress. Sinus Rhythm on the can doffer. Tolerating T-piece, 6L 28%FiO2, saturating @ 98%. R femoral TLC is patent and intact with IVF running D5NS@ 75cc/hr. Hu catheter is intact and patent and draining light kathryn urine. Bed is locked and in lowest position, bed alarm on, call light within reach, head of bed elevated. Will continue to monitor pt. Will continue with the plan of care.
[2020-07-13] MEDS: Dyna-Hex 2% Top Sol 2oz TOPIC SCH (21:06)
--- NOTE | 2020-07-13 22:00 | NUR ---
NURSE NOTES: Evening medications given. Pt tolerating T piece. Full body assessment done. Skin issues noted and dressing intact. Seizure, aspiration and fall precautions in place. Will continue to monitor the pt.
[2020-07-14] VITALS: BP 129/78
[2020-07-14 04:00] VITALS: BP 131/74
[2020-07-14] MEDS: D5NS 1,000 ML IV SCH (04:07)
[2020-07-14 04:59] LABS: HEMATOCRIT 32.1 % (42.0-52.0); HEMOGLOBIN 10.6 G/DL (14.2-18.0); MEAN CORPUSCULAR VOLUME 89 FL (80-99); PLATELET COUNT 129 K/UL (150-450); RED BLOOD COUNT 3.62 M/UL (4.70-6.10); WHITE BLOOD COUNT 3.2 K/UL (4.8-10.8)
[2020-07-14 05:41] LABS: ALANINE AMINOTRANSFERASE 14 U/L (12-78); ALBUMIN 2.7 G/DL (3.4-5.0); ALBUMIN/GLOBULIN RATIO 0.8 (1.0-2.7); ALKALINE PHOSPHATASE 69 U/L (46-116); ANION GAP 6 mmol/L (5-15); ASPARTATE AMINO TRANSFERASE 8 U/L (15-37); BILIRUBIN,TOTAL 0.2 MG/DL (0.2-1.0); BLOOD UREA NITROGEN 7 mg/dL (7-18); CALCIUM 8.1 MG/DL (8.5-10.1); CARBON DIOXIDE 30 MMOL/L (21-32); CHLORIDE 104 MMOL/L (98-107); CREATININE 0.6 MG/DL (0.55-1.30); PHOSPHORUS 2.2 MG/DL (2.5-4.9); POTASSIUM 3.5 MMOL/L (3.5-5.1); SODIUM 140 MMOL/L (136-145)
[2020-07-14] MEDS: Meropenem 1 GM in NS 55 ML IVPB SCH ×3 (06:05→21:17)
--- NOTE | 2020-07-14 07:30 | NUR ---
NURSE NOTES: Received pt from RN Harley/Cecilia. pt is nonverbal. Pt has T piece in place with 6lit O2. pt is on continues heart monitoring. PT HAS G TUBE IN PLACE IS WORKING WELL. PT HAS NORTON CATH IN PLACE IS WORKING WELL. pt has intact iv access ESTELA 20G SL and R Femoral TLC is running well. RN called Dr Cates and asked if D/C Femoral TLC, Dr Cates ordered to keep TLC, noted and carried out. CN is aware. Dr Stevenson is aware about MG 1.7 PH 2.2 and other lab results and V/S, will F/U. no complain of pain at this moment. pt is eating breakfast by observation. all needs attended, bed is locked and is in the lowest position. call light within easy reach. will continue to monitor.
--- NOTE | 2020-07-14 07:34 | NUR ---
NURSE HAND-OFF REPORT: Important Events on Shift:[] Patient Status: [] Diet: [] Pending Orders: [] Pending Results/Labs:[] Pending MD notification:[] Latest Vital Signs: Temperature 98.1 , Pulse 71 , B/P 131 /74 , Respiratory Rate 22 , O2 SAT 96 , T-piece, O2 Flow Rate 6.0 . Vital Sign Comment: [] EKG Rhythm: Sinus Rhythm Rhythm change?: N MD Notified?: - MD Response: Latest Ridley Fall Score: 50 Fall Risk: High Risk Safety Measures: Call light Within Reach, Bed Alarm Zone 2, Side Rails Side Rails x2, Bed position Low and Locked. Fall Precautions: Door Sign Report given to MARI Randolph.
[2020-07-14 08:00] VITALS: BP 137/76
[2020-07-14] MEDS: Vancomycin 1gm in D5W 275ml IVPB SCH (09:00)
[2020-07-14] MEDS: levETIRAcetam 500mg/5ml Liquid GT SCH ×2 (09:00→21:16)
[2020-07-14] MEDS: Heparin 5000 units/ml inj SUBQ SCH ×2 (09:52→21:00)
--- NOTE | 2020-07-14 09:52 | NUR ---
NURSE NOTES: Dr Foley is aware about plt 129, ordered to hold hep if plt<100, noted and carried out. will continue4 to monitor.
[2020-07-14] MEDS: Potassium Phosphate 15mm/250ml 250 ML IVPB SCH ×2 (10:04→14:15)
--- NOTE | 2020-07-14 10:29 | NUR ---
CASE MANAGEMENT: REVIEW 07/14/2020 SI:SEVERE SEPSIS. VS: T 98.3 HR 74 RR 23 B/P 124/61 SATS 98% ON 6L/TPIECE LABS: WBC 3.2 PLT 129 GLU 147 CA 8.1 PHOS 2.2 MG 1.7 AST 8 CRP 4.5 IS:DEXTROSE/NS @ 75 ML/HR PREVACID GT QD VANCO IV Q12H KEPPRA GT Q12H MAG SULFATE IV X1 KPHOS IV Q4H MEROPENEM IV Q8H SDU DCP: SNF PLAN OF CARE: PEG/Trach care
--- NOTE | 2020-07-14 10:39 | NUR ---
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 CURRENT TF: Osmolite 1.5 @55ml/hr x22 hrs + PS x2 ENTERAL NUTRITION RECOMMENDATIONS: OSMOLITE 1.5 @55ml/hr x 22 hrs + Prosource 1pkt BID to provide 1210ml, 1815kcal, 76g +22g prot, 922ml free water - As medically able, start feeds, Osmolite 1.5 @low rate 25ml/hr for 6 hrs. Advance as tolerated 10ml/hr q4-6 hrs to goal. - Add PROSOURCE 1 pack BID to better meet protein needs - Flush per MD/HOB over 30 degrees ADDITIONAL RECOMMENDATIONS: 1) Maintain calibrated bed scale wts: 78kg-> now 88kg. 2) Check lytes daily 3) Monitor for initiation of TF's 4) F/up WC: skin intact 5) Rec to DC added D5 IVF w/ TF (BG mid 100's)
--- NOTE | 2020-07-14 11:52 | Nephrology Progress Note ---
Assessment/Plan Problem List: (1) ZIGGY (acute kidney injury) (2) Dehydration (3) Electrolyte imbalance (4) COPD (chronic obstructive pulmonary disease) (5) PEG (percutaneous endoscopic gastrostomy) adjustment/replacement/removal (6) Anemia Assessment Elevated creatinine, acute renal failure, mainly dehydration Septic shock Pneumonia, patient has T-piece to oxygen Encephalopathy Feeding by G-tube Chronic vegetative state Mild anemia Hypothyroidism Plan July 14: Labs reviewed. Abnormal chemistries and electrolyte addressed. Will DC IV fluid. The renal parameters are stable. July 13: Discussed with RN. Labs reviewed. Electrolyte abnormalities addressed. Continue per consultants. Potassium supplement IV ordered Hu catheter IV fluid as needed to Monitor renal parameters Antibiotics Avoid nephrotoxic's Subjective ROS Limited/Unobtainable: Yes Objective Objective Last 24 Hour Vital Signs Date Time Temp Pulse Resp B/P (MAP) Pulse Ox O2 Delivery O2 Flow Rate FiO2 07/14/20 08:00 6.0 28 07/14/20 08:00 98.2 75 20 137/76 (96) 96 07/14/20 08:00 T-piece 07/14/20 07:47 74 07/14/20 07:30 97 Cool Aerosol 6.0 28 07/14/20 04:00 98.1 76 22 131/74 (93) 96 07/14/20 04:00 6.0 28 07/14/20 04:00 T-piece 07/14/20 04:00 71 07/14/20 01:18 98 Cool Aerosol 6.0 28 07/14/20 00:30 68 07/14/20 00:00 98.1 75 20 129/78 (95) 98 07/14/20 00:00 T-piece 07/13/20 20:00 T-piece 07/13/20 20:00 6.0 28 07/13/20 20:00 97.9 69 20 133/74 (93) 98 07/13/20 19:37 69 07/13/20 19:30 97 Cool Aerosol 6.0 28 07/13/20 17:59 70 18 120/68 (85) 96 07/13/20 17:00 76 18 120/69 (86) 98 07/13/20 16:02 85 07/13/20 16:00 T-piece 6.0 07/13/20 16:00 98.3 74 23 124/61 (82) 98 07/13/20 16:00 6.0 28 07/13/20 15:00 75 20 129/61 (83) 98 07/13/20 14:00 75 22 115/58 (77) 100 07/13/20 13:30 98 Cool Aerosol 6.0 28 07/13/20 13:00 98.2 78 22 115/79 (91) 95 07/13/20 12:00 T-piece 6.0 07/13/20 12:00 6.0 28 07/13/20 12:00 73 07/13/20 12:00 73 20 127/58 (81) 96 Intake and Output 07/13/20 07/14/20 19:00 07:00 Intake Total 2182.416 ml 1790 ml Output Total 1665 ml 1500 ml Balance 517.416 ml 290 ml Intake Free Water 160 ml IV Total 1552.416 ml 1080 ml Tube Feeding 605 ml 550 ml Other 25 ml Output Urine Total 1665 ml 1500 ml Laboratory Tests 07/14/20 03:05: White Blood Count 3.2L, Red Blood Count 3.62L, Hemoglobin 10.6L, Hematocrit 32.1L, Mean Corpuscular Volume 89, Mean Corpuscular Hemoglobin 29.3, Mean Corpuscular Hemoglobin Concent 32.9, Red Cell Distribution Width 13.0, Platelet Count 129L, Mean Platelet Volume 7.9, Neutrophils (%) (Auto) , Lymphocytes (%) (Auto) , Monocytes (%) (Auto) , Eosinophils (%) (Auto) , Basophils (%) (Auto) , Erythrocyte Sedimentation Rate 100H, Sodium Level 140, Potassium Level 3.5, Chloride Level 104, Carbon Dioxide Level 30, Anion Gap 6, Blood Urea Nitrogen 7, Creatinine 0.6, Estimat Glomerular Filtration Rate > 60, Glucose Level 147H, Calcium Level 8.1L, Phosphorus Level 2.2L, Magnesium Level 1.7L, Total Bilirubin 0.2, Aspartate Amino Transf (AST/SGOT) 8L, Alanine Aminotransferase (ALT/SGPT) 14, Alkaline Phosphatase 69, C-Reactive Protein, Quantitative 4.5H, Total Protein 6.0L, Albumin 2.7L, Globulin 3.3, Albumin/Globulin Ratio 0.8L Height (Feet): 5 Height (Inches): 8.00 Weight (Pounds): 173 General Appearance: no apparent distress EENT: other - Trach to oxygen Cardiovascular: normal rate Respiratory/Chest: decreased breath sounds Abdomen: soft, distended Objective No change Francisco Stevenson MD Jul 14, 2020 11:52
[2020-07-14 12:00] VITALS: BP 121/71
--- NOTE | 2020-07-14 12:11 | Pulmonolgy Critical Care Note ---
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, 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, ID Discussed with: nurses, consultants, 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 service 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 manager - Objective Last 24 Hour Vital Signs Date Time Temp Pulse Resp B/P (MAP) Pulse Ox O2 Delivery O2 Flow Rate FiO2 07/14/20 08:00 6.0 28 07/14/20 08:00 98.2 75 20 137/76 (96) 96 07/14/20 08:00 T-piece 07/14/20 07:47 74 07/14/20 07:30 97 Cool Aerosol 6.0 28 07/14/20 04:00 98.1 76 22 131/74 (93) 96 07/14/20 04:00 6.0 28 07/14/20 04:00 T-piece 07/14/20 04:00 71 07/14/20 01:18 98 Cool Aerosol 6.0 28 07/14/20 00:30 68 07/14/20 00:00 98.1 75 20 129/78 (95) 98 07/14/20 00:00 T-piece 07/13/20 20:00 T-piece 07/13/20 20:00 6.0 28 07/13/20 20:00 97.9 69 20 133/74 (93) 98 07/13/20 19:37 69 07/13/20 19:30 97 Cool Aerosol 6.0 28 07/13/20 17:59 70 18 120/68 (85) 96 07/13/20 17:00 76 18 120/69 (86) 98 07/13/20 16:02 85 07/13/20 16:00 T-piece 6.0 07/13/20 16:00 98.3 74 23 124/61 (82) 98 07/13/20 16:00 6.0 28 07/13/20 15:00 75 20 129/61 (83) 98 07/13/20 14:00 75 22 115/58 (77) 100 07/13/20 13:30 98 Cool Aerosol 6.0 28 07/13/20 13:00 98.2 78 22 115/79 (91) 95 Status: obtunded Condition: critical HEENT: atraumatic, normocephalic Neck: trach Lungs: rhonchi Heart: HR/BP stable Abdomen: soft, non-tender, feeding tube Extremities: no C/C/E Micro: Microbiology Date/Time Source Procedure Growth Status 07/11/20 17:10 Blood Blood Culture - Preliminary NO GROWTH AFTER 48 HOURS Resulted 07/11/20 16:55 Blood Blood Culture - Preliminary NO GROWTH AFTER 48 HOURS Resulted 07/11/20 13:30 Nasopharynx SARS-CoV-2 RdRp Gene Assay - Final Complete Critical Care - Subjective ROS Limited/Unobtainable: Yes Condition: critical EKG Rhythm: Sinus Rhythm FI02: 28 Sputum Amount: Small Tube Feeding Amount: 0 I&O: Intake and Output 07/13/20 07/14/20 19:00 07:00 Intake Total 2182.416 ml 1865 ml Output Total 1665 ml 1500 ml Balance 517.416 ml 365 ml Intake Free Water 160 ml IV Total 1552.416 ml 1155 ml Tube Feeding 605 ml 550 ml Other 25 ml Output Urine Total 1665 ml 1500 ml Labs: Laboratory Tests Test 07/14/20 03:05 White Blood Count 3.2 K/UL (4.8-10.8) L Red Blood Count 3.62 M/UL (4.70-6.10) L Hemoglobin 10.6 G/DL (14.2-18.0) L Hematocrit 32.1 % (42.0-52.0) L Mean Corpuscular Volume 89 FL (80-99) Mean Corpuscular Hemoglobin 29.3 PG (27.0-31.0) Mean Corpuscular Hemoglobin Concent 32.9 G/DL (32.0-36.0) Red Cell Distribution Width 13.0 % (11.6-14.8) Platelet Count 129 K/UL (150-450) L Mean Platelet Volume 7.9 FL (6.5-10.1) Neutrophils (%) (Auto) % (45.0-75.0) Lymphocytes (%) (Auto) % (20.0-45.0) Monocytes (%) (Auto) % (1.0-10.0) Eosinophils (%) (Auto) % (0.0-3.0) Basophils (%) (Auto) % (0.0-2.0) Erythrocyte Sedimentation Rate 100 MM/HR (0-20) H Sodium Level 140 MMOL/L (136-145) Potassium Level 3.5 MMOL/L (3.5-5.1) Chloride Level 104 MMOL/L (98-107) Carbon Dioxide Level 30 MMOL/L (21-32) Anion Gap 6 mmol/L (5-15) Blood Urea Nitrogen 7 mg/dL (7-18) Creatinine 0.6 MG/DL (0.55-1.30) Estimat Glomerular Filtration Rate > 60 mL/min (>60) Glucose Level 147 MG/DL (74-106) H Calcium Level 8.1 MG/DL (8.5-10.1) L Phosphorus Level 2.2 MG/DL (2.5-4.9) L Magnesium Level 1.7 MG/DL (1.8-2.4) L Total Bilirubin 0.2 MG/DL (0.2-1.0) Aspartate Amino Transf (AST/SGOT) 8 U/L (15-37) L Alanine Aminotransferase (ALT/SGPT) 14 U/L (12-78) Alkaline Phosphatase 69 U/L (46-116) C-Reactive Protein, Quantitative 4.5 mg/dL (0.00-0.90) H Total Protein 6.0 G/DL (6.4-8.2) L Albumin 2.7 G/DL (3.4-5.0) L Globulin 3.3 g/dL Albumin/Globulin Ratio 0.8 (1.0-2.7) L Linda Foley MD Jul 14, 2020 12:11
[2020-07-14] MEDS ORDERED: Lidocaine 1% Plain 30 ml INJ PRN (12:21)
[2020-07-14] MEDS ORDERED: Heparin1,000 units/500ml Premix(Conc:2 units/ml) IV PRN (12:30)
--- NOTE | 2020-07-14 13:10 | Internal Med Progress Note ---
Subjective Physician Name Lion Cates Attending Physician Lion Cates MD Current Medications Medications (Trade) Dose Ordered Sig/Yesenia Route PRN Reason Start Time Stop Time Status Last Admin Dose Admin Acetaminophen (Tylenol) 650 mg Q4H PRN GT fever 07/10/20 21:00 08/09/20 20:59 Albuterol/ Ipratropium (Albuterol/ Ipratropium) 3 ml Q4H PRN HHN Shortness of Breath 07/10/20 21:00 07/15/20 20:59 Chlorhexidine Gluconate (Kaila-Hex 2%) 1 applic DAILY@2000 TOPIC 07/14/20 20:00 10/12/20 19:59 Heparin Sodium (Porcine) (Heparin 5000 units/ml) 5,000 units EVERY 12 HOURS SUBQ 07/10/20 21:00 08/24/20 20:59 07/14/20 09:52 Heparin Sodium/ Sodium Chloride (Heparin 1000 units/500ml Premix) 1,000 unit ONCE PRN IV PICC 07/14/20 12:30 07/14/20 23:59 Lansoprazole (Prevacid) 30 mg DAILY GT 07/14/20 09:00 08/13/20 08:59 07/14/20 09:00 Levetiracetam (Keppra) 500 mg Q12HR GT 07/11/20 09:00 08/10/20 08:59 07/14/20 09:00 Levothyroxine Sodium (Synthroid) 75 mcg ACBREAKFAST GT 07/11/20 06:30 08/10/20 06:29 07/14/20 06:05 Lidocaine HCl (Xylocaine 1% 30ml) 30 ml ONCE PRN INJ PICC 07/14/20 12:21 07/14/20 23:59 Lorazepam (Ativan 2mg/ml 1ml) 2 mg Q2H PRN IV For Anxiety 07/10/20 21:00 07/17/20 20:59 Meropenem 1 gm/ Sodium Chloride 55 ml @ 110 mls/hr Q8HR IVPB 07/11/20 14:00 07/16/20 13:59 07/14/20 06:05 Morphine Sulfate (Morphine Sulfate) 4 mg Q4H PRN IVP Severe Pain (Pain Scale 7-10) 07/10/20 21:00 07/17/20 20:59 Ondansetron HCl (Zofran) 4 mg Q6H PRN IVP Nausea & Vomiting 07/10/20 21:00 08/09/20 20:59 Polyethylene Glycol (Miralax) 17 gm DAILYPRN PRN GT Constipation 07/10/20 21:00 08/09/20 20:59 Potassium Phosphate 250 ml @ 62.5 mls/hr Q4H IVPB 07/14/20 10:00 07/14/20 17:59 07/14/20 10:04 Vancomycin HCl (Vanco pharmacy to dose) 1 ea DAILY PRN MISC Per rx protocol 07/10/20 21:15 08/09/20 21:14 Vancomycin HCl 1 gm/Dextrose 275 ml @ 183.708 mls/hr Q12H IVPB 07/11/20 08:00 07/16/20 07:59 07/14/20 09:00 Allergies: Coded Allergies: CEPHALOSPORINS (Verified Allergy, Intermediate, SKIN RASH, 10/13/18) CEFEPIME AMOXICILLIN (Verified Allergy, Unknown, 07/11/20) tolerates carbapenem Subjective not verbal , unable to open eyes, On trach collar, WBC: 3.2 stable Objective Last Vital Signs Date Time Temp Pulse Resp B/P (MAP) Pulse Ox O2 Delivery O2 Flow Rate FiO2 07/14/20 12:00 6.0 28 07/14/20 12:00 T-piece 07/14/20 12:00 98.4 74 18 121/71 (88) 96 Laboratory Tests Test 07/14/20 03:05 White Blood Count 3.2 K/UL (4.8-10.8) L Red Blood Count 3.62 M/UL (4.70-6.10) L Hemoglobin 10.6 G/DL (14.2-18.0) L Hematocrit 32.1 % (42.0-52.0) L Mean Corpuscular Volume 89 FL (80-99) Mean Corpuscular Hemoglobin 29.3 PG (27.0-31.0) Mean Corpuscular Hemoglobin Concent 32.9 G/DL (32.0-36.0) Red Cell Distribution Width 13.0 % (11.6-14.8) Platelet Count 129 K/UL (150-450) L Mean Platelet Volume 7.9 FL (6.5-10.1) Neutrophils (%) (Auto) % (45.0-75.0) Lymphocytes (%) (Auto) % (20.0-45.0) Monocytes (%) (Auto) % (1.0-10.0) Eosinophils (%) (Auto) % (0.0-3.0) Basophils (%) (Auto) % (0.0-2.0) Erythrocyte Sedimentation Rate 100 MM/HR (0-20) H Sodium Level 140 MMOL/L (136-145) Potassium Level 3.5 MMOL/L (3.5-5.1) Chloride Level 104 MMOL/L (98-107) Carbon Dioxide Level 30 MMOL/L (21-32) Anion Gap 6 mmol/L (5-15) Blood Urea Nitrogen 7 mg/dL (7-18) Creatinine 0.6 MG/DL (0.55-1.30) Estimat Glomerular Filtration Rate > 60 mL/min (>60) Glucose Level 147 MG/DL (74-106) H Calcium Level 8.1 MG/DL (8.5-10.1) L Phosphorus Level 2.2 MG/DL (2.5-4.9) L Magnesium Level 1.7 MG/DL (1.8-2.4) L Total Bilirubin 0.2 MG/DL (0.2-1.0) Aspartate Amino Transf (AST/SGOT) 8 U/L (15-37) L Alanine Aminotransferase (ALT/SGPT) 14 U/L (12-78) Alkaline Phosphatase 69 U/L (46-116) C-Reactive Protein, Quantitative 4.5 mg/dL (0.00-0.90) H Total Protein 6.0 G/DL (6.4-8.2) L Albumin 2.7 G/DL (3.4-5.0) L Globulin 3.3 g/dL Albumin/Globulin Ratio 0.8 (1.0-2.7) L Microbiology Date/Time Source Procedure Growth Status 07/11/20 17:10 Blood Blood Culture - Preliminary NO GROWTH AFTER 48 HOURS Resulted 07/11/20 16:55 Blood Blood Culture - Preliminary NO GROWTH AFTER 48 HOURS Resulted 07/11/20 13:30 Nasopharynx SARS-CoV-2 RdRp Gene Assay - Final Complete Intake and Output 07/13/20 07/14/20 19:00 07:00 Intake Total 2182.416 ml 1865 ml Output Total 1665 ml 1500 ml Balance 517.416 ml 365 ml Intake Free Water 160 ml IV Total 1552.416 ml 1155 ml Tube Feeding 605 ml 550 ml Other 25 ml Output Urine Total 1665 ml 1500 ml Objective General: No acute distress, unable to open eyes, not verbal, HEENT: NCAT, sclera anicteric, Right scalp deformity on helmet, Neck: Supple, trach collar. Lungs: Fair inspiratory effort, decrease breath sound, no Wheeze or Rales. Heart: Regular rate and rhythm, normal S1/S2, no murmurs/gallops Abdomen: soft, nontender, nondistended. Normoactive bowel sounds, PEG site intact. Extremities: No Cyanosis , clubbing or edema. Neuro: Limited due to patient status. not verbal and can not f/U commands, unable to move extremities. vegetated state. Assessment/Plan Assessment/Plan ASSESSMENT: This is a 64-year-old male. 1. Bilateral pneumonia. 2. Sepsis shock 3. Hypotension. 4. Traumatic SDH S/P right craniotomy. 5. Chronic respiratory failure on trach collar. 6. COPD. 7. Seizure disorder. 8. Hypertension. 9. Hypothyroidism. 10. Chronic deep venous thrombosis. 11. Chronic Vegetated state. TREATMENT: 1. Sepsis/bilateral pneumonia. Infectious disease consultation=Dr. Salinas. The patient has been started empirically on meropenem, DC vancomycin IV. Follow recommendations of Infectious Disease. Pulmonary consultation = Dr. Linda Foley. Follow recommendations of Pulmonary. 2. Chronic respiratory failure. As above, a pulmonary consultation was obtained with Dr. Linda Foley. 3. History of subdural hematoma. 4. Seizure disorder. Continue Keppra as above. 5. Hypertension. The patient is currently hypotensive. 6. Hypothyroidism. Continue Synthroid as above. 7. Chronic deep venous thrombosis. Continue Coumadin as above. 8. Encephalopathy. Lion Cates MD Jul 14, 2020 13:10
--- NOTE | 2020-07-14 13:27 | Infectious Diseases Prog Note ---
Assessment/Plan Assessment: Septic SHock- now off pressors Multifocal PNA- COVID19 neg x2 -07/11 rapid COVID PCR neg -07/10 CXR:Bilateral infiltrates concerning for multifocal pneumonia. rapid COVID PCR neg, Influenza ag neg sp cx GGS, PsA (gama S) CONS bacteremia- likely contaminant -07/10 bcx 4/4 S. epi; 07/11 Bcx NTD Afebrile Leukocytosis, SP> mild leukopenia -07/10 u/a neg ZIGGY, sp CVA HTN COPD dysphagia sp GT hypothyroidism traumatic SDH sp hemilobectomy chronic resp failure sp trach dependent SNF resident ([facility]) Plan: -Dc empiric IV Vancomycin #5 - Meropenem #4 (abx d #5) - will keep for now,. tried to called micro to see if susceptible to Levaquin but no one working in micro lab today -if susceptible to Levaquin, will switch -07/11 SP IV Amikacin and Ertapenem #2 -07/10 SP Cefepime x1 -f/u cx -Monitor CBC/CMP, temperatures -COVID19 neg x2 -f/u repeat Bcx x2 -PEG/Trach care Thank you for this consultation. Will continue to follow along with you. Discussed with RN. Subjective Allergies: Coded Allergies: CEPHALOSPORINS (Verified Allergy, Intermediate, SKIN RASH, 10/13/18) CEFEPIME AMOXICILLIN (Verified Allergy, Unknown, 07/11/20) tolerates carbapenem afebrile mild leukopenia off iCU, now at SDU repaet bcx NTD Objective Last 24 Hour Vital Signs Date Time Temp Pulse Resp B/P (MAP) Pulse Ox O2 Delivery O2 Flow Rate FiO2 07/14/20 12:00 6.0 28 07/14/20 12:00 T-piece 07/14/20 12:00 98.4 74 18 121/71 (88) 96 07/14/20 11:41 76 07/14/20 08:00 6.0 28 07/14/20 08:00 98.2 75 20 137/76 (96) 96 07/14/20 08:00 T-piece 07/14/20 07:47 74 07/14/20 07:30 97 Cool Aerosol 6.0 28 07/14/20 04:00 98.1 76 22 131/74 (93) 96 07/14/20 04:00 6.0 28 07/14/20 04:00 T-piece 07/14/20 04:00 71 07/14/20 01:18 98 Cool Aerosol 6.0 28 07/14/20 00:30 68 07/14/20 00:00 98.1 75 20 129/78 (95) 98 07/14/20 00:00 T-piece 07/13/20 20:00 T-piece 07/13/20 20:00 6.0 28 07/13/20 20:00 97.9 69 20 133/74 (93) 98 07/13/20 19:37 69 07/13/20 19:30 97 Cool Aerosol 6.0 28 07/13/20 17:59 70 18 120/68 (85) 96 07/13/20 17:00 76 18 120/69 (86) 98 07/13/20 16:02 85 07/13/20 16:00 T-piece 6.0 07/13/20 16:00 98.3 74 23 124/61 (82) 98 07/13/20 16:00 6.0 28 07/13/20 15:00 75 20 129/61 (83) 98 07/13/20 14:00 75 22 115/58 (77) 100 07/13/20 13:30 98 Cool Aerosol 6.0 28 Height (Feet): 5 Height (Inches): 8.00 Weight (Pounds): 173 General Appearance: no apparent distress, other - Appears chronically ill, largely unresponsive at baseline Head: normocephalic, atraumatic Neck: supple Respiratory: chest non-tender, lungs clear, normal breath sounds, speaking full sentences Cardiovascular : regular rate, rhythm, other - Generalized 2+ edema of all extremities Gastrointestinal: normal bowel sounds, non tender, soft, non-distended, no guarding, no rebound, other - G-tube in place without any surrounding erythema or induration or drainage Microbiology Date/Time Source Procedure Growth Status 07/11/20 17:10 Blood Blood Culture - Preliminary NO GROWTH AFTER 48 HOURS Resulted 07/11/20 16:55 Blood Blood Culture - Preliminary NO GROWTH AFTER 48 HOURS Resulted 07/11/20 13:30 Nasopharynx SARS-CoV-2 RdRp Gene Assay - Final Complete Laboratory Tests Test 07/14/20 03:05 White Blood Count 3.2 K/UL (4.8-10.8) L Red Blood Count 3.62 M/UL (4.70-6.10) L Hemoglobin 10.6 G/DL (14.2-18.0) L Hematocrit 32.1 % (42.0-52.0) L Mean Corpuscular Volume 89 FL (80-99) Mean Corpuscular Hemoglobin 29.3 PG (27.0-31.0) Mean Corpuscular Hemoglobin Concent 32.9 G/DL (32.0-36.0) Red Cell Distribution Width 13.0 % (11.6-14.8) Platelet Count 129 K/UL (150-450) L Mean Platelet Volume 7.9 FL (6.5-10.1) Neutrophils (%) (Auto) % (45.0-75.0) Lymphocytes (%) (Auto) % (20.0-45.0) Monocytes (%) (Auto) % (1.0-10.0) Eosinophils (%) (Auto) % (0.0-3.0) Basophils (%) (Auto) % (0.0-2.0) Erythrocyte Sedimentation Rate 100 MM/HR (0-20) H Sodium Level 140 MMOL/L (136-145) Potassium Level 3.5 MMOL/L (3.5-5.1) Chloride Level 104 MMOL/L (98-107) Carbon Dioxide Level 30 MMOL/L (21-32) Anion Gap 6 mmol/L (5-15) Blood Urea Nitrogen 7 mg/dL (7-18) Creatinine 0.6 MG/DL (0.55-1.30) Estimat Glomerular Filtration Rate > 60 mL/min (>60) Glucose Level 147 MG/DL (74-106) H Calcium Level 8.1 MG/DL (8.5-10.1) L Phosphorus Level 2.2 MG/DL (2.5-4.9) L Magnesium Level 1.7 MG/DL (1.8-2.4) L Total Bilirubin 0.2 MG/DL (0.2-1.0) Aspartate Amino Transf (AST/SGOT) 8 U/L (15-37) L Alanine Aminotransferase (ALT/SGPT) 14 U/L (12-78) Alkaline Phosphatase 69 U/L (46-116) C-Reactive Protein, Quantitative 4.5 mg/dL (0.00-0.90) H Total Protein 6.0 G/DL (6.4-8.2) L Albumin 2.7 G/DL (3.4-5.0) L Globulin 3.3 g/dL Albumin/Globulin Ratio 0.8 (1.0-2.7) L Current Medications Medications (Trade) Dose Ordered Sig/Yesenia Route PRN Reason Start Time Stop Time Status Last Admin Dose Admin Acetaminophen (Tylenol) 650 mg Q4H PRN GT fever 07/10/20 21:00 08/09/20 20:59 Albuterol/ Ipratropium (Albuterol/ Ipratropium) 3 ml Q4H PRN HHN Shortness of Breath 07/10/20 21:00 07/15/20 20:59 Chlorhexidine Gluconate (Kaila-Hex 2%) 1 applic DAILY@2000 TOPIC 07/14/20 20:00 10/12/20 19:59 Heparin Sodium (Porcine) (Heparin 5000 units/ml) 5,000 units EVERY 12 HOURS SUBQ 07/10/20 21:00 08/24/20 20:59 07/14/20 09:52 Heparin Sodium/ Sodium Chloride (Heparin 1000 units/500ml Premix) 1,000 unit ONCE PRN IV PICC 07/14/20 12:30 07/14/20 23:59 Lansoprazole (Prevacid) 30 mg DAILY GT 07/14/20 09:00 08/13/20 08:59 07/14/20 09:00 Levetiracetam (Keppra) 500 mg Q12HR GT 07/11/20 09:00 08/10/20 08:59 07/14/20 09:00 Levothyroxine Sodium (Synthroid) 75 mcg ACBREAKFAST GT 07/11/20 06:30 08/10/20 06:29 07/14/20 06:05 Lidocaine HCl (Xylocaine 1% 30ml) 30 ml ONCE PRN INJ PICC 07/14/20 12:21 07/14/20 23:59 Lorazepam (Ativan 2mg/ml 1ml) 2 mg Q2H PRN IV For Anxiety 07/10/20 21:00 07/17/20 20:59 Meropenem 1 gm/ Sodium Chloride 55 ml @ 110 mls/hr Q8HR IVPB 07/11/20 14:00 07/16/20 13:59 07/14/20 06:05 Morphine Sulfate (Morphine Sulfate) 4 mg Q4H PRN IVP Severe Pain (Pain Scale 7-10) 07/10/20 21:00 07/17/20 20:59 Ondansetron HCl (Zofran) 4 mg Q6H PRN IVP Nausea & Vomiting 07/10/20 21:00 08/09/20 20:59 Polyethylene Glycol (Miralax) 17 gm DAILYPRN PRN GT Constipation 07/10/20 21:00 08/09/20 20:59 Potassium Phosphate 250 ml @ 62.5 mls/hr Q4H IVPB 07/14/20 10:00 07/14/20 17:59 07/14/20 10:04 Vancomycin HCl (Vanco pharmacy to dose) 1 ea DAILY PRN MISC Per rx protocol 07/10/20 21:15 08/09/20 21:14 Vancomycin HCl 1 gm/Dextrose 275 ml @ 183.708 mls/hr Q12H IVPB 07/11/20 08:00 07/16/20 07:59 07/14/20 09:00 Janel Salinas M.D. Jul 14, 2020 13:27
--- NOTE | 2020-07-14 13:43 | Consultation ---
History of Present Illness General Date patient seen: Jul 14, 2020 Chief Complaint: Generalized Weakness Referring physician: Dr. Foley Reason for Consultation: G tube check Present Illness HPI Pt was admitted with severe hypotension and found to have pneumonia. He was admitted from a nursing facility and has a chronic G tube. His Past medical history includes (1) Septic shock (2) Aspiration pneumonia (3) COPD (chronic obstructive pulmonary disease) (4) HTN (hypertension) (5) Chronic vegetative state (6) Feeding by G-tube Allergies: Coded Allergies: CEPHALOSPORINS (Verified Allergy, Intermediate, SKIN RASH, 10/13/18) CEFEPIME AMOXICILLIN (Verified Allergy, Unknown, 07/11/20) tolerates carbapenem Medication History Scheduled Cholecalciferol (Vitamin D3) (Vitamin D3), 4 TAB GT DAILY, (Reported) Cranberry Fruit Concentrate (Cranberry), 450 MG GT BID, (Reported) Docusate Sodium* (Docusate Sodium*), 100 MG GT BID, (Reported) Ferrous Sulfate (Ferrous Sulfate), 7.5 ML GT DAILY, (Reported) Ipratropium/Albuterol Sulfate (Combivent Respimat Inhal [place]), 1 PUFF IH q4- 6hr, (Reported) Labetalol Hcl* (Normodyne*), 100 MG GT EVERY 8 HOURS, (Reported) Levetiracetam* (Levetiracetam*), 5 ML GT Q12HR, (Reported) Levothyroxine Sodium* (Synthorid*), 75 MCG GT DAILY, (Reported) Oxiconazole Nitrate (Oxistat), TP BID, (Reported) Prednisone* (Prednisone*), 20 MG ORAL BID, (Reported) Saccharomyces Boulardii (Florastor*), 250 MG GT DAILY, (Reported) Warfarin Sod* (Warfarin Sod*), 1.5 MG GT QHS, (Reported) Zinc Oxide (Skin Protectant), TP DAILY, (Reported) Scheduled PRN Acetaminophen* (Acetaminophen*), 650 MG GT Q4HR PRN for Mild Pain/Temp > 100.5, (Reported) Metoclopramide Hcl* (Metoclopramide Hcl*), 10 ML GT EVERY 6 HOURS PRN for Nausea & Vomiting, (Reported) Polyethylene Glycol 3350* (Polyethylene Glycol 3350*), 17 GM GT DAILY PRN for Constipation, (Reported) Discontinued Medications Albuterol Sulfate* (Proair Hfa*), 2 PUFFS INH Q6H PRN for Shortness of Breath, (Reported) Discontinued Reason: Therapy completed Cholecalciferol (Vitamin D3) (Vitamin D3), 2,000 UNIT GT DAILY, (Reported) Discontinued Reason: Prescription changed Ipratropium [place] 0.5MG/2.5ML (Ipratropium [place] 0.5MG/2.5ML), 0.5 MG HHN Q6H PRN for Shortness of Breath, (Reported) Discontinued Reason: Therapy completed Patient History Limited by: medical condition History Provided By: Medical Record Healthcare decision maker N Resuscitation status Advanced Directive on File Physical Exam General Appearance: lethargic Physical Exam Narrative Pt has a G tube with a small amount of granulation tissue. His skin was checked and there are no rashes or open wounds or pressure ulcers. Last 24 Hour Vital Signs Date Time Temp Pulse Resp B/P (MAP) Pulse Ox O2 Delivery O2 Flow Rate FiO2 07/14/20 12:00 6.0 28 07/14/20 12:00 T-piece 07/14/20 12:00 98.4 74 18 121/71 (88) 96 07/14/20 11:41 76 07/14/20 08:00 6.0 28 07/14/20 08:00 98.2 75 20 137/76 (96) 96 07/14/20 08:00 T-piece 07/14/20 07:47 74 07/14/20 07:30 97 Cool Aerosol 6.0 28 07/14/20 04:00 98.1 76 22 131/74 (93) 96 07/14/20 04:00 6.0 28 07/14/20 04:00 T-piece 07/14/20 04:00 71 07/14/20 01:18 98 Cool Aerosol 6.0 28 07/14/20 00:30 68 07/14/20 00:00 98.1 75 20 129/78 (95) 98 07/14/20 00:00 T-piece 07/13/20 20:00 T-piece 07/13/20 20:00 6.0 28 07/13/20 20:00 97.9 69 20 133/74 (93) 98 07/13/20 19:37 69 07/13/20 19:30 97 Cool Aerosol 6.0 28 07/13/20 17:59 70 18 120/68 (85) 96 07/13/20 17:00 76 18 120/69 (86) 98 07/13/20 16:02 85 07/13/20 16:00 T-piece 6.0 07/13/20 16:00 98.3 74 23 124/61 (82) 98 07/13/20 16:00 6.0 28 07/13/20 15:00 75 20 129/61 (83) 98 07/13/20 14:00 75 22 115/58 (77) 100 07/13/20 13:30 98 Cool Aerosol 6.0 28 Intake and Output 07/13/20 07/14/20 19:00 07:00 Intake Total 2182.416 ml 1865 ml Output Total 1665 ml 1500 ml Balance 517.416 ml 365 ml Intake Free Water 160 ml IV Total 1552.416 ml 1155 ml Tube Feeding 605 ml 550 ml Other 25 ml Output Urine Total 1665 ml 1500 ml Laboratory Tests Test 07/14/20 03:05 White Blood Count 3.2 K/UL (4.8-10.8) L Red Blood Count 3.62 M/UL (4.70-6.10) L Hemoglobin 10.6 G/DL (14.2-18.0) L Hematocrit 32.1 % (42.0-52.0) L Mean Corpuscular Volume 89 FL (80-99) Mean Corpuscular Hemoglobin 29.3 PG (27.0-31.0) Mean Corpuscular Hemoglobin Concent 32.9 G/DL (32.0-36.0) Red Cell Distribution Width 13.0 % (11.6-14.8) Platelet Count 129 K/UL (150-450) L Mean Platelet Volume 7.9 FL (6.5-10.1) Neutrophils (%) (Auto) % (45.0-75.0) Lymphocytes (%) (Auto) % (20.0-45.0) Monocytes (%) (Auto) % (1.0-10.0) Eosinophils (%) (Auto) % (0.0-3.0) Basophils (%) (Auto) % (0.0-2.0) Erythrocyte Sedimentation Rate 100 MM/HR (0-20) H Sodium Level 140 MMOL/L (136-145) Potassium Level 3.5 MMOL/L (3.5-5.1) Chloride Level 104 MMOL/L (98-107) Carbon Dioxide Level 30 MMOL/L (21-32) Anion Gap 6 mmol/L (5-15) Blood Urea Nitrogen 7 mg/dL (7-18) Creatinine 0.6 MG/DL (0.55-1.30) Estimat Glomerular Filtration Rate > 60 mL/min (>60) Glucose Level 147 MG/DL (74-106) H Calcium Level 8.1 MG/DL (8.5-10.1) L Phosphorus Level 2.2 MG/DL (2.5-4.9) L Magnesium Level 1.7 MG/DL (1.8-2.4) L Total Bilirubin 0.2 MG/DL (0.2-1.0) Aspartate Amino Transf (AST/SGOT) 8 U/L (15-37) L Alanine Aminotransferase (ALT/SGPT) 14 U/L (12-78) Alkaline Phosphatase 69 U/L (46-116) C-Reactive Protein, Quantitative 4.5 mg/dL (0.00-0.90) H Total Protein 6.0 G/DL (6.4-8.2) L Albumin 2.7 G/DL (3.4-5.0) L Globulin 3.3 g/dL Albumin/Globulin Ratio 0.8 (1.0-2.7) L Height (Feet): 5 Height (Inches): 8.00 Weight (Pounds): 173 Medications Current Medications Medications (Trade) Dose Ordered Sig/Yesenia Route PRN Reason Start Time Stop Time Status Last Admin Dose Admin Acetaminophen (Tylenol) 650 mg Q4H PRN GT fever 07/10/20 21:00 08/09/20 20:59 Albuterol/ Ipratropium (Albuterol/ Ipratropium) 3 ml Q4H PRN HHN Shortness of Breath 07/10/20 21:00 07/15/20 20:59 Chlorhexidine Gluconate (Kaila-Hex 2%) 1 applic DAILY@2000 TOPIC 07/14/20 20:00 10/12/20 19:59 Heparin Sodium (Porcine) (Heparin 5000 units/ml) 5,000 units EVERY 12 HOURS SUBQ 07/10/20 21:00 08/24/20 20:59 07/14/20 09:52 Heparin Sodium/ Sodium Chloride (Heparin 1000 units/500ml Premix) 1,000 unit ONCE PRN IV PICC 07/14/20 12:30 07/14/20 23:59 Lansoprazole (Prevacid) 30 mg DAILY GT 07/14/20 09:00 08/13/20 08:59 07/14/20 09:00 Levetiracetam (Keppra) 500 mg Q12HR GT 07/11/20 09:00 08/10/20 08:59 07/14/20 09:00 Levothyroxine Sodium (Synthroid) 75 mcg ACBREAKFAST GT 07/11/20 06:30 08/10/20 06:29 07/14/20 06:05 Lidocaine HCl (Xylocaine 1% 30ml) 30 ml ONCE PRN INJ PICC 07/14/20 12:21 07/14/20 23:59 Lorazepam (Ativan 2mg/ml 1ml) 2 mg Q2H PRN IV For Anxiety 07/10/20 21:00 07/17/20 20:59 Meropenem 1 gm/ Sodium Chloride 55 ml @ 110 mls/hr Q8HR IVPB 07/11/20 14:00 07/16/20 13:59 07/14/20 06:05 Morphine Sulfate (Morphine Sulfate) 4 mg Q4H PRN IVP Severe Pain (Pain Scale 7-10) 07/10/20 21:00 07/17/20 20:59 Ondansetron HCl (Zofran) 4 mg Q6H PRN IVP Nausea & Vomiting 07/10/20 21:00 08/09/20 20:59 Polyethylene Glycol (Miralax) 17 gm DAILYPRN PRN GT Constipation 07/10/20 21:00 08/09/20 20:59 Potassium Phosphate 250 ml @ 62.5 mls/hr Q4H IVPB 07/14/20 10:00 07/14/20 17:59 07/14/20 10:04 Assessment/Plan Assessment/Plan: A:Pt with multiple medical problems admitted from nursing facility. G tube has a minor amount of granulation tissue - if it increases in volume can use silver nitrate to shrink it. G-tube site is clean and no sign of infection. P: To prevent pressure ulcers - Turn and Reposition q2 hours Float and Off load heels Keep sheets clean and dry without any folds or wrinkles Continue to monitor for any areas of pressure Follow nutrition Erica Valero MD Jul 14, 2020 13:43
--- NOTE | 2020-07-14 14:38 | NUR ---
INSURANCE CLINICALS FAXED TO P: [phone] EXT: [phone] F: [phone]
--- NOTE | 2020-07-14 14:42 | NUR ---
CASE MANAGEMENT: NOTE CLINICALS FAXED TO KEMAL GUZMAN ORDER REQUESTED ORDER FOR PICC LINE NOTED. PICC LINE WILL NOT HAPPEN TODAY PER IR TECH Addendum: 07/14/20 at 1625 by Vivienne Tao CM CORAL IS TO REVIEW CLINICALS
[2020-07-14 16:00] VITALS: BP 139/81
--- NOTE | 2020-07-14 18:58 | NUR ---
NURSE HAND-OFF REPORT: Important Events on Shift: Patient Status: Diet: Pending Orders: Pending Results/Labs: Pending MD notification: Latest Vital Signs: Temperature 97.2 , Pulse 81 , B/P 139 /81 , Respiratory Rate 18 , O2 SAT 98 , T-piece, O2 Flow Rate 6.0 . Vital Sign Comment: EKG Rhythm: Sinus Rhythm Rhythm change?: N MD Notified?: - MD Response: Latest Ridley Fall Score: 50 Fall Risk: High Risk Safety Measures: Call light Within Reach, Bed Alarm Zone 2, Side Rails Side Rails x2, Bed position Low and Locked. Fall Precautions: Yellow Socks Yellow Gown Door Sign Patient Fall Education Report given to . Pt is stable, no stress noted, mouth wash and suction done frequently during shift. Endorsed plan of care.
--- NOTE | 2020-07-14 19:08 | NUR ---
Received report from MARI Randolph. Pt is resting in bed, not in acute distress, obtunded. Sinus Rhythm on the monitor. Tolerating T-piece with the following setting 6L O2, FiO2 28% and saturating 98%. Tolerating GT feeding of Osmolite 1.5 @ 55cc. Peripheral IV in R UA and R hand are intact and patent running D5NS @ 75cc/hr. Hu catheter is intact and patent and draining yellowish urine. Bed is locked and in lowest position, bed alarm on, call light within reach. HOB is elevated at all times. Will continue to monitor pt. Will continue with the plan of care.
[2020-07-14 20:00] VITALS: BP 120/83
[2020-07-14] MEDS ORDERED: Dyna-Hex 2% Top Sol 2oz TOPIC SCH (20:00)
[2020-07-15] VITALS: BP 132/80
[2020-07-15 04:00] VITALS: BP 136/82
--- NOTE | 2020-07-15 04:30 | NUR ---
NURSE NOTES: Complete bed bath was given, dressings changed, turned and repositioned. Pt tolerated. Vitals remain stable, and tolerating T-piece saturating @ 98%. Will continue to monitor pt.
[2020-07-15 05:12] LABS: BASOPHILS % (AUTO) 0.6 % (0.0-2.0); EOSINOPHILS % (AUTO) 15.3 % (0.0-3.0); HEMATOCRIT 34.7 % (42.0-52.0); HEMOGLOBIN 11.5 G/DL (14.2-18.0); LYMPHOCYTES % (AUTO) 27.5 % (20.0-45.0); MEAN CORPUSCULAR VOLUME 89 FL (80-99); MONOCYTES % (AUTO) 6.6 % (1.0-10.0); NEUTROPHILS % (AUTO) 49.9 % (45.0-75.0); PLATELET COUNT 140 K/UL (150-450); RED BLOOD COUNT 3.92 M/UL (4.70-6.10); RED CELL DISTRIBUTION WIDTH 12.9 % (11.6-14.8); WHITE BLOOD COUNT 3.8 K/UL (4.8-10.8)
[2020-07-15] MEDS: Meropenem 1 GM in NS 55 ML IVPB SCH ×3 (06:01→21:37)
[2020-07-15 06:07] LABS: ALANINE AMINOTRANSFERASE 20 U/L (12-78); ALBUMIN 2.9 G/DL (3.4-5.0); ALBUMIN/GLOBULIN RATIO 0.8 (1.0-2.7); ALKALINE PHOSPHATASE 88 U/L (46-116); ANION GAP 5 mmol/L (5-15); ASPARTATE AMINO TRANSFERASE 15 U/L (15-37); BILIRUBIN,TOTAL 0.2 MG/DL (0.2-1.0); BLOOD UREA NITROGEN 9 mg/dL (7-18); CALCIUM 8.2 MG/DL (8.5-10.1); CARBON DIOXIDE 30 MMOL/L (21-32); CHLORIDE 104 MMOL/L (98-107); CREATININE 0.6 MG/DL (0.55-1.30); PHOSPHORUS 2.1 MG/DL (2.5-4.9); POTASSIUM 4.1 MMOL/L (3.5-5.1); SODIUM 139 MMOL/L (136-145)
--- NOTE | 2020-07-15 07:09 | NUR ---
NURSE HAND-OFF REPORT: Important Events on Shift:none Patient Status: stable Diet: Osmolite 1.5 @ 55cc/hr X 22 hrs. Pending Orders: none Pending Results/Labs:none Pending MD notification:none Latest Vital Signs: Temperature 98.1 , Pulse 76 , B/P 136 /82 , Respiratory Rate 24 , O2 SAT 99 , T-piece, O2 Flow Rate 6.0 . Vital Sign Comment: stable EKG Rhythm: Sinus Rhythm Rhythm change?: N MD Notified?: - MD Response: Latest Ridley Fall Score: 50 Fall Risk: High Risk Safety Measures: Call light Within Reach, Bed Alarm Zone 2, Side Rails Side Rails x2, Bed position Low and Locked. Fall Precautions: Yellow Socks Yellow Gown Door Sign Patient Fall Education Report given to Lukasz.
--- NOTE | 2020-07-15 07:50 | NUR ---
NURSE NOTES:NURSE NOTES:Handoff received from MARI Perez. Patient received resting in bed, patient is obtunded, eyes open to vigorous shaking but patient does not respond to voice. Patient has a trach Portex 7 connected to 02 at 6 liters with FI02 of 28%, tolerating well with no signs of respiratory distress. Patient also has a gtube running Osmolyte at 55ML/HR for 22 hours. Feeding was held from [id number] this AM. Patient has a Hu cath patent and draining to gravity, draining kathryn urine. Patient also has a padded helmet for protection. Patient has optifoam covering sacral skin issue. Patient has right upper arm 20g and Right hand IV sites clean dry and intact. patient is on quality assurance monitor running sinus rhythm at 76. 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 Will continue to monitor patient closely.
[2020-07-15 08:00] VITALS: BP 134/70
--- NOTE | 2020-07-15 08:17 | Infectious Diseases Prog Note ---
Assessment/Plan Assessment: Septic SHock- now off pressors Multifocal PNA- COVID19 neg x2 -07/11 rapid COVID PCR neg -07/10 CXR:Bilateral infiltrates concerning for multifocal pneumonia. rapid COVID PCR neg, Influenza ag neg sp cx GGS, PsA (gama S) CONS bacteremia- likely contaminant -07/10 bcx 4/4 S. epi; 07/11 Bcx NTD Afebrile Leukocytosis, SP> mild leukopenia -07/10 u/a neg ZIGGY, sp CVA HTN COPD dysphagia sp GT hypothyroidism traumatic SDH sp hemilobectomy chronic resp failure sp trach dependent SNF resident ([facility]) Plan: - Meropenem #5 (abx d #6) - will keep for now,. tried to called micro to see if susceptible to Levaquin but no one working in micro lab today -if susceptible to Levaquin, will switch -07/14 SP vanco #5 -07/11 SP IV Amikacin and Ertapenem #2 -07/10 SP Cefepime x1 -f/u cx -Monitor CBC/CMP, temperatures -COVID19 neg x2 -f/u repeat Bcx x2 -PEG/Trach care Thank you for this consultation. Will continue to follow along with you. Discussed with RN. Subjective Allergies: Coded Allergies: CEPHALOSPORINS (Verified Allergy, Intermediate, SKIN RASH, 10/13/18) CEFEPIME AMOXICILLIN (Verified Allergy, Unknown, 07/11/20) tolerates carbapenem AF WBC 3.8 NAD on TC Objective Last 24 Hour Vital Signs Date Time Temp Pulse Resp B/P (MAP) Pulse Ox O2 Delivery O2 Flow Rate FiO2 07/15/20 04:00 98.1 76 24 136/82 (100) 99 07/15/20 04:00 6.0 28 07/15/20 04:00 79 07/15/20 04:00 T-piece 07/15/20 01:00 98 Cool Aerosol 6.0 28 07/15/20 00:00 97.9 76 18 132/80 (97) 99 07/15/20 00:00 T-piece 07/15/20 00:00 75 07/14/20 20:00 T-piece 07/14/20 20:00 6.0 28 07/14/20 20:00 97.5 86 18 120/83 (95) 99 07/14/20 20:00 73 10/23/20 19:12 99 Cool Aerosol 6.0 28 07/14/20 16:00 97.2 81 18 139/81 (100) 98 07/14/20 16:00 6.0 28 07/14/20 16:00 T-piece 07/14/20 15:41 74 07/14/20 13:50 97 Cool Aerosol 6.0 28 07/14/20 12:00 6.0 28 07/14/20 12:00 T-piece 07/14/20 12:00 98.4 74 18 121/71 (88) 96 07/14/20 11:41 76 Height (Feet): 5 Height (Inches): 8.00 Weight (Pounds): 173 Gen: NAD HEENT: NCAT, EOMI, PERRL CV: RRR Pulm: CTAB Abd: Soft, NTND Ext: No c/c/e Neuro: Awake Laboratory Tests Test 07/15/20 02:50 White Blood Count 3.8 K/UL (4.8-10.8) L Red Blood Count 3.92 M/UL (4.70-6.10) L Hemoglobin 11.5 G/DL (14.2-18.0) L Hematocrit 34.7 % (42.0-52.0) L Mean Corpuscular Volume 89 FL (80-99) Mean Corpuscular Hemoglobin 29.4 PG (27.0-31.0) Mean Corpuscular Hemoglobin Concent 33.1 G/DL (32.0-36.0) Red Cell Distribution Width 12.9 % (11.6-14.8) Platelet Count 140 K/UL (150-450) L Mean Platelet Volume 7.8 FL (6.5-10.1) Neutrophils (%) (Auto) 49.9 % (45.0-75.0) Lymphocytes (%) (Auto) 27.5 % (20.0-45.0) Monocytes (%) (Auto) 6.6 % (1.0-10.0) Eosinophils (%) (Auto) 15.3 % (0.0-3.0) H Basophils (%) (Auto) 0.6 % (0.0-2.0) Erythrocyte Sedimentation Rate 100 MM/HR (0-20) H Sodium Level 139 MMOL/L (136-145) Potassium Level 4.1 MMOL/L (3.5-5.1) Chloride Level 104 MMOL/L (98-107) Carbon Dioxide Level 30 MMOL/L (21-32) Anion Gap 5 mmol/L (5-15) Blood Urea Nitrogen 9 mg/dL (7-18) Creatinine 0.6 MG/DL (0.55-1.30) Estimat Glomerular Filtration Rate > 60 mL/min (>60) Glucose Level 155 MG/DL (74-106) H Calcium Level 8.2 MG/DL (8.5-10.1) L Phosphorus Level 2.1 MG/DL (2.5-4.9) L Magnesium Level 2.1 MG/DL (1.8-2.4) Total Bilirubin 0.2 MG/DL (0.2-1.0) Aspartate Amino Transf (AST/SGOT) 15 U/L (15-37) Alanine Aminotransferase (ALT/SGPT) 20 U/L (12-78) Alkaline Phosphatase 88 U/L (46-116) C-Reactive Protein, Quantitative 3.2 mg/dL (0.00-0.90) H Total Protein 6.5 G/DL (6.4-8.2) Albumin 2.9 G/DL (3.4-5.0) L Globulin 3.6 g/dL Albumin/Globulin Ratio 0.8 (1.0-2.7) L Current Medications Medications (Trade) Dose Ordered Sig/Yesenia Route PRN Reason Start Time Stop Time Status Last Admin Dose Admin Acetaminophen (Tylenol) 650 mg Q4H PRN GT fever 07/10/20 21:00 08/09/20 20:59 Albuterol/ Ipratropium (Albuterol/ Ipratropium) 3 ml Q4H PRN HHN Shortness of Breath 07/10/20 21:00 07/15/20 20:59 Heparin Sodium (Porcine) (Heparin 5000 units/ml) 5,000 units EVERY 12 HOURS SUBQ 07/10/20 21:00 08/24/20 20:59 07/14/20 09:52 Lansoprazole (Prevacid) 30 mg DAILY GT 07/14/20 09:00 08/13/20 08:59 07/14/20 09:00 Levetiracetam (Keppra) 500 mg Q12HR GT 07/11/20 09:00 08/10/20 08:59 07/14/20 21:16 Levothyroxine Sodium (Synthroid) 75 mcg ACBREAKFAST GT 07/11/20 06:30 08/10/20 06:29 07/15/20 06:01 Lorazepam (Ativan 2mg/ml 1ml) 2 mg Q2H PRN IV For Anxiety 07/10/20 21:00 07/17/20 20:59 Meropenem 1 gm/ Sodium Chloride 55 ml @ 110 mls/hr Q8HR IVPB 07/11/20 14:00 07/16/20 13:59 07/15/20 06:01 Morphine Sulfate (Morphine Sulfate) 4 mg Q4H PRN IVP Severe Pain (Pain Scale 7-10) 07/10/20 21:00 07/17/20 20:59 Ondansetron HCl (Zofran) 4 mg Q6H PRN IVP Nausea & Vomiting 07/10/20 21:00 08/09/20 20:59 Polyethylene Glycol (Miralax) 17 gm DAILYPRN PRN GT Constipation 07/10/20 21:00 08/09/20 20:59 Potassium Phosphate 20 mm/ Sodium Chloride 281.6667 ml @ 46.944 m... ONCE ONCE IV 07/15/20 10:00 07/15/20 15:59 Roberta Augustin M.D. Jul 15, 2020 08:17
[2020-07-15] MEDS: levETIRAcetam 500mg/5ml Liquid GT SCH ×2 (09:01→21:20)
[2020-07-15] MEDS: Heparin 5000 units/ml inj SUBQ SCH ×2 (09:02→21:25)
--- NOTE | 2020-07-15 09:29 | Pulmonology Progress Note ---
Subjective ROS Limited/Unobtainable: Yes Allergies: Coded Allergies: CEPHALOSPORINS (Verified Allergy, Intermediate, SKIN RASH, 10/13/18) CEFEPIME AMOXICILLIN (Verified Allergy, Unknown, 07/11/20) tolerates carbapenem Subjective stable on current Fio2 , no resp distress still congested, afebrile pancytopenic now Objective Last 24 Hour Vital Signs Date Time Temp Pulse Resp B/P (MAP) Pulse Ox O2 Delivery O2 Flow Rate FiO2 07/15/20 08:42 76 07/15/20 08:00 6.0 28 07/15/20 08:00 T-piece 07/15/20 08:00 99.0 79 24 134/70 (91) 95 07/15/20 07:30 97 Cool Aerosol 6.0 28 07/15/20 04:00 98.1 76 24 136/82 (100) 99 07/15/20 04:00 6.0 28 07/15/20 04:00 79 07/15/20 04:00 T-piece 07/15/20 01:00 98 Cool Aerosol 6.0 28 07/15/20 00:00 97.9 76 18 132/80 (97) 99 07/15/20 00:00 T-piece 07/15/20 00:00 75 07/14/20 20:00 T-piece 07/14/20 20:00 6.0 28 07/14/20 20:00 97.5 86 18 120/83 (95) 99 07/14/20 20:00 73 07/14/20 19:12 99 Cool Aerosol 6.0 28 07/14/20 16:00 97.2 81 18 139/81 (100) 98 07/14/20 16:00 6.0 28 07/14/20 16:00 T-piece 07/14/20 15:41 74 07/14/20 13:50 97 Cool Aerosol 6.0 28 07/14/20 12:00 6.0 28 07/14/20 12:00 T-piece 07/14/20 12:00 98.4 74 18 121/71 (88) 96 07/14/20 11:41 76 Intake and Output 07/14/20 07/15/20 19:00 07:00 Intake Total 2047.500 ml 790 ml Output Total 1800 ml 1400 ml Balance 247.500 ml -610 ml Intake Free Water 120 ml 130 ml IV Total 1267.500 ml 55 ml Tube Feeding 660 ml 605 ml Output Urine Total 1800 ml 1400 ml Objective General: No acute distress, open eyes, not verbal, HEENT: NCAT, sclera anicteric, Right scalp deformity, in helmet, Neck: Supple, trach collar with Portex # 7, Fio2 28% Lungs: bilateral rhonchi Heart: Regular rate and rhythm, SR on tele, no murmuts Abdomen: soft, nontender, nondistended. Normoactive bowel sounds, PEG site intact. Extremities: No cyanosis , clubbing or peripheral edema. Neuro: not responsive to verbal stimuli, withdraws to tactile stimuli, unable to move extremities, in vegetative state. Laboratory Tests 07/15/20 02:50: White Blood Count 3.8L, Red Blood Count 3.92L, Hemoglobin 11.5L, Hematocrit 34.7L, Mean Corpuscular Volume 89, Mean Corpuscular Hemoglobin 29.4, Mean Corpuscular Hemoglobin Concent 33.1, Red Cell Distribution Width 12.9, Platelet Count 140L, Mean Platelet Volume 7.8, Neutrophils (%) (Auto) 49.9, Lymphocytes (%) (Auto) 27.5, Monocytes (%) (Auto) 6.6, Eosinophils (%) (Auto) 15.3H, Basophils (%) (Auto) 0.6, Erythrocyte Sedimentation Rate 100H, Sodium Level 139, Potassium Level 4.1, Chloride Level 104, Carbon Dioxide Level 30, Anion Gap 5, Blood Urea Nitrogen 9, Creatinine 0.6, Estimat Glomerular Filtration Rate > 60, Glucose Level 155H, Calcium Level 8.2L, Phosphorus Level 2.1L, Magnesium Level 2.1, Total Bilirubin 0.2, Aspartate Amino Transf (AST/SGOT) 15, Alanine Aminotransferase (ALT/SGPT) 20, Alkaline Phosphatase 88, C-Reactive Protein, Quantitative 3.2H, Total Protein 6.5, Albumin 2.9L, Globulin 3.6, Albumin/Globulin Ratio 0.8L Current Medications Medications (Trade) Dose Ordered Sig/Yesenia Route PRN Reason Start Time Stop Time Status Last Admin Dose Admin Acetaminophen (Tylenol) 650 mg Q4H PRN GT fever 07/10/20 21:00 08/09/20 20:59 Albuterol/ Ipratropium (Albuterol/ Ipratropium) 3 ml Q4H PRN HHN Shortness of Breath 07/10/20 21:00 07/15/20 20:59 Heparin Sodium (Porcine) (Heparin 5000 units/ml) 5,000 units EVERY 12 HOURS SUBQ 07/10/20 21:00 08/24/20 20:59 07/15/20 09:02 Lansoprazole (Prevacid) 30 mg DAILY GT 07/14/20 09:00 08/13/20 08:59 07/15/20 09:01 Levetiracetam (Keppra) 500 mg Q12HR GT 07/11/20 09:00 08/10/20 08:59 07/15/20 09:01 Levothyroxine Sodium (Synthroid) 75 mcg ACBREAKFAST GT 07/11/20 06:30 08/10/20 06:29 07/15/20 06:01 Lorazepam (Ativan 2mg/ml 1ml) 2 mg Q2H PRN IV For Anxiety 07/10/20 21:00 07/17/20 20:59 Meropenem 1 gm/ Sodium Chloride 55 ml @ 110 mls/hr Q8HR IVPB 07/11/20 14:00 07/16/20 13:59 07/15/20 06:01 Morphine Sulfate (Morphine Sulfate) 4 mg Q4H PRN IVP Severe Pain (Pain Scale 7-10) 07/10/20 21:00 07/17/20 20:59 Ondansetron HCl (Zofran) 4 mg Q6H PRN IVP Nausea & Vomiting 07/10/20 21:00 08/09/20 20:59 Polyethylene Glycol (Miralax) 17 gm DAILYPRN PRN GT Constipation 07/10/20 21:00 08/09/20 20:59 Potassium Phosphate 20 mm/ Sodium Chloride 281.6667 ml @ 46.944 m... ONCE ONCE IV 07/15/20 10:00 07/15/20 15:59 Assessment/Plan Assessment/Plan ASSESSMENT Septic shock Bilateral pneumonia, probably aspiration TBI, history of SDH, s/p craniotomy ZIGGY 2 to s dehydration COPD Seizure disorder Chronic encephalopathy Hypothyroidism Dysphagia, feeding by G-tube Electrolyte imbalance Anemia Pancytopenia PLAN OF CARE SDU s/p pressors , BP stable now ECHO noted trach care, pulmonary toilet, fup with CXR abx as per ID recs COVID-19 x2 - NGT initial BCX likely contaminant , fup BCX NGTD SCX with GGS and PSA DVT prophylaxis aspiration precaution, G-tube feeding seizure precaution continue Keppra ZIGGY resolved, likely 2 to dehydration correct electrolytes as needed, avoid nephrotoxic monitor H&H with goal to keep hemoglobin above 7, remain at the baseline monitor counts, now pancytopenic TSH WNL, continue current dose of levothyroxine bowel regimen supportive care case discussed and evaluated by supervising physician Regla Henderson NP Jul 15, 2020 09:29
[2020-07-15] MEDS ORDERED: Potassium Phosphate 20 MM in NS 275 ML IV ONE (10:00)
--- NOTE | 2020-07-15 10:30 | NUR ---
NURSE NOTES:Patient cleaned and new bed sheets provided. Wound assessment completed. Patient has hypopigmentation from old sacral injury, but no redness and skin is intact.
[2020-07-15 12:00] VITALS: BP 100/65
--- NOTE | 2020-07-15 12:04 | NUR ---
CASE MANAGEMENT:REVIEW 07/15/20 SI: SEPSIS. BILATERAL PNA 99.0 79 24 134/70 95% ON T-PIECE 6L/28% ESR+100 PHOS-2.1 IS: IV MEROPENEM Q8HRS IV K-PHOS X1 KEPPRA GT Q12 SYNTHROID GT QAM HEPARIN SQ Q12 : SDU DCP: FROM [facility] PLAN: PICC LINE PLACEMENT PENDING
[2020-07-15] MEDS ORDERED: NS 275ml ONE (15:18)
[2020-07-15] MEDS ORDERED: D5 1/2NS 1000ml IV ONE (15:18)
--- NOTE | 2020-07-15 15:45 | Nephrology Progress Note ---
Assessment/Plan Problem List: (1) ZIGGY (acute kidney injury) (2) Dehydration (3) Electrolyte imbalance (4) COPD (chronic obstructive pulmonary disease) (5) PEG (percutaneous endoscopic gastrostomy) adjustment/replacement/removal (6) Anemia Assessment Elevated creatinine, acute renal failure, mainly dehydration Septic shock Pneumonia, patient has T-piece to oxygen Encephalopathy Feeding by G-tube Chronic vegetative state Mild anemia Hypothyroidism Plan July 15: Labs reviewed. Abnormal chemistries and electrolytes addressed. Stable from renal standpoint of view. July 14: Labs reviewed. Abnormal chemistries and electrolyte addressed. Will DC IV fluid. The renal parameters are stable. July 13: Discussed with RN. Labs reviewed. Electrolyte abnormalities addressed. Continue per consultants. Potassium supplement IV ordered Hu catheter IV fluid as needed to Monitor renal parameters Antibiotics Avoid nephrotoxic's Subjective ROS Limited/Unobtainable: Yes Objective Objective Last 24 Hour Vital Signs Date Time Temp Pulse Resp B/P (MAP) Pulse Ox O2 Delivery O2 Flow Rate FiO2 07/15/20 13:10 100 Cool Aerosol 6.0 28 07/15/20 12:00 85 07/15/20 12:00 6.0 28 07/15/20 12:00 98.1 88 22 100/65 (77) 96 07/15/20 12:00 T-piece 07/15/20 08:42 76 07/15/20 08:00 6.0 28 07/15/20 08:00 T-piece 07/15/20 08:00 99.0 79 24 134/70 (91) 95 07/15/20 07:30 97 Cool Aerosol 6.0 28 07/15/20 04:00 98.1 76 24 136/82 (100) 99 07/15/20 04:00 6.0 28 07/15/20 04:00 79 07/15/20 04:00 T-piece 07/15/20 01:00 98 Cool Aerosol 6.0 28 07/15/20 00:00 97.9 76 18 132/80 (97) 99 07/15/20 00:00 T-piece 07/15/20 00:00 75 07/14/20 20:00 T-piece 07/14/20 20:00 6.0 28 07/14/20 20:00 97.5 86 18 120/83 (95) 99 10/23/20 20:00 73 07/14/20 19:12 99 Cool Aerosol 6.0 28 07/14/20 16:00 97.2 81 18 139/81 (100) 98 07/14/20 16:00 6.0 28 07/14/20 16:00 T-piece Intake and Output 07/14/20 07/15/20 19:00 07:00 Intake Total 2047.500 ml 790 ml Output Total 1800 ml 1400 ml Balance 247.500 ml -610 ml Intake Free Water 120 ml 130 ml IV Total 1267.500 ml 55 ml Tube Feeding 660 ml 605 ml Output Urine Total 1800 ml 1400 ml Laboratory Tests 07/15/20 02:50: White Blood Count 3.8L, Red Blood Count 3.92L, Hemoglobin 11.5L, Hematocrit 34.7L, Mean Corpuscular Volume 89, Mean Corpuscular Hemoglobin 29.4, Mean Corpuscular Hemoglobin Concent 33.1, Red Cell Distribution Width 12.9, Platelet Count 140L, Mean Platelet Volume 7.8, Neutrophils (%) (Auto) 49.9, Lymphocytes (%) (Auto) 27.5, Monocytes (%) (Auto) 6.6, Eosinophils (%) (Auto) 15.3H, Basoph ils (%) (Auto) 0.6, Erythrocyte Sedimentation Rate 100H, Sodium Level 139, Potassium Level 4.1, Chloride Level 104, Carbon Dioxide Level 30, Anion Gap 5, Blood Urea Nitrogen 9, Creatinine 0.6, Estimat Glomerular Filtration Rate > 60, Glucose Level 155H, Calcium Level 8.2L, Phosphorus Level 2.1L, Magnesium Level 2.1, Total Bilirubin 0.2, Aspartate Amino Transf (AST/SGOT) 15, Alanine Aminotransferase (ALT/SGPT) 20, Alkaline Phosphatase 88, C-Reactive Protein, Quantitative 3.2H, Total Protein 6.5, Albumin 2.9L, Globulin 3.6, Albumin/Globulin Ratio 0.8L Height (Feet): 5 Height (Inches): 8.00 Weight (Pounds): 173 General Appearance: no apparent distress EENT: other - T-piece to aerosol Cardiovascular: tachycardia Respiratory/Chest: decreased breath sounds Abdomen: distended Objective No change Francisco Stevenson MD Jul 15, 2020 15:45
[2020-07-15 16:00] VITALS: BP 119/63
--- NOTE | 2020-07-15 17:12 | Internal Med Progress Note ---
Subjective Date of Service: Jul 15, 2020 Physician Name Broderick Tobias Attending Physician Lion Cates MD Current Medications Medications (Trade) Dose Ordered Sig/Yesenia Route PRN Reason Start Time Stop Time Status Last Admin Dose Admin Acetaminophen (Tylenol) 650 mg Q4H PRN GT fever 07/10/20 21:00 08/09/20 20:59 Albuterol/ Ipratropium (Albuterol/ Ipratropium) 3 ml Q4H PRN HHN Shortness of Breath 07/10/20 21:00 07/15/20 20:59 Heparin Sodium (Porcine) (Heparin 5000 units/ml) 5,000 units EVERY 12 HOURS SUBQ 07/10/20 21:00 08/24/20 20:59 07/15/20 09:02 Lansoprazole (Prevacid) 30 mg DAILY GT 07/14/20 09:00 08/13/20 08:59 07/15/20 09:01 Levetiracetam (Keppra) 500 mg Q12HR GT 07/11/20 09:00 08/10/20 08:59 07/15/20 09:01 Levothyroxine Sodium (Synthroid) 75 mcg ACBREAKFAST GT 07/11/20 06:30 08/10/20 06:29 07/15/20 06:01 Lorazepam (Ativan 2mg/ml 1ml) 2 mg Q2H PRN IV For Anxiety 07/10/20 21:00 07/17/20 20:59 Meropenem 1 gm/ Sodium Chloride 55 ml @ 110 mls/hr Q8HR IVPB 07/11/20 14:00 07/17/20 13:59 07/15/20 14:14 Morphine Sulfate (Morphine Sulfate) 4 mg Q4H PRN IVP Severe Pain (Pain Scale 7-10) 07/10/20 21:00 07/17/20 20:59 Ondansetron HCl (Zofran) 4 mg Q6H PRN IVP Nausea & Vomiting 07/10/20 21:00 08/09/20 20:59 Polyethylene Glycol (Miralax) 17 gm DAILYPRN PRN GT Constipation 07/10/20 21:00 08/09/20 20:59 Allergies: Coded Allergies: CEPHALOSPORINS (Verified Allergy, Intermediate, SKIN RASH, 10/13/18) CEFEPIME AMOXICILLIN (Verified Allergy, Unknown, 07/11/20) tolerates carbapenem ROS Limited/Unobtainable: Yes Subjective 64 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 Now sepsis and pneumonia. Cover for Int Nelson-DR Cates. Step down unit Objective Last Vital Signs Date Time Temp Pulse Resp B/P (MAP) Pulse Ox O2 Delivery O2 Flow Rate FiO2 07/15/20 16:37 78 07/15/20 16:00 T-piece 07/15/20 16:00 6.0 28 07/15/20 16:00 98.1 21 119/63 (81) 97 Laboratory Tests Test 07/15/20 02:50 White Blood Count 3.8 K/UL (4.8-10.8) L Red Blood Count 3.92 M/UL (4.70-6.10) L Hemoglobin 11.5 G/DL (14.2-18.0) L Hematocrit 34.7 % (42.0-52.0) L Mean Corpuscular Volume 89 FL (80-99) Mean Corpuscular Hemoglobin 29.4 PG (27.0-31.0) Mean Corpuscular Hemoglobin Concent 33.1 G/DL (32.0-36.0) Red Cell Distribution Width 12.9 % (11.6-14.8) Platelet Count 140 K/UL (150-450) L Mean Platelet Volume 7.8 FL (6.5-10.1) Neutrophils (%) (Auto) 49.9 % (45.0-75.0) Lymphocytes (%) (Auto) 27.5 % (20.0-45.0) Monocytes (%) (Auto) 6.6 % (1.0-10.0) Eosinophils (%) (Auto) 15.3 % (0.0-3.0) H Basophils (%) (Auto) 0.6 % (0.0-2.0) Erythrocyte Sedimentation Rate 100 MM/HR (0-20) H Sodium Level 139 MMOL/L (136-145) Potassium Level 4.1 MMOL/L (3.5-5.1) Chloride Level 104 MMOL/L (98-107) Carbon Dioxide Level 30 MMOL/L (21-32) Anion Gap 5 mmol/L (5-15) Blood Urea Nitrogen 9 mg/dL (7-18) Creatinine 0.6 MG/DL (0.55-1.30) Estimat Glomerular Filtration Rate > 60 mL/min (>60) Glucose Level 155 MG/DL (74-106) H Calcium Level 8.2 MG/DL (8.5-10.1) L Phosphorus Level 2.1 MG/DL (2.5-4.9) L Magnesium Level 2.1 MG/DL (1.8-2.4) Total Bilirubin 0.2 MG/DL (0.2-1.0) Aspartate Amino Transf (AST/SGOT) 15 U/L (15-37) Alanine Aminotransferase (ALT/SGPT) 20 U/L (12-78) Alkaline Phosphatase 88 U/L (46-116) C-Reactive Protein, Quantitative 3.2 mg/dL (0.00-0.90) H Total Protein 6.5 G/DL (6.4-8.2) Albumin 2.9 G/DL (3.4-5.0) L Globulin 3.6 g/dL Albumin/Globulin Ratio 0.8 (1.0-2.7) L Intake and Output 07/14/20 07/15/20 19:00 07:00 Intake Total 2047.500 ml 790 ml Output Total 1800 ml 1400 ml Balance 247.500 ml -610 ml Intake Free Water 120 ml 130 ml IV Total 1267.500 ml 55 ml Tube Feeding 660 ml 605 ml Output Urine Total 1800 ml 1400 ml Objective PHYSICAL EXAMINATION: GENERAL: The patient is a well-developed, well-nourished male, with multiple contractures, who is nonresponsive. HEENT: Eyes, pupils equal and responsive to light and accommodation. The patient does not track. CARDIOVASCULAR: Tachycardic, regular rhythm. S1, S2 are normal without murmurs, rubs, or gallops. ABDOMEN: Soft, nontender, nondistended. Positive bowel sounds. No evidence of hepatosplenomegaly. Currently no rebound or guarding. EXTREMITIES: Multiple contractures without clubbing, cyanosis, or edema. RECTAL/GENITAL: Not performed. NEUROLOGICAL: Unable to assess. Assessment/Plan Assessment/Plan ASSESSMENT: This is a 64-year-old male. 1. Bilateral pneumonia=pseudomonas and Group G strep 2. Sepsis.=Coag neg staph 3. Hypotension. 4. Leukocytosis. 5. Chronic respiratory failure. 6. History of subdural hematoma. 7. Seizure disorder. 8. Hypertension. 9. Hypothyroidism. 10. Chronic deep venous thrombosis. 11. Encephalopathy. TREATMENT: 1. Sepsis/bilateral pneumonia. Infectious disease consultation=Dr. Salinas. ABX=meropenem. Pulmonary consultation = Dr. Linda Foley. 2. Chronic respiratory failure. As above, a pulmonary consultation was obtained with Dr. Linda Foley. 3. History of subdural hematoma. 4. Seizure disorder. Continue Keppra as above. 5. Hypertension. The patient is currently hypotensive. 6. Hypothyroidism. Continue Synthroid as above. 7. Chronic deep venous thrombosis. Continue Coumadin as above. 8. Encephalopathy. Broderick Tobias MD Jul 15, 2020 17:12
--- NOTE | 2020-07-15 19:25 | NUR ---
NURSE NOTES: RECEIVED REPORT FROM MARI EDMONDSON. PATIENT OBTUNDED, APPEARS TO TRY TO OPEN EYES, NON-VERBAL. NO S/SX OF PAIN OR DISCOMFORT NOTED AT THIS TIME. BREATHING IS EVEN AND UNLABORED ON CURRENT SETTINGS OF T-PIECE FIO2 28%, 6LPM O2- NO S/SX OF DISTRESS NOTED, SAO2 96%. IV SITE ON ESTELA AND RIGHT HAND PATENT, INTACT, ASYMPTOMATIC AND SALINE-LOCKED. GTF RUNNING PRESCRIBED- GT SITE PATENT AND ASYMPTOMATIC. NORTON CATHETER DRAINING WELL TO GRAVITY- URINE CLEAR AND YELLOW IN COLOR. FALL AND ASPIRATION PRECAUTIONS IN PLACE. CONTACT ISOLATION IMPLEMENTED. BED LOCKED AND IN LOWEST POSITION, SIDERAILS UP X 3. CALL LIGHT WITHIN REACH, WILL CONTINUE TO MONITOR.
--- NOTE | 2020-07-15 19:33 | NUR ---
NURSE HAND-OFF REPORT: Important Events on Shift:N/A Patient Status: stable Diet: Osmolyte @ 55ML/HR for 22 hours hold 0500-0700AM Pending Orders: None Pending Results/Labs:None Pending MD notification:None Latest Vital Signs: Temperature 98.1 , Pulse 78 , B/P 119 /63 , Respiratory Rate 21 , O2 SAT 97 , T-piece, O2 Flow Rate 6.0 . Vital Sign Comment: EKG Rhythm: Sinus Rhythm Rhythm change?: N MD Notified?: - MD Response: Latest Ridley Fall Score: 50 Fall Risk: High Risk Safety Measures: Call light Within Reach, Bed Alarm Zone 2, Side Rails Side Rails x2, Bed position Low and Locked. Fall Precautions: Yellow Socks Yellow Gown Door Sign Patient Fall Education Report given to MARI Pickering.
[2020-07-15 20:00] VITALS: BP 117/66
[2020-07-16] VITALS: BP 114/67
[2020-07-16 04:00] VITALS: BP 101/68
[2020-07-16 05:39] LABS: BASOPHILS % (AUTO) 0.7 % (0.0-2.0); EOSINOPHILS % (AUTO) 12.6 % (0.0-3.0); HEMATOCRIT 39.2 % (42.0-52.0); LYMPHOCYTES % (AUTO) 35.6 % (20.0-45.0); MEAN CORPUSCULAR VOLUME 89 FL (80-99); MONOCYTES % (AUTO) 5.3 % (1.0-10.0); NEUTROPHILS % (AUTO) 45.7 % (45.0-75.0); PLATELET COUNT 166 K/UL (150-450); RED BLOOD COUNT 4.39 M/UL (4.70-6.10); RED CELL DISTRIBUTION WIDTH 13.2 % (11.6-14.8); WHITE BLOOD COUNT 4.1 K/UL (4.8-10.8)
[2020-07-16] MEDS: Meropenem 1 GM in NS 55 ML IVPB SCH ×3 (06:13→21:11)
[2020-07-16 06:16] LABS: ANION GAP 5 mmol/L (5-15); BLOOD UREA NITROGEN 11 mg/dL (7-18); CALCIUM 8.7 MG/DL (8.5-10.1); CARBON DIOXIDE 31 MMOL/L (21-32); CHLORIDE 101 MMOL/L (98-107); CREATININE 0.6 MG/DL (0.55-1.30); POTASSIUM 4.4 MMOL/L (3.5-5.1); SODIUM 136 MMOL/L (136-145)
--- NOTE | 2020-07-16 07:25 | NUR ---
NURSE HAND-OFF REPORT: Important Events on Shift: CONGESTION Patient Status: STABLE Diet: GTF OSMOLITE 1.5 @ 55ML/HR (OFF [id number]) Pending Orders: N/A Pending Results/Labs:AM LABS Pending MD notification:N/A Latest Vital Signs: Temperature 98.4 , Pulse 91 , B/P 101 /68 , Respiratory Rate 22 , O2 SAT 96 , T-piece, O2 Flow Rate 6.0 . Vital Sign Comment: STABLE EKG Rhythm: Sinus Rhythm Rhythm change?: N MD Notified?: - MD Response: Latest Ridley Fall Score: 70 Fall Risk: High Risk Safety Measures: Call light Within Reach, Bed Alarm Zone 2, Side Rails Side Rails x3, Bed position Low and Locked. Fall Precautions: Yellow Socks Yellow Gown Door Sign Patient Fall Education Report given to MARI EDMONDSON.
--- NOTE | 2020-07-16 07:27 | NUR ---
NURSE NOTES:Handoff report received from MARI Cruz. Patient observed resting in bed, no acute distress or shortness of breath noted. Patient does not follow commands, but eyes open to tactile stimulation. Patient is on trach Portex 7, connected to 02 @ 6 liters with FI02 of 28%. 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 Hu is connected to the side of bed, patent and draining kathryn urine. Patient is on retail marketing coordinator running SR @ 95. Patient has G tube running Osmolyte 1.5@55ml that was restarted at 0700, with order to hold for 2 hours per day [id number]. Iv site is clean dry and intact, saline locked. Bed in the low and locked position, with call light at bedside, Optifoam covering sacral as prevention. will continue to monitor patient closely.
[2020-07-16 07:56] VITALS: BP 121/72
[2020-07-16] MEDS: Heparin 5000 units/ml inj SUBQ SCH ×2 (08:48→20:59)
[2020-07-16] MEDS: levETIRAcetam 500mg/5ml Liquid GT SCH ×2 (08:48→21:01)
--- NOTE | 2020-07-16 10:18 | Pulmonology Progress Note ---
Subjective ROS Limited/Unobtainable: Yes Allergies: Coded Allergies: CEPHALOSPORINS (Verified Allergy, Intermediate, SKIN RASH, 10/13/18) CEFEPIME AMOXICILLIN (Verified Allergy, Unknown, 07/11/20) tolerates carbapenem Subjective stable on current Fio2 , no resp distress still congested, fever this am Objective Last 24 Hour Vital Signs Date Time Temp Pulse Resp B/P (MAP) Pulse Ox O2 Delivery O2 Flow Rate FiO2 07/16/20 08:00 T-piece 6.0 Trach Collar 6.0 07/16/20 08:00 6.0 28 07/16/20 07:56 100.2 92 19 121/72 (88) 98 07/16/20 07:54 97 Cool Aerosol 6.0 28 07/16/20 07:45 88 07/16/20 04:00 98.4 96 22 101/68 (79) 96 07/16/20 04:00 T-piece 6.0 07/16/20 04:00 6.0 28 07/16/20 04:00 91 07/16/20 00:31 100 Cool Aerosol 6.0 28 07/16/20 00:00 84 07/16/20 00:00 98.0 98 22 114/67 (83) 98 07/16/20 00:00 T-piece 6.0 07/15/20 20:00 6.0 28 07/15/20 20:00 95 07/15/20 20:00 T-piece 6.0 07/15/20 20:00 98.4 88 22 117/66 (83) 98 07/15/20 19:45 99 Cool Aerosol 6.0 28 07/15/20 16:37 78 07/15/20 16:00 T-piece 07/15/20 16:00 6.0 28 07/15/20 16:00 98.1 86 21 119/63 (81) 97 07/15/20 13:10 100 Cool Aerosol 6.0 28 07/15/20 12:00 85 07/15/20 12:00 6.0 28 07/15/20 12:00 98.1 88 22 100/65 (77) 96 07/15/20 12:00 T-piece Intake and Output 07/15/20 07/16/20 19:00 07:00 Intake Total 670 ml 525 ml Output Total 1100 ml 1100 ml Balance -430 ml -575 ml Intake Free Water 120 ml 30 ml Tube Feeding 550 ml 495 ml Output Urine Total 1100 ml 1100 ml # Bowel Movements 1 Objective General: No acute distress, open eyes, not verbal, HEENT: NCAT, sclera anicteric, Right scalp deformity, in helmet, Neck: Supple, trach collar with Portex # 7, Fio2 28% Lungs: bilateral rhonchi Heart: Regular rate and rhythm, SR on tele, no murmuts Abdomen: soft, nontender, nondistended. Normoactive bowel sounds, PEG site intact. Extremities: No cyanosis , clubbing or peripheral edema. Neuro: not responsive to verbal stimuli, withdraws to tactile stimuli, unable to move extremities, in vegetative state. Laboratory Tests 07/16/20 03:34: White Blood Count 4.1L, Red Blood Count 4.39L, Hemoglobin 13.0L, Hematocrit 39.2L, Mean Corpuscular Volume 89, Mean Corpuscular Hemoglobin 29.7, Mean Corpuscular Hemoglobin Concent 33.2, Red Cell Distribution Width 13.2, Platelet Count 166, Mean Platelet Volume 7.4, Neutrophils (%) (Auto) 45.7, Lymphocytes (%) (Auto) 35.6, Monocytes (%) (Auto) 5.3, Eosinophils (%) (Auto) 12.6H, Basophils (%) (Auto) 0.7, Sodium Level 136, Potassium Level 4.4, Chloride Level 101, Carbon Dioxide Level 31, Anion Gap 5, Blood Urea Nitrogen 11, Creatinine 0.6, Estimat Glomerular Filtration Rate > 60, Glucose Level 124H, Calcium Level 8.7 Current Medications Medications (Trade) Dose Ordered Sig/Yesenia Route PRN Reason Start Time Stop Time Status Last Admin Dose Admin Acetaminophen (Tylenol) 650 mg Q4H PRN GT fever 07/10/20 21:00 08/09/20 20:59 Heparin Sodium (Porcine) (Heparin 5000 units/ml) 5,000 units EVERY 12 HOURS SUBQ 07/10/20 21:00 08/24/20 20:59 07/15/20 21:25 Lansoprazole (Prevacid) 30 mg DAILY GT 07/14/20 09:00 08/13/20 08:59 07/16/20 08:48 Levetiracetam (Keppra) 500 mg Q12HR GT 07/11/20 09:00 08/10/20 08:59 07/16/20 08:48 Levothyroxine Sodium (Synthroid) 75 mcg ACBREAKFAST GT 07/11/20 06:30 08/10/20 06:29 07/16/20 06:13 Lorazepam (Ativan 2mg/ml 1ml) 2 mg Q2H PRN IV For Anxiety 07/10/20 21:00 07/17/20 20:59 Meropenem 1 gm/ Sodium Chloride 55 ml @ 110 mls/hr Q8HR IVPB 07/11/20 14:00 07/17/20 13:59 07/16/20 06:13 Morphine Sulfate (Morphine Sulfate) 4 mg Q4H PRN IVP Severe Pain (Pain Scale 7-10) 07/10/20 21:00 07/17/20 20:59 Ondansetron HCl (Zofran) 4 mg Q6H PRN IVP Nausea & Vomiting 07/10/20 21:00 08/09/20 20:59 Polyethylene Glycol (Miralax) 17 gm DAILYPRN PRN GT Constipation 07/10/20 21:00 08/09/20 20:59 Assessment/Plan Assessment/Plan ASSESSMENT Septic shock Bilateral pneumonia, probably aspiration TBI, history of SDH, s/p craniotomy ZIGGY 2 to s dehydration COPD Seizure disorder Chronic encephalopathy Hypothyroidism Dysphagia, feeding by G-tube Electrolyte imbalance Anemia Pancytopenia PLAN OF CARE SDU s/p pressors , BP stable now ECHO noted trach care, pulmonary toilet, fup with CXR abx as per ID recs , fever this am COVID-19 x2 - NGT initial BCX likely contaminant , fup BCX NGTD SCX with GGS and PSA DVT prophylaxis aspiration precaution, G-tube feeding seizure precaution continue Keppra ZIGGY resolved, likely 2 to dehydration correct electrolytes as needed, avoid nephrotoxic monitor H&H with goal to keep hemoglobin above 7, remain at the baseline monitor counts, now pancytopenic TSH WNL, continue current dose of levothyroxine bowel regimen supportive care case discussed and evaluated by supervising physician Regla Henderson NP Jul 16, 2020 10:18
[2020-07-16] MEDS ORDERED: Albuterol/Ipratropium 3ml neb HHN PRN (10:30)
--- NOTE | 2020-07-16 11:05 | NUR ---
CASE MANAGEMENT:REVIEW 07/16/20 SI: SEPSIS. BILATERAL PNA 100.2 92 19 121/72 98% ON T-PIECE 6L/28% IS: IV MEROPENEM Q8HRS KEPPRA GT Q12 SYNTHROID GT QAM HEPARIN SQ Q12 : SDU DCP: FROM [facility] PLAN: PICC LINE PLACEMENT PENDING
--- NOTE | 2020-07-16 11:36 | NUR ---
NURSE NOTES:Dr Stevenson rounded on patient. Informed him that patient is having some hematuria and that I held the Heparin this AM.
--- NOTE | 2020-07-16 11:50 | NUR ---
NURSE NOTES: Patient tolerating current 02 settings. Patient repositioned and oral care provided. Trach collar suctioned to remove thick secretions, 02 saturation of 99%.
[2020-07-16 12:00] VITALS: BP 117/67
--- NOTE | 2020-07-16 12:35 | Nephrology Progress Note ---
Assessment/Plan Problem List: (1) ZIGGY (acute kidney injury) (2) Dehydration (3) Electrolyte imbalance (4) COPD (chronic obstructive pulmonary disease) (5) PEG (percutaneous endoscopic gastrostomy) adjustment/replacement/removal (6) Anemia Assessment Elevated creatinine, acute renal failure, mainly dehydration Septic shock Pneumonia, patient has T-piece to oxygen Encephalopathy Feeding by G-tube Chronic vegetative state Mild anemia Hypothyroidism Plan July 16: Labs reviewed. Stable from renal standpoint of view. Continue per consultants. July 15: Labs reviewed. Abnormal chemistries and electrolytes addressed. Stable from renal standpoint of view. July 14: Labs reviewed. Abnormal chemistries and electrolyte addressed. Will DC IV fluid. The renal parameters are stable. July 13: Discussed with RN. Labs reviewed. Electrolyte abnormalities addressed. Continue per consultants. Potassium supplement IV ordered Hu catheter IV fluid as needed to Monitor renal parameters Antibiotics Avoid nephrotoxic's Subjective ROS Limited/Unobtainable: Yes Objective Objective Last 24 Hour Vital Signs Date Time Temp Pulse Resp B/P (MAP) Pulse Ox O2 Delivery O2 Flow Rate FiO2 07/16/20 12:00 T-piece 6.0 Trach Collar 6.0 07/16/20 12:00 99.3 88 21 117/67 (84) 100 07/16/20 12:00 6.0 28 07/16/20 08:00 T-piece 6.0 Trach Collar 6.0 07/16/20 08:00 6.0 28 07/16/20 07:56 100.2 92 19 121/72 (88) 98 07/16/20 07:54 97 Cool Aerosol 6.0 28 07/16/20 07:45 88 07/16/20 04:00 98.4 96 22 101/68 (79) 96 07/16/20 04:00 T-piece 6.0 07/16/20 04:00 6.0 28 07/16/20 04:00 91 07/16/20 00:31 100 Cool Aerosol 6.0 28 07/16/20 00:00 84 07/16/20 00:00 98.0 98 22 114/67 (83) 98 07/16/20 00:00 T-piece 6.0 07/15/20 20:00 6.0 28 07/15/20 20:00 95 07/15/20 20:00 T-piece 6.0 07/15/20 20:00 98.4 88 22 117/66 (83) 98 07/15/20 19:45 99 Cool Aerosol 6.0 28 07/15/20 16:37 78 07/15/20 16:00 T-piece 07/15/20 16:00 6.0 28 07/15/20 16:00 98.1 86 21 119/63 (81) 97 07/15/20 13:10 100 Cool Aerosol 6.0 28 Intake and Output 07/15/20 07/16/20 19:00 07:00 Intake Total 670 ml 525 ml Output Total 1100 ml 1100 ml Balance -430 ml -575 ml Intake Free Water 120 ml 30 ml Tube Feeding 550 ml 495 ml Output Urine Total 1100 ml 1100 ml # Bowel Movements 1 Current Medications Medications (Trade) Dose Ordered Sig/Yesenia Route PRN Reason Start Time Stop Time Status Last Admin Dose Admin Acetaminophen (Tylenol) 650 mg Q4H PRN GT fever 07/10/20 21:00 08/09/20 20:59 Albuterol/ Ipratropium (Albuterol/ Ipratropium) 3 ml Q4HRT PRN HHN sob 07/16/20 10:30 07/21/20 10:29 Heparin Sodium (Porcine) (Heparin 5000 units/ml) 5,000 units EVERY 12 HOURS SUBQ 07/10/20 21:00 08/24/20 20:59 07/15/20 21:25 Lansoprazole (Prevacid) 30 mg DAILY GT 07/14/20 09:00 08/13/20 08:59 07/16/20 08:48 Levetiracetam (Keppra) 500 mg Q12HR GT 07/11/20 09:00 08/10/20 08:59 07/16/20 08:48 Levothyroxine Sodium (Synthroid) 75 mcg ACBREAKFAST GT 07/11/20 06:30 08/10/20 06:29 07/16/20 06:13 Lorazepam (Ativan 2mg/ml 1ml) 2 mg Q2H PRN IV For Anxiety 07/10/20 21:00 07/17/20 20:59 Meropenem 1 gm/ Sodium Chloride 55 ml @ 110 mls/hr Q8HR IVPB 07/11/20 14:00 07/17/20 13:59 07/16/20 06:13 Morphine Sulfate (Morphine Sulfate) 4 mg Q4H PRN IVP Severe Pain (Pain Scale 7-10) 07/10/20 21:00 07/17/20 20:59 Ondansetron HCl (Zofran) 4 mg Q6H PRN IVP Nausea & Vomiting 07/10/20 21:00 08/09/20 20:59 Polyethylene Glycol (Miralax) 17 gm DAILYPRN PRN GT Constipation 07/10/20 21:00 08/09/20 20:59 Laboratory Tests 07/16/20 03:34: White Blood Count 4.1L, Red Blood Count 4.39L, Hemoglobin 13.0L, Hematocrit 39.2L, Mean Corpuscular Volume 89, Mean Corpuscular Hemoglobin 29.7, Mean Corpuscular Hemoglobin Concent 33.2, Red Cell Distribution Width 13.2, Platelet Count 166, Mean Platelet Volume 7.4, Neutrophils (%) (Auto) 45.7, Lymphocytes (%) (Auto) 35.6, Monocytes (%) (Auto) 5.3, Eosinophils (%) (Auto) 12.6H, Basophils (%) (Auto) 0.7, Sodium Level 136, Potassium Level 4.4, Chloride Level 101, Carbon Dioxide Level 31, Anion Gap 5, Blood Urea Nitrogen 11, Creatinine 0.6, Estimat Glomerular Filtration Rate > 60, Glucose Level 124H, Calcium Level 8.7 Height (Feet): 5 Height (Inches): 8.00 Weight (Pounds): 173 General Appearance: no apparent distress Cardiovascular: normal rate Respiratory/Chest: decreased breath sounds Abdomen: soft Objective No change Francisco Stevenson MD Jul 16, 2020 12:35
--- NOTE | 2020-07-16 15:11 | Internal Med Progress Note ---
Subjective Date of Service: Jul 16, 2020 Physician Name MichelineBroderick Attending Physician Lion Cates MD Current Medications Medications (Trade) Dose Ordered Sig/Yesenia Route PRN Reason Start Time Stop Time Status Last Admin Dose Admin Acetaminophen (Tylenol) 650 mg Q4H PRN GT fever 07/10/20 21:00 08/09/20 20:59 Albuterol/ Ipratropium (Albuterol/ Ipratropium) 3 ml Q4HRT PRN HHN sob 07/16/20 10:30 07/21/20 10:29 Heparin Sodium (Porcine) (Heparin 5000 units/ml) 5,000 units EVERY 12 HOURS SUBQ 07/10/20 21:00 08/24/20 20:59 07/15/20 21:25 Lansoprazole (Prevacid) 30 mg DAILY GT 07/14/20 09:00 08/13/20 08:59 07/16/20 08:48 Levetiracetam (Keppra) 500 mg Q12HR GT 07/11/20 09:00 08/10/20 08:59 07/16/20 08:48 Levothyroxine Sodium (Synthroid) 75 mcg ACBREAKFAST GT 07/11/20 06:30 08/10/20 06:29 07/16/20 06:13 Lorazepam (Ativan 2mg/ml 1ml) 2 mg Q2H PRN IV For Anxiety 07/10/20 21:00 07/17/20 20:59 Meropenem 1 gm/ Sodium Chloride 55 ml @ 110 mls/hr Q8HR IVPB 07/11/20 14:00 07/18/20 13:59 07/16/20 14:37 Morphine Sulfate (Morphine Sulfate) 4 mg Q4H PRN IVP Severe Pain (Pain Scale 7-10) 07/10/20 21:00 07/17/20 20:59 Ondansetron HCl (Zofran) 4 mg Q6H PRN IVP Nausea & Vomiting 07/10/20 21:00 08/09/20 20:59 Polyethylene Glycol (Miralax) 17 gm DAILYPRN PRN GT Constipation 07/10/20 21:00 08/09/20 20:59 Allergies: Coded Allergies: CEPHALOSPORINS (Verified Allergy, Intermediate, SKIN RASH, 10/13/18) CEFEPIME AMOXICILLIN (Verified Allergy, Unknown, 07/11/20) tolerates carbapenem ROS Limited/Unobtainable: Yes Subjective 64 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 Now sepsis and pneumonia. Cover for Int Nelson-DR Cates. Step down unit Objective Last Vital Signs Date Time Temp Pulse Resp B/P (MAP) Pulse Ox O2 Delivery O2 Flow Rate FiO2 07/16/20 13:24 98 Cool Aerosol 6.0 28 07/16/20 12:00 99.3 88 21 117/67 (84) Laboratory Tests Test 07/16/20 03:34 White Blood Count 4.1 K/UL (4.8-10.8) L Red Blood Count 4.39 M/UL (4.70-6.10) L Hemoglobin 13.0 G/DL (14.2-18.0) L Hematocrit 39.2 % (42.0-52.0) L Mean Corpuscular Volume 89 FL (80-99) Mean Corpuscular Hemoglobin 29.7 PG (27.0-31.0) Mean Corpuscular Hemoglobin Concent 33.2 G/DL (32.0-36.0) Red Cell Distribution Width 13.2 % (11.6-14.8) Platelet Count 166 K/UL (150-450) Mean Platelet Volume 7.4 FL (6.5-10.1) Neutrophils (%) (Auto) 45.7 % (45.0-75.0) Lymphocytes (%) (Auto) 35.6 % (20.0-45.0) Monocytes (%) (Auto) 5.3 % (1.0-10.0) Eosinophils (%) (Auto) 12.6 % (0.0-3.0) H Basophils (%) (Auto) 0.7 % (0.0-2.0) Sodium Level 136 MMOL/L (136-145) Potassium Level 4.4 MMOL/L (3.5-5.1) Chloride Level 101 MMOL/L (98-107) Carbon Dioxide Level 31 MMOL/L (21-32) Anion Gap 5 mmol/L (5-15) Blood Urea Nitrogen 11 mg/dL (7-18) Creatinine 0.6 MG/DL (0.55-1.30) Estimat Glomerular Filtration Rate > 60 mL/min (>60) Glucose Level 124 MG/DL (74-106) H Calcium Level 8.7 MG/DL (8.5-10.1) Intake and Output 07/15/20 07/16/20 19:00 07:00 Intake Total 670 ml 525 ml Output Total 1100 ml 1100 ml Balance -430 ml -575 ml Intake Free Water 120 ml 30 ml Tube Feeding 550 ml 495 ml Output Urine Total 1100 ml 1100 ml # Bowel Movements 1 Objective PHYSICAL EXAMINATION: GENERAL: The patient is a well-developed, well-nourished male, with multiple contractures, who is nonresponsive. HEENT: Eyes, pupils equal and responsive to light and accommodation. The patient does not track. CARDIOVASCULAR: Tachycardic, regular rhythm. S1, S2 are normal without murmurs, rubs, or gallops. ABDOMEN: Soft, nontender, nondistended. Positive bowel sounds. No evidence of hepatosplenomegaly. Currently no rebound or guarding. EXTREMITIES: Multiple contractures without clubbing, cyanosis, or edema. RECTAL/GENITAL: Not performed. NEUROLOGICAL: Unable to assess. Assessment/Plan Assessment/Plan ASSESSMENT: This is a 64-year-old male. 1. Bilateral pneumonia=pseudomonas and Group G strep 2. Sepsis.=Coag neg staph 3. Hypotension. 4. Leukocytosis. 5. Chronic respiratory failure. 6. History of subdural hematoma. 7. Seizure disorder. 8. Hypertension. 9. Hypothyroidism. 10. Chronic deep venous thrombosis. 11. Encephalopathy. TREATMENT: 1. Sepsis/bilateral pneumonia. Infectious disease consultation=Dr. Salinas. ABX=meropenem. Pulmonary consultation = Dr. Linda Foley. 2. Chronic respiratory failure. As above, a pulmonary consultation was obtained with Dr. Linda Foley. 3. History of subdural hematoma. 4. Seizure disorder. Continue Keppra as above. 5. Hypertension. The patient is currently hypotensive. 6. Hypothyroidism. Continue Synthroid as above. 7. Chronic deep venous thrombosis. Continue Coumadin as above. 8. Encephalopathy. Broderick Tobias MD Jul 16, 2020 15:11
[2020-07-16 16:00] VITALS: BP 117/72
--- NOTE | 2020-07-16 16:00 | NUR ---
NURSE NOTES: Called and left message to Dr. Nettles regarding ST 117 bpm. Pt. asymptomatic. Awaiting for response.
--- NOTE | 2020-07-16 17:50 | NUR ---
NURSE NOTES:Patient repositioned and received sponge bath, oral care provided.
--- NOTE | 2020-07-16 19:39 | NUR ---
NURSE HAND-OFF REPORT: Important Events on Shift:Patient had episode of Sinus tachy Patient Status: stable Diet: Osmolyte 1.5 @ 55ML/HR for 22 hours. hold [id number] Pending Orders:N/A Pending Results/Labs:N/A Pending MD notification:MD Nettles notified about episode of tachy Latest Vital Signs: Temperature 99.1 , Pulse 95 , B/P 117 /72 , Respiratory Rate 20 , O2 SAT 98 , Trach Collar, O2 Flow Rate 6.0 . Vital Sign Comment: EKG Rhythm: Sinus Tachycardia Rhythm change?: Y Notified?: Y -Dr. Tho ESCALONA Response: None Latest Ridley Fall Score: 70 Fall Risk: High Risk Safety Measures: Call light Within Reach, Bed Alarm Zone 2, Side Rails Side Rails x3, Bed position Low and Locked. Fall Precautions: Yellow Socks Yellow Gown Door Sign Patient Fall Education Report given to MARI Meyer.
--- NOTE | 2020-07-16 19:50 | NUR ---
NURSE NOTES: Received report from MARI Lal. Pt is resting in bed, no grimacing noted. Vitals are stable, Sinus Rhythm on the school bus monitor. Tolerating T-piece 6L, FiO2 28% and saturating 97%. GT is intact and patent and running Osmolite 1.5 @ 55cc/hr x 22hrs. Peripheral IV on R upper arm 20G and R arm 20G is patent and intact. Bed is locked and in lowest position, bed alarm on, head of bed elevated at all times. Will continue to monitor the pt. Will continue with the plan of care.
[2020-07-16 20:00] VITALS: BP 124/75
--- NOTE | 2020-07-16 21:00 | NUR ---
NURSE NOTES: Blood noted in the santamaria catheter. Withheld heparin.
--- NOTE | 2020-07-16 22:30 | NUR ---
NURSE NOTES: Evening medications given, pt tolerated well. Vital signs stable, no facial grimacing noted. Oral care and suctioning done. Full body assessment done. Will continue to monitor pt.
[2020-07-17] VITALS: BP 118/68
--- NOTE | 2020-07-17 00:15 | NUR ---
NURSE NOTES: Pt is resting, no facial grimacing noted. Vital signs are stable. Tolerating T-piece O2 6L FiO2 28% and saturating @ 97%. Turned and reposition. Oral care and suctioning done. Will continue to monitor pt.
--- NOTE | 2020-07-17 02:30 | NUR ---
NURSE NOTES: Full bed bath done, dressing changed. Turned and reposition. Oral care and suctioning done. Pt tolerating T-piece O2 6L, FiO2 28%. Vital signs remain stable. Will continue to monitor pt.
[2020-07-17 04:00] VITALS: BP 111/71
[2020-07-17 05:00] LABS: BASOPHILS % (AUTO) 0.8 % (0.0-2.0); HEMATOCRIT 42.6 % (42.0-52.0); HEMOGLOBIN 14.1 G/DL (14.2-18.0); LYMPHOCYTES % (AUTO) 37.7 % (20.0-45.0); MEAN CORPUSCULAR VOLUME 89 FL (80-99); MONOCYTES % (AUTO) 8.2 % (1.0-10.0); NEUTROPHILS % (AUTO) 41.3 % (45.0-75.0); PLATELET COUNT 175 K/UL (150-450); RED BLOOD COUNT 4.77 M/UL (4.70-6.10); RED CELL DISTRIBUTION WIDTH 13.5 % (11.6-14.8); WHITE BLOOD COUNT 4.4 K/UL (4.8-10.8)
[2020-07-17 05:20] LABS: ANION GAP 4 mmol/L (5-15); BLOOD UREA NITROGEN 13 mg/dL (7-18); CALCIUM 8.9 MG/DL (8.5-10.1); CARBON DIOXIDE 34 MMOL/L (21-32); CHLORIDE 98 MMOL/L (98-107); CREATININE 0.7 MG/DL (0.55-1.30); POTASSIUM 4.5 MMOL/L (3.5-5.1); SODIUM 136 MMOL/L (136-145)
[2020-07-17] MEDS: Meropenem 1 GM in NS 55 ML IVPB SCH ×2 (05:32→13:07)
[2020-07-17 05:46] LABS: ALANINE AMINOTRANSFERASE 110 U/L (12-78); ALBUMIN 3.4 G/DL (3.4-5.0); ALKALINE PHOSPHATASE 113 U/L (46-116); ASPARTATE AMINO TRANSFERASE 70 U/L (15-37); BILIRUBIN,DIRECT < 0.1 MG/DL (0.0-0.3); BILIRUBIN,TOTAL 0.2 MG/DL (0.2-1.0); PHOSPHORUS 2.4 MG/DL (2.5-4.9)
--- NOTE | 2020-07-17 07:21 | NUR ---
NURSE HAND-OFF REPORT: Important Events on Shift:None Patient Status: stable, full code Diet: Osmolite 1.5 @ 55ml X22hrs Pending Orders: N Pending Results/Labs:N Pending notification:N Latest Vital Signs: Temperature 98.2 , Pulse 84 , B/P 111 /71 , Respiratory Rate 20 , O2 SAT 99 , Trach Collar, O2 Flow Rate 6.0 . Vital Sign Comment: stable EKG Rhythm: Sinus Rhythm Rhythm change?: N MD Notified?: Daniela Nettles MD Response: Latest Ridley Fall Score: 70 Fall Risk: High Risk Safety Measures: Call light Within Reach, Bed Alarm Zone 2, Side Rails Side Rails x3, Bed position Low and Locked. Fall Precautions: Yellow Socks Yellow Gown Door Sign Patient Fall Education Report given to MARI Patino.
--- NOTE | 2020-07-17 07:25 | NUR ---
NURSE NOTES: Received report from MARI Perez. Patient is nonverbal, no s/sx of SoB, breathing is even and unlabored, patient on T-piece Port[place] 7 6L FiO2 28% SpO2 99%. Observed no presence of pain or discomfort at this time. Bed is in lowest position, brakes engaged. call light is kept within easy reach. Will continue to monitor patient.
[2020-07-17 08:00] VITALS: BP 96/67
[2020-07-17] MEDS: levETIRAcetam 500mg/5ml Liquid GT SCH ×2 (08:39→20:51)
[2020-07-17] MEDS: Heparin 5000 units/ml inj SUBQ SCH ×2 (08:40→20:56)
--- NOTE | 2020-07-17 11:03 | NUR ---
*-*DISCHARGE PLANNING*-* PATIENT HAS BEEN REFERRED BACK TO: [facility] P: [phone]
[2020-07-17 12:00] VITALS: BP 100/67
--- NOTE | 2020-07-17 12:36 | Pulmonolgy Critical Care Note ---
Critical Care - Asmt/Plan Problems: (1) Septic shock (2) Aspiration pneumonia (3) COPD (chronic obstructive pulmonary disease) (4) HTN (hypertension) (5) Chronic vegetative state (6) Feeding by G-tube Respiratory: monitor respiratory rate, adjust FIO2 Cardiac: continue to monitor HR/BP Renal: F/U I&O, keep IV fluid, check electrolytes Infectious Disease: check cultures, continue antibiotics Gastrointestinal: continue feedings/current rate Endocrine: monitor blood sugar Hematologic: monitor H/H, transfuse if hgb<8.5 Neurologic: PRN Ativan, PRN Morphine Prophylaxis: Protonix, Heparin Disposition: keep in ICU Time Spent (Minutes): 40 Notes Reviewed: gastroenterology manager, cardio, renal, ID, GI Discussed with: nurses, consultants, case management assistantinformation systems manager - Objective Last 24 Hour Vital Signs Date Time Temp Pulse Resp B/P (MAP) Pulse Ox O2 Delivery O2 Flow Rate FiO2 07/17/20 08:00 98.8 109 23 96/67 (77) 97 07/17/20 08:00 T-piece 6.0 Trach Collar 6.0 07/17/20 08:00 85 07/17/20 08:00 6.0 28 07/17/20 06:50 99 Cool Aerosol 6.0 28 07/17/20 04:00 98.2 84 20 111/71 (84) 99 07/17/20 04:00 T-piece 6.0 Trach Collar 6.0 07/17/20 04:00 80 07/17/20 04:00 6.0 28 07/17/20 01:46 97 Cool Aerosol 6.0 28 07/17/20 00:00 T-piece 6.0 Trach Collar 6.0 07/17/20 00:00 98.1 81 22 118/68 (85) 97 07/17/20 00:00 93 07/17/20 00:00 6.0 28 07/16/20 22:00 T-piece 6.0 Trach Collar 6.0 07/16/20 20:00 6.0 28 07/16/20 20:00 79 07/16/20 20:00 98.2 93 20 124/75 (91) 97 07/16/20 20:00 T-piece 6.0 Trach Collar 6.0 07/16/20 19:03 98 Cool Aerosol 6.0 28 07/16/20 16:00 99.1 95 20 117/72 (87) 99 07/16/20 15:56 6.0 28 07/16/20 15:54 T-piece 6.0 Trach Collar 6.0 07/16/20 15:31 117 07/16/20 13:24 98 Cool Aerosol 6.0 28 Status: sedated Condition: critical HEENT: atraumatic, normocephalic Neck: full ROM Lungs: rales, rhonchi Heart: HR/BP stable, HR/BP unstable Abdomen: soft, non-tender, active bowel sounds, feeding tube Extremities: no C/C/E Critical Care - Subjective ROS Limited/Unobtainable: Yes Condition: critical EKG Rhythm: Sinus Rhythm FI02: 28 Sputum Amount: Small Tube Feeding Amount: 55 I&O: Intake and Output 07/16/20 07/17/20 19:00 07:00 Intake Total 1080 ml 725 ml Output Total 1100 ml 1200 ml Balance -20 ml -475 ml Intake Free Water 420 ml 120 ml IV Total 55 ml Tube Feeding 660 ml 550 ml Output Urine Total 1100 ml 1200 ml Labs: Laboratory Tests Test 07/17/20 03:17 White Blood Count 4.4 K/UL (4.8-10.8) L Red Blood Count 4.77 M/UL (4.70-6.10) Hemoglobin 14.1 G/DL (14.2-18.0) L Hematocrit 42.6 % (42.0-52.0) Mean Corpuscular Volume 89 FL (80-99) Mean Corpuscular Hemoglobin 29.5 PG (27.0-31.0) Mean Corpuscular Hemoglobin Concent 33.0 G/DL (32.0-36.0) Red Cell Distribution Width 13.5 % (11.6-14.8) Platelet Count 175 K/UL (150-450) Mean Platelet Volume 7.6 FL (6.5-10.1) Neutrophils (%) (Auto) 41.3 % (45.0-75.0) L Lymphocytes (%) (Auto) 37.7 % (20.0-45.0) Monocytes (%) (Auto) 8.2 % (1.0-10.0) Eosinophils (%) (Auto) 12.0 % (0.0-3.0) H Basophils (%) (Auto) 0.8 % (0.0-2.0) Sodium Level 136 MMOL/L (136-145) Potassium Level 4.5 MMOL/L (3.5-5.1) Chloride Level 98 MMOL/L (98-107) Carbon Dioxide Level 34 MMOL/L (21-32) H Anion Gap 4 mmol/L (5-15) L Blood Urea Nitrogen 13 mg/dL (7-18) Creatinine 0.7 MG/DL (0.55-1.30) Estimat Glomerular Filtration Rate > 60 mL/min (>60) Glucose Level 115 MG/DL (74-106) H Calcium Level 8.9 MG/DL (8.5-10.1) Phosphorus Level 2.4 MG/DL (2.5-4.9) L Magnesium Level 2.2 MG/DL (1.8-2.4) Total Bilirubin 0.2 MG/DL (0.2-1.0) Direct Bilirubin < 0.1 MG/DL (0.0-0.3) Aspartate Amino Transf (AST/SGOT) 70 U/L (15-37) H Alanine Aminotransferase (ALT/SGPT) 110 U/L (12-78) H Alkaline Phosphatase 113 U/L (46-116) Total Protein 7.0 G/DL (6.4-8.2) Albumin 3.4 G/DL (3.4-5.0) Linda Foley MD Jul 17, 2020 12:36
--- NOTE | 2020-07-17 13:11 | Diagnostic Imaging Report ---
Indication: Shortness of breath Technique: One view of the chest Comparison: 07/11/2020 Findings: Bilateral ventriculoperitoneal shunt tubing, tracheostomy remain. Bilateral airspace opacities are stable to slightly worse, allowing for slight differences in exposure technique. The pleural spaces are grossly clear. The heart size is normal. Again demonstrated are chronic appearing fracture deformities of the left clavicle and humeral neck, the latter ununited Impression: Stable or slightly worse parenchymal disease bilaterally, over 6 days
--- NOTE | 2020-07-17 13:41 | Infectious Diseases Prog Note ---
Assessment/Plan Assessment: Septic SHock- now off pressors Multifocal PNA- COVID19 neg x2 -07/17 CXR: Stable or slightly worse parenchymal disease bilaterally, over 6 days -07/11 rapid COVID PCR neg -07/10 CXR:Bilateral infiltrates concerning for multifocal pneumonia. rapid COVID PCR neg, Influenza ag neg sp cx GGS, PsA (gama S) CONS bacteremia- likely contaminant -07/10 bcx 4/4 S. epi; 07/11 Bcx NTD Fever; improving Leukocytosis, SP> mild leukopenia -07/10 u/a neg ZIGGY, sp CVA HTN COPD dysphagia sp GT hypothyroidism traumatic SDH sp hemilobectomy chronic resp failure sp trach dependent SNF resident ([facility]) Plan: - Switch Meropenem #7 (abx d #05/01) to Levaquin for PsA PNA -07/14 SP vanco #5 -07/11 SP IV Amikacin and Ertapenem #2 -07/10 SP Cefepime x1 -f/u cx -Monitor CBC/CMP, temperatures -COVID19 neg x2 -f/u repeat Bcx x2 -PEG/Trach care Thank you for this consultation. Will continue to follow along with you. Discussed with RN. Subjective Allergies: Coded Allergies: CEPHALOSPORINS (Verified Allergy, Intermediate, SKIN RASH, 10/13/18) CEFEPIME AMOXICILLIN (Verified Allergy, Unknown, 07/11/20) tolerates carbapenem afebrile >24hrs bcx NTD Objective Last 24 Hour Vital Signs Date Time Temp Pulse Resp B/P (MAP) Pulse Ox O2 Delivery O2 Flow Rate FiO2 07/17/20 12:00 98 07/17/20 08:00 98.8 109 23 96/67 (77) 97 07/17/20 08:00 T-piece 6.0 Trach Collar 6.0 07/17/20 08:00 85 07/17/20 08:00 6.0 28 07/17/20 06:50 99 Cool Aerosol 6.0 28 07/17/20 04:00 98.2 84 20 111/71 (84) 99 07/17/20 04:00 T-piece 6.0 Trach Collar 6.0 07/17/20 04:00 80 07/17/20 04:00 6.0 28 07/17/20 01:46 97 Cool Aerosol 6.0 28 07/17/20 00:00 T-piece 6.0 Trach Collar 6.0 07/17/20 00:00 98.1 81 22 118/68 (85) 97 07/17/20 00:00 93 07/17/20 00:00 6.0 28 07/16/20 22:00 T-piece 6.0 Trach Collar 6.0 07/16/20 20:00 6.0 28 07/16/20 20:00 79 07/16/20 20:00 98.2 93 20 124/75 (91) 97 07/16/20 20:00 T-piece 6.0 Trach Collar 6.0 07/16/20 19:03 98 Cool Aerosol 6.0 28 07/16/20 16:00 99.1 95 20 117/72 (87) 99 07/16/20 15:56 6.0 28 07/16/20 15:54 T-piece 6.0 Trach Collar 6.0 07/16/20 15:31 117 Height (Feet): 5 Height (Inches): 8.00 Weight (Pounds): 173 General Appearance: no apparent distress, other - Appears chronically ill, largely unresponsive at baseline Head: normocephalic, atraumatic Neck: supple Respiratory: chest non-tender, lungs clear, normal breath sounds, speaking full sentences Cardiovascular : regular rate, rhythm, other - Generalized 2+ edema of all extremities Gastrointestinal: normal bowel sounds, non tender, soft, non-distended, no guarding, no rebound, other - G-tube in place without any surrounding erythema or induration or drainage Laboratory Tests Test 07/17/20 03:17 White Blood Count 4.4 K/UL (4.8-10.8) L Red Blood Count 4.77 M/UL (4.70-6.10) Hemoglobin 14.1 G/DL (14.2-18.0) L Hematocrit 42.6 % (42.0-52.0) Mean Corpuscular Volume 89 FL (80-99) Mean Corpuscular Hemoglobin 29.5 PG (27.0-31.0) Mean Corpuscular Hemoglobin Concent 33.0 G/DL (32.0-36.0) Red Cell Distribution Width 13.5 % (11.6-14.8) Platelet Count 175 K/UL (150-450) Mean Platelet Volume 7.6 FL (6.5-10.1) Neutrophils (%) (Auto) 41.3 % (45.0-75.0) L Lymphocytes (%) (Auto) 37.7 % (20.0-45.0) Monocytes (%) (Auto) 8.2 % (1.0-10.0) Eosinophils (%) (Auto) 12.0 % (0.0-3.0) H Basophils (%) (Auto) 0.8 % (0.0-2.0) Sodium Level 136 MMOL/L (136-145) Potassium Level 4.5 MMOL/L (3.5-5.1) Chloride Level 98 MMOL/L (98-107) Carbon Dioxide Level 34 MMOL/L (21-32) H Anion Gap 4 mmol/L (5-15) L Blood Urea Nitrogen 13 mg/dL (7-18) Creatinine 0.7 MG/DL (0.55-1.30) Estimat Glomerular Filtration Rate > 60 mL/min (>60) Glucose Level 115 MG/DL (74-106) H Calcium Level 8.9 MG/DL (8.5-10.1) Phosphorus Level 2.4 MG/DL (2.5-4.9) L Magnesium Level 2.2 MG/DL (1.8-2.4) Total Bilirubin 0.2 MG/DL (0.2-1.0) Direct Bilirubin < 0.1 MG/DL (0.0-0.3) Aspartate Amino Transf (AST/SGOT) 70 U/L (15-37) H Alanine Aminotransferase (ALT/SGPT) 110 U/L (12-78) H Alkaline Phosphatase 113 U/L (46-116) Total Protein 7.0 G/DL (6.4-8.2) Albumin 3.4 G/DL (3.4-5.0) Current Medications Medications (Trade) Dose Ordered Sig/Yesenia Route PRN Reason Start Time Stop Time Status Last Admin Dose Admin Acetaminophen (Tylenol) 650 mg Q4H PRN GT fever 07/10/20 21:00 08/09/20 20:59 Albuterol/ Ipratropium (Albuterol/ Ipratropium) 3 ml Q4HRT PRN HHN sob 07/16/20 10:30 07/21/20 10:29 Heparin Sodium (Porcine) (Heparin 5000 units/ml) 5,000 units EVERY 12 HOURS SUBQ 07/10/20 21:00 08/24/20 20:59 07/17/20 08:40 Lansoprazole (Prevacid) 30 mg DAILY GT 07/14/20 09:00 08/13/20 08:59 07/17/20 08:39 Levetiracetam (Keppra) 500 mg Q12HR GT 07/11/20 09:00 08/10/20 08:59 07/17/20 08:39 Levothyroxine Sodium (Synthroid) 75 mcg ACBREAKFAST GT 07/11/20 06:30 08/10/20 06:29 07/17/20 05:55 Lorazepam (Ativan 2mg/ml 1ml) 2 mg Q2H PRN IV For Anxiety 07/10/20 21:00 07/17/20 20:59 Meropenem 1 gm/ Sodium Chloride 55 ml @ 110 mls/hr Q8HR IVPB 07/11/20 14:00 07/18/20 13:59 07/17/20 13:07 Morphine Sulfate (Morphine Sulfate) 4 mg Q4H PRN IVP Severe Pain (Pain Scale 7-10) 07/10/20 21:00 07/17/20 20:59 Ondansetron HCl (Zofran) 4 mg Q6H PRN IVP Nausea & Vomiting 07/10/20 21:00 08/09/20 20:59 Polyethylene Glycol (Miralax) 17 gm DAILYPRN PRN GT Constipation 07/10/20 21:00 08/09/20 20:59 Sodium Phosphate 30 mm/Sodium Chloride 285 ml @ 47.5 mls/hr ONCE ONCE IV 07/17/20 14:00 07/17/20 19:59 Janel Salinas M.D. Jul 17, 2020 13:41
--- NOTE | 2020-07-17 13:48 | NUR ---
RADIOLOGY DEPT., CHEST X-RAY DONE.-P.DYE
[2020-07-17] MEDS ORDERED: Sodium Phosphate 30 MM in NS 275 ML IV ONE (14:00)
--- NOTE | 2020-07-17 14:00 | NUR ---
NURSE NOTES: Spoke with Dr. Foley, patient noted with discharge order per Dr. Foley, informed Dr. Foley that patient is having low grade fever of 100.0 F axillary and sodium phosphate will take [address] Foley acknowledged and ordered to hold discharge at this time. Noted. Dr. Foley also made aware of patient's AST 70, ALT 110, Dr. Foley acknowledged and gave no new order at this time. Noted. Will continue to monitor patient.
--- NOTE | 2020-07-17 14:06 | NUR ---
INKER MACHINE NOTES DC HELD DUE TO TEMP. 100.0. COOLING MEASURES IN PLACE. WILL MONITOR FOE EFFECTIVENESS.
--- NOTE | 2020-07-17 15:00 | NUR ---
NURSE NOTES: Dr. Salinas at nurse station, per MD VRE rectum colonized.
--- NOTE | 2020-07-17 15:42 | Nephrology Progress Note ---
Assessment/Plan Problem List: (1) ZIGGY (acute kidney injury) (2) Dehydration (3) Electrolyte imbalance (4) COPD (chronic obstructive pulmonary disease) (5) PEG (percutaneous endoscopic gastrostomy) adjustment/replacement/removal (6) Anemia Assessment Elevated creatinine, acute renal failure, mainly dehydration Septic shock Pneumonia, patient has T-piece to oxygen Encephalopathy Feeding by G-tube Chronic vegetative state Mild anemia Hypothyroidism Plan July 17: Lab reviewed. Stable from renal standpoint of view. July 16: Labs reviewed. Stable from renal standpoint of view. Continue per consultants. July 15: Labs reviewed. Abnormal chemistries and electrolytes addressed. Stable from renal standpoint of view. July 14: Labs reviewed. Abnormal chemistries and electrolyte addressed. Will DC IV fluid. The renal parameters are stable. July 13: Discussed with RN. Labs reviewed. Electrolyte abnormalities addressed. Continue per consultants. Potassium supplement IV ordered Hu catheter IV fluid as needed to Monitor renal parameters Antibiotics Avoid nephrotoxic's Subjective ROS Limited/Unobtainable: Yes Objective Objective Last 24 Hour Vital Signs Date Time Temp Pulse Resp B/P (MAP) Pulse Ox O2 Delivery O2 Flow Rate FiO2 07/17/20 13:59 100.0 07/17/20 13:05 98 Cool Aerosol 6.0 28 07/17/20 12:00 T-piece 6.0 Trach Collar 6.0 07/17/20 12:00 6.0 28 07/17/20 12:00 98 07/17/20 12:00 99.9 104 24 100/67 (78) 95 07/17/20 08:00 98.8 109 23 96/67 (77) 97 07/17/20 08:00 T-piece 6.0 Trach Collar 6.0 07/17/20 08:00 85 07/17/20 08:00 6.0 28 07/17/20 06:50 99 Cool Aerosol 6.0 28 07/17/20 04:00 98.2 84 20 111/71 (84) 99 07/17/20 04:00 T-piece 6.0 Trach Collar 6.0 07/17/20 04:00 80 07/17/20 04:00 6.0 28 07/17/20 01:46 97 Cool Aerosol 6.0 28 07/17/20 00:00 T-piece 6.0 Trach Collar 6.0 07/17/20 00:00 98.1 81 22 118/68 (85) 97 07/17/20 00:00 93 07/17/20 00:00 6.0 28 07/16/20 22:00 T-piece 6.0 Trach Collar 6.0 07/16/20 20:00 6.0 28 07/16/20 20:00 79 07/16/20 20:00 98.2 93 20 124/75 (91) 97 07/16/20 20:00 T-piece 6.0 Trach Collar 6.0 07/16/20 19:03 98 Cool Aerosol 6.0 28 07/16/20 16:00 99.1 95 20 117/72 (87) 99 07/16/20 15:56 6.0 28 07/16/20 15:54 T-piece 6.0 Trach Collar 6.0 Intake and Output 07/16/20 07/17/20 19:00 07:00 Intake Total 1080 ml 725 ml Output Total 1100 ml 1200 ml Balance -20 ml -475 ml Intake Free Water 420 ml 120 ml IV Total 55 ml Tube Feeding 660 ml 550 ml Output Urine Total 1100 ml 1200 ml Laboratory Tests 07/17/20 03:17: White Blood Count 4.4L, Red Blood Count 4.77, Hemoglobin 14.1L, Hematocrit 42.6, Mean Corpuscular Volume 89, Mean Corpuscular Hemoglobin 29.5, Mean Corpuscular Hemoglobin Concent 33.0, Red Cell Distribution Width 13.5, Platelet Count 175, Mean Platelet Volume 7.6, Neutrophils (%) (Auto) 41.3L, Lymphocytes (%) (Auto) 37.7, Monocytes (%) (Auto) 8.2, Eosinophils (%) (Auto) 12.0H, Basophils (%) (Auto) 0.8, Sodium Level 136, Potassium Level 4.5, Chloride Level 98, Carbon Dioxide Level 34H, Anion Gap 4L, Blood Urea Nitrogen 13, Creatinine 0.7, Estimat Glomerular Filtration Rate > 60, Glucose Level 115H, Calcium Level 8.9, Phosphorus Level 2.4L, Magnesium Level 2.2, Total Bilirubin 0.2, Direct Bilirubin < 0.1, Aspartate Amino Transf (AST/SGOT) 70H, Alanine Aminotransferase (ALT/SGPT) 110H, Alkaline Phosphatase 113, Total Protein 7.0, Albumin 3.4 Height (Feet): 5 Height (Inches): 8.00 Weight (Pounds): 173 General Appearance: no apparent distress EENT: other - Trach collar to oxygen Cardiovascular: tachycardia Respiratory/Chest: decreased breath sounds Abdomen: distended Objective No change Francisco Stevenson MD Jul 17, 2020 15:42
--- NOTE | 2020-07-17 15:45 | NUR ---
PRECISION FARMING SPECIALISTBOTTOM FILLER SI: RESP FAILURE TRACH/COOL AEROSOL, T. 100.0 HR 109 RR 23 B/P 96/67 TRACH/COOL AEROSOL 28% WBC 4.4 CO2 34 CXR= Stable or slightly worse parenchymal disease bilaterally, over 6 days IS: MEROPENEM IV NA PHOS IV LEVAQUIN GT HEPARIN SUBC STEP DOWN STATUS
[2020-07-17 16:00] VITALS: BP 108/64
[2020-07-17] MEDS ORDERED: Tubing IV Secondary IV ONE ×2 (16:10→18:12)
[2020-07-17] MEDS ORDERED: D5NS 1000ml IV ONE (18:12)
--- NOTE | 2020-07-17 18:57 | Internal Med Progress Note ---
Subjective Date of Service: Jul 17, 2020 Physician Name Broderick Tobias Attending Physician Lion Cates MD Current Medications Medications (Trade) Dose Ordered Sig/Yesenia Route PRN Reason Start Time Stop Time Status Last Admin Dose Admin Acetaminophen (Tylenol) 650 mg Q4H PRN GT fever 07/10/20 21:00 08/09/20 20:59 Albuterol/ Ipratropium (Albuterol/ Ipratropium) 3 ml Q4HRT PRN HHN sob 07/16/20 10:30 07/21/20 10:29 Heparin Sodium (Porcine) (Heparin 5000 units/ml) 5,000 units EVERY 12 HOURS SUBQ 07/10/20 21:00 08/24/20 20:59 07/17/20 08:40 Lansoprazole (Prevacid) 30 mg DAILY GT 07/14/20 09:00 08/13/20 08:59 07/17/20 08:39 Levetiracetam (Keppra) 500 mg Q12HR GT 07/11/20 09:00 08/10/20 08:59 07/17/20 08:39 Levofloxacin (Levaquin) 750 mg DAILY GT 07/17/20 21:00 07/24/20 20:59 Levothyroxine Sodium (Synthroid) 75 mcg ACBREAKFAST GT 07/11/20 06:30 08/10/20 06:29 07/17/20 05:55 Lorazepam (Ativan 2mg/ml 1ml) 2 mg Q2H PRN IV For Anxiety 07/10/20 21:00 07/17/20 20:59 Morphine Sulfate (Morphine Sulfate) 4 mg Q4H PRN IVP Severe Pain (Pain Scale 7-10) 07/10/20 21:00 07/17/20 20:59 Ondansetron HCl (Zofran) 4 mg Q6H PRN IVP Nausea & Vomiting 07/10/20 21:00 08/09/20 20:59 Polyethylene Glycol (Miralax) 17 gm DAILYPRN PRN GT Constipation 07/10/20 21:00 08/09/20 20:59 07/17/20 18:49 Sodium Phosphate 30 mm/Sodium Chloride 285 ml @ 47.5 mls/hr ONCE ONCE IV 07/17/20 14:00 07/17/20 19:59 07/17/20 14:16 Allergies: Coded Allergies: CEPHALOSPORINS (Verified Allergy, Intermediate, SKIN RASH, 10/13/18) CEFEPIME AMOXICILLIN (Verified Allergy, Unknown, 07/11/20) tolerates carbapenem ROS Limited/Unobtainable: Yes Subjective 64 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 Now sepsis and pneumonia. Cover for Int Nelson-DR Cates. Step down unit Objective Last Vital Signs Date Time Temp Pulse Resp B/P (MAP) Pulse Ox O2 Delivery O2 Flow Rate FiO2 07/17/20 16:00 6.0 28 07/17/20 16:00 97.9 100 23 108/64 (79) 97 07/17/20 16:00 T-piece Trach Collar Laboratory Tests Test 07/17/20 03:17 White Blood Count 4.4 K/UL (4.8-10.8) L Red Blood Count 4.77 M/UL (4.70-6.10) Hemoglobin 14.1 G/DL (14.2-18.0) L Hematocrit 42.6 % (42.0-52.0) Mean Corpuscular Volume 89 FL (80-99) Mean Corpuscular Hemoglobin 29.5 PG (27.0-31.0) Mean Corpuscular Hemoglobin Concent 33.0 G/DL (32.0-36.0) Red Cell Distribution Width 13.5 % (11.6-14.8) Platelet Count 175 K/UL (150-450) Mean Platelet Volume 7.6 FL (6.5-10.1) Neutrophils (%) (Auto) 41.3 % (45.0-75.0) L Lymphocytes (%) (Auto) 37.7 % (20.0-45.0) Monocytes (%) (Auto) 8.2 % (1.0-10.0) Eosinophils (%) (Auto) 12.0 % (0.0-3.0) H Basophils (%) (Auto) 0.8 % (0.0-2.0) Sodium Level 136 MMOL/L (136-145) Potassium Level 4.5 MMOL/L (3.5-5.1) Chloride Level 98 MMOL/L (98-107) Carbon Dioxide Level 34 MMOL/L (21-32) H Anion Gap 4 mmol/L (5-15) L Blood Urea Nitrogen 13 mg/dL (7-18) Creatinine 0.7 MG/DL (0.55-1.30) Estimat Glomerular Filtration Rate > 60 mL/min (>60) Glucose Level 115 MG/DL (74-106) H Calcium Level 8.9 MG/DL (8.5-10.1) Phosphorus Level 2.4 MG/DL (2.5-4.9) L Magnesium Level 2.2 MG/DL (1.8-2.4) Total Bilirubin 0.2 MG/DL (0.2-1.0) Direct Bilirubin < 0.1 MG/DL (0.0-0.3) Aspartate Amino Transf (AST/SGOT) 70 U/L (15-37) H Alanine Aminotransferase (ALT/SGPT) 110 U/L (12-78) H Alkaline Phosphatase 113 U/L (46-116) Total Protein 7.0 G/DL (6.4-8.2) Albumin 3.4 G/DL (3.4-5.0) Intake and Output 07/16/20 07/17/20 19:00 07:00 Intake Total 1080 ml 725 ml Output Total 1100 ml 1200 ml Balance -20 ml -475 ml Intake Free Water 420 ml 120 ml IV Total 55 ml Tube Feeding 660 ml 550 ml Output Urine Total 1100 ml 1200 ml Objective PHYSICAL EXAMINATION: GENERAL: The patient is a well-developed, well-nourished male, with multiple contractures, who is nonresponsive. HEENT: Eyes, pupils equal and responsive to light and accommodation. The patient does not track. CARDIOVASCULAR: Tachycardic, regular rhythm. S1, S2 are normal without murmurs, rubs, or gallops. ABDOMEN: Soft, nontender, nondistended. Positive bowel sounds. No evidence of hepatosplenomegaly. Currently no rebound or guarding. EXTREMITIES: Multiple contractures without clubbing, cyanosis, or edema. RECTAL/GENITAL: Not performed. NEUROLOGICAL: Unable to assess. Assessment/Plan Assessment/Plan ASSESSMENT: This is a 64-year-old male. 1. Bilateral pneumonia=pseudomonas and Group G strep 2. Sepsis.=Coag neg staph 3. Hypotension. 4. Leukocytosis. 5. Chronic respiratory failure. 6. History of subdural hematoma. 7. Seizure disorder. 8. Hypertension. 9. Hypothyroidism. 10. Chronic deep venous thrombosis. 11. Encephalopathy. TREATMENT: 1. Sepsis/bilateral pneumonia. Infectious disease consultation=Dr. Salinas. ABX=LEVAQUIN. Pulmonary consultation = Dr. Linda Foley. 2. Chronic respiratory failure. As above, a pulmonary consultation was obtained with Dr. Linda Foley. 3. History of subdural hematoma. 4. Seizure disorder. Continue Keppra as above. 5. Hypertension. The patient is currently hypotensive. 6. Hypothyroidism. Continue Synthroid as above. 7. Chronic deep venous thrombosis. Continue Coumadin as above. 8. Encephalopathy. Broderick Tobias MD Jul 17, 2020 18:57
--- NOTE | 2020-07-17 19:32 | NUR ---
NURSE HAND-OFF REPORT: Important Events on Shift: Patient Status: Stable Diet: Osmolite 1.5 55 ml/hr Pending Orders: None. Pending Results/Labs:None Pending MD notification:None Latest Vital Signs: Temperature 97.9 , Pulse 106 , B/P 108 /64 , Respiratory Rate 23 , O2 SAT 97 , Trach Collar, O2 Flow Rate 6.0 . Vital Sign Comment: Stable EKG Rhythm: Sinus Tachycardia Rhythm change?: N MD Notified?: Daniela Nettles MD Response: Latest Ridley Fall Score: 70 Fall Risk: High Risk Safety Measures: Call light Within Reach, Bed Alarm Zone 2, Side Rails Side Rails x3, Bed position Low and Locked. Fall Precautions: Yellow Socks Yellow Gown Door Sign Patient Fall Education Report given to MARI Thorne.
--- NOTE | 2020-07-17 19:33 | NUR ---
NURSE NOTES: Received report from MARI Patino. Pt appears to be obtunded, unable to make needs known. PERRLA. Contracted. Observed with carrillo helmet on. Right parietal lobe flat and indented secondary to hx of craniotomy. 5-lead EKG shows SR at 72 BPM. Vital signs WNL. Afebrile. Saturating 97% on trach collar at 48% fiO2 on 6L. Pt g-tube intact running osmolite 1.5 @ 55 cc. 20 mL residual noted. Bed kept in lowest and locked position. Bed alarm on. Will continue monitoring.
[2020-07-17 20:00] VITALS: BP 112/58
[2020-07-17] MEDS: Levofloxacin 750mg tab GT SCH (21:11)
[2020-07-18] VITALS: BP 101/61
[2020-07-18 04:00] VITALS: BP 119/72
--- NOTE | 2020-07-18 05:04 | NUR ---
NURSE NOTES: profile grinder technician at bedside for ordered CXR. No bowel movement movement during shift for collection of Oval and Parasites. Made aware of Miralax GT QDaily at 1800. Will endorse. Pt in stable condition.
[2020-07-18 05:21] LABS: BASOPHILS % (AUTO) 0.7 % (0.0-2.0); EOSINOPHILS % (AUTO) 10.1 % (0.0-3.0); HEMATOCRIT 39.3 % (42.0-52.0); HEMOGLOBIN 13.2 G/DL (14.2-18.0); LYMPHOCYTES % (AUTO) 35.2 % (20.0-45.0); MEAN CORPUSCULAR VOLUME 88 FL (80-99); MONOCYTES % (AUTO) 11.9 % (1.0-10.0); NEUTROPHILS % (AUTO) 42.2 % (45.0-75.0); PLATELET COUNT 185 K/UL (150-450); RED BLOOD COUNT 4.46 M/UL (4.70-6.10); RED CELL DISTRIBUTION WIDTH 13.2 % (11.6-14.8); WHITE BLOOD COUNT 4.1 K/UL (4.8-10.8)
[2020-07-18 05:22] LABS: ALANINE AMINOTRANSFERASE 160 U/L (12-78); ALBUMIN/GLOBULIN RATIO 0.8 (1.0-2.7); ALKALINE PHOSPHATASE 105 U/L (46-116); ANION GAP 5 mmol/L (5-15); ASPARTATE AMINO TRANSFERASE 77 U/L (15-37); BILIRUBIN,TOTAL 0.2 MG/DL (0.2-1.0); BLOOD UREA NITROGEN 15 mg/dL (7-18); CALCIUM 8.4 MG/DL (8.5-10.1); CARBON DIOXIDE 32 MMOL/L (21-32); CHLORIDE 98 MMOL/L (98-107); CREATININE 0.7 MG/DL (0.55-1.30); PHOSPHORUS 3.1 MG/DL (2.5-4.9); POTASSIUM 4.2 MMOL/L (3.5-5.1); SODIUM 135 MMOL/L (136-145)
--- NOTE | 2020-07-18 05:28 | Diagnostic Imaging Report ---
EXAM: XR Chest, 1 View CLINICAL HISTORY: DYSPNEA TECHNIQUE: Frontal view of the chest. COMPARISON: Chest radiograph dated 07/17/20. FINDINGS: Lungs: Bilateral interstitial opacities are reidentified. There is slight improvement with slight improved aeration at the lung bases. Pleural space: Unremarkable. No pneumothorax. Heart: The cardiac size is prominent. Mediastinum: Unremarkable. Bones/joints: Unremarkable. Tubes, lines and devices: Tracheostomy tube is in position. IMPRESSION: Diffuse bilateral interstitial infiltrates with slight improvement of aeration of the lung bases.
--- NOTE | 2020-07-18 06:44 | NUR ---
NURSE HAND-OFF REPORT: Important Events on Shift: no change; no bowel movement x3 days Patient Status: stable Diet: Osmolite x22 hrs Pending Orders: N Pending Results/Labs: N Pending MD notification: N Latest Vital Signs: Temperature 98.2 , Pulse 97 , B/P 119 /72 , Respiratory Rate 16 , O2 SAT 97 , Trach Collar, O2 Flow Rate 6.0 . Vital Sign Comment: WNL; afebrile EKG Rhythm: SR Rhythm change?: N MD Notified?: MD Response: Latest Ridley Fall Score: 70 Fall Risk: High Risk Safety Measures: Call light Within Reach, Bed Alarm Zone 1, Side Rails Side Rails x3, Bed position Low and Locked. Fall Precautions: Yellow Socks Yellow Gown Door Sign Patient Fall Education Report given to MARI Patino.
--- NOTE | 2020-07-18 07:29 | NUR ---
NURSE NOTES: Received report from MARI Thorne. Patient is resting in bed, in stable condition, no s/sx of SOB, breathing is even and unlabored, on T-piece Port[place] 7 6 L FiO2 28% SpO2 99%. Patient nonverbal, observed no presence of pain or discomfort at this time. Bed is in lowest position, brakes engaged. Call light is kept within easy reach. Will continue to monitor patient.
[2020-07-18 08:00] VITALS: BP 100/74
[2020-07-18] MEDS: Heparin 5000 units/ml inj SUBQ SCH (09:00)
[2020-07-18] MEDS: levETIRAcetam 500mg/5ml Liquid GT SCH (09:57)
[2020-07-18] MEDS: Levofloxacin 750mg tab GT SCH (09:57)
--- NOTE | 2020-07-18 10:21 | Nephrology Progress Note ---
Assessment/Plan Problem List: (1) ZIGGY (acute kidney injury) (2) Dehydration (3) Electrolyte imbalance (4) COPD (chronic obstructive pulmonary disease) (5) PEG (percutaneous endoscopic gastrostomy) adjustment/replacement/removal (6) Anemia Assessment Elevated creatinine, acute renal failure, mainly dehydration Septic shock Pneumonia, patient has T-piece to oxygen Encephalopathy Feeding by G-tube Chronic vegetative state Mild anemia Hypothyroidism Plan July 18: Labs reviewed. Renal parameters are stable. July 17: Lab reviewed. Stable from renal standpoint of view. July 16: Labs reviewed. Stable from renal standpoint of view. Continue per consultants. July 15: Labs reviewed. Abnormal chemistries and electrolytes addressed. Stable from renal standpoint of view. July 14: Labs reviewed. Abnormal chemistries and electrolyte addressed. Will DC IV fluid. The renal parameters are stable. July 13: Discussed with RN. Labs reviewed. Electrolyte abnormalities addressed. Continue per consultants. Potassium supplement IV ordered Hu catheter IV fluid as needed to Monitor renal parameters Antibiotics Avoid nephrotoxic's Subjective ROS Limited/Unobtainable: Yes Objective Objective Last 24 Hour Vital Signs Date Time Temp Pulse Resp B/P (MAP) Pulse Ox O2 Delivery O2 Flow Rate FiO2 07/18/20 08:00 6.0 48 07/18/20 08:00 T-piece 6.0 Trach Collar 6.0 07/18/20 07:34 98 07/18/20 07:10 98 Cool Aerosol 6.0 28 07/18/20 04:00 98.2 97 16 119/72 (88) 97 07/18/20 04:00 6.0 48 07/18/20 04:00 T-piece 6.0 Trach Collar 6.0 07/18/20 03:38 106 07/18/20 01:30 96 Cool Aerosol 6.0 28 07/18/20 00:00 T-piece 6.0 Trach Collar 6.0 07/18/20 00:00 6.0 48 07/18/20 00:00 98.9 100 18 101/61 (74) 97 07/17/20 23:42 98 07/17/20 20:00 88 07/17/20 20:00 T-piece 6.0 Trach Collar 6.0 07/17/20 20:00 6.0 28 07/17/20 20:00 97.7 86 20 112/58 (76) 97 07/17/20 20:00 98 Cool Aerosol 6.0 28 07/17/20 16:00 6.0 28 07/17/20 16:00 97.9 100 23 108/64 (79) 97 07/17/20 16:00 T-piece 6.0 Trach Collar 6.0 07/17/20 16:00 106 07/17/20 13:59 100.0 07/17/20 13:05 98 Cool Aerosol 6.0 28 07/17/20 12:00 T-piece 6.0 Trach Collar 6.0 07/17/20 12:00 6.0 28 07/17/20 12:00 98 07/17/20 12:00 99.9 104 24 100/67 (78) 95 Intake and Output 07/17/20 07/18/20 19:00 07:00 Intake Total 1000 ml 535 ml Output Total 700 ml 700 ml Balance 300 ml -165 ml Intake Free Water 340 ml 40 ml Tube Feeding 660 ml 495 ml Output Urine Total 700 ml 700 ml Laboratory Tests 07/18/20 02:45: White Blood Count 4.1L, Red Blood Count 4.46L, Hemoglobin 13.2L, Hematocrit 39.3L, Mean Corpuscular Volume 88, Mean Corpuscular Hemoglobin 29.6, Mean Corpuscular Hemoglobin Concent 33.6, Red Cell Distribution Width 13.2, Platelet Count 185, Mean Platelet Volume 7.5, Neutrophils (%) (Auto) 42.2L, Lymphocytes (%) (Auto) 35.2, Monocytes (%) (Auto) 11.9H, Eosinophils (%) (Auto) 10.1H, Basophils (%) (Auto) 0.7, Erythrocyte Sedimentation Rate 87H, Sodium Level 135L, Potassium Level 4.2, Chloride Level 98, Carbon Dioxide Level 32, Anion Gap 5, Blood Urea Nitrogen 15, Creatinine 0.7, Estimat Glomerular Filtration Rate > 60, Glucose Level 124H, Calcium Level 8.4L, Phosphorus Level 3.1, Magnesium Level 2.1, Total Bilirubin 0.2, Aspartate Amino Transf (AST/SGOT) 77H, Alanine Aminotransferase (ALT/SGPT) 160H, Alkaline Phosphatase 105, C-Reactive Protein, Quantitative 1.9H, Total Protein 6.8, Albumin 3.0L, Globulin 3.8, Albumin/Globulin Ratio 0.8L Height (Feet): 5 Height (Inches): 8.00 Weight (Pounds): 173 General Appearance: no apparent distress EENT: other - Trach to oxygen Cardiovascular: tachycardia Respiratory/Chest: decreased breath sounds Abdomen: distended Objective No change Francisco Stevenson MD Jul 18, 2020 10:21
--- NOTE | 2020-07-18 11:30 | NUR ---
NURSE NOTES: Dr. Foley at nurse station, made aware of AST and ALT lab values today. Dr. Foley acknowledge and gave no new orders at this time. Also informed Dr. Foley that patient has not had bowel movement since 07/14/2020. Dr. Foley acknowledged and ordered Fleet enema mineral oil x 1. Order entered, noted, and carried out. Will continue to monitor patient.
[2020-07-18 12:00] VITALS: BP 107/75
--- NOTE | 2020-07-18 12:06 | Pulmonolgy Critical Care Note ---
Critical Care - Asmt/Plan Problems: (1) Septic shock (2) Aspiration pneumonia (3) COPD (chronic obstructive pulmonary disease) (4) HTN (hypertension) (5) Chronic vegetative state (6) Feeding by G-tube Respiratory: monitor respiratory rate, adjust FIO2, CXR Cardiac: continue to monitor HR/BP Renal: F/U I&O, keep IV fluid, check electrolytes Infectious Disease: check cultures Gastrointestinal: continue feedings/current rate Endocrine: continue sliding scale insulin Hematologic: monitor H/H, transfuse if hgb<8.5 Neurologic: PRN Ativan, keep patient comfortable Affect: PRN ativan Disposition: keep in ICU Notes Reviewed: clubhouse manager, cardio, renal Discussed with: nurses, consultants, retail bakery managersenior manager asset protection - Objective Last 24 Hour Vital Signs Date Time Temp Pulse Resp B/P (MAP) Pulse Ox O2 Delivery O2 Flow Rate FiO2 07/18/20 08:00 6.0 48 07/18/20 08:00 T-piece 6.0 Trach Collar 6.0 07/18/20 08:00 98.1 107 23 100/74 (83) 99 07/18/20 07:34 98 07/18/20 07:10 98 Cool Aerosol 6.0 28 07/18/20 04:00 98.2 97 16 119/72 (88) 97 07/18/20 04:00 6.0 48 07/18/20 04:00 T-piece 6.0 Trach Collar 6.0 07/18/20 03:38 106 07/18/20 01:30 96 Cool Aerosol 6.0 28 07/18/20 00:00 T-piece 6.0 Trach Collar 6.0 07/18/20 00:00 6.0 48 07/18/20 00:00 98.9 100 18 101/61 (74) 97 07/17/20 23:42 98 07/17/20 20:00 88 07/17/20 20:00 T-piece 6.0 Trach Collar 6.0 07/17/20 20:00 6.0 28 07/17/20 20:00 97.7 86 20 112/58 (76) 97 07/17/20 20:00 98 Cool Aerosol 6.0 28 07/17/20 16:00 6.0 28 07/17/20 16:00 97.9 100 23 108/64 (79) 97 07/17/20 16:00 T-piece 6.0 Trach Collar 6.0 07/17/20 16:00 106 07/17/20 13:59 100.0 07/17/20 13:05 98 Cool Aerosol 6.0 28 Status: obtunded Condition: critical HEENT: atraumatic Lungs: rales, rhonchi Heart: HR/BP stable Abdomen: soft, non-tender Extremities: no C/C/E Critical Care - Subjective ROS Limited/Unobtainable: Yes Condition: critical EKG Rhythm: Sinus Rhythm FI02: 48 Sputum Amount: Small Tube Feeding Amount: 55 I&O: Intake and Output 07/17/20 07/18/20 19:00 07:00 Intake Total 1000 ml 535 ml Output Total 700 ml 700 ml Balance 300 ml -165 ml Intake Free Water 340 ml 40 ml Tube Feeding 660 ml 495 ml Output Urine Total 700 ml 700 ml CXR: improving interstitial infiltrate Labs: Laboratory Tests Test 07/18/20 02:45 White Blood Count 4.1 K/UL (4.8-10.8) L Red Blood Count 4.46 M/UL (4.70-6.10) L Hemoglobin 13.2 G/DL (14.2-18.0) L Hematocrit 39.3 % (42.0-52.0) L Mean Corpuscular Volume 88 FL (80-99) Mean Corpuscular Hemoglobin 29.6 PG (27.0-31.0) Mean Corpuscular Hemoglobin Concent 33.6 G/DL (32.0-36.0) Red Cell Distribution Width 13.2 % (11.6-14.8) Platelet Count 185 K/UL (150-450) Mean Platelet Volume 7.5 FL (6.5-10.1) Neutrophils (%) (Auto) 42.2 % (45.0-75.0) L Lymphocytes (%) (Auto) 35.2 % (20.0-45.0) Monocytes (%) (Auto) 11.9 % (1.0-10.0) H Eosinophils (%) (Auto) 10.1 % (0.0-3.0) H Basophils (%) (Auto) 0.7 % (0.0-2.0) Erythrocyte Sedimentation Rate 87 MM/HR (0-20) H Sodium Level 135 MMOL/L (136-145) L Potassium Level 4.2 MMOL/L (3.5-5.1) Chloride Level 98 MMOL/L (98-107) Carbon Dioxide Level 32 MMOL/L (21-32) Anion Gap 5 mmol/L (5-15) Blood Urea Nitrogen 15 mg/dL (7-18) Creatinine 0.7 MG/DL (0.55-1.30) Estimat Glomerular Filtration Rate > 60 mL/min (>60) Glucose Level 124 MG/DL (74-106) H Calcium Level 8.4 MG/DL (8.5-10.1) L Phosphorus Level 3.1 MG/DL (2.5-4.9) Magnesium Level 2.1 MG/DL (1.8-2.4) Total Bilirubin 0.2 MG/DL (0.2-1.0) Aspartate Amino Transf (AST/SGOT) 77 U/L (15-37) H Alanine Aminotransferase (ALT/SGPT) 160 U/L (12-78) H Alkaline Phosphatase 105 U/L (46-116) C-Reactive Protein, Quantitative 1.9 mg/dL (0.00-0.90) H Total Protein 6.8 G/DL (6.4-8.2) Albumin 3.0 G/DL (3.4-5.0) L Globulin 3.8 g/dL Albumin/Globulin Ratio 0.8 (1.0-2.7) L Linda Foley MD Jul 18, 2020 12:06
[2020-07-18] MEDS ORDERED: LEVOFLOXACIN750 MG GT (12:07)
[2020-07-18] MEDS ORDERED: Fleet's Mineral Oil Enema RECTAL SCH (12:15)
--- NOTE | 2020-07-18 13:14 | NUR ---
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 CURRENT TF: Osmolite 1.5 @55ml/hr x22 hrs + PS x2 ENTERAL NUTRITION RECOMMENDATIONS: OSMOLITE 1.5 @55ml/hr x 22 hrs + Prosource 1pkt BID to provide 1210ml, 1815kcal, 76g +22g prot, 922ml free water - Maintain Osmolite 1.5 @goal of 55ml/hr x22 hrs. - Add PROSOURCE 1 pack BID to better meet protein needs - Flush per MD/HOB over 30 degrees ADDITIONAL RECOMMENDATIONS: 1) Maintain calibrated bed scale wts: 78kg-> 88kg. -> 74kg 2) Check lytes daily 3) Monitor for initiation of TF's 4) F/up WC: skin intact 5) Rec to DC added D5 IVF w/ TF (BG mid 100's)
--- NOTE | 2020-07-18 13:54 | Infectious Diseases Prog Note ---
Assessment/Plan Assessment: Septic SHock- now off pressors Multifocal PNA- COVID19 neg x2 -07/18 CXR: Diffuse bilateral interstitial infiltrates with slight improvement of aeration of the lung bases. -07/17 CXR: Stable or slightly worse parenchymal disease bilaterally, over 6 days -07/11 rapid COVID PCR neg -07/10 CXR:Bilateral infiltrates concerning for multifocal pneumonia. rapid COVID PCR neg, Influenza ag neg sp cx GGS, PsA (gama S) CONS bacteremia- likely contaminant -07/10 bcx 4/4 S. epi; 07/11 Bcx NTD Fever; improving Leukocytosis, SP> mild leukopenia -07/10 u/a neg ZIGGY, sp CVA HTN COPD dysphagia sp GT hypothyroidism traumatic SDH sp hemilobectomy chronic resp failure sp trach dependent SNF resident ([facility]) Plan: -Levaquin #2(abx d #/) for PsA PNA -07/17 SP MEropenem #7 -07/14 SP vanco #5 -07/11 SP IV Amikacin and Ertapenem #2 -07/10 SP Cefepime x1 -f/u cx -Monitor CBC/CMP, temperatures -COVID19 neg x2 -f/u repeat Bcx x2 -PEG/Trach care Thank you for this consultation. Will continue to follow along with you. Discussed with RN. Subjective Allergies: Coded Allergies: CEPHALOSPORINS (Verified Allergy, Intermediate, SKIN RASH, 10/13/18) CEFEPIME AMOXICILLIN (Verified Allergy, Unknown, 07/11/20) tolerates carbapenem afebrile >24hrs bcx NTD Objective Last 24 Hour Vital Signs Date Time Temp Pulse Resp B/P (MAP) Pulse Ox O2 Delivery O2 Flow Rate FiO2 07/18/20 12:00 98.6 103 22 107/75 (86) 98 07/18/20 12:00 6.0 48 07/18/20 12:00 T-piece 6.0 Trach Collar 6.0 07/18/20 11:42 100 07/18/20 08:00 6.0 48 07/18/20 08:00 T-piece 6.0 Trach Collar 6.0 07/18/20 08:00 98.1 107 23 100/74 (83) 99 07/18/20 07:34 98 07/18/20 07:10 98 Cool Aerosol 6.0 28 07/18/20 04:00 98.2 97 16 119/72 (88) 97 07/18/20 04:00 6.0 48 07/18/20 04:00 T-piece 6.0 Trach Collar 6.0 07/18/20 03:38 106 07/18/20 01:30 96 Cool Aerosol 6.0 28 07/18/20 00:00 T-piece 6.0 Trach Collar 6.0 07/18/20 00:00 6.0 48 07/18/20 00:00 98.9 100 18 101/61 (74) 97 07/17/20 23:42 98 07/17/20 20:00 88 07/17/20 20:00 T-piece 6.0 Trach Collar 6.0 07/17/20 20:00 6.0 28 07/17/20 20:00 97.7 86 20 112/58 (76) 97 07/17/20 20:00 98 Cool Aerosol 6.0 28 07/17/20 16:00 6.0 28 07/17/20 16:00 97.9 100 23 108/64 (79) 97 07/17/20 16:00 T-piece 6.0 Trach Collar 6.0 07/17/20 16:00 106 07/17/20 13:59 100.0 Height (Feet): 5 Height (Inches): 8.00 Weight (Pounds): 173 General Appearance: no apparent distress, other - Appears chronically ill, largely unresponsive at baseline Head: normocephalic, atraumatic Neck: supple Respiratory: chest non-tender, lungs clear, normal breath sounds, speaking full sentences Cardiovascular : regular rate, rhythm, other - Generalized 2+ edema of all extremities Gastrointestinal: normal bowel sounds, non tender, soft, non-distended, no guarding, no rebound, other - G-tube in place without any surrounding erythema or induration or drainage Laboratory Tests Test 07/18/20 02:45 White Blood Count 4.1 K/UL (4.8-10.8) L Red Blood Count 4.46 M/UL (4.70-6.10) L Hemoglobin 13.2 G/DL (14.2-18.0) L Hematocrit 39.3 % (42.0-52.0) L Mean Corpuscular Volume 88 FL (80-99) Mean Corpuscular Hemoglobin 29.6 PG (27.0-31.0) Mean Corpuscular Hemoglobin Concent 33.6 G/DL (32.0-36.0) Red Cell Distribution Width 13.2 % (11.6-14.8) Platelet Count 185 K/UL (150-450) Mean Platelet Volume 7.5 FL (6.5-10.1) Neutrophils (%) (Auto) 42.2 % (45.0-75.0) L Lymphocytes (%) (Auto) 35.2 % (20.0-45.0) Monocytes (%) (Auto) 11.9 % (1.0-10.0) H Eosinophils (%) (Auto) 10.1 % (0.0-3.0) H Basophils (%) (Auto) 0.7 % (0.0-2.0) Erythrocyte Sedimentation Rate 87 MM/HR (0-20) H Sodium Level 135 MMOL/L (136-145) L Potassium Level 4.2 MMOL/L (3.5-5.1) Chloride Level 98 MMOL/L (98-107) Carbon Dioxide Level 32 MMOL/L (21-32) Anion Gap 5 mmol/L (5-15) Blood Urea Nitrogen 15 mg/dL (7-18) Creatinine 0.7 MG/DL (0.55-1.30) Estimat Glomerular Filtration Rate > 60 mL/min (>60) Glucose Level 124 MG/DL (74-106) H Calcium Level 8.4 MG/DL (8.5-10.1) L Phosphorus Level 3.1 MG/DL (2.5-4.9) Magnesium Level 2.1 MG/DL (1.8-2.4) Total Bilirubin 0.2 MG/DL (0.2-1.0) Aspartate Amino Transf (AST/SGOT) 77 U/L (15-37) H Alanine Aminotransferase (ALT/SGPT) 160 U/L (12-78) H Alkaline Phosphatase 105 U/L (46-116) C-Reactive Protein, Quantitative 1.9 mg/dL (0.00-0.90) H Total Protein 6.8 G/DL (6.4-8.2) Albumin 3.0 G/DL (3.4-5.0) L Globulin 3.8 g/dL Albumin/Globulin Ratio 0.8 (1.0-2.7) L Current Medications Medications (Trade) Dose Ordered Sig/Yesenia Route PRN Reason Start Time Stop Time Status Last Admin Dose Admin Acetaminophen (Tylenol) 650 mg Q4H PRN GT fever 07/10/20 21:00 08/09/20 20:59 Albuterol/ Ipratropium (Albuterol/ Ipratropium) 3 ml Q4HRT PRN HHN sob 07/16/20 10:30 07/21/20 10:29 Heparin Sodium (Porcine) (Heparin 5000 units/ml) 5,000 units EVERY 12 HOURS SUBQ 07/10/20 21:00 08/24/20 20:59 07/17/20 20:56 Lansoprazole (Prevacid) 30 mg DAILY GT 07/14/20 09:00 08/13/20 08:59 07/18/20 09:58 Levetiracetam (Keppra) 500 mg Q12HR GT 07/11/20 09:00 08/10/20 08:59 07/18/20 09:57 Levofloxacin (Levaquin) 750 mg DAILY GT 07/17/20 21:00 07/24/20 20:59 07/18/20 09:57 Levothyroxine Sodium (Synthroid) 75 mcg ACBREAKFAST GT 07/11/20 06:30 08/10/20 06:29 07/18/20 05:33 Ondansetron HCl (Zofran) 4 mg Q6H PRN IVP Nausea & Vomiting 07/10/20 21:00 08/09/20 20:59 Polyethylene Glycol (Miralax) 17 gm DAILYPRN PRN GT Constipation 07/10/20 21:00 08/09/20 20:59 07/17/20 18:49 Janel Salinas M.D. Jul 18, 2020 13:53
--- NOTE | 2020-07-18 14:04 | NUR ---
NURSE NOTES: Patient still noted with no bowel movement after administration of x 1 fleet enema. Called and contacted Dr. Foley of assessments, this nurse inquired if they would like to give more laxative, Dr. Foley acknowledged and stated no. Patient noted with discharge order, inquired if okay to discharge patient with no bowel movement and no need to collect ova parasite stool collection. Charge nurse made aware. Noted.
--- NOTE | 2020-07-18 14:05 | NUR ---
*-*DISCHARGE PLANNED*-* PATIENT HAS BEEN REFERRED BACK TO: [facility] P: [phone] FOR NURSE TO NURSE REPORT ROOM# 10.[facility] [employer] [employer] SET FOR 4PM S/W FIONA [id number] S/W PATIENTS DAVID VILLALOBOS, WHO IS IN AGREEMENT WITH DISCHARGE PLAN.
--- NOTE | 2020-07-18 14:08 | NUR ---
*-*DISCHARGE PLANNED*-* PATIENT HAS BEEN ACCEPTED AND WILL BE DISCHARGED BACK TO: [facility] P: [phone] FOR NURSE TO NURSE REPORT ROOM# 10.B [facility] THIRD MATE SET FOR 4PM S/W FIONA [id number] S/W PATIENTS DAVID VILLALOBOS, WHO IS IN AGREEMENT WITH DISCHARGE PLAN.
--- NOTE | 2020-07-18 15:11 | NUR ---
NURSE NOTES: Patient being discharged to [place] per Dr. Foley's orders. Gave report to MARI Muñoz.
[2020-07-18 16:00] VITALS: BP 107/67
[2020-07-18] MEDS ORDERED: NS 275ml ONE (17:29)
[2020-07-18] MEDS ORDERED: 1/2 NS 1000ml IV ONE (17:29)
--- NOTE | 2020-07-18 17:45 | Internal Med Progress Note ---
Subjective Date of Service: Jul 18, 2020 Physician Name Broderick Tobias Attending Physician Lion Cates MD Current Medications Medications (Trade) Dose Ordered Sig/Yesenia Route PRN Reason Start Time Stop Time Status Last Admin Dose Admin Acetaminophen (Tylenol) 650 mg Q4H PRN GT fever 07/10/20 21:00 08/09/20 20:59 Albuterol/ Ipratropium (Albuterol/ Ipratropium) 3 ml Q4HRT PRN HHN sob 07/16/20 10:30 07/21/20 10:29 Heparin Sodium (Porcine) (Heparin 5000 units/ml) 5,000 units EVERY 12 HOURS SUBQ 07/10/20 21:00 08/24/20 20:59 07/17/20 20:56 Lansoprazole (Prevacid) 30 mg DAILY GT 07/14/20 09:00 08/13/20 08:59 07/18/20 09:58 Levetiracetam (Keppra) 500 mg Q12HR GT 07/11/20 09:00 08/10/20 08:59 07/18/20 09:57 Levofloxacin (Levaquin) 750 mg DAILY GT 07/17/20 21:00 07/24/20 20:59 07/18/20 09:57 Levothyroxine Sodium (Synthroid) 75 mcg ACBREAKFAST GT 07/11/20 06:30 08/10/20 06:29 07/18/20 05:33 Ondansetron HCl (Zofran) 4 mg Q6H PRN IVP Nausea & Vomiting 07/10/20 21:00 08/09/20 20:59 Polyethylene Glycol (Miralax) 17 gm DAILYPRN PRN GT Constipation 07/10/20 21:00 08/09/20 20:59 07/17/20 18:49 Allergies: Coded Allergies: CEPHALOSPORINS (Verified Allergy, Intermediate, SKIN RASH, 10/13/18) CEFEPIME AMOXICILLIN (Verified Allergy, Unknown, 07/11/20) tolerates carbapenem ROS Limited/Unobtainable: Yes Subjective 64 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 Now sepsis and pneumonia. Cover for Int Nelson-DR Cates. Step down unit Objective Last Vital Signs Date Time Temp Pulse Resp B/P (MAP) Pulse Ox O2 Delivery O2 Flow Rate FiO2 07/18/20 16:00 T-piece 6.0 Trach Collar 6.0 07/18/20 16:00 48 07/18/20 16:00 98.1 108 21 107/67 (80) 96 Laboratory Tests Test 07/18/20 02:45 White Blood Count 4.1 K/UL (4.8-10.8) L Red Blood Count 4.46 M/UL (4.70-6.10) L Hemoglobin 13.2 G/DL (14.2-18.0) L Hematocrit 39.3 % (42.0-52.0) L Mean Corpuscular Volume 88 FL (80-99) Mean Corpuscular Hemoglobin 29.6 PG (27.0-31.0) Mean Corpuscular Hemoglobin Concent 33.6 G/DL (32.0-36.0) Red Cell Distribution Width 13.2 % (11.6-14.8) Platelet Count 185 K/UL (150-450) Mean Platelet Volume 7.5 FL (6.5-10.1) Neutrophils (%) (Auto) 42.2 % (45.0-75.0) L Lymphocytes (%) (Auto) 35.2 % (20.0-45.0) Monocytes (%) (Auto) 11.9 % (1.0-10.0) H Eosinophils (%) (Auto) 10.1 % (0.0-3.0) H Basophils (%) (Auto) 0.7 % (0.0-2.0) Erythrocyte Sedimentation Rate 87 MM/HR (0-20) H Sodium Level 135 MMOL/L (136-145) L Potassium Level 4.2 MMOL/L (3.5-5.1) Chloride Level 98 MMOL/L (98-107) Carbon Dioxide Level 32 MMOL/L (21-32) Anion Gap 5 mmol/L (5-15) Blood Urea Nitrogen 15 mg/dL (7-18) Creatinine 0.7 MG/DL (0.55-1.30) Estimat Glomerular Filtration Rate > 60 mL/min (>60) Glucose Level 124 MG/DL (74-106) H Calcium Level 8.4 MG/DL (8.5-10.1) L Phosphorus Level 3.1 MG/DL (2.5-4.9) Magnesium Level 2.1 MG/DL (1.8-2.4) Total Bilirubin 0.2 MG/DL (0.2-1.0) Aspartate Amino Transf (AST/SGOT) 77 U/L (15-37) H Alanine Aminotransferase (ALT/SGPT) 160 U/L (12-78) H Alkaline Phosphatase 105 U/L (46-116) C-Reactive Protein, Quantitative 1.9 mg/dL (0.00-0.90) H Total Protein 6.8 G/DL (6.4-8.2) Albumin 3.0 G/DL (3.4-5.0) L Globulin 3.8 g/dL Albumin/Globulin Ratio 0.8 (1.0-2.7) L Intake and Output 07/17/20 07/18/20 19:00 07:00 Intake Total 1000 ml 535 ml Output Total 700 ml 700 ml Balance 300 ml -165 ml Intake Free Water 340 ml 40 ml Tube Feeding 660 ml 495 ml Output Urine Total 700 ml 700 ml Objective PHYSICAL EXAMINATION: GENERAL: The patient is a well-developed, well-nourished male, with multiple contractures, who is nonresponsive. HEENT: Eyes, pupils equal and responsive to light and accommodation. The patient does not track. CARDIOVASCULAR: Tachycardic, regular rhythm. S1, S2 are normal without murmurs, rubs, or gallops. ABDOMEN: Soft, nontender, nondistended. Positive bowel sounds. No evidence of hepatosplenomegaly. Currently no rebound or guarding. EXTREMITIES: Multiple contractures without clubbing, cyanosis, or edema. RECTAL/GENITAL: Not performed. NEUROLOGICAL: Unable to assess. Assessment/Plan Assessment/Plan ASSESSMENT: This is a 64-year-old male. 1. Bilateral pneumonia=pseudomonas and Group G strep 2. Sepsis.=Coag neg staph 3. Hypotension. 4. Leukocytosis. 5. Chronic respiratory failure. 6. History of subdural hematoma. 7. Seizure disorder. 8. Hypertension. 9. Hypothyroidism. 10. Chronic deep venous thrombosis. 11. Encephalopathy. TREATMENT: 1. Sepsis/bilateral pneumonia. Infectious disease consultation=Dr. Salinas. ABX=LEVAQUIN. Pulmonary consultation = Dr. Linda Foley. 2. Chronic respiratory failure. As above, a pulmonary consultation was obtained with Dr. Linda Foley. 3. History of subdural hematoma. 4. Seizure disorder. Continue Keppra as above. 5. Hypertension. The patient is currently hypotensive. 6. Hypothyroidism. Continue Synthroid as above. 7. Chronic deep venous thrombosis. Continue Coumadin as above. 8. Encephalopathy. Broderick Tobias MD Jul 18, 2020 17:45
--- NOTE | 2020-07-18 17:56 | NUR ---
NURSE NOTES: Patient discharged to [place], per Dr. Foley's orders. IV access removed. Heart monitor removed and returned to media monitor. ID band removed and placed in shredder. Patient left with helmet, only belongings, patient left with urinary santamaria catheter per Dr. Foley's orders. Patient left via gurney, accompanied by 2 front desk and RN in stable condition.
--- NOTE | 2020-07-20 10:31 | Discharge Summary ---
Discharge Summary Discharge Summary _ Discharge summary DATE OF ADMISSION: 07/10/2020 DATE OF DISCHARGE: 07/18/2020 DISCHARGED BY: Dr. 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 Blood pressure was 76/42 at the nursing facility. Upon evaluation in the emergency room he was hypotensive , tachycardic and hypoxic. Chest x-ray revealed bilateral infiltrates, concerning for multifocal pneumonia. Laboratory work-up revealed leukocytosis WBC 22 hemoglobin 12.9, hematocrit 28.7, platelet count 174. Lactic acid 3.0. BUN 34, creatinine 1.6. Stable LFT. Troponin negative . EKG revealed sinus tachycardia with T wave inversion in lead V3, otherwise normal. No ectopy. Urinalysis revealed +2 protein , no evidence of UTI . Central line was placed by emergency room physician for pressors. Septic work-up initiated , and patient subsequently admitted for septic shock and pneumonia. CONSULTANTS: pulmonary Alaina Giles ID specialist Dr. Salinas tool sharpener Dr Stevenson plastic surgeon [facility] COURSE: Patient initially admitted to ICU. Patient started on IV hydration, pressors and empiric antibiotic. Hemodynamic status was closely monitored. Pressors titrated to keep mean arterial blood pressure above 65. ABG was stable on trach collar . FiO2 titrated to keep pulse oximetry above 92%. Pulmonary toilet and tracheostomy care provided. Patient shortly was able to be weaned off pressors. Blood culture initially revealed Staph epidermidis , repeated blood cultures were negative. Initial blood culture were most likely contaminant. Rapid COVID-19 in emergency department and repeated the next day were both negative. Sputum culture revealed Strep group G and Pseudomonas aeruginosa. Antibiotics provided as per ID specialist recommendations. Leukocytosis and occasional fevers resolved. In fact patient developed leukopenia. ID specialist recommended continue antibiotics in the facility for total treatment of 14 days to complete the course. DVT prophylaxis provided. Aspiration precautions maintained. Acute kidney injury resolved, was most likely secondary to dehydration. Electrolytes corrected as needed , and nephrotoxic's were avoided. Upon discharge BUN 15, creatinine 0.7, all electrolytes stable . Hemoglobin and hematocrit were closely monitored with goal to keep hemoglobin above 7. Patient became pancytopenic on WBC 3.2, hemoglobin 10.6 ,and platelet count 129. Counts were closely monitored, and prior to discharge WBC up to 4.1 , hemoglobin up to 13.2 and thrombocytopenia resolved. TSH within normal limits, and current dose of levothyroxine was continued. Bowel regimen instituted. Plastic surgeon seen the patient regarding a granulation tissue at the G-tube site . At this time , given small amount of granulation, she recommended just to monitor it , but if it increases in volume , then silver nitrate can be used to shrink it. G-tube appeared to be clean , without sign of infection. Surgeon also recommended measures to prevent pressure ulcer . Tube feeding formula with goal rate and protein supplements provided as per registered dietitian recommendation. Patient clinically stabilized and was ready for transfer back to subacute custodial facility for continuation of care. FINAL DIAGNOSES: Septic shock Bilateral pneumonia , probably aspiration CVA due to TBI with history of SDH Status post hemilobectomy ZIGGY secondary to dehydration -resolved COPD Seizure disorder Chronic encephalopathy/chronic vegetative state Anemia Pancytopenia Dysphagia feeding by G-tube DISCHARGE MEDICATIONS: See Medication Reconciliation list. DISCHARGE INSTRUCTIONS: Patient was discharged to the custodial facility. Follow up with medical doctor at the facility. I have been assigned to dictate discharge summary for this account. Regla Henderson NP Jul 20, 2020 10:31
--- NOTE | 2020-07-20 12:33 | NUR ---
INSURANCE DC SUMMARY FAXED TO [employer] [phone] [id number]
== END 2020-07-18 17:30 | DRG 871 ==
LOC: EDBD 14:55 → EMR 15:05 → EDBEDREQ 15:42 → ICU 19:32 → EDBEDREQ 19:33 → 2W 07-13 17:57
PROC: 06HM33Z Insertion of Infusion Device into Right Femoral Vein, Percutaneous Approach (ICD-10-PCS; principal; 2020-07-10)
DX: A41.1 Sepsis due to other specified staphylococcus (principal); R65.21 Severe sepsis with septic shock; J69.0 Pneumonitis due to inhalation of food and vomit; J15.1 Pneumonia due to Pseudomonas; J15.4 Pneumonia due to other streptococci; N17.9 Acute kidney failure, unspecified; J96.10 Chronic respiratory failure, unspecified whether with hypoxia or hypercapnia; I82.509 Chronic embolism and thrombosis of unspecified deep veins of unspecified lower extremity; D61.818 Other pancytopenia; Z43.1 Encounter for attention to gastrostomy; R40.3 Persistent vegetative state; G93.49 Other encephalopathy; I10 Essential (primary) hypertension; S06.5X9S Traumatic subdural hemorrhage with loss of consciousness of unspecified duration, sequela; X58.XXXS Exposure to other specified factors, sequela; Z79.01 Long term (current) use of anticoagulants; Z88.1 Allergy status to other antibiotic agents; G40.909 Epilepsy, unspecified, not intractable, without status epilepticus; E86.0 Dehydration; Z87.820 Personal history of traumatic brain injury; R13.10 Dysphagia, unspecified; J44.9 Chronic obstructive pulmonary disease, unspecified; Z43.0 Encounter for attention to tracheostomy; E87.8 Other disorders of electrolyte and fluid balance, not elsewhere classified
CPT/HCPCS: 36415; 71045; 80048; 80053; 80076; 80150; 80202; 81003; 82248; 82550; 82553; 82607; 82728; 82746; 82803; 82962; 83540; 83550; 83605; 83690; 83735; 83880; 84100; 84443; 84484; 84550; 85007; 85025; 85610; 85651; 85730; 86140; 86710; 86850; 86900; 86901; 87040; 87070; 87081; 87181; 87205; 93005; 93306; 96365; 96366; 96368; 99291; J7030; U0002